=== PATIENT | male | born 1970 | race Caucasian/White ===

== ENCOUNTER 2019-04-30 12:53 | Emergency (ER) | payer OTHER, SELFPAY ==
[2019-04-30 13:10] VITALS: BP 116/78; PULSE 102; RESP 20; TEMP 35.9; O2SAT 98
--- NOTE | 2019-04-30 13:19 | ED.URI ---
HPI - URI/Sore Throat General Chief Complaint: Upper Respiratory Infection Stated Complaint: ear pn/cough/runny nose/nausea Time Seen by Provider: 04/30/19 13:11 Source: patient and RN notes reviewed Mode of arrival: ambulatory Limitations: no limitations History of Present Illness HPI Narrative: Patient presents today with a 2-week history of nasal congestion, ear clogging and ringing, left greater than right, cough, wheezing, nausea. Reports 1 week history of diarrhea. Denies fever sore throat. Reports symptoms have been worsening since onset. History of asthma for which she is he uses a rescue inhaler. He has tried [id number] cough and cold medication as well as Mucinex without relief. MD elicited complaint: cough, nasal congestion and other (Ear pain) Related Data Home Medications Medication Instructions Recorded Confirmed allopurinol 100 mg PO DAILY 01/28/19 04/30/19 prednisone 10 mg PO DAILY 01/28/19 04/30/19 Allergies Allergy/AdvReac Type Severity Reaction Status Date / Time doxycycline Allergy Anaphylaxis Verified 04/30/19 13:10 Review of Systems Review of Systems: Narrative: CONSTITUTIONAL: Denies body aches, fever, chills, or sweats. EYES: Denies visual changes, redness, or discharge. ENT: Denies rhinorrhea, , sore throat. + Bilateral ear pain, ringing, clogging. + Congestion CARDIOVASCULAR: Denies chest pain, palpitations, or edema. RESPIRATORY: + Cough, wheezing GASTROINTESTINAL: Denies abdominal pain, vomiting. + Nausea, diarrhea GENITOURINARY: Denies dysuria or hematuria. SKIN: Denies rash, itching, or wounds. MUSCULOSKELETAL: Denies back pain, joint pain, or myalgia. NEUROLOGIC: Denies headache, numbness, tingling, or weakness. PSYCH: Denies depression or anxiety. 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 Please see nursing chart for further information. There is no relevant family history pertinent to the presenting complaint Exam Narrative: Exam Narrative: GENERAL: Mildly ill-appearing, well-nourished, and in no acute distress. HEAD: Normocephalic, atraumatic. EYES: EOMI. No redness or drainage. Conjunctivae normal. ENT: Mucous membranes pink and moist. Nares congested. No rhinorrhea. Bilateral TMs are severely erythematous and bulging with yellow purulent material. Throat normal. Uvula midline. NECK: Normal AROM. Supple. No lymphadenopathy. CHEST: No respiratory distress. Clear to auscultation. HEART: Regular rate and rhythm. No murmur appreciated. Normal peripheral pulses. EXTREMITIES: Normal range of motion. No edema. SKIN: Warm, dry, no rash. NEURO: No focal deficits. Alert and oriented x3. Gait steady. PSYCH: Normal affect. No signs of depression or anxiety. Course Vital Signs Vital signs: Vital Signs Temperature 96.7 F L 04/30/19 13:10 Pulse Rate 102 H 04/30/19 13:10 Respiratory Rate 04/30/19 13:10 Blood Pressure 116/78 04/30/19 13:10 Pulse Oximetry 98 04/30/19 13:10 Temperature 96.7 F L 04/30/19 13:10 Pulse Rate 102 H 04/30/19 13:10 Respiratory Rate 04/30/19 13:10 Blood Pressure 116/78 04/30/19 13:10 Pulse Oximetry 98 04/30/19 13:10 Reviewed MDM - URI/Sore Throat Differential Diagnosis Differential diagnosis: Likely upper respiratory infection, otit
== END 2019-04-30 13:30 | disposition home or self-care (01) ==
PROVIDERS: Emergency Provider Nurse Practitioner
DX: H66.003 Acute suppurative otitis media without spontaneous rupture of ear drum, bilateral (principal); J45.901 Unspecified asthma with (acute) exacerbation; F17.210 Nicotine dependence, cigarettes, uncomplicated; E11.9 Type 2 diabetes mellitus without complications; M10.9 Gout, unspecified; D89.9 Disorder involving the immune mechanism, unspecified
CPT/HCPCS: 87804; 99213; G0463

== ENCOUNTER 2020-08-25 12:16 | Outpatient (CLI) | payer OTHER, SELFPAY ==
[2020-08-25 12:43] LABS: Basophils Absolute Auto 0.05 K/mm3 (0.00-0.10); Basophils Percent Auto 0.8 % (0.0-1.0); Eosinophils Absolute Auto 0.23 K/mm3 (0.02-0.50); Eosinophils Percent Auto 3.8 % (1.0-6.0); Hematocrit 40.7 % (40.0-54.0); Hemoglobin 14.1 g/dL (14.0-18.0); Immature Granulocyte Absolute 0.02 K/mm3 (0.00-0.00); Immature Granulocyte Percent A 0.3 % (0.0-0.0); Lymphocytes Absolute Auto 2.15 K/mm3 (1.10-4.50); Lymphocytes Percent Auto 35.2 % (18.0-42.0); Mean Corpuscular HGB Conc 34.6 g/dL (32.0-36.0); Mean Corpuscular Hemoglobin 30.7 pg (27.0-31.0); Mean Corpuscular Volume 88.7 fL (78.0-102.0); Mean Platelet Volume 8.7 fl (8.7-11.0); Monocytes Absolute Auto 0.32 K/mm3 (0.10-0.90); Monocytes Percent Auto 5.2 % (2.0-11.0); Neutrophils Absolute Auto 3.3 K/mm3 (1.7-7.2); Neutrophils Percent Auto 54.7 % (50.0-70.0); Platelet Count Result 247 K/mm3 (150-420); Red Blood Count 4.59 M/mm3 (4.70-6.10); Red Cell Distribution Width 12.9 % (11.6-14.4); White Blood Count 6.1 K/mm3 (4.8-10.8)
[2020-08-25 13:47] LABS: Alanine Aminotransferase 26 U/L (16-63); Albumin Level 4.1 g/dL (3.4-5.0); Alkaline Phosphatase 105 U/L (46-116); Anion Gap 14 mmol/L (8-16); Aspartate Amino Transferase 11 U/L (15-37); Bilirubin,Total 0.5 mg/dL (0.00-1.00); Blood Urea Nitrogen 13 mg/dL (7-18); Calcium 8.8 mg/dL (8.5-10.1); Carbon Dioxide 26 mmol/L (21-32); Chloride 104 mmol/L (98-108); Estimated Glomerular Filt Rate > 60; Glucose 141 mg/dL (70-99); Osmolality Calculated 300 mOsm/kg (285-295); Potassium 4.5 mmol/L (3.5-5.1); Sodium 144 mmol/L (136-145); Total Protein 6.4 g/dL (6.4-8.2)
== END 2020-08-25 12:17 | disposition home or self-care (01) ==
PROVIDERS: PCP Family Medicine
DX: L40.9 Psoriasis, unspecified (principal)
CPT/HCPCS: 36415; 80053; 85025

== ENCOUNTER 2020-11-05 11:46 | Outpatient (CLI) | payer OTHER, SELFPAY ==
[2020-11-05 12:05] LABS: Basophils Absolute Auto 0.06 K/mm3 (0.00-0.10); Basophils Percent Auto 0.8 % (0.0-1.0); Eosinophils Absolute Auto 0.49 K/mm3 (0.02-0.50); Eosinophils Percent Auto 6.8 % (1.0-6.0); Hematocrit 44.6 % (40.0-54.0); Hemoglobin 15.1 g/dL (14.0-18.0); Immature Granulocyte Absolute 0.01 K/mm3 (0.00-0.00); Immature Granulocyte Percent A 0.1 % (0.0-0.0); Lymphocytes Absolute Auto 2.85 K/mm3 (1.10-4.50); Lymphocytes Percent Auto 39.4 % (18.0-42.0); Mean Corpuscular HGB Conc 33.9 g/dL (32.0-36.0); Mean Corpuscular Hemoglobin 31.7 pg (27.0-31.0); Mean Corpuscular Volume 93.7 fL (78.0-102.0); Mean Platelet Volume 8.8 fl (8.7-11.0); Monocytes Percent Auto 6.9 % (2.0-11.0); Neutrophils Absolute Auto 3.3 K/mm3 (1.7-7.2); Platelet Count Result 266 K/mm3 (150-420); Red Blood Count 4.76 M/mm3 (4.70-6.10); Red Cell Distribution Width 13.7 % (11.6-14.4); White Blood Count 7.2 K/mm3 (4.8-10.8)
[2020-11-05 12:36] LABS: Alanine Aminotransferase 47 U/L (16-63); Albumin Level 4.5 g/dL (3.4-5.0); Alkaline Phosphatase 100 U/L (46-116); Anion Gap 10 mmol/L (8-16); Aspartate Amino Transferase 20 U/L (15-37); Bilirubin,Total 0.8 mg/dL (0.00-1.00); Blood Urea Nitrogen 16 mg/dL (7-18); Calcium 9.3 mg/dL (8.5-10.1); Carbon Dioxide 29 mmol/L (21-32); Chloride 104 mmol/L (98-108); Estimated Glomerular Filt Rate > 60; Glucose 114 mg/dL (70-99); Osmolality Calculated 298 mOsm/kg (285-295); Potassium 4.4 mmol/L (3.5-5.1); Sodium 143 mmol/L (136-145); Total Protein 6.8 g/dL (6.4-8.2)
== END 2020-11-05 11:47 | disposition home or self-care (01) ==
LOC: CHSLAB 11:51
PROVIDERS: PCP Family Medicine
DX: Z79.899 Other long term (current) drug therapy (principal)
CPT/HCPCS: 36415; 80053; 85025

== ENCOUNTER 2021-10-19 10:11 | Outpatient (CLI) | payer OTHER, SELFPAY ==
--- NOTE | 2021-10-19 | ECG_ITS ---
Measurements Intervals [place] Rate: 58 P: 28 HI: 200 QRS: -10 QRSD: 95 T: 13 QT: 393 QTc: 387 Interpretive Statements SINUS BRADYCARDIA LOW QRS VOLTAGE IN PRECORDIAL LEADS [QRS DEFLECTION < 1.0 mV IN CHEST LEADS] NO PREVIOUS ECG AVAILABLE FOR COMPARISON Electronically Signed On 10-19-2021 19:58:48 CDT by Ros Rhodes M.D.
== END 2021-10-19 10:12 | disposition home or self-care (01) ==
PROVIDERS: PCP Family Medicine; Visit Provider Nurse Practitioner Adult Health
DX: R00.2 Palpitations (principal); R07.9 Chest pain, unspecified
CPT/HCPCS: 93005

== ENCOUNTER 2021-11-21 11:11 | Outpatient (CLI) | payer OTHER, SELFPAY ==
--- NOTE | ~2021-11-21 | XR_ITS ---
XR hip RT min 2V 11/21/2021 11:40 Indication: Right hip pain. Bursitis. Procedure: 2 views right hip Comparison: No prior studies for comparison. Findings: There is mixed lytic and sclerotic appearance to the femoral head, suspicious for avascular necrosis. There is a sclerotic tract in the right femoral neck, likely posttraumatic. No acute fract ure or traumatic malalignment. Impression: 1: No acute fracture. 2: Possible avascular necrosis of the femoral head. Reviewed, dictated and finalized at location A. Impression: 1: No acute fracture. 2: Possible avascular necrosis of the femoral head.
== END 2021-11-21 11:12 | disposition home or self-care (01) ==
PROVIDERS: PCP Family Medicine; Visit Provider Nurse Practitioner Adult Health
DX: M70.71 Other bursitis of hip, right hip (principal)
CPT/HCPCS: 73502

== ENCOUNTER 2021-11-25 10:02 | Outpatient (CLI) | payer OTHER, SELFPAY ==
--- NOTE | ~2021-11-25 | NM_ITS ---
EXAMINATION: NM vasyl stress w perfusion DATE: 11/25/2021 12:51 INDICATION: Chest pain, unspecified. TECHNIQUE: Rest images were obtained following intravenous administration of 9.5 mCi Tc99m tetrofosmi n (Myoview). The patient was infused intravenously with Lexiscan (regadenoson). Then, 29.2 mCi Tc99m tetrofosmin (Myoview) was administered intravenously, and stress images were obtained. Data was recon structed into short axis and horizontal and vertical long axis SPECT images. Gated SPECT images were also obtained. COMPARISON: CT abdomen and pelvis 09/05/2013 FINDINGS: There is no definite reversible or fixed perfusion abnormality to suggest ischemia or infar ction. There is no segmental wall motion abnormality. Left ventricular ejection fraction measures 5 0%. IMPRESSION: 1. No definite ischemia or infarct. 2. Normal left ventricular ejection fraction measuring 50%. Reviewed, dictated and finalized at location B.
--- NOTE | 2021-11-25 10:16 | EST_ITS ---
Patient Info Name: Moustapha Peter Age: 51 years : 1970 Gender: Male Ht: 72 in Wt: 250 lbs BSA: 2.44 m2 HR: 65 bpm BP: 115 / 78 mmHg Heart Rhythm: Sinus Rhythm Exam Date: 11/25/2021 11:25 AM Exam Location: [facility] Stress Patient Status: Outpatient Admit Date: 11/25/2021 Staff Ordering Physician: Lenard Macario DO Attending Provider: Lenard Macario DO Exercise Technologist: Nickie Roblero CT Exercise Physician: Lenard Macario DO Exam Type: CA stress vasyl w NM Study Info Indications R07.9 - Chest pain, unspecified A regadenoson stress test was performed. Summary 1. 1. Negative lexiscan stress test for ischemic ST changes by ECG criteria. 2. 2. Stable hemodynamics throughout the test. 3. 3. Nuclear scan to follow and will be reported separately. Please correlate with it. 4. 4. Patient informed of the above results. Protocol: Lexiscan Stress ECG Details Stage: REST Duration (min): 0 min : 54 sec HR (bpm): 65 SBP (mmHg): 115 DBP (mmHg): 78 Stage: REST Duration (min): 16 min : 1 sec HR (bpm): 67 SBP (mmHg): 115 DBP (mmHg): 78 Stage: STAGE 1 Duration (min): 0 min : 59 sec HR (bpm): 89 SBP (mmHg): 116 DBP (mmHg): 87 Stage: RECOVERY Duration (min): 1 min : 0 sec HR (bpm): 86 SBP (mmHg): 116 DBP (mmHg): 87 Stage: RECOVERY Duration (min): 2 min : 0 sec HR (bpm): 79 SBP (mmHg): 116 DBP (mmHg): 87 Stage: RECOVERY Duration (min): 2 min : 54 sec HR (bpm): 75 SBP (mmHg): 118 DBP (mmHg): 83 Rest HR: 67 bpm Peak HR: 89 bpm Rest Sys BP: 115 mmHg Peak Sys BP: 118 mmHg Max Pred HR: 170 bpm % Max Pred HR: 52 % Target HR: 145 bpm Max RPP: 10,502 bpm*mmHg Termination Reason: Completed protocol Cardiac Symptoms: Shortness of breath Total Time: 1 min : 0 sec Rest Elias BP: 78 mmHg Peak Elias BP: 83 mmHg Total Dose: 0.4 mg Resting ECG Sinus rhythm, low voltage in precordial leads, borderline T wave in anterolat/inf leads. Stress ECG No ST changes. Arrhythmias None. Report Signatures
== END 2021-11-25 10:03 | disposition home or self-care (01) ==
PROVIDERS: PCP Family Medicine; Visit Provider Internal Medicine Cardiovascular Disease
DX: R07.9 Chest pain, unspecified (principal)
CPT/HCPCS: 78452; 93017; A9502; J2785

== ENCOUNTER 2022-04-04 08:21 | Outpatient (CLI) | payer OTHER, SELFPAY ==
--- NOTE | 2022-04-22 21:33 | WPDHOMESLEEP ---
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 The patient occasionally awakens from sleep short of breath. He occasionally awakens at night with heartburn, belching or cough. He constantly snores loudly enough that others complain. He occasionally has trouble sleeping when he has a cold. He rarely wakes up gasping for air throughout the night. He frequently has breathing problems at night observed by himself or others. He occasionally sweats excessively at night. He frequently has heart palpitations or irregular heartbeats during the night. He occasionally falls asleep during the day but rarely falls asleep while driving. He rarely experiences loss of muscle tone when extremely emotional. He rarely has trouble at school or work due to sleepiness. He rarely feels unable to move when waking up or falling asleep. He rarely experiences vivid dreamlike scenes upon awakening or falling asleep. He occasionally feels afraid of going to sleep. He rarely has nightmares. He occasionally remembers his dreams. He occasionally has thoughts racing through his mind. He occasionally feels sad, depressed and anxious. He occasionally has muscular tension. He frequently notices parts of his body jerk. He frequently kicks during the night. He frequently has crawling and aching feelings in his legs and frequently has leg pain during the night. He denies grinding his teeth during sleep but occasionally awakens with morning jaw pain. He is constantly bothered by pain during the day and constantly awakened by pain during the night. He constantly wakes up feeling stiff in the morning. He constantly wakes up with sore or achy muscles. He frequently wakes up with pain in the neck, spine or other joints. He goes to bed at 2:00 a.m. on both weekdays and weekends. It takes him 30-45 minutes to fall asleep. He wakes up 3-5 times throughout the night to urinate or due to pain. He is able to fall back asleep within a few minutes. He wakes up between 8-10 a.m. on both weekdays and weekends. He typically gets 6-8 hours of sleep per night. He will stay in bed for a few minutes after waking up in the morning. He currently lives with his and child. He will consume caffeinated beverages within 2 hours of bedtime. He does not engage in physical exercise before bedtime. He will watch television before falling asleep. He denies taking naps in the afternoon or the evening. He drinks a few cups of caffeinated beverage per day. He is a former smoker. He denies alcohol and recreational drug use. 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
[2022-04-22 21:51] VITALS: BMI 33.2
--- NOTE | 2022-06-23 12:56 | SLEEP ---
New calls [id number]
== END 2022-04-11 09:25 | disposition home or self-care (01) ==
LOC: ANHCSM 08:22
PROVIDERS: PCP Family Medicine; Visit Provider Internal Medicine Cardiovascular Disease
DX: G47.10 Hypersomnia, unspecified (principal); G47.33 Obstructive sleep apnea (adult) (pediatric)
CPT/HCPCS: 95806

== ENCOUNTER 2022-05-18 19:46 | Outpatient (CLI) | payer OTHER, SELFPAY ==
--- NOTE | 2022-06-07 11:09 | SLEEP_ITS ---
This report was moved to the correct visit on 06/28/2022. Original report was signed by Andreina Zazueta MD 06/07/22 [id number]. 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 On 04/04/2022 he had a home sleep test with moderate obstructive sleep apnea AHI 29.8 with severe desaturation to 40%. He has palpitations. The patient occasionally awakens from sleep short of breath.? He occasionally awakens at night with heartburn, belching or cough.? He constantly snores loudly enough that others complain.? He occasionally has trouble sleeping when he has a cold.? He rarely wakes up gasping for air throughout the night.? He frequently has breathing problems at night observed by himself or others.? He occasionally sweats excessively at night.? He frequently has heart palpitations or irregular heartbeats during the night.? He occasionally falls asleep during the day but rarely falls asleep while driving.? He rarely experiences loss of muscle tone when extremely emotional.? He rarely has trouble at school or work due to sleepiness.? He rarely feels unable to move when waking up or falling asleep.? He rarely experiences vivid dreamlike scenes upon awakening or falling asleep.? He occasionally feels afraid of going to sleep.? He rarely has nightmares.? He occasionally remembers his dreams.? He occasionally has thoughts racing through his mind.? He occasionally feels sad, depressed and anxious.? He occasionally has muscular tension.? He frequently notices parts of his body jerk.? He frequently kicks during the night.? He frequently has crawling and aching feelings in his legs and frequently has leg pain during the night.? He denies grinding his teeth during sleep but occasionally awakens with morning jaw pain.? He is constantly bothered by pain during the day and constantly awakened by pain during the night.? He constantly wakes up feeling stiff in the morning.? He constantly wakes up with sore or achy muscles.? He frequently wakes up with pain in the neck, spine or other joints.? He goes to bed at 2:00 a.m. on both weekdays and weekends.? It takes him 30-45 minutes to fall asleep.? He wakes up 3-5 times throughout the night to urinate or due to pain.? He is able to fall back asleep within a few minutes.? He wakes up between 8-10 a.m. on both weekdays and weekends.? He typically gets 6-8 hours of sleep per night.? He will stay in bed for a few minutes after waking up in the morning.? He currently lives with his and child.? He will consume caffeinated beverages within 2 hours of bedtime.? He does not engage in physical exercise before bedtime.? He will watch television before falling asleep.? He denies taking naps in the afternoon or the evening.? He drinks a few cups of caffeinated beverage per day.? He is a former smoker. He denies alcohol and recreational drug use. 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
== END 2022-05-19 05:53 | disposition home or self-care (01) ==
PROVIDERS: PCP Family Medicine; Visit Provider Internal Medicine Cardiovascular Disease
DX: G47.33 Obstructive sleep apnea (adult) (pediatric) (principal)
CPT/HCPCS: 95811

== ENCOUNTER 2022-07-03 10:18 | Outpatient (CLI) | payer OTHER, SELFPAY ==
[2022-07-03 10:54] LABS: Hemoglobin A1C 5.5 % (<5.7)
[2022-07-03 11:04] LABS: Alanine Aminotransferase 43 U/L (6-50); Albumin Level 4.4 g/dL (3.5-5.1); Alkaline Phosphatase 88 U/L (38-126); Anion Gap 6 mmol/L (8-16); Aspartate Amino Transferase 32 U/L (17-59); Bilirubin,Total 0.6 mg/dL (0.2-1.3); Blood Urea Nitrogen 14 mg/dL (9-20); Carbon Dioxide 29 mmol/L (22-30); Chloride 103 mmol/L (98-107); Cholesterol 215 mg/dL (0-200); Estimated Glomerular Filt Rate > 60; Glucose 102 mg/dL (65-110); HDL Direct 43 mg/dL; Potassium 4.3 mmol/L (3.4-5.0); Sodium 138 mmol/L (137-145); Triglycerides 146 mg/dL (<150)
[2022-07-03 11:14] LABS: LDL Cholesterol Direct 143 mg/dL
== END 2022-07-03 10:19 | disposition home or self-care (01) ==
PROVIDERS: PCP Family Medicine; Referring Provider Family Medicine; Visit Provider Internal Medicine Cardiovascular Disease
DX: E78.5 Hyperlipidemia, unspecified (principal); E11.9 Type 2 diabetes mellitus without complications
CPT/HCPCS: 36415; 80053; 80061; 83036

== ENCOUNTER 2022-09-06 11:14 | Outpatient (CLI) | payer OTHER, SELFPAY ==
[2022-09-06 12:25] LABS: Alanine Aminotransferase 34 U/L (6-50); Albumin Level 4.5 g/dL (3.5-5.1); Alkaline Phosphatase 91 U/L (38-126); Anion Gap 8 mmol/L (8-16); Aspartate Amino Transferase 28 U/L (17-59); Blood Urea Nitrogen 13 mg/dL (9-20); Calcium 9.2 mg/dL (8.4-10.2); Carbon Dioxide 28 mmol/L (22-30); Chloride 102 mmol/L (98-107); Cholesterol 158 mg/dL (0-200); Estimated Glomerular Filt Rate > 60; Glucose 103 mg/dL (65-110); HDL Direct 43 mg/dL; Sodium 138 mmol/L (137-145); Triglycerides 137 mg/dL (<150)
[2022-09-06 12:36] LABS: LDL Cholesterol Direct 86 mg/dL
== END 2022-09-06 11:15 | disposition home or self-care (01) ==
LOC: ANHLAB 11:15
PROVIDERS: PCP Family Medicine; Visit Provider Internal Medicine Cardiovascular Disease
DX: E78.5 Hyperlipidemia, unspecified (principal)
CPT/HCPCS: 36415; 80053; 80061

== ENCOUNTER 2022-10-13 10:01 | Outpatient (CLI) | payer OTHER, SELFPAY ==
[2022-10-13 12:52] LABS: Hemoglobin A1C 5.7 % (<5.7)
== END 2022-10-13 10:02 | disposition home or self-care (01) ==
LOC: ANHLAB 10:02
PROVIDERS: PCP Family Medicine; Visit Provider Nurse Practitioner Adult Health
DX: E11.9 Type 2 diabetes mellitus without complications (principal)
CPT/HCPCS: 36415; 83036

== ENCOUNTER 2022-11-29 11:24 | Outpatient (CLI) | payer OTHER, SELFPAY ==
[2022-11-29 12:06] LABS: Basophils Absolute Auto 0.1 K/mm3 (0.0-0.1); Basophils Percent Auto 0.7 % (0.2-1.2); Eosinophils Absolute Auto 0.3 K/mm3 (0-0.3); Eosinophils Percent Auto 3.9 % (0-4.4); Hematocrit 41.5 % (42.0-52.0); Hemoglobin 13.8 g/dL (14.0-18.0); Immature Granulocyte Absolute 0.03 K/mm3 (0.00-0.031); Immature Granulocyte Percent A 0.4 % (0-0.5); Lymphocytes Absolute Auto 3.47 K/mm3 (0.9-3.2); Lymphocytes Percent Auto 48.7 % (18.3-44.2); Mean Corpuscular HGB Conc 33.3 g/dl (32-36); Mean Corpuscular Hemoglobin 31.2 pg (26-34); Mean Corpuscular Volume 93.7 fl (80-100); Mean Platelet Volume 8.9 fl (7.4-10.4); Monocytes Absolute Auto 0.5 K/mm3 (0.1-0.6); Monocytes Percent Auto 6.5 % (2.6-8.5); Neutrophils Absolute Auto 2.8 K/mm3 (1.3-6.7); Neutrophils Percent Auto 39.8 % (45.5-73.1); Platelet Count Result 296 k/mm3 (150-375); Red Blood Count 4.43 M/mm3 (4.6-6.20); Red Cell Distribution Width 12.4 % (11.5-14.5); White Blood Count 7.1 K/mm3 (4.5-10.0)
[2022-11-29 12:14] LABS: Appearance Urine Clear (Clear); Bilirubin Urine Negative (Negative); Blood Urine Negative (Negative); Color Urine Yellow (Yellow); Glucose Urine UA Negative (Negative); Ketones Urine Negative (Negative); Leukocyte Esterase Ur Negative LEU/UL (NEGATIVE); Nitrate Urine Negative (Negative); Protein Urine Negative (Negative); Specific Grav Ur 1.028 (1.001-1.035)
[2022-11-29 12:15] LABS: Alanine Aminotransferase 35 U/L (6-50); Albumin Level 3.9 g/dL (3.5-5.1); Alkaline Phosphatase 87 U/L (38-126); Anion Gap 6 mmol/L (8-16); Aspartate Amino Transferase 34 U/L (17-59); Bilirubin,Total 0.7 mg/dL (0.2-1.3); Blood Urea Nitrogen 13 mg/dL (9-20); Calcium 8.9 mg/dL (8.4-10.2); Carbon Dioxide 29 mmol/L (22-30); Chloride 102 mmol/L (98-107); Estimated Glomerular Filt Rate > 60; Glucose 108 mg/dL (65-110); Sodium 137 mmol/L (137-145); Uric Acid 5.2 mg/dL (3.5-8.5)
[2022-11-29 12:39] LABS: Creatinine Urine 273.2 mg/dL
[2022-11-29 12:43] LABS: Microalbumin Urine Random 8.3 mg/L (0-16.7)
[2022-11-29 12:44] LABS: Add Urine Microscopic? NO
[2022-11-29 12:46] LABS: Total Triiodothyronine (T3) 1.85 NG/ML (0.97-1.69)
[2022-11-29 13:01] LABS: Free T4 Free Thyroxine 0.86 ng/mL (0.78-2.19)
== END 2022-11-29 11:25 | disposition home or self-care (01) ==
LOC: ANHLAB 11:25
PROVIDERS: PCP Family Medicine; Visit Provider Nurse Practitioner Adult Health
DX: R00.2 Palpitations (principal)
CPT/HCPCS: 36415; 80053; 81003; 82043; 84439; 84443; 84480; 84550; 85025

== ENCOUNTER 2023-03-23 09:45 | Outpatient (CLI) | payer OTHER, SELFPAY ==
[2023-03-23 10:31] LABS: Basophils Absolute Auto 0.1 K/mm3 (0.0-0.1); Basophils Percent Auto 0.8 % (0.2-1.2); Eosinophils Absolute Auto 0.2 K/mm3 (0-0.3); Eosinophils Percent Auto 3.6 % (0-4.4); Hematocrit 43.5 % (42.0-52.0); Hemoglobin 14.6 g/dL (14.0-18.0); Immature Granulocyte Absolute 0.01 K/mm3 (0.00-0.031); Immature Granulocyte Percent A 0.2 % (0-0.5); Lymphocytes Absolute Auto 2.84 K/mm3 (0.9-3.2); Lymphocytes Percent Auto 46.4 % (18.3-44.2); Mean Corpuscular HGB Conc 33.6 g/dl (32-36); Mean Corpuscular Hemoglobin 31.3 pg (26-34); Mean Corpuscular Volume 93.1 fl (80-100); Mean Platelet Volume 8.9 fl (7.4-10.4); Monocytes Absolute Auto 0.4 K/mm3 (0.1-0.6); Monocytes Percent Auto 6.4 % (2.6-8.5); Neutrophils Absolute Auto 2.6 K/mm3 (1.3-6.7); Neutrophils Percent Auto 42.6 % (45.5-73.1); Platelet Count Result 216 k/mm3 (150-375); Red Blood Count 4.67 M/mm3 (4.6-6.20); Red Cell Distribution Width 12.3 % (11.5-14.5); White Blood Count 6.1 K/mm3 (4.5-10.0)
[2023-03-23 10:47] LABS: Alanine Aminotransferase 28 U/L (6-50); Albumin Level 4.3 g/dL (3.5-5.1); Alkaline Phosphatase 87 U/L (38-126); Anion Gap 7 mmol/L (8-16); Aspartate Amino Transferase 27 U/L (17-59); Bilirubin,Total 1.1 mg/dL (0.2-1.3); Blood Urea Nitrogen 14 mg/dL (9-20); Calcium 9.7 mg/dL (8.4-10.2); Carbon Dioxide 26 mmol/L (22-30); Chloride 105 mmol/L (98-107); Cholesterol 163 mg/dL (0-200); Estimated Glomerular Filt Rate > 60; Glucose 105 mg/dL (65-110); HDL Direct 41 mg/dL; Potassium 4.3 mmol/L (3.4-5.0); Sodium 138 mmol/L (137-145); Triglycerides 188 mg/dL (<150); Uric Acid 5.1 mg/dL (3.5-8.5)
[2023-03-23 11:02] LABS: Hemoglobin A1C 6.2 % (<5.7)
[2023-03-23 11:03] LABS: LDL Cholesterol Direct 94 mg/dL
[2023-03-23 11:18] LABS: Free T4 Free Thyroxine 0.82 ng/mL (0.78-2.19); Prostate Specific Antigen 0.4 ng/mL (< OR = 4.0); Total Triiodothyronine (T3) 1.53 NG/ML (0.97-1.69); Vitamin D 25 Hydroxy 18.8 ng/mL
[2023-03-27 03:48] LABS: Sex Hormone Binding Globulin 37 nmol/L (10-50)
[2023-03-27 11:18] LABS: Testosterone Total 242 ng/dL (250-1100)
[2023-03-28 05:50] LABS: FSH 46.1 mIU/mL (1.4-12.8); LH 9.1 mIU/mL (1.5-9.3); Prolactin 6.8 ng/mL (***)
== END 2023-03-23 09:46 | disposition home or self-care (01) ==
PROVIDERS: PCP Family Medicine
DX: E78.5 Hyperlipidemia, unspecified (principal); R73.01 Impaired fasting glucose; I10 Essential (primary) hypertension; M10.9 Gout, unspecified
CPT/HCPCS: 36415; 80053; 80061; 82306; 83001; 83002; 83036; 84146; 84153; 84270; 84402; 84403; 84439; 84443; 84480; 84550; 85025

== ENCOUNTER 2023-04-30 11:05 | Outpatient (CLI) | payer OTHER, SELFPAY ==
[2023-04-30 11:41] LABS: Basophils Absolute Auto 0.1 K/mm3 (0.0-0.1); Basophils Percent Auto 0.8 % (0.2-1.2); Eosinophils Absolute Auto 0.3 K/mm3 (0-0.3); Hemoglobin 14.6 g/dL (14.0-18.0); Immature Granulocyte Absolute 0.03 K/mm3 (0.00-0.031); Immature Granulocyte Percent A 0.4 % (0-0.5); Lymphocytes Absolute Auto 3.12 K/mm3 (0.9-3.2); Lymphocytes Percent Auto 41.5 % (18.3-44.2); Mean Corpuscular HGB Conc 33.2 g/dl (32-36); Mean Corpuscular Hemoglobin 31.6 pg (26-34); Mean Corpuscular Volume 95.2 fl (80-100); Mean Platelet Volume 9.1 fl (7.4-10.4); Monocytes Absolute Auto 0.5 K/mm3 (0.1-0.6); Monocytes Percent Auto 6.5 % (2.6-8.5); Neutrophils Absolute Auto 3.5 K/mm3 (1.3-6.7); Neutrophils Percent Auto 46.8 % (45.5-73.1); Platelet Count Result 244 k/mm3 (150-375); Red Blood Count 4.62 M/mm3 (4.6-6.20); White Blood Count 7.5 K/mm3 (4.5-10.0)
[2023-04-30 12:39] LABS: Hemoglobin A1C 5.9 % (<5.7)
[2023-04-30 12:53] LABS: Creatinine Urine 103.8 mg/dL
[2023-04-30 12:54] LABS: MALB Creatinine Ratio 19.7 mg/g (0-30); Microalbumin Urine Random 20.4 mg/L (0-16.7)
[2023-04-30 13:31] LABS: Free T4 Free Thyroxine 0.68 ng/mL (0.78-2.19)
[2023-04-30 14:28] LABS: Alanine Aminotransferase 23 U/L (6-50); Albumin Level 4.1 g/dL (3.5-5.1); Alkaline Phosphatase 102 U/L (38-126); Anion Gap 4 mmol/L (8-16); Aspartate Amino Transferase 21 U/L (17-59); Bilirubin,Total 0.8 mg/dL (0.2-1.3); Blood Urea Nitrogen 10 mg/dL (9-20); Calcium 9.4 mg/dL (8.4-10.2); Carbon Dioxide 28 mmol/L (22-30); Chloride 106 mmol/L (98-107); Cholesterol 155 mg/dL (0-200); Estimated Glomerular Filt Rate > 60; Glucose 108 mg/dL (65-110); HDL Direct 38 mg/dL; Potassium 4.1 mmol/L (3.4-5.0); Sodium 138 mmol/L (137-145); Triglycerides 183 mg/dL (<150); Uric Acid 5.1 mg/dL (3.5-8.5)
[2023-04-30 14:39] LABS: LDL Cholesterol Direct 93 mg/dL
[2023-04-30 15:00] LABS: Prostate Specific Antigen 0.5 ng/mL (< OR = 4.0); Total Triiodothyronine (T3) 1.17 NG/ML (0.97-1.69)
[2023-04-30 17:08] LABS: Vitamin D 25 Hydroxy 28.8 ng/mL
== END 2023-04-30 11:06 | disposition home or self-care (01) ==
LOC: ANHLAB 11:08
PROVIDERS: PCP Family Medicine; Visit Provider Family Medicine
DX: M62.81 Muscle weakness (generalized) (principal); E55.9 Vitamin D deficiency, unspecified; I10 Essential (primary) hypertension; E03.9 Hypothyroidism, unspecified; E78.5 Hyperlipidemia, unspecified; E11.9 Type 2 diabetes mellitus without complications; D64.9 Anemia, unspecified; N40.0 Benign prostatic hyperplasia without lower urinary tract symptoms
CPT/HCPCS: 36415; 80053; 80061; 82043; 82306; 83036; 84153; 84439; 84443; 84480; 84550; 85025; G0103

== ENCOUNTER 2023-05-25 07:26 | Outpatient (CLI) | payer OTHER, SELFPAY ==
--- NOTE | ~2023-05-25 | CT_ITS ---
EXAMINATION: CT lung screening DATE: 05/25/2023 07:40 INDICATION: Z87.891 - Personal history of nicotine dependence TECHNIQUE: Computed tomography (CT) of the chest was performed without intravenous contrast. Addition al 3D reconstructions utilizing coronal maximum intensity projection (MIP) were performed. Automated exposure control and iterative reconstruction technique were employed. The dose-length product was 36 1.51 mGy-cm. COMPARISON: None FINDINGS: Calcified nodules in the right upper and bilateral lower lobes along with calcified bilateral hilar a nd mediastinal lymph nodes consistent with old granulomatous disease. No other noncalcified nodules, pneumonia, pulmonary edema or other pulmonary infiltrates. Mild atelectasis at the right middle lobe and lingula. No pleural effusion. Thoracic aorta is normal in caliber. Small amount of atheroscleroti c coronary artery calcifications. No pericardial effusion. Thoracic aorta is normal in caliber. No pa thologically enlarged thoracic lymphadenopathy. Diffuse hepatic steatosis with focal sparing along th e gallbladder fossa. A few calcified gallstones in the midaspect of the visualized normal-appearing g allbladder. Mild thoracic spondylosis. IMPRESSION: 1. Lung-RADS category 1: Negative. Continue annual screening with noncontrast low-dose chest CT in 12 months. Reviewed, dictated and finalized at location A. IMPRESSION: 1. Lung-RADS category 1: Negative. Continue annual screening with noncontrast l ow-dose chest CT in 12 months.
== END 2023-05-25 07:27 | disposition home or self-care (01) ==
PROVIDERS: PCP Family Medicine; Visit Provider Nurse Practitioner Family
DX: Z12.2 Encounter for screening for malignant neoplasm of respiratory organs (principal); Z87.891 Personal history of nicotine dependence
CPT/HCPCS: 71271

== ENCOUNTER 2023-08-28 10:33 | Outpatient (CLI) | payer OTHER, SELFPAY ==
[2023-08-28 10:55] LABS: Basophils Percent Auto 0.4 % (0.2-1.2); Eosinophils Absolute Auto 0.2 K/mm3 (0-0.3); Eosinophils Percent Auto 2.6 % (0-4.4); Hematocrit 46.2 % (42.0-52.0); Hemoglobin 15.5 g/dL (14.0-18.0); Immature Granulocyte Absolute 0.02 K/mm3 (0.00-0.031); Immature Granulocyte Percent A 0.3 % (0-0.5); Lymphocytes Absolute Auto 2.92 K/mm3 (0.9-3.2); Lymphocytes Percent Auto 42.9 % (18.3-44.2); Mean Corpuscular HGB Conc 33.5 g/dl (32-36); Mean Corpuscular Hemoglobin 31.9 pg (26-34); Mean Corpuscular Volume 95.1 fl (80-100); Mean Platelet Volume 8.8 fl (7.4-10.4); Monocytes Absolute Auto 0.5 K/mm3 (0.1-0.6); Monocytes Percent Auto 6.6 % (2.6-8.5); Neutrophils Absolute Auto 3.2 K/mm3 (1.3-6.7); Neutrophils Percent Auto 47.2 % (45.5-73.1); Platelet Count Result 219 k/mm3 (150-375); Red Blood Count 4.86 M/mm3 (4.6-6.20); Red Cell Distribution Width 12.3 % (11.5-14.5); White Blood Count 6.8 K/mm3 (4.5-10.0)
[2023-08-28 11:21] LABS: Alanine Aminotransferase 23 U/L (6-50); Albumin Level 4.5 g/dL (3.5-5.1); Alkaline Phosphatase 101 U/L (38-126); Anion Gap 10 mmol/L (4-12); Aspartate Amino Transferase 23 U/L (17-59); Bilirubin,Total 0.9 mg/dL (0.2-1.3); Blood Urea Nitrogen 12 mg/dL (9-20); Calcium 9.4 mg/dL (8.4-10.2); Carbon Dioxide 27 mmol/L (22-30); Chloride 103 mmol/L (98-107); Cholesterol 150 mg/dL (0-200); Estimated Glomerular Filt Rate > 60; Glucose 109 mg/dL (65-110); HDL Direct 42 mg/dL; Potassium 4.8 mmol/L (3.4-5.0); Sodium 140 mmol/L (137-145); Triglycerides 164 mg/dL (<150); Uric Acid 5.9 mg/dL (3.5-8.5)
[2023-08-28 11:31] LABS: LDL Cholesterol Direct 86 mg/dL
[2023-08-29 18:12] LABS: Hemoglobin A1C 5.9 % (<5.7)
== END 2023-08-28 10:34 | disposition home or self-care (01) ==
PROVIDERS: PCP Family Medicine; Visit Provider Registered Nurse
DX: M10.9 Gout, unspecified (principal); E78.5 Hyperlipidemia, unspecified; I10 Essential (primary) hypertension; R73.01 Impaired fasting glucose
CPT/HCPCS: 36415; 80053; 80061; 83036; 84550; 85025

== ENCOUNTER 2023-09-17 11:52 | Outpatient (CLI) | payer OTHER, SELFPAY ==
[2023-09-17 13:15] LABS: Prostate Specific Antigen 0.7 ng/mL (< OR = 4.0)
== END 2023-09-17 11:53 | disposition home or self-care (01) ==
LOC: ANHLAB 11:54
PROVIDERS: PCP Family Medicine; Visit Provider Registered Nurse
DX: Z12.5 Encounter for screening for malignant neoplasm of prostate (principal)
CPT/HCPCS: 36415; 80053; 84153; 85025; G0103

== ENCOUNTER 2023-11-14 10:41 | Outpatient (CLI) | payer OTHER, SELFPAY ==
[2023-11-14 12:03] LABS: Creatinine Urine 325.1 mg/dL
[2023-11-14 12:07] LABS: Microalbumin Urine Random 45.6 mg/L (0-16.7)
== END 2023-11-14 10:42 | disposition home or self-care (01) ==
LOC: ANHLAB 10:43
PROVIDERS: PCP Family Medicine; Visit Provider Family Medicine
DX: R73.03 Prediabetes (principal)
CPT/HCPCS: 82043

== ENCOUNTER 2023-11-14 10:47 | Outpatient (RCR) | payer OTHER, SELFPAY ==
[2023-09-17 12:40] LABS: Basophils Percent Auto 0.5 % (0.2-1.2); Eosinophils Absolute Auto 0.1 K/mm3 (0-0.3); Hematocrit 46.9 % (42.0-52.0); Hemoglobin 15.7 g/dL (14.0-18.0); Immature Granulocyte Absolute 0.01 K/mm3 (0.00-0.031); Immature Granulocyte Percent A 0.1 % (0-0.5); Lymphocytes Absolute Auto 3.16 K/mm3 (0.9-3.2); Lymphocytes Percent Auto 40.9 % (18.3-44.2); Mean Corpuscular HGB Conc 33.5 g/dl (32-36); Mean Corpuscular Hemoglobin 31.4 pg (26-34); Mean Corpuscular Volume 93.8 fl (80-100); Mean Platelet Volume 9.2 fl (7.4-10.4); Monocytes Absolute Auto 0.5 K/mm3 (0.1-0.6); Neutrophils Percent Auto 51.5 % (45.5-73.1); Platelet Count Result 229 k/mm3 (150-375); Red Cell Distribution Width 12.8 % (11.5-14.5); White Blood Count 7.7 K/mm3 (4.5-10.0)
[2023-09-17 12:44] LABS: Alanine Aminotransferase 23 U/L (6-50); Albumin Level 4.7 g/dL (3.5-5.1); Alkaline Phosphatase 84 U/L (38-126); Anion Gap 10 mmol/L (4-12); Aspartate Amino Transferase 25 U/L (17-59); Blood Urea Nitrogen 14 mg/dL (9-20); Calcium 9.4 mg/dL (8.4-10.2); Carbon Dioxide 28 mmol/L (22-30); Chloride 100 mmol/L (98-107); Estimated Glomerular Filt Rate > 60; Glucose 103 mg/dL (65-110); Potassium 4.8 mmol/L (3.4-5.0); Sodium 138 mmol/L (137-145)
[2023-10-18 11:43] LABS: Basophils Percent Auto 0.5 % (0.2-1.2); Eosinophils Absolute Auto 0.1 K/mm3 (0-0.3); Eosinophils Percent Auto 1.6 % (0-4.4); Hematocrit 43.4 % (42.0-52.0); Hemoglobin 14.8 g/dL (14.0-18.0); Immature Granulocyte Absolute 0.01 K/mm3 (0.00-0.031); Immature Granulocyte Percent A 0.2 % (0-0.5); Lymphocytes Absolute Auto 2.86 K/mm3 (0.9-3.2); Lymphocytes Percent Auto 45.6 % (18.3-44.2); Mean Corpuscular HGB Conc 34.1 g/dl (32-36); Mean Corpuscular Hemoglobin 31.8 pg (26-34); Mean Corpuscular Volume 93.1 fl (80-100); Mean Platelet Volume 8.8 fl (7.4-10.4); Monocytes Absolute Auto 0.3 K/mm3 (0.1-0.6); Monocytes Percent Auto 4.5 % (2.6-8.5); Neutrophils Percent Auto 47.6 % (45.5-73.1); Platelet Count Result 232 k/mm3 (150-375); Red Blood Count 4.66 M/mm3 (4.6-6.20); Red Cell Distribution Width 13.3 % (11.5-14.5); White Blood Count 6.3 K/mm3 (4.5-10.0)
[2023-10-18 11:55] LABS: Alanine Aminotransferase 39 U/L (6-50); Albumin Level 4.6 g/dL (3.5-5.1); Alkaline Phosphatase 74 U/L (38-126); Anion Gap 13 mmol/L (4-12); Aspartate Amino Transferase 37 U/L (17-59); Bilirubin,Total 1.1 mg/dL (0.2-1.3); Blood Urea Nitrogen 15 mg/dL (9-20); Calcium 9.5 mg/dL (8.4-10.2); Carbon Dioxide 25 mmol/L (22-30); Chloride 98 mmol/L (98-107); Estimated Glomerular Filt Rate > 60; Glucose 95 mg/dL (65-110); Potassium 4.3 mmol/L (3.4-5.0); Sodium 136 mmol/L (137-145)
[2023-11-14 11:18] LABS: Basophils Percent Auto 0.5 % (0.2-1.2); Eosinophils Absolute Auto 0.1 K/mm3 (0-0.3); Immature Granulocyte Absolute 0.01 K/mm3 (0.00-0.031); Immature Granulocyte Percent A 0.2 % (0-0.5); Lymphocytes Absolute Auto 2.25 K/mm3 (0.9-3.2); Lymphocytes Percent Auto 37.6 % (18.3-44.2); Mean Corpuscular HGB Conc 33.3 g/dl (32-36); Mean Corpuscular Hemoglobin 31.7 pg (26-34); Mean Corpuscular Volume 95.1 fl (80-100); Mean Platelet Volume 8.8 fl (7.4-10.4); Monocytes Absolute Auto 0.3 K/mm3 (0.1-0.6); Monocytes Percent Auto 5.5 % (2.6-8.5); Neutrophils Absolute Auto 3.2 K/mm3 (1.3-6.7); Neutrophils Percent Auto 54.2 % (45.5-73.1); Platelet Count Result 231 k/mm3 (150-375); Red Blood Count 4.73 M/mm3 (4.6-6.20); Red Cell Distribution Width 13.8 % (11.5-14.5)
[2023-11-14 11:27] LABS: Alanine Aminotransferase 23 U/L (6-50); Albumin Level 4.4 g/dL (3.5-5.1); Alkaline Phosphatase 80 U/L (38-126); Anion Gap 10 mmol/L (4-12); Aspartate Amino Transferase 23 U/L (17-59); Blood Urea Nitrogen 13 mg/dL (9-20); Calcium 9.4 mg/dL (8.4-10.2); Carbon Dioxide 26 mmol/L (22-30); Chloride 102 mmol/L (98-107); Estimated Glomerular Filt Rate > 60; Glucose 143 mg/dL (65-110); Potassium 4.6 mmol/L (3.4-5.0); Sodium 138 mmol/L (137-145)
== END 2023-12-16 23:59 | disposition home or self-care (01) ==
LOC: ANHLAB 10:47
PROVIDERS: PCP Family Medicine
DX: Z51.81 Encounter for therapeutic drug level monitoring (principal); Z79.899 Other long term (current) drug therapy
CPT/HCPCS: 36415; 80053; 82043; 85025

== ENCOUNTER 2024-01-01 12:50 | Outpatient (CLI) | payer OTHER, SELFPAY ==
[2024-01-01 14:06] LABS: Prostate Specific Antigen 1.1 ng/mL (< OR = 4.0)
[2024-01-01 14:24] LABS: Hepatitis C Virus Antibody Negative (Negative)
[2024-01-01 18:42] LABS: Hemoglobin A1C 5.9 % (<5.7)
== END 2024-01-01 12:51 | disposition home or self-care (01) ==
LOC: ANHLAB 12:52
PROVIDERS: PCP Family Medicine; Visit Provider Family Medicine
DX: R73.03 Prediabetes (principal); Z12.5 Encounter for screening for malignant neoplasm of prostate; Z11.59 Encounter for screening for other viral diseases
CPT/HCPCS: 36415; 83036; 84153; 86803; G0103

== ENCOUNTER 2024-03-20 10:50 | Outpatient (RCR) | payer MEDICARE, MEDICAID, SELFPAY ==
[2024-01-01 13:24] LABS: Basophils Percent Auto 0.4 % (0.2-1.2); Eosinophils Absolute Auto 0.1 K/mm3 (0-0.3); Eosinophils Percent Auto 1.6 % (0-4.4); Hemoglobin 14.3 g/dL (14.0-18.0); Immature Granulocyte Absolute 0.03 K/mm3 (0.00-0.031); Immature Granulocyte Percent A 0.4 % (0-0.5); Lymphocytes Absolute Auto 3.19 K/mm3 (0.9-3.2); Lymphocytes Percent Auto 39.6 % (18.3-44.2); Mean Corpuscular Hemoglobin 32.4 pg (26-34); Mean Corpuscular Volume 95.2 fl (80-100); Mean Platelet Volume 8.8 fl (7.4-10.4); Monocytes Absolute Auto 0.3 K/mm3 (0.1-0.6); Monocytes Percent Auto 3.6 % (2.6-8.5); Neutrophils Absolute Auto 4.4 K/mm3 (1.3-6.7); Neutrophils Percent Auto 54.4 % (45.5-73.1); Platelet Count Result 291 k/mm3 (150-375); Red Blood Count 4.41 M/mm3 (4.6-6.20); Red Cell Distribution Width 13.3 % (11.5-14.5); White Blood Count 8.1 K/mm3 (4.5-10.0)
[2024-01-01 13:36] LABS: Alanine Aminotransferase 21 U/L (6-50); Albumin Level 4.3 g/dL (3.5-5.1); Alkaline Phosphatase 100 U/L (38-126); Anion Gap 7 mmol/L (4-12); Aspartate Amino Transferase 23 U/L (17-59); Bilirubin,Total 0.8 mg/dL (0.2-1.3); Blood Urea Nitrogen 16 mg/dL (9-20); Carbon Dioxide 28 mmol/L (22-30); Chloride 102 mmol/L (98-107); Estimated Glomerular Filt Rate > 60; Glucose 89 mg/dL (65-110); Potassium 4.4 mmol/L (3.4-5.0); Sodium 137 mmol/L (137-145)
[2024-03-20 11:11] LABS: Basophils Percent Auto 0.7 % (0.2-1.2); Eosinophils Absolute Auto 0.2 K/mm3 (0-0.3); Eosinophils Percent Auto 3.2 % (0-4.4); Hemoglobin 14.4 g/dL (14.0-18.0); Immature Granulocyte Absolute 0.01 K/mm3 (0.00-0.031); Immature Granulocyte Percent A 0.2 % (0-0.5); Lymphocytes Absolute Auto 2.23 K/mm3 (0.9-3.2); Lymphocytes Percent Auto 41.6 % (18.3-44.2); Mean Corpuscular HGB Conc 32.7 g/dl (32-36); Mean Corpuscular Hemoglobin 31.9 pg (26-34); Mean Corpuscular Volume 97.3 fl (80-100); Mean Platelet Volume 8.5 fl (7.4-10.4); Monocytes Absolute Auto 0.3 K/mm3 (0.1-0.6); Monocytes Percent Auto 5.6 % (2.6-8.5); Neutrophils Absolute Auto 2.6 K/mm3 (1.3-6.7); Neutrophils Percent Auto 48.7 % (45.5-73.1); Platelet Count Result 229 k/mm3 (150-375); Red Blood Count 4.52 M/mm3 (4.6-6.20); Red Cell Distribution Width 13.8 % (11.5-14.5); White Blood Count 5.4 K/mm3 (4.5-10.0)
[2024-03-20 11:29] LABS: Alanine Aminotransferase 30 U/L (6-50); Albumin Level 4.2 g/dL (3.5-5.1); Alkaline Phosphatase 87 U/L (38-126); Anion Gap 12 mmol/L (4-12); Aspartate Amino Transferase 26 U/L (17-59); Bilirubin,Total 0.8 mg/dL (0.2-1.3); Blood Urea Nitrogen 9 mg/dL (9-20); Calcium 9.3 mg/dL (8.4-10.2); Carbon Dioxide 27 mmol/L (22-30); Chloride 102 mmol/L (98-107); Estimated Glomerular Filt Rate > 60; Glucose 133 mg/dL (65-110); Potassium 4.7 mmol/L (3.4-5.0); Sodium 141 mmol/L (137-145)
== END 2024-03-31 23:59 | disposition home or self-care (01) ==
LOC: ANHLAB 10:50
PROVIDERS: PCP Family Medicine
DX: Z51.81 Encounter for therapeutic drug level monitoring (principal); Z79.899 Other long term (current) drug therapy
CPT/HCPCS: 36415; 80053; 85025

== ENCOUNTER 2024-05-27 16:00 | Outpatient (CLI) | payer MEDICARE, MEDICAID, SELFPAY ==
--- NOTE | ~2024-05-27 | CT_ITS ---
CT Scan of the Chest without Contrast: Clinical Indication: Lung cancer screening, nicotine dependence Technique: Contiguous sections were acquired throughout the chest without intravenous contrast. Dose reduction technique was used on this scan by utilizing automated exposure control and iterative recon struction technique. The dose-length product (DLP) was 244.24 mGy-cm. COMPARISON: 05/25/2023 Findings: There is no evidence of any significant mediastinal, hilar or axillary lymphadenopathy. Calcified med iastinal lymph nodes are present. There are mild coronary artery calcifications. There is no evidence of pleural or pericardial effusion. The lungs are are clear, aside from a few calcified granulomas. Images through the upper abdomen reveal nonobstructing bilateral renal stones and calcified gallstone s. Impression: Lung RADS 2: Benign appearance. 12 month follow-up screening CT advised. Reviewed, dictated and finalized at location . Impression: Lung RADS 2: Benign appearance. 12 month follow-up screening CT advised.
--- OUTSIDE RECORDS SUMMARY | 2024-05-27 17:01 | XMS_ITS | Clinical Summary ---
Author Organization [facility] Address [address] [place] [address] Care Team Providers Care Band Ripsaw Operator Name Role Phone Yoel Youssef MD Primary Care Provider [phone] Allergies Active Allergy Reactions Criticality Noted Date Comments Doxycycline Anaphylaxis High 02/05/2019 Medications EPINEPHrine 0.3 MG/0.3ML injection Inject 0.3 mLs (0.3 mg total) into the muscle as needed for Anaphylaxis. 1 each 1 9 Active ammonium lactate (LAC-HYDRIN) 12 % lotionIndications: Other eczema Apply topically as needed for Dry skin. 57 g 0 Active metoprolol succinate ER 50 MG 24 hr tablet Take 1 tablet (50 mg total) by mouth daily. 90 tablet 3 0 Active VENTOLIN HFA 108 (90 Base) MCG/ACT inhalerIndications :SOB (shortness of breath) Inhale 1-2 puffs into the lungs every 4 (four) hours as needed for Wheezing. 8 g 1 0 Active nicotine 21 MG/24HRIndications :Tobacco use Place 1 patch (21 mg total) onto the skin daily. 28 patch 0 Active ondansetron 4 MG disintegrating tablet Take 1 tablet (4 mg total) by mouth every 8 (eight) hours as needed for Nausea. 20 tablet 0 Active omeprazole 40 MG capsuleIndications :Chest pain, unspecified type Take 1 capsule (40 mg total) by mouth daily. 90 capsule 1 0 Active ALLOPURINOL 100 MG tabletIndications: Gout Take 1 tablet by mouth once daily 90 tablet 0 Active oxyCODONE-acetamin ophen 5-325 MG tabletIndications: Chronic Pain Indications: Chronic Pain Take 1 tablet by mouth 3 times daily 90 tablet 0 Active tamsulosin 0.4 MG Cap Take 1 capsule (0.4 mg total) by mouth daily. 30 capsule 2 Active albuterol sulfate HFA 108 (90 Base) MCG/ACT inhaler Inhale 2 puffs into the lungs every 6 (six) hours as needed for Wheezing or Shortness of breath. 6.7 g 1 3 Active ALPRAZolam (XANAX) 0.5 MG tabletIndications: Palpitations Take 1 tablet (0.5 mg total) by mouth 2 (two) times daily as needed for Anxiety (palpitations ). 12 tablet 3 Active Active Problems Problem Noted Date Diagnosed Date Swelling of face 02/07/2019 Patellofemoral pain syndrome of right knee 07/10 Left knee pain 08/27/2017 Type 2 diabetes mellitus wit hout complications ([facility]) 08/17/2017 Palpitations Immunizations Name Administration Dates Next Due Afluria 36 MONTHS+ (Prefille d Syringe IIV4) 02/08/2019(Deferred: Patient/family declined) Family History Medical History Relation Comments Hypertension Father [place] Maternal Grandfather Cancer Maternal Grandmother Hypertension Mother [place] Mother Relation Status Comments Father (Age 65) Maternal Grandfather (Age 64) Maternal Grandmother Mother Alive Social History Tobacco Use Types Packs/Day Years Used Date Smoking Tobacco: Former Cigarettes Smokeless Tobacco: Never Tobacco Cessation:Counseling Given: Not Answered Alcohol Use Standard Drinks/Week Comments Not Currently 0 (1 standard drink = 0.6 oz pur e alcohol) AUDIT-C Answer Date Recorded Frequency of Alcohol Consumption Never 01/28/2018 Average Number of Drinks Not on file 018 Frequency of Binge Drinking Not on file 01/19 Sex and Gender Information Value Date Recorded Sex Assigned at Not on file Legal Sex Male 8:25 PM CDT Gender Identity Not on file Sexual Orientation Not on file Last Filed Vital Signs Vital Sign Reading Time Taken Comments Blood Pressure 123/77 12/16/2023 11:06 PM CDT Pulse 73 12/16/2023 11:06 PM CDT Temperature 35.9 C (96.6 F) 12/16/2023 11:06 PM CDT Respiratory Rate 18 12/16/2023 11:0 6 PM CDT Oxygen Saturation 95% 12/16/2023 11: 06 PM CDT Inhaled Oxygen Concentration - - Weight 109.5 kg (241 lb 6.5 oz) 12/16/2023 9:36 PM CDT Height 182.9 cm (6') 12/16/2023 9:36 PM CDT Body Mass Index 32.74 12/16/2023 9:36 PM CDT Plan of Treatment Health Maintenance Due Date Last Done Comments Colorectal Cancer Screening Colonoscopy (10 Years) 1971 Kidney Health Evaluation 1971 Annual Physical 09/18/1974 Pneumococcal Vaccine: Pediatrics (0 to 5 Years) and At-Risk Patients (6 to 64 Years) (1 of 2 - PCV) 09/18/1977 Diabetes: Retinopathy Eye Exam 09/18/1989 DTaP, Tdap and Td Vaccines (1 - Tdap) 09/18/1990 Hepatitis B Vaccines (1 of 3 - 19+ 3-dose series) 09/18/1990 Zoster Vaccines (1 of 2) 09/18/2021 Hemoglobin A1C 01/28/2022 07/29/2021, 050 10/2021, 05/20/2021, Additional history exists Lipid Panel 07/29/2022 07/29/2021, 05/0 10/2021, 05/20/2021, Additional history exists COVID-19 Vaccine ( season) 2023 Hepatitis C Completed 05/20/2021, 040 02/2021, 05/20/2021, Additional history exists Meningococcal B Vaccine Aged Out No l onger eligible based on patient's age to complete this topic Meningococcal Vaccine Aged Out No joaquin lovely eligible based on patient's age to complete this topic RSV Immunizations Under 20 Months Aged Out No longer eligible based on patient's age to complete this topic Procedures Procedure Name Priority Date/Time Associated Diagnosis Comments HEMOGLOBIN, GLYCOSYLATED Routine 03/18/2019 4:36 PM PLANT SAFETY LEADER Acute dermatitis LIPID PANEL Routine 09/05/2018 4:11 PM CDT Type 2 diabetes mellitus without complication, without long-term current use of insulin from Last 3 Months or Most Recently Relevant to Health Maintenance Results * (ABNORMAL) HEMOGLOBIN, GLYCOSYLATED (03/18/2019 4:36 PM PLANT SAFETY LEADER) HGB A1C 6.1(H) <5.7 % 03/19/2019 1:20 PM PLANT SAFETY LEADER [facility] Comment: ADA GUIDELINES 2010 5.7 TO 6.4% INCREASED RISK OF DIABETES > OR = 6.5% CONSISTENT WITH DIABETES [place] [address] 03/18/2019 4:36 PM PLANT SAFETY LEADER us Osmar Tatum MD LABORATORY Final Result Performing Organization Address City/State/[facility] Co de Phone Number [facility] [address] [place], [place] [id number], [place] [phone] * (ABNORMAL) LIPID PANEL (09/05/2018 4:11 PM CDT) CHOLESTEROL 205(H) <200 MG/DL 09/05/2018 6:06 PM CDT [facility] TRIGLYCERIDES 124 <150 MG/DL 09/05/2018 6:06 PM CDT [facility] HDL 42 >40.0 MG/DL 09/05/2018 6:06 PM CDT [facility] LDL (CALCULATED) 138(H) <100 MG/DL 09/05/2018 6:06 PM CDT [facility] NON HDL CHOLESTEROL 163(H) <130 MG/DL 09/05/2018 6:06 PM CDT [facility] Comment: NOTE: WHEN THE TRIGLYCERIDES ARE >200 mg/dL, NON HDL C IS A SECONDARY TARGET OF THERAPY, WITH A GOAL 30 mg/dL HIGHER THAN THE IDENTIFIED LDL C GOAL. CHOL/HDL RATIO 4.9(H) 0.0 - 4.5 09/05/2018 6:06 PM CDT [facility] VLDL CALCULATION 25 5 - 55 MG/DL 09/05/2018 6:06 PM CDT [facility] LIPID INTERPRETATION 09/05/2018 6:06 PM CDT [facility] Comment: NIH CONCENSUS REPORT RECOMMENDATIONS: ADULT CHILD LOW RISK: CHOLESTEROL <200 <170 TRIGLYCERIDE <150 --- HDL >=60 --- LDL <100 <110 BORDERLINE: CHOLESTEROL 200-239 170-199 TRIGLYCERIDE 150-199 --- HDL 40-59 --- LDL 100-159 110-129 HIGH RISK: CHOLESTEROL >=240 >=200 TRIGLYCERIDE >=200 --- HDL <40 --- LDL >=160 >=130 09/05/2018 4:11 PM CDT Osmar Tatum MD LABORATORY Final Result Performing Organization Address City/State/[facility] Co de Phone Number [facility] [address] [place] [address], from Last 3 Months or Most Recently Relevant to Health Maintenance Insurance [employer] B[employer] Advance Directives Documents on File Type Date Recorded Patient Websphere Consultant Expl anation DNR (Do Not Resuscitate) Documentation 05/27/2018 12:00 AM DO NOT RESUSCITATE DNR (Do Not Resuscitate) Documentation 10/29/2017 12:00 AM DO NOT RESUSCITATE DNR (Do Not Resuscitate) Documentation 10/23/2017 12:00 AM DO NOT RESUSCITATE DNR (Do Not Resuscitate) Documentation 08/13/2017 12:00 AM DO NOT RESUSCITATE DNR (Do Not Resuscitate) Documentation 08/08/2017 12:00 AM DO NOT RESUSCITATE DNR (Do Not Resuscitate) Documentation 07/24/2017 12:00 AM DO NOT RESUSCITATE DNR (Do Not Resuscitate) Documentation 07/09/2017 12:00 AM DO NOT RESUSCITATE * Full Code (Latest Code Status on File) Date Activated Date Inactivated Comments 02/07/2019 11:15 AM 02/08/2019 1:35 PM Care Teams Band Ripsaw Operator Relationship Specialty Start Date End Date Yoel Youssef MD [address] [place] [address] PCP - General FAMILY PRACTICE 10/10/21
--- OUTSIDE RECORDS SUMMARY | 2024-05-27 17:01 | XMS_ITS | Encounter Summary ---
Author Organization [facility] Address [address] [place] [address] Care Team Providers Care Certification Technician Name Role Phone Michelle Pacheco APRNDESK REPORTER Primary Care Provider [phone] Reason for Visit * Reason Onset Date Comments Question 09/27/2021 Encounter Details Date Type Department Care Team (Late st Contact Info) Description 09/27/2021 Telephone [facility] [address] [place] [address] [facility] [address] [place] [address] Question Social History Tobacco Use Types Packs/Day Years Used Date Smoking Tobacco: Former Cigarettes 1 25 0 10/28/1994 - 10/29/2019 Smokeless Tobacco: Former Snuff Alcohol Use Standard Drinks/Week Comments Not Currently 0 (1 standard drink = 0.6 oz pur e alcohol) once a year Sex and Gender Information Value Date Recorded Sex Assigned at Male 11/27/2022 11:38 AM CDT Gender Identity Male 11/27/2022 11:38 AM CDT Sexual Orientation Straight 11/27/2022 11 :38 AM CDT documented as of this encounter Functional Status Functional Status Response Date of Assess ment Is person deaf or have serious hearing difficult y? No 05/18/2020 Is person blind or have serious difficulty seein g? No 05/18/2020 Does person have serious dif ficulty walking/climbing stairs? No 05/18/2020 Does person have difficulty dressing/bathing? No 05/18/2020 Does person have difficulty doing errands alone? No 05/18/2020 Cognitive Status Response Date of Assessm ent Does person have difficulty concentrating/remembering/making decisions? No 05/18/2020 documented as of this encounter Miscellaneous Notes * Telephone Encounter - Maury Camara MD - 09/28/2021 3:05 PM CDT Attempted to call patient. Unclear if he is still in pain from his hip surgery or another surgery not listed in the chart. He should also reach out to his surgeons if they operated anywhere near the area recently. I left a voicemail asking him to leave a good time during business hours to reach him. Maury Camara MD Adult and Pediatric Rheumatology Fellow * Telephone Encounter - Heidi Naik - 09/27/2021 10:24 AM CDT Current Provider name: REAGAN/DANI Reason for call: Patient Moustapha Peter called into the scheduling requesting a sooner/urgent appointment with his Rheum provider. Stated he is in excruciating leg pain since his surgery and is havinga really hard time walking and unable to see his PCP today. I spoke to the nursing staff instructedto route call to provider with details and or to make patient aware that if pain exceeds to go to the ED. Patient made aware verbalized understanding would like a call back to discuss level of concerns. Patient Call Back number: [phone] documented in this encounter Plan of Treatment Upcoming Encounters Date Type Department Care Team (Late st Contact Info) Description 05/29/2024 10:00 AM CDT Office Visit [facility] - Rheumatology [address] [place] [address], [place] [id number] Charles Billy MD [address] [place] [phone] documented as of this encounter Visit Diagnoses Not on filedocumented in this encounter Care Teams Certification Technician Relationship Specialty Start Date End Date Michelle Pacheco APRN-DESK REPORTER [address] [place] [id number] PCP - General 01/31/21 documented as of this encounter
--- OUTSIDE RECORDS SUMMARY | 2024-05-27 17:01 | XMS_ITS | Referral Summary ---
Author Organization [facility] Address [address] [place] [address] Care Team Providers Care Precision Lens Centerer And Edger Name Role Phone Yoel Youssef MD Primary Care Provider [phone] Encounters Date Type Department Care Team Description 03/11/2024 11:15 AM SIGN OUT CLERK Office Visit [facility] Sleep Medicine at [address] [place] [address] Cristal Novoa MD Obstructive sleep apnea (Primary Dx); Hypersomnia; Obesity, unspecified class, unspecified obesity type, unspecified whether serious comorbidity present from Last 3 Months Allergies Active Allergy Reactions Criticality Noted Date Comments Doxycycline Anaphylaxis High 02/05/2019 Medications albuterol HFA (Ventolin HFA) 90 mcg/actuation inhalerIndicatio ns:Acute Asthma Attack Inhale 2 puffs every 4 (four) hours as needed for wheezing or shortness of breath 0 Active EPINEPHrine 0.3 mg/0.3 mL auto-injection syringeIndicatio ns:Anaphylaxis Inject 0.3 mL (0.3 mg total) into the muscle as instructed as needed for anaphylaxis 9 Active metoprolol XL (TOPROL-XL) 50 mg extended release tabletIndication s:hypertension Take 1 tablet (50 mg total) by mouth every morning 0 Active tamsulosin (FLOMAX) 0.4 mg extended release capsuleIndicatio ns:benign prostatic hyperplasia with lower urinary tract sx Take 1 capsule (0.4 mg total) by mouth daily 30 capsule 6 4 Active atenoloL (TENORMIN) 50 mg tabletIndication s:Atrial Arrhythmia,palpi tations Take 0.5 tablets (25 mg total) by mouth 2 (two) times a day 4 Active methotrexate 2.5 mg tabletIndication s:Rheumatoid Arthritis Take 10 tablets (25 mg total) by mouth every 7 days Take on Sunday 4 Active naproxen (NAPROSYN) 500 mg tabletIndication s:Pain Take 1 tablet (500 mg total) by mouth as needed for pain 4 Active famotidine (PEPCID) 40 mg tabletIndication s:Heartburn,Hear tburn Prevention Take 1 tablet (40 mg total) by mouth nightly Active infliximab-abda (RENFLEXIS IV)Indications:R A Infuse 100 mg into a venous catheter every 4 (four) weeks Active metFORMIN (FORTAMET) 500 mg 24 hr tabletIndication s:pre-diabetic Take 1 tablet (500 mg total) by mouth daily with breakfast Active oxyCODONE-acetam inophen (PERCOCET) 7.5-325 mg per tabletIndication s:Pain Take 1 tablet by mouth as needed for pain 4 Active ALPRAZolam (XANAX) 0.5 mg tabletIndication s:anxiety Take 1 tablet (0.5 mg total) by mouth as needed for anxiety 4 Active atorvastatin (LIPITOR) 20 mg tabletIndication s:hyperlipidemia Take 1 tablet (20 mg total) by mouth every morning Active Symbicort 160-4.5 mcg/actuation inhalerIndicatio ns:Bronchospasm Prevention with COPD Inhale 2 puffs nightly 4 Active clobetasoL (TEMOVATE) 0.05 % ointmentIndicati ons:Atopic Dermatitis Apply 1 Application topically as needed (skin) 4 Active Skyrizi 150 mg/mL pen injectorIndicati ons:RA Inject 1 mL under the skin every 30 (thirty) days 4 Active folic acid (FOLVITE) 1 mg tabletIndication s:Folate Deficiency Take 1 tablet (1,000 mcg total) by mouth every morning Everyday except Wednesdays 4 Active allopurinoL (ZYLOPRIM) 300 mg tabletIndication s:prevention of acute gout attack Take 1 tablet (300 mg total) by mouth every morning 4 Active omeprazole (PriLOSEC) 20 mg capsuleIndicatio ns:Treatment of Non-Bleeding Gastric Disorder Take 1 capsule (20 mg total) by mouth every morning Active Active Problems Problem Noted Date Diagnosed Date LALI (obstructive sleep apnea) 08/06/2023 Dyspnea on exertion 09/24/2019 Obesity (BMI 35.0-39.9 without comorbidity) 06/2019 Tobacco abuse 09/24/2019 Ectopic beats 09/24/2019 Social History Tobacco Use Types Packs/Day Years Used Date Smoking Tobacco: Former Cigarettes 1 30 Q uit: 2019 Vaping 2018 Smokeless Tobacco: Never Tobacco Cessation:Counseling Given: Not Answered Comments:Uses nicotine gum AUDIT-C Answer Date Recorded Q1: How often do you have a drink containing alc ohol? Monthly or less 12/26/2023 Q2: How many drinks containi ng alcohol do you have on a typical day when you are drinking? 5 or 6 12/26/2023 Q3: How often do you have si x or more drinks on one occasion? Never 12/26/2023 Personal Safety Answer Date Recorded Have you ever been in or are you currently in a harmful physical or emotional relationship or is someone making you feel afraid or unsafe? Denies 12/26/2023 Sex and Gender Information Value Date Recorded Sex Assigned at Not on file Legal Sex Male 10:10 AM SIGN OUT CLERK Gender Identity Not on file Sexual Orientation Not on file Last Filed Vital Signs Vital Sign Reading Time Taken Comments Blood Pressure 94/65 03/11/2024 11:17 AM SIGN OUT CLERK Pulse 76 03/11/2024 11:17 AM SIGN OUT CLERK Temperature 36 C (96.8 F) 12/26/2023 11:10 AM SIGN OUT CLERK Respiratory Rate 18 01/29/2024 10:24 AM SIGN OUT CLERK Oxygen Saturation 94% 03/11/2024 11:17 AM SIGN OUT CLERK Inhaled Oxygen Concentration - - Weight 103.4 kg (228 lb) 03/11/2024 11:17 AM SIGN OUT CLERK Height 182.9 cm (6') 03/11/2024 11:17 AM SIGN OUT CLERK Body Mass Index 30.92 03/11/2024 11:17 AM SIGN OUT CLERK Plan of Treatment Not on file Medical Devices Implanted Type Area Business Employment Specialist Device Identifier Shelf Expiration Date Model / Serial / Lot [employer] Lead Neurostimulator Sleep Apnea Thoracic Permanent Respiratory Sensing Inspire 43cm 4340 - [id number] - [id number] Implanted:Qty: 1 on 12/26/2023 by May Edwards MD at [facility] Lead Right: Chest [employer] 08/28/2026 4340 / [id number] / [employer] Inspire 3 Electrode Cuff Tunnel Victorino Lead Neurostimulator Sterile 4063 - [id number] - [id number] Implanted:Qty: 1 on 12/26/2023 by May Edwards MD at [facility] Lead Right: Neck [employer] 03/05/2026 4063 / [id number] / [employer] Inspire Generator 3028 - [id number] - [id number] Implanted:Qty: 1 on 12/26/2023 by May Edwards MD at [facility] Lead Right: Chest [employer] 07/29/2026 3028 / [id number] C / Procedures Procedure Name Priority Date/Time Associated Diagnosis Comments PSA SCREEN Routine 06/18/2023 11:27 AM CDT Benign prostatic hyperplasia with urinary frequency from Last 3 Months or Most Recently Relevant to Health Maintenance Results * PSA screen (06/18/2023 11:27 AM CDT) PSA-Total 0.59 <=3.90 ng/mL Comment: Interpretive Data AGE SEX REFERENCE INTERVAL 0 minutes-150 years Female None 0 minutes-49 years Male None 50-59 years Male 0-3.90 60-69 years Male 0-5.40 70-79 years Male 0-6.20 80-150 years Male 0-6.20 The Jovany PSA Total assay procedure was used. Results from different manufacturers or methods may not be comparable. Serial testing should be performed using the same method. Current interpretive data last revised 21. Testing performed by: [facility], [address] [place] [address]., [id number] Blood 06/18/2023 11:2 7 AM CDT 06/18/2023 1:56 PM CDT Loree Luna [facility] BLOOD ORDERABLES F inal Result [facility] [address] [facility] Department [place] [address] from Last 3 Months or Most Recently Relevant to Health Maintenance Insurance MEDICARE Care Teams Precision Lens Centerer And Edger Relationship Specialty Start Date End Date Yoel Youssef MD [address] [place] [id number] PCP - General Family Medicine 09/04/23
--- OUTSIDE RECORDS SUMMARY | 2024-05-27 17:01 | XMS_ITS | Clinical Summary ---
Author Organization [facility] Address [address] [place] [address] Care Team Providers Care Baker Head Name Role Phone Michelle Pacheco JAVON-CARDIAC/VASCULAR SONOGRAPHER Primary Care Provider [phone] Source Comments [facility],non-owned Affiliates and Associated Physician Practices is amultiple site organization consisting of ambulatory clinics and hospital sitesin [place], [place], [place] and [place]. This disclosure is being madepursuant to the Care Everywhere program and may not contain all information available regarding this patient. Last updated 17.[facility] Allergies Active Allergy Reactions Criticality Noted Date Comments Doxycycline Anaphylaxis,Urticaria High 02/05/2019 Medications * Be aware that medications may not be up to date on this document. Alwaysverify current medications with the patient. Medication Sig Dispensed Refills Start Date End Date Status albuterol HFA (PROVENTIL;MAGDALENE ZION;PROAIR) 108 (90 Base) MCG/ACT inhaler Inhale 1 (one) puff to 2 (two) puffs by mouth every 4 hours as needed 09/04/2019 Active EPINEPHrine (EPIPEN) 0.3 MG/0.3ML auto-injector pen Inject 0.3 mL into muscle every 24 hours as needed 02/08/2019 Active oxyCODONE-acetam inophen (PERCOCET) 5-325 MG tablet Take 1 (one) tablet by mouth every 8 hours as needed for Pain 30 tablet 09/29/2020 Active calcipotriene (DOVONEX) 0.005 % cream Apply 1 Dose to affected area 2 times daily 10/11/2020 Active allopurinol (ZYLOPRIM) 300 MG tabletIndication s:Gout, unspecified cause, unspecified chronicity, unspecified site Take 1 (one) tablet by mouth once daily 30 tablet 3 04/29/2021 Active simvastatin (Zocor) 10 MG tablet Take 1 (one) tablet by mouth once daily 11/10/2021 Active atenolol (Tenormin) 25 MG tablet Take 1 (one) tablet by mouth 2 times daily 01/04/2022 Active pantoprazole EC (Protonix) 20 MG tablet Take 1 (one) tablet by mouth once daily 01/09/2022 Active tamsulosin (Flomax) 0.4 MG capsule Take 1 (one) capsule by mouth once daily 08/22/2021 Active ALPRAZolam (Xanax) 0.5 MG tablet Take 1 (one) tablet by mouth 2 times daily as needed 01/03/2023 Active famotidine (Pepcid) 40 MG tablet Take 1 (one) tablet by mouth every morning 07/10/2023 Active ONETOUCH DELICA PLUS 30G FINE LANCETS USE TO CHECK GLUCOSE ONCE DAILY 06/20/2023 Active Symbicort 160-4.5 MCG/ACT inhaler Inhale 2 (two) puffs by mouth as directed 08/28/2023 Active naproxen (Naprosyn) 500 MG tablet Take 1 (one) tablet by mouth 2 times daily 08/12/2023 Active atorvastatin (Lipitor) 20 MG tablet Take 1 (one) tablet by mouth once daily 07/21/2023 Active folic acid (Folvite) 1 MG tabletIndication s:Other psoriasis Take 1 (one) tablet by mouth once daily 90 tablet 3 09/14/2023 Active methotrexate 2.5 MG tabletIndication s:Other psoriasis TAKE 10 TABLETS BY MOUTH ONCE A WEEK 120 tablet 3 09/14/2023 Active clobetasol (Temovate) 0.05 % ointmentIndicati ons:Other psoriasis Apply to legs twice daily as needed. 30 days supply. 60 g 5 09/14/2023 Active risankizumab-rza a (Skyrizi Pen) 150 MG/ML injectionIndicat ions:Other psoriasis Inject 1mL subcutaneously every 12 weeks. 12 week supply. 1 mL 2 09/14/2023 Active risankizumab-rza a (Skyrizi Pen) 150 MG/ML injectionIndicat ions:Other psoriasis Inject 1 mL subcutaneously on day 0. Inject 1 mL subcutaneously on day 28. 2 mL 09/14/2023 Active testosterone cypionate (Depo-Testostero ne) 100 MG/ML injection INJECT 1/2 (ONE-HALF) ML INTRAMUSCULARLY ONCE A WEEK 11/26/2023 Active omeprazole (PriLOSEC) 20 MG capsule Take 1 (one) capsule by mouth every morning Active OneTouch Verio test strip USE STRIP TO CHECK GLUCOSE THREE TIMES DAILY 11/04/2023 Active lisinopril (Prinivil; Zestril) 2.5 MG tablet Take 1 (one) tablet by mouth once daily 11/09/2023 Active Bimekizumab-bkzx (Bimzelx) 160 MG/ML SOAJIndications: Other psoriasis Inject 320 mg subcutaneously every 28 days for 5 doses Injection on Week 0, 4, 8, 12, and 16 starter dose (for psoriasis) 10 mL 12/14/2023 Active Bimekizumab-bkzx (Bimzelx) 160 MG/ML SOAJIndications: Other psoriasis Inject 320 mg subcutaneously Every 8 Weeks maintenance dose 2 mL 4 12/14/2023 Active clotrimazole (Mycelex) 10 MG trocheIndication s:Other psoriasis Take 1 (one) Zelalem by mouth 3 times daily as needed (thrush) 70 Zelalem 5 12/14/2023 Active metFORMIN (GLUCOPHAGE) 500 MG tablet Take 1 (one) tablet by mouth 2 times daily 07/03/2021 05/24/19 25 Discontinu ed(List Clean-Up) Active Problems Problem Noted Date Diagnosed Date LALI (obstructive sleep apnea) 08/06/2023 Other psoriasis 11/01/2022 Psoriatic arthritis 03/23/2021 Moderate persistent asthma without complication 03/23/2021 Chronic cough 03/23/2021 Other chronic pain 03/23/2021 Esophageal pain 03/23/2021 Family history of colorectal cancer 03/23/2021 Family history of malignant neoplasm of prostate in father 03/23/2021 Vitamin D deficiency 03/23/2021 Chronic inflammatory arthritis 01/17/2021 Palpitations 06/07/2020 Avascular necrosis of femoral head, left 021 Avascular necrosis of femoral head, right 2020 Dyspnea on exertion 09/24/2019 Ectopic beats 09/24/2019 Obesity (BMI 35.0-39.9 without comorbidity) 06/2019 Tobacco abuse 09/24/2019 Patellofemoral pain syndrome of right knee 07/10 Left knee pain 08/27/2017 Type 2 diabetes mellitus without complications 0 08/17/2017 Overview (05/21/2024): IMO 05/21/2024 Encounters Date Type Department Care Team Description 05/23/2024 9:50 AM CDT Office Visit [facility] - Dermatology [address] [place] [phone] Ilana Pulido MD Psoriatic arthritis (HCC) (Primary Dx); Encounter for long-term current use of high risk medication; Other psoriasis 05/23/2024 Travel 05/07/2024 Telephone [facility] Dermatology [address] [place] [phone] Ilana Pulido MD Appointment 05/05/2024 Telephone [facility] - Centralized Scheduling [facility] [place] [address] Ilana Pulido MD Patient Requested Call 04/25/2024 Orders Only [facility] Dermatology [address] [place] [phone] Ilana Pulido MD Encounter for long-term current use of high risk medication 04/03/2024 Telephone [facility]erm[facility] [address] [place] [phone] Ilana Pulido MD Follow-up 03/28/2024 Orders Only [facility] [address] [place] [phone] Ilana Pulido MD Encounter for long-term current use of high risk medication 02/29/2024 Orders Only [facility] Dermatology [address] [facility] [place] [phone] Ilana Pulido MD Encounter for long-term current use of high risk medication from Last 3 Months Family History Medical History Relation Name Comments None Known Brother 60 Heart Failure Father 65 Cancer - Colon Maternal Grandfather Cancer - Prostate Maternal Grandfather Cancer - Esophageal Maternal Grandmother Diabetes - Type 2 Mother 75 Heart Failure Mother 75 Peripheral Neuropathy Mother 75 Diabetes - Type 2 Sister 1 62 None Known Sister 2 61 Relation Name Status Comments Brother 60 Alive Father 65 Maternal Grandfather Maternal Grandmother Mother 75 Alive heart disease, fibromyalgia Paternal Grandfather Paternal Grandmother Sister 1 62 Alive Sister 2 61 Alive Social History Tobacco Use Types Packs/Day Years Used Date Smoking Tobacco: Former Cigarettes 1 25 0 10/28/1994 - 10/29/2019 Passive Smoke Exposure: Past Smokeless Tobacco: Former Snuff Tobacco Cessation:Counseling Given: No Alcohol Use Standard Drinks/Week Comments Not Currently 1 (1 standard drink = 0.6 oz pur e alcohol) once a year AUDIT-C Answer Date Recorded Q1: How often do you have a drink containing alcohol? Never 11/27/2022 Q2: How many drinks containi ng alcohol do you have on a typical day when you are drinking? Patient does not drink Q3: How often do you have si x or more drinks on one occasion? Never 11/27/2022 Overall Financial Resource Strain (CARDIA) Answe r Date Recorded How hard is it for you to pa y for the very basics like food, housing, medical care, and heating? Not very hard 11/27/2022 PHQ-2 Answer Date Recorded Patient Health Questionnaire-2 Score 3 11/27/2022 [facility] - Occupational Stress Questionnaire Answer Date Recorded Do you feel stress - tense, restless, nervous, or anxious, or unable to sleep at night because your mind is troubled all the time - these days? Not at all 11/27/2022 Hunger Vital Sign Answer Date Recorded Within the past 12 months, y ou worried that your food would run out before you got the money to buy more. Never true 11/28/19 23 Within the past 12 months, t he food you bought just didn't last and you didn't have money to get more. Never true 11/27/2022 PRAPARE - Transportation Answer Date Re corded In the past 12 months, has l ack of transportation kept you from medical appointments or from getting medications? No 10/2022 In the past 12 months, has l ack of transportation kept you from meetings, work, or from getting things needed for daily living? No 11/27/2022 Housing Stability Vital Sign Answer Sanya e Recorded In the last 12 months, was t here a time when you were not able to pay the mortgage or rent on time? No 11/27/2022 In the last 12 months, how many places have you lived? 1 11/27/2022 In the last 12 months, was t here a time when you did not have a steady place to sleep or slept in a prison (including now)? No 11/27/2022 Education Answer Date Recorded What is the highest level of school you have completed or the highest degree you have received? High school graduate 11/27/2022 Sex and Gender Information Value Date Recorded Sex Assigned at Male 11/27/2022 11:38 AM CDT Gender Identity Male 11/27/2022 11:38 AM CDT Sexual Orientation Straight 11/27/2022 11 :38 AM CDT Last Filed Vital Signs Vital Sign Reading Time Taken Comments Blood Pressure 116/75 08/29/2023 8:37 AM CDT Pulse 75 08/29/2023 8:37 AM CDT Temperature 36.5 C (97.7 F) 08/29/2023 8:37 AM CDT Respiratory Rate 16 08/29/2023 8:37 AM CDT Oxygen Saturation 95% 08/29/2023 8:37 AM CDT Inhaled Oxygen Concentration - - Weight 111.9 kg (246 lb 12.8 oz) 08/29/2023 8:37 AM CDT Height 182.9 cm (6') 08/29/2023 8:37 AM CDT Body Mass Index 33.47 08/29/2023 8:37 AM CDT Plan of Treatment Upcoming Encounters Date Type Department Care Team (Late st Contact Info) Description 05/29/2024 10:00 AM CDT Office Visit [facility] - Rheumatology [facility] [facility] [place] [phone] Charles Billy MD [address] [place] [phone] Health Maintenance Due Date Last Done Comments COLOGUARD (AGES 45-75) - COLON CA SCREENING 1971 COLON MONITORING 1971 COLONOSCOPY - COLON CA SCREENING 1971 CT COLONOGRAPHY - COLON CA SCREENING 1971 Colorectal Cancer Screening 1971 FIT - COLON CA SCREENING 1971 FLEX SIG - COLON CA SCREENING 1971 MEDICARE AWV 12 MONTHS 1971 Opioid Medication Agreement - Annual 1971 DTAP/TDAP/TD VACCINES (1 - Tdap) 09/18/1990 HEPATITIS B VACCINE (1 of 3 - 19+ 3-dose series) 09/18/1990 PNEUMOCOCCAL VACCINE 50+ (1 of 2 - PCV) 09/18/1990 DIABETES RETINOPATHY SCREENING 06/07/2020 DIABETES-FOOT EXAM WITH MONOFILAMENT 06/07/2020 LUNG CANCER SCREENING 09/18/2021 ZOSTER VACCINE (1 of 2) 09/18/2021 DIABETES-HGB A1C 01/28/2022 07/29/2021, 10/2021, 05/20/2021, Additional history exists COVID-19 VACCINE ( - season) 2023 DEPRESSION SCREENING 02/20/2024 11/27/2022 DIABETES - URINE PROTEIN SCREENING 02/20/2024 05/20/2021 INFLUENZA VACCINE (Season Ended) 2024 DIABETES-SERUM CREATININE 12/15/20242023, 12/16/2023, 08/30/2023, Additional history exists HEPATITIS C SCREENING Completed 05/20/2021 , 06/21/2020, 06/21/2020 HIV SCREENING Completed 05/20/2021 HIB VACCINE Aged Out No longer eligi ble based on patient's age to complete this topic HPV VACCINE Aged Out No longer eligi ble based on patient's age to complete this topic MENINGOCOCCAL (Group B) VACCINE SHARED DECISION-MAKING Aged Out No longer eligible based on patient's age to complete this topic MENINGOCOCCAL GROUPS A/C/Y/W VACCINE Aged Out No longer eligible based on patient's age to complete this topic Medical Devices Implanted Type Area Kiln Burner Helper Device Identifier Shelf Expiration Date Model / Serial / Lot Pro-Dense Core Decompression Procedure Kit Implanted:Qty: 1 on 05/18/2020 by Gil Shen MD at [facility] Left: Hip [employer] 04/15/2023 [id number] / / [id number] Description: Pro-Dense Core Decompression Procedure Kit Implanted:Qty: 1 on 05/18/2020 by Gil Shen MD at [facility] Right: Hip [employer] 04/15/2023 [id number] / / [id number] Description:fc Procedures Procedure Name Priority Date/Time Associated Diagnosis Comments COMPREHENSIVE METABOLIC PANEL Routine 08/30/2023 3:00 AM CDT Encounter for long-term current use of high risk medication MICROALB/CREAT RATIO URINE RANDOM PANEL Routine 05/20/2021 8:56 AM CDT Type 2 diabetes mellitus without complication, without long-term current use of insulin HEPATITIS C ANTIBODY Routine 05/20/2021 8:56 AM CDT Healthcare maintenance HEMOGLOBIN A1C Routine 05/20/2021 8:56 AM CDT Type 2 diabetes mellitus without complication, without long-term current use of insulin HIV-1 HIV-2 ANTIBODY + HIV P24 AG PANEL Routine 05/20/2021 8:56 AM CDT Healthcare maintenance from Last 3 Months or Most Recently Relevant to Health Maintenance Results * COMPREHENSIVE METABOLIC PANEL (08/30/2023 3:00 AM CDT) Glucose 72 65 - 99 mg/dL [facility] Comment: Fasting reference interval BUN 12 7 - 25 mg/dL [facility] Creatinine 0.87 0.70 - 1.30 mg/dL [facility] eGFR by Cystatin C 104 > OR = 60 mL/min/1. 73m2 [facility] BUN/Creatinine Ratio SEE NOTE: (calc) [facility] Comment: Not Reported: BUN and Creatinine are within reference range. Sodium 136 135 - 146 mmol/L [facility] Potassium 4.5 3.5 - 5.3 mmol/L [facility] Chloride 102 98 - 110 mmol/L [facility] CO2 22 20 - 32 mmol/L [facility] Calcium 9.4 8.6 - 10.3 mg/dL [facility] Protein Total 7.1 6.1 - 8.1 g/dL [facility] Albumin 4.7 3.6 - 5.1 g/dL [facility] Globulin Total 2.4 1.9 - 3.7 g/dL (calc) [facility] Albumin/Globulin Ratio 2.0 1.0 - 2.5 (calc) [facility] Bilirubin Total 0.8 0.2 - 1.2 mg/dL [facility] Alkaline Phosphatase 91 35 - 144 U/L [facility] AST 20 10 - 35 U/L [facility] ALT 19 9 - 46 U/L [facility] Comment: Test Performed at: [facility] [address] MARIO DAWN MD Blood BLOOD SPECIMEN / Unknown 08/29/2023 11:08 PM CDT Ilana Pulido MD LAB - CHEMISTR Y ORDERABLES Performing Organization Address City/[facility]/ZIP Co de Phone Number [address] [address] * HIV-1 HIV-2 ANTIBODY + HIV P24 AG PANEL (05/20/2021 8:56 AM CDT) HIV Antigen/Antibod y 1 & 2 Non-reacti ve Non-react miguel 05/20/2021 9:53 AM CDT [facility] Comment:No Laboratory eviden ce of HIV infection. Blood BLOOD SPECIMEN / Unknown Lab Venipuncture / Unknown 05/20/2021 8:56 AM CDT 05/20/2021 9:09 AM CDT Michelle Pacheco PROFESSOR OF SPANISH-CARDIAC/VASCULAR SONOGRAPHER LAB - CHEMISTRY OR DERABLES Performing Organization Address City/[facility]/ZIP Co de Phone Number [facility] [address] [place] [address], [facility] [phone] * MICROALB/CREAT RATIO URINE RANDOM PANEL (05/20/2021 8:56 AM CDT) Albumin Random Urine 20.5 Not Established ug/mL 05/20/2021 9:35 AM CDT [facility] Creatinine Urine 293 Not Established mg/dL 05/20/2021 9:35 AM CDT [facility] Urine Albumin/Creati nine Ratio 7 <30 mg/g 05/20/2021 9:35 AM CDT [facility] Urine URINE SPECIMEN OBTAINED BY CLEAN CATCH PROCEDURE / Unknown Collection / Unknown 05/20/2021 8:56 AM CDT 05/20/2021 9:09 AM CDT Michelle PENA LAB - URINE CHEMIS TRY ORDERABLES [facility] [address] [place] [address], [facility] [phone] * (ABNORMAL) HEMOGLOBIN A1C (05/20/2021 8:56 AM CDT) Hemoglobin A1c 6.2(H) <=5.6 % 05/20/2021 9:49 AM [facility] Estimated Average Glucose 131 mg/dL 05/20/2021 9:49 AM [facility] Comment: HbA1c Interpretation: Normal : < 5.7% Pre-diabetes: 5.7-6.4% Diabetes: Equal to or greater than 6.5% Test results diagnostic of diabetes should be repeated for confirmation. Treatment target values recommended by ADA and other clinical organizations should be used to evaluate metabolic control in patients. Reference: [place] [employer], Standards of Care in Diabetes -2020 In patients 70 years and older consider HbA1c target range of 7.0-7.5% (Reference: Jevon Meadows et al. JAMDA. 2012) The Sebia assay for the measurement of HbA1c is a National Glycohemoglobin Standardization Program (NGSP) certified method. Blood BLOOD SPECIMEN / Unknown Lab Venipuncture / Unknown 05/20/2021 8:56 AM CDT 05/20/2021 9:11 AM CDT Michelle PENA LAB - CHEMISTRY OR DERABLES Performing Organization Address [facility] Co de Phone Number [facility] [address] [place] [address], [place] [phone] * HEPATITIS C ANTIBODY (05/20/2021 8:56 AM CDT) Hepatitis C Antibody Non-react miguel Non-reac tive 05/20/2021 9:53 AM CDT [facility] Comment:Hepatitis C Antibody screen indicates no serologic evidence of past or current infection with Hepatitis C Virus. Patients with unexplained liver disease who are immunocompromised or suspected of having acute Hepatitis C infection may benefit from Nucleic Acid Test (JAYDA) for Hepatitis C Viral RNA to confirm Hepatitis C status. Blood BLOOD SPECIMEN / Unknown Lab Venipuncture / Unknown 05/20/2021 8:56 AM CDT 05/20/2021 9:09 AM CDT Michelle PENA LAB - CHEMISTRY OR DERABLES Performing Organization Address [facility] Co de Phone Number [facility] [address] [place] [address], [place] [phone] from Last 3 Months or Most Recently Relevant to Health Maintenance Advance Directives * Full Code (Latest Code Status on File) Date Activated Date Inactivated Comments 05/18/2020 1:50 PM 05/19/2020 3:43 PM Care Teams Baker Head Relationship Specialty Start Date End Date Michelle Pacheco APRN-CNP [address] [place] [address] [facility] - General 01/31/21
--- OUTSIDE RECORDS SUMMARY | 2024-05-27 17:01 | XMS_ITS | Encounter Summary ---
Author Organization [facility] Health Address [address] [facility] [place] [address] Care Team Providers Care Financial Recording Clerk Name Role Phone Michelle Pacheco MANAGER LIBRARY-WELDING PRODUCTION SUPERVISOR Primary Care Provider [phone] Reason for Visit * Reason Onset Date Comments Patient Requested Call 05/05/2024 Encounter Details Date Type Department Care Team (Late st Contact Info) Description 05/05/2024 Telephone [facility] - Centralized Scheduling [address] [place] [address] Ilana Pulido MD [facility] [place] [address] Patient Requested Call Social History Tobacco Use Types Packs/Day Years Used Date Smoking Tobacco: Former Cigarettes 1 25 0 10/28/1994 - 10/29/2019 Passive Smoke Exposure: Past Smokeless Tobacco: Former Snuff Alcohol Use Standard [...] Recorded Patient Health Questionnaire-2 Score 3 11/27/2022 [facility] Occupat ional Health - Occupational Stress [...] place to sleep or slept in a nursing home (including now)? No 11/27/2022 Education Answer Date [...] encounter Miscellaneous Notes * Telephone Encounter - Solange Saucedo - 05/23/2024 11:45 AM CDT Pt is stating that he missed a call from provider but he was driving at the time. CB# [phone] * Telephone Encounter - Katiuska Mai - 05/05/2024 3:31 PM CDT Patient is requesting lab orders be sent to [facility] [phone] documented in this encounter Plan of Treatment Upcoming Encounters Date Type Department Care Team (Late st Contact Info) Description 05/29/2024 10:00 AM CDT Office Visit [facility] - Rheumatology [address] [facility] [place] [phone] Charles Billy MD [address] [place] [phone] documented as of this encounter Visit Diagnoses Not on filedocumented in this encounter Care Teams Financial Recording Clerk Relationship Specialty Start Date End Date Michelle Pacheco, MANAGER LIBRARY-WELDING PRODUCTION SUPERVISOR [address] [place] [phone] PCP - General 01/31/21 documented as of this encounter
--- OUTSIDE RECORDS SUMMARY | 2024-05-27 17:01 | XMS_ITS | Encounter Summary ---
Author Organization [facility] Address [address] [address] Care Team Providers Care Spectroscopist Name Role Phone Osmar Tatum MD Primary Care Provider [phone] Suyapa Velazquez MD Primary Care Provider [phone] Lorraine Pena SUPERINTENDENT [facility]ER Primary Care Provider Michelle Pacheco SUPERINTENDENT [facility] CAGER Primary Care Provider [phone] Encounter Details Date Type Department Care Team (Late st Contact Info) Description 01/19/2020 Telephone [facility] [address] [place] [address] Samantha Kearns MD [address] [place] [address] Social History Tobacco Use Types Packs/Day Years Used Date Smoking Tobacco: Former Cigarettes Smokeless Tobacco: Never Comments:Stopped 60 days ago ! yay! Alcohol Use Standard Drinks/Week Comments Not Currently 0 (1 standard drink = 0.6 oz pur e alcohol) once a year Sex and Gender Information Value Date Recorded Sex Assigned at Male 11/27/2022 11:38 AM CDT Gender Identity Male 11/27/2022 11:38 AM CDT Sexual Orientation Straight 11/27/2022 11 :38 AM CDT COVID-19 Exposure Response Date Recorded In the last month, have you been in contact with someone who was confirmed or suspected to have Coronavirus / COVID-19? No / Unsure 01/07/2020 4:44 PM ANALYTICAL DATA SCIENTIST documented as of this encounter Miscellaneous Notes * Telephone Encounter - RooneyGretta webb - 01/19/2020 4:15 PM CST Current Provider name: Dr. Samantha Phillips Reason for call: Mr. Moustapha Peter's called to let you know the pain in his leg is getting progressively worse. They would also like for you to give them a call to follow up on labs and blood work done. He just established his MyChart but doesn't have an understanding of his blood work. Pleasecall. Patient Call Back number: His Mrs. Delfina Gonzalez's Phone YTICAL DATA SCIENTIST documented in this encounter Plan of Treatment Upcoming Encounters Date Type Department Care Team (Late st Contact Info) Description 05/29/2024 10:00 AM CDT Office Visit [facility] - Rhe[facility]ology [address] [facility] [place] [phone] Charles Billy MD [address] [place] [phone] documented as of this encounter Visit Diagnoses Not on filedocumented in this encounter Care Teams Spectroscopist Relationship Specialty Start Date End Date Osmar Tatum MD PCP - General 04/12/16 05/10/20 Suyapa Velazquez MD [address] [place] [phone] PCP - General Family Medicine 05/11/20 10/31/20 Lorraine ePna, [facility]PER[facility]ENT [facility] [address] [address] PCP - General 11/01/20 01/30/21 Michelle Pacheco, SUPERINTENDENT [facility] [address] [place] [address] PCP - General 01/31/21 documented as of this encounter
--- OUTSIDE RECORDS SUMMARY | 2024-05-27 17:01 | XMS_ITS | Continuity of Care Document ---
Author Organization [facility] Address [address] [place] [address] Phone Care Team Providers Care Laser Engineer Name Role Phone Blayne Plummer MD Unavailable Unavailable Allergies, Adverse Reactions, Alerts Substance Reaction Status Criticality No Known Allergies Active No Inform ation Medications Medication Instructions Dosage Effective Dates (start - stop) Status Comments betamethasone dipropionate 0.05 % Topical Ointment apply by topical route every day a thin layer to the affected area(s) 0.00 - Active prednisone 20 mg tablet take 3 Tablet (6 0MG) by oral route every day 60 MG - Active indomethacin 50 mg capsule take 1 capsule (50MG) by oral route 3 times every day with food 50 MG - Active Procedures Procedure Date PREV VISIT, NEW, AGE 40-64 Advance Directives Directive Yes / No Effective Date File Name No Information Encounters Encounter Description Practice Location Reason(s) For Visit Diagnoses Date Provider Providers Copied on Encounter PREV VISIT, NEW, AGE 40-64 [facility], [address] [place], [id number], tel:[phone] [facility] PHysical (chief complaint) Dietary surveillance and counselingRoutine Medical ExamRoutine Medical Exam 4 Elian Cisneros. [address] [place], [place], [id number] , [place]. tel:[phone] Family History Family Member Type Diagnosis Age At Onset Father Problem (finding) COPD Father Problem (finding) Diabetes mellitus Mother Problem (finding) Diabetes mellitus Mother Problem (finding) Hypertension Mother Problem (finding) CHF Sister Problem (finding) Alcoholism Payers Payer name Insurance type Covered constitution party ID Authoriza tion(s) No Information Social History Type Description Quantity Date Captured Comments Alcohol Use Details Caffeine Use Details Unknown Tobacco Use Status No Information Smoking Status Current every day smoker Non-Smoking Tobacco Use Details Smokeless: No Details Available Smokeless: No Details Available Sex Male Vital Signs Date / Time: Height Weight BMI Pulse Rate Blood Pressure Temperature Respiratory Rate Body Surface Area Head Circumference BMI percentile Pulse Ox Inhaled Ox 10:22 AM 71.50 in 250.50 lbs 34.4 5 kg/m eter (2) 88 /min 122/82 mm[Hg] 98.6 F 18 /min Chief Complaint And Reason For Visit From encounter dated '05/14/2013 10:15'. PHysical (chief complaint) Plan Of Treatment Date Type Action Status Goal Tobacco cessation counseling completed History Of Present Illness Encounter Date Complaint History Of Prese nt Illness No Information Instructions Date Instruction Additional Infor keyon Dietary counseling Related to Di etary surveillance counseling Decrease caloric intake Related to Dietary surveillance counseling Assessments Type Assessment Date No Information Mental Status Date Cognitive Assessment Orientation - Ren[place] ed to time, place, person, situation.
--- OUTSIDE RECORDS SUMMARY | 2024-05-27 17:01 | XMS_ITS | Clinical Summary ---
Author Organization [facility] Address [address] [place] [address] Care Team Providers Care Transfer And Pumphouse Operator Name Role Phone Yoel Youssef MD Primary Care Provider [phone] Allergies Active Allergy Reactions Criticality Noted Date [...] exertion 09/24/2019 Obesity (BMI 35.0-39.9 without comorbidity) /06/2019 Tobacco abuse 09/24/2019 Ectopic beats 09/24/2019 Encounters Date Type Department Care Team Description 03/11/2024 11:15 AM CLINICAL REHAB SPECIALIST Office Visit [facility] Sleep Medicine at [address] [place] [address] Cristal Novoa MD Obstructive sleep apnea (Primary Dx); Hypersomnia; Obesity, unspecified class, unspecified obesity type, unspecified whether serious comorbidity present from Last 3 Months Surgical History Surgery Date Site/Laterality Comments HIP SURGERY 05/18/2020 Bilateral hip decompression COLONOSCOPY OTHER SURGICAL HISTORY 09/12/2023 sleep endoscopy Medical History Medical History Date Comments Allergies Anxiety Arthritis Asthma Autoimmune disease Depression Diabetes (HCC) GERD (gastroesophageal reflux disease) Sleep apnea Family History Medical History Relation Name Comments Heart disease Father Autoimmune disease Mother Heart disease Mother Relation Name Status Comments Father Mother Social History Tobacco Use Types Packs/Day Years Used Date Smoking Tobacco: Former Cigarettes 30 Q uit: 2019 Vaping 2018 Smokeless [...] on file Legal Sex Male 10:10 AM CLINICAL REHAB SPECIALIST Gender Identity Not on file Sexual Orientation Not on file Obstetrics History Last Filed Vital Signs Vital Sign Reading Time Taken Comments Blood Pressure 94/65 03/11/2024 11:17 AM CLINICAL REHAB SPECIALIST Pulse 76 03/11/2024 11:17 AM CLINICAL REHAB SPECIALIST Temperature 36 C (96.8 F) 12/26/2023 11:10 AM CLINICAL REHAB SPECIALIST Respiratory Rate 18 01/29/2024 10:24 AM CLINICAL REHAB SPECIALIST Oxygen Saturation 94% 03/11/2024 11:17 AM CLINICAL REHAB SPECIALIST Inhaled Oxygen Concentration - - Weight 103.4 kg (228 lb) 03/11/2024 11:17 AM CLINICAL REHAB SPECIALIST Height 182.9 cm (6') 03/11/2024 11:17 AM CLINICAL REHAB SPECIALIST Body Mass Index 30.92 03/11/2024 11:17 AM CLINICAL REHAB SPECIALIST Plan of Treatment Health Maintenance Due Date Last Done Comments Albumin Creatinine Ratio, Urine 1971 Colon Cancer Screening-Colonoscopy 1971 Depression Screening 1971 Hepatitis C Screening 1971 eGFR 1971 Dilated Eye Exam 1971 Foot Exam 1971 DTaP/Tdap/Td Vaccine (1 - Tdap) 09/18/1982 Hepatitis B Screening 09/18/1989 Regular Well Visit/Exam 18-64 09/18/1989 Pneumococcal vaccine <65 (1 of 2 - PCV) 09/18/1990 Zoster Vaccine (1 of 2) 09/18/1990 Lung Cancer Screening 09/18/2021 Hemoglobin A1C 11/19/2021 05/20/2021 Lipid Panel 07/29/2022 07/29/2021, 09/05/2018 Influenza Vaccine (Season Ended) 2024 Prostate Cancer Screening-PSA 06/17/2025 06/18/2023 Medical Devices Implanted Type Area Hull Line Crew Member Device Identifier Shelf Expiration Date Model / Serial / Lot [employer] Lead Neurostimulator Sleep Apnea Thoracic Permanent Respiratory Sensing Inspire 43cm 4340 - [id number] - [id number] Implanted:Qty: 1 on 12/26/2023 by May Edwards MD at [facility] Lead Right: Chest [employer] 08/28/2026 4340 / [id number] / [employer] Inspire 3 Electrode Cuff Tunnel Victorino Lead Neurostimulator Sterile 4063 - [id number] - [id number] Implanted:Qty: 1 on 12/26/2023 by May Edwards MD at [facility] Lead Right: Neck [employer] 03/05/2026 4063 / [id number] / [employer] Inspire Generator 3028 - [id number] - [id number] Implanted:Qty: 1 on 12/26/2023 by May Edwards MD at [facility] Lead Right: Chest [employer] 07/29/2026 3028 / [id number] / Procedures Procedure Name Priority Date/Time [...] data last revised 21. Testing performed by: [facility], [address] [place] [address]., [address] Blood 06/18/2023 11:2 7 AM CDT 06/18/2023 1:56 PM CDT oLree Luna [facility] BLOOD ORDERABLES F inal Result [facility] [address] [facility] Department [place] [address] from Last 3 Months or Most Recently Relevant to Health Maintenance Insurance [facility] MEDICARE MEDICARE Care Teams Transfer And Pumphouse Operator Relationship Specialty Start Date End Date Yoel Youssef MD [address] [place] [address] PCP - General Family Medicine 09/04/23
--- OUTSIDE RECORDS SUMMARY | 2024-05-27 17:01 | XMS_ITS | Encounter Summary ---
Author Organization [facility] Address [address] [place] [address] Care Team Providers Care Strategic Accounts Manager Name Role Phone Suyapa Velazquez MD Primary Care Provider [phone] Lorraine Pena CRIME LABORATORY ANALYST-[facility] Primary Care Provider Michelle Pacheco CRIME LABORATORY ANALYST-[facility] Primary Care Provider [phone] Encounter Details Date Type Department Care Team (Late st Contact Info) Description 06/10/2020 Telephone [facility] [address] [place] [address] [place] [address] [address] Social History Tobacco Use Types Packs/Day Years Used Date Smoking Tobacco: Former Cigarettes 0 10/28/1989 - 10/29/2019 Smokeless Tobacco: Current Snuff Comments:Stopped 60 days ago ! yay! Alcohol [...] have Coronavirus / COVID-19? No / Unsure 05/15/2020 12:02 PM CDT documented as of this encounter Functional [...] No 05/18/2020 documented as of this encounter Plan of Treatment Upcoming Encounters Date Type Department Care Team (Late st Contact Info) Description 05/29/2024 10:00 AM CDT Office Visit [facility] - Rheumatology [address] [place] [address], [facility] [phone] Charles Billy MD [address] [place] [phone] documented as of this encounter Visit Diagnoses Not on filedocumented in this encounter Care Teams Strategic Accounts Manager Relationship Specialty Start Date End Date Suyapa Velazquez MD [address] [place] [phone] PCP - General Family Medicine 05/11/20 10/31/20 Lorraine Pena CRIME LABORATORY ANALYST-MAT MAN [address] [place] [phone] PCP - General 11/01/20 01/30/21 Michelle Pacheco CRIME LABORATORY ANALYST-MAT MAN [address] [place] [phone] PCP - General 01/31/21 documented as of this encounter
--- OUTSIDE RECORDS SUMMARY | 2024-05-27 17:01 | XMS_ITS | Encounter Summary ---
Author Organization [facility] Address [address] [place] [address] Care Team Providers Care Cuff Presser Name Role Phone Michelle Pacheco JAVON-NEIGHBORHOOD CONSERVATION OFFICER Primary Care Provider [phone] Reason for Visit * Reason Comments Refill Request Encounter Details Date Type Department Care Team (Late st Contact Info) Description 07/21/2023 Refill [facility] D[facility] [address] [facility], [place] [phone] Isiah Seaman MD [address] [facility] [address] Refill Request Social History Tobacco Use Types Packs/Day Years [...] Recorded Patient Health Questionnaire-2 Score 3 11/27/2022 [facility] [place] of Occupat ional Health - Occupational Stress [...] place to sleep or slept in a chcf (including now)? No 11/27/2022 Education Answer Date [...] Office Visit [facility] Rheumatology [address] [place] [address], [facility] [place] [phone] Charles Billy MD [facility] [place] [phone] documented as of this encounter Visit Diagnoses Diagnosis Psoriasis Other psoriasis documented in this encounter Care Teams Cuff Presser Relationship Specialty Start Date End Date Michelle Pacheco APRN-NEIGHBORHOOD CONSERVATION OFFICER [address] [place] [phone] PCP - General 01/31/21 documented as of this encounter
== END 2024-05-27 16:01 | disposition home or self-care (01) ==
PROVIDERS: PCP Family Medicine; Visit Provider Nurse Practitioner Family
DX: Z12.2 Encounter for screening for malignant neoplasm of respiratory organs (principal); Z87.891 Personal history of nicotine dependence
CPT/HCPCS: 71271

== ENCOUNTER 2024-07-01 02:34 | Day surgery (SDC) | payer MEDICARE, MEDICAID, SELFPAY ==
[2024-01-02 13:57] VITALS: BMI 32.0
[2024-04-04 11:56] VITALS: BMI 29.7
[2024-06-20 11:28] VITALS: BMI 28.5
--- OUTSIDE RECORDS SUMMARY | 2024-07-01 02:37 | XMS_ITS | Encounter Summary ---
Author Organization [facility] Address [address] [facility] [place] [address] Care Team Providers Care Director Cloud Transformation Name Role Phone Osmar Tatum MD Primary Care Provider [phone] Suyapa Velazquez MD Primary Care Provider Lorraine Pena BUILDING CONSTRUCTION PROFESSOR-DAIRY HAND Primary Care Provider Michelle Pacheco BUILDING CONSTRUCTION PROFESSOR-DAIRY HAND Primary Care Provider [phone] Encounter Details Date Type Department Care Team (Late st Contact Info) Description 01/19/2020 Telephone [facility] Rhe[facility]ology [address] [place] [address] Samantha Kearns MD [address] [place] [address] Social History Tobacco Use Types Packs/Day Years Used Date Smoking Tobacco: Former Cigarettes Smokeless Tobacco: Never Comments:Stopped 60 days ago ! yay! Alcohol Use Standard Drinks/Week Comments Not Currently 0 (1 standard drink = 0.6 oz pur e alcohol) once a year Sex and Gender Information Value Date Recorded Sex Assigned at Male 11/27/2022 11:38 AM CDT Legal Sex Male 5:[address] LIGHT REPAIRER HELPER Gender Identity Male 11/27/2022 11:38 AM CDT Sexual Orientation Straight 11/27/2022 11 :38 AM CDT COVID-19 Exposure Response Date Recorded In the last month, have you been in contact with someone who was confirmed or suspected to have Coronavirus / COVID-19? No / Unsure 01/07/2020 4:[address] LIGHT REPAIRER HELPER documented as of this encounter Miscellaneous Notes * Telephone Encounter - RooneyGretta huggins - 01/19/2020 4:15 PM CST Current Provider [...] blood work. Pleasecall. Patient Call Back number: [phone] His Mrs. Delfina Gonzalez's Phone ET LIGHT REPAIRER HELPER documented in this encounter Plan of Treatment Upcoming Encounters Date Type Department Care Team (Late st Contact Info) Description 07/04/2024 1:30 PM CDT Office Visit [facility] - Orthopedic Surgery [address] [place] [phone] Gil Shen MD [address] [place] [phone] 08/04/2024 10:20 AM CDT Office Visit [facility] - Rheumatology [address] [place] [phone] Charles Billy MD [address] [place] [phone] 11/10/2024 3:00 PM CDT Office Visit [facility] - Internal Med [address] [place] [phone] Ilana Pulido MD [address] [place] [address] [address] [place] [phone] Yagn Rodriguez MD [address] [facility] [place] [phone] documented as of this encounter Visit Diagnoses Not on filedocumented in this encounter Care Teams Director Cloud Transformation Relationship Specialty Start Date End Date Osmar Tatum MD PCP - General 04/12/16 05/10/20 Suyapa Velazquez MD [address] [place] [phone] PCP - General Family Medicine 05/11/20 10/31/20 Lorraine Pena, BUILDING CONSTRUCTION PROFESSOR-DAIRY HAND [address] [phone] PCP - General 11/01/20 01/30/21 Michelle Pacheco, BUILDING CONSTRUCTION PROFESSOR-DAIRY HAND [address] [place] [phone] PCP - General 01/31/21 documented as of this encounter
--- OUTSIDE RECORDS SUMMARY | 2024-07-01 02:37 | XMS_ITS | Encounter Summary ---
Author Organization [facility] Address [address] [place] [address] Care Team Providers Care Grain Mill Products Inspector Name Role Phone Michelle Pacheco [facility] Primary Care Provider [phone] Reason for Visit * Reason Onset Date Comments Question 09/27/2021 Encounter Details Date Type Department Care Team (Late st Contact Info) Description 09/27/2021 [facility]phone [facility] [address] [place] [address] Michelle Pacheco [facility] [address] [place] [address] Question Social History Tobacco Use [...] AM CDT Legal Sex Male 5:42 PM DENTURE FINISHER Gender Identity Male 11/27/2022 11:38 AM CDT Sexual Orientation Straight 11/27/2022 11 :38 AM CDT documented as of this encounter Functional Status * Is person deaf or have serious hearing difficulty? Answer Date of Assessment Author No 05/18/2020 2:00 PM CDT Kisha Woodard, RN * Is person blind or have serious difficulty seeing? Answer Date of Assessment Author No 05/18/2020 2:00 PM CDT Kisha Woodard RN * Does person have serious difficulty walking/climbing stairs? Answer Date of Assessment Author No 05/18/2020 2:00 PM CDT Kisha Woodard RN * Does person have difficulty dressing/bathing? Answer Date of Assessment Author No 05/18/2020 2:00 PM CDT Kisha Woodard RN * Does person have difficulty doing errands alone? Answer Date of Assessment Author No 05/18/2020 2:00 PM CDT Kisha Woodard RN documented as of this encounter Mental Status * Does person have difficulty concentrating/remembering/making decisions? Answer Entry Date Author No 05/18/2020 2:00 PM CDT Kisha Woodard RN documented in this encounter Miscellaneous Notes * Telephone Encounter [...] level of concerns. Patient Call Back number: [phone] documented in this encounter Plan of Treatment Upcoming Encounters Date Type Department Care Team (Late st Contact Info) Description 07/04/2024 1:30 PM CDT Office Visit [facility] - Orthopedic Surgery [address] [place] [address] Gil Shen MD [address] [place] [address] 08/04/2024 10:20 AM CDT Office Visit [facility] - Rheumatology [address] [place] [phone] Charles Billy MD [address] [place] [phone] 11/10/2024 3:00 PM CDT Office Visit [facility] - Internal Med [address] [place] [phone] Ilana Pulido MD [address] [place] [address] [address] [place] [address] Yang Rodriguez MD [address] [place] [phone] documented as of this encounter Visit Diagnoses Not on filedocumented in this encounter Care Teams Grain Mill Products Inspector Relationship Specialty Start Date End Date Michelle Pacheco APRN-PATTERNMAKER PLASTER [address] [place] [phone] PCP - General 01/31/21 documented as of this encounter
--- OUTSIDE RECORDS SUMMARY | 2024-07-01 02:38 | XMS_ITS | Encounter Summary ---
Author Organization [facility] Health Address [address] [place] [address] Care Team Providers Care Change Of Address Clerk Name Role Phone Michelle Pacheco OBSTETRICS GYN-NECK BAND OPERATOR Primary Care Provider [phone] Reason for Visit * Reason Onset Date Comments Patient Requested Call 05/05/2024 Encounter Details Date Type Department Care Team (Late st Contact Info) Description 05/05/2024 Telephone [facility] - Centralized Scheduling [address] [place] [address] Ilana Pulido MD [facility] [place] [address] Patient Requested Call Social History [...] Recorded Patient Health Questionnaire-2 Score 3 11/27/2022 [facility] [place] of Occupat ional Health - Occupational Stress [...] place to sleep or slept in a longterm (including now)? No 11/27/2022 Education Answer Date Recorded What is the highest level of school you have completed or the highest degree you have received? High school graduate 11/27/2022 Sex and Gender Information Value Date Recorded Sex Assigned at Male 11/27/2022 11:38 AM CDT Legal Sex Male 5:42 PM VALUER Gender Identity Male 11/27/2022 11:38 AM CDT [...] Author No 05/18/2020 2:00 PM CDT Kisha Woodadr RN documented in this encounter Miscellaneous Notes * Telephone Encounter - Solange Saucedo - 05/23/2024 11:45 AM CDT Pt is stating that he missed a call from provider but he was driving at the time. CB# [phone] * Telephone Encounter - Katiuska Mai - 05/05/2024 3:31 PM CDT Patient is requesting lab orders be sent to [facility] [phone] documented in this encounter Plan of Treatment Upcoming Encounters Date Type Department Care Team (Late st Contact Info) Description 07/04/2024 1:30 PM CDT Office Visit [facility] - Orthopedic Surgery [address] [place] [address] Gil Shen MD [address] [place] [phone] 08/04/2024 10:20 AM CDT Office Visit [facility] - Rheumatology [address] [facility] [place] [phone] Charles Billy MD [address] [place] [phone] 11/10/2024 3:00 PM CDT Office Visit [facility] - Internal Med [address] [place] [address], [place] [address] Ilana Pulido MD [address] [place] [address] [address] [place] [address] Yang Rodriguez MD [address] [place] [address] documented as of this encounter Visit Diagnoses Not on filedocumented in this encounter Care Teams Change Of Address Clerk Relationship Specialty Start Date End Date Michelle Pacheco, JAVON-NECK BAND OPERATOR [address] [place] [phone] PCP - General 01/31/21 documented as of this encounter
--- OUTSIDE RECORDS SUMMARY | 2024-07-01 02:38 | XMS_ITS | Encounter Summary ---
Author Organization [facility] Address [address] [facility] [place] [address] Care Team Providers Care Informatics Specialist Name Role Phone Michelle Pacheco JAVON-DIRECTOR VOICE Primary Care Provider [phone] Reason for Visit * Reason Comments Refill Request Encounter Details Date Type Department Care Team (Late st Contact Info) Description 07/21/2023 Refill [facility] D[facility] [address] [facility], [place] [phone] Isiah Seaman MD [address] [facility] [place] [address] Refill Request Social History Tobacco [...] Recorded Patient Health Questionnaire-2 Score 3 11/27/2022 [facility] [place] of Occupat ional Health - Occupational Stress [...] place to sleep or slept in a jail (including now)? No 11/27/2022 Education Answer Date Recorded What is the highest level of school you have completed or the highest degree you have received? High school graduate 11/27/2022 Sex and Gender Information Value Date Recorded Sex Assigned at Male 11/27/2022 11:38 AM CDT Legal Sex Male 5:42 PM PUBLICATIONS DISTRIBUTION CLERK Gender Identity Male 11/27/2022 11:38 AM CDT [...] Kisha Woodard RN documented in this encounter Plan of Treatment Upcoming Encounters Date Type Department Care Team (Late st Contact Info) Description 07/04/2024 1:30 PM CDT Office Visit [facility] - Orthopedic Surgery [address] [place] [address] Gil Shen MD [address] [place] [address] 08/04/2024 10:20 AM CDT Office Visit [facility] - Rheumatology [address] [place] [phone] Charles Billy MD [address] [place] [phone] 11/10/2024 3:00 PM CDT Office Visit [facility] - Internal Med [address] [place] [phone] Ilana Pulido MD [address] [place] [address] [address] [place] [phone] Yang Rodriguez MD [address] [place] [phone] documented as of this encounter Visit Diagnoses Diagnosis Psoriasis Other psoriasis documented in this encounter Care Teams Informatics Specialist Relationship Specialty Start Date End Date Michelle Pacheco APRN-DIRECTOR VOICE [address] [place] [address] PCP - General 01/31/21 documented as of this encounter
--- OUTSIDE RECORDS SUMMARY | 2024-07-01 02:38 | XMS_ITS | Referral Summary ---
Author Organization [facility] [place] [facility] Address [address] [place] [address] Care Team Providers Care Bundle Tier Name Role Phone Yoel Youssef MD Primary Care Provider [phone] Allergies Active Allergy Reactions Criticality Noted Date [...] on file Legal Sex Male 10:10 AM DATA MINING ANALYST Gender Identity Not on file Sexual Orientation Not on file Last Filed Vital Signs Vital Sign Reading Time Taken Comments Blood Pressure 94/65 03/11/2024 11:17 AM DATA MINING ANALYST Pulse 76 03/11/2024 11:17 AM DATA MINING ANALYST Temperature 36 C (96.8 F) 12/26/2023 11:10 AM DATA MINING ANALYST Respiratory Rate 18 01/29/2024 10:24 AM DATA MINING ANALYST Oxygen Saturation 94% 03/11/2024 11:17 AM DATA MINING ANALYST Inhaled Oxygen Concentration - - Weight 103.4 kg (228 lb) 03/11/2024 11:17 AM DATA MINING ANALYST Height 182.9 cm (6') 03/11/2024 11:17 AM DATA MINING ANALYST Body Mass Index 30.92 03/11/2024 11:17 AM DATA MINING ANALYST Plan of Treatment Not on file Medical Devices Implanted Type Area Associate Professor Of Sociology Device Identifier Shelf Expiration Date Model / Serial / Lot [employer] Lead Neurostimulator Sleep Apnea Thoracic Permanent Respiratory Sensing Inspire 43cm 4340 - [id number] - [id number] Implanted:Qty: 1 on 12/26/2023 by May Edwards MD at [facility] Lead Right: Chest [employer] 08/28/2026 4340 / [id number] / [employer] Inspire 3 Electrode Cuff Tunnel Victorino Lead Neurostimulator Sterile 4063 - [id number] - [id number] Implanted:Qty: 1 on 12/26/2023 by May Edwards MD at [facility] Lead Right: Neck [employer] 03/05/2026 4063 / [id number] / [employer] Inspire Generator 3028 - [id number] - [id number] Implanted:Qty: 1 on 12/26/2023 by May Edwards MD at [facility] Lead Right: Chest [employer] 07/29/2026 3028 / [id number] / Procedures Procedure Name Priority Date/Time [...] data last revised 21. Testing performed by: [facility], [address] [place] [address]., [id number] Blood 06/18/2023 11:2 7 AM CDT 06/18/2023 1:56 PM CDT us Loree Luna [facility] BLOOD ORDERABLES F inal Result [facility] [address] [facility] [place] [address] from Last 3 Months or Most Recently Relevant to Health Maintenance Insurance MEDICARE Care Teams Bundle Tier Relationship Specialty Start Date End Date Yoel Youssef MD [address] [place] [id number] PCP - General Family Medicine 09/04/23
--- OUTSIDE RECORDS SUMMARY | 2024-07-01 02:38 | XMS_ITS | Clinical Summary ---
Author Organization [facility] Address [address] [place] [address] Care Team Providers Care Defense Analyst Name Role Phone Michelle Pacheco [employer] Primary Care Provider [phone] Source Comments [facility],non-owned Affiliates and Associated Physician Practices is amultiple site organization consisting of ambulatory clinics and hospital sitesin [place], [place], [place] and [place]. This disclosure is being madepursuant to the Care Everywhere program and may not contain all information available regarding this patient. Last updated 17.[facility] Allergies Active Allergy Reactions Criticality Noted Date Comments Doxycycline Anaphylaxis,Urticaria High 02/05/2019 Medications * Be aware that medications may not be up to date on this document. Alwaysverify current medications with the patient. albuterol HFA (PROVENTIL;ALDA TOLIN;PROAIR) 108 (90 Base) MCG/ACT inhaler Inhale 1 (one) puff to 2 (two) puffs by mouth every 4 hours as needed 09/04/19 20 Active EPINEPHrine (EPIPEN) 0.3 MG/0.3ML auto-injector pen Inject 0.3 mL into muscle every 24 hours as needed 02/09/20 19 Active oxyCODONE-acet aminophen (PERCOCET) 5-325 MG tablet Take 1 (one) tablet by mouth every 8 hours as needed for Pain 30 tablet 09/30/19 21 Active calcipotriene (DOVONEX) 0.005 % cream Apply 1 Dose to affected area 2 times daily 10/12/19 21 Active simvastatin (Zocor) 10 MG tablet Take 1 (one) tablet by mouth once daily 11/11/19 22 Active atenolol (Tenormin) 25 MG tablet Take 1 (one) tablet by mouth 2 times daily 01/05/20 22 Active pantoprazole EC (Protonix) 20 MG tablet Take 1 (one) tablet by mouth once daily 01/10/20 22 Active tamsulosin (Flomax) 0.4 MG capsule Take 1 (one) capsule by mouth once daily 08/23/19 22 Active ALPRAZolam (Xanax) 0.5 MG tablet Take 1 (one) tablet by mouth 2 times daily as needed 01/04/20 23 Active famotidine (Pepcid) 40 MG tablet Take 1 (one) tablet by mouth every morning 07/10/19 24 Active ONETOUCH DELICA PLUS 30G FINE LANCETS USE TO CHECK GLUCOSE ONCE DAILY 06/20/19 24 Active Symbicort 160-4.5 MCG/ACT inhaler Inhale 2 (two) puffs by mouth as directed 08/28/19 24 Active naproxen (Naprosyn) 500 MG tablet Take 1 (one) tablet by mouth 2 times daily 08/12/19 24 Active atorvastatin (Lipitor) 20 MG tablet Take 1 (one) tablet by mouth once daily 07/21/19 24 Active clobetasol (Temovate) 0.05 % ointmentIndica tions:Other psoriasis Apply to legs twice daily as needed. 30 days supply. 60 g 5 09/14/19 24 Active risankizumab-r zaa (Skyrizi Pen) 150 MG/ML injectionIndic ations:Other psoriasis Inject 1mL subcutaneously every 12 weeks. 12 week supply. 1 mL 2 09/14/19 24 Active risankizumab-r zaa (Skyrizi Pen) 150 MG/ML injectionIndic ations:Other psoriasis Inject 1 mL subcutaneously on day 0. Inject 1 mL subcutaneously on day 28. 2 mL 09/14/19 24 Active testosterone cypionate (Depo-Testoste maury) 100 MG/ML injection INJECT 1/2 (ONE-HALF) ML INTRAMUSCULARLY ONCE A WEEK 11/26/19 24 Active omeprazole (PriLOSEC) 20 MG capsule Take 1 (one) capsule by mouth every morning Active OneTouch Verio test strip USE STRIP TO CHECK GLUCOSE THREE TIMES DAILY 11/04/19 24 Active lisinopril (Prinivil; Zestril) 2.5 MG tablet Take 1 (one) tablet by mouth once daily 11/09/19 24 Active clotrimazole (Mycelex) 10 MG trocheIndicati ons:Other psoriasis Take 1 (one) Zelalem by mouth 3 times daily as needed (thrush) 70 Zelalem 5 12/14/19 24 Active PARoxetine (Paxil) 20 MG tablet Take 1 (one) tablet by mouth once daily 05/10/19 25 Active folic acid (Folvite) 1 MG tabletIndicati ons:Other psoriasis Take 1 (one) tablet by mouth once daily 90 tablet 3 05/30/19 25 Active Methotrexate Sodium (methotrexate, PF,) 50 MG/2ML injectionIndic ations:Psorias is,Psoriatic Arthritis Inject 0.6 mL subcutaneously every 7 days Reasons: Psoriasis, Psoriasis associated with Arthritis 10 mL 3 05/30/19 25 026 Active TUBERCULIN SYR 1CC/25GX5/8 25G X 5/8 1 ML MISC Use 1 Each every 7 days For weekly methotrexate subcutaneous injection. 100 Each 1 05/30/19 25 Active allopurinol (Zyloprim) 300 MG tabletIndicati ons:Gout Take 1 (one) tablet by mouth once daily Reasons: Gout 90 tablet 3 05/30/19 25 026 Active Zoster Vaccine, Recombinant, Adjuvanted (Shingrix) 50 MCG/0.5ML SUSR (RZV)Indicatio ns:Herpes Zoster Vaccination,Im munosuppressed Inject 0.5 mL into muscle every 60 days for 2 doses Reasons: Vaccination to Prevent Shingles, Immunosuppressed 1 mL 05/30/19 25 025 Active vitamin D, ergocalciferol , (Drisdol) 1.25 MG (57579 UT) capsuleIndicat ions:Vitamin D Deficiency Take 1 (one) capsule by mouth every 7 days for 12 doses Reasons: Vitamin D Deficiency 12 capsule 06/01/19 25 025 Active Bimekizumab-bk zx (Bimzelx) 320 MG/2ML SOAJIndication s:Plaque Psoriasis,Psor iatic Arthritis Inject 320 mg subcutaneously 1 (one) time for 1 dose Reasons: Plaque Psoriasis, Psoriasis associated with Arthritis 06/03/19 25 Active Bimekizumab-bk zx (Bimzelx) 160 MG/ML SOAJIndication s:Plaque Psoriasis,Psor iatic Arthritis Inject 320 mg subcutaneously Every 8 Weeks maintenance dose Reasons: Plaque Psoriasis, Psoriasis associated with Arthritis 2 mL 4 06/20/19 25 026 Active Bimekizumab-bk zx (Bimzelx) 160 MG/ML SOAJIndication s:Plaque Psoriasis,Psor iatic Arthritis Inject 320 mg subcutaneously Every 8 Weeks maintenance dose Reasons: Plaque Psoriasis, Psoriasis associated with Arthritis 2 mL 4 05/30/19 25 025 Discontin ued(Reord er) Active Problems Problem Noted Date Diagnosed Date [...] Encounters Date Type Department Care Team Description 06/19/2024 Orders Only [facility] - Dermatology [address] [facility] [place] [address] Ilana Pulido MD Psoriatic arthritis (HCC); Other psoriasis 06/16/2024 Telephone [facility] - Rheumatology [address] [place] [phone] Charles Billy MD Med Question 06/06/2024 Telephone [facility] - Rheumatology [address] [place] [phone] Charles Billy MD Follow-up 06/02/2024 Orders Only [facility] - Rheumatology [address] [place] [phone] Charles Billy MD Psoriatic arthritis (HCC) ; Other psoriasis 06/02/2024 [facility] Physician [facility] - Rheumatology [address] [place] [phone] Cahrles Billy MD Pain Back 05/30/2024 9:30 AM CDT - 05/30/2024 11:59 PM T Hospital Encounter [facility] DRAW [facility] [address] [place] [address] Charles Billy MD Discharge Disposition: Home or Self Care 05/30/2024 9:30 AM T Hospital Encounter [facility] DI[facility]STIC RAD OP [address] [place] [address] Charles Billy MD Discharge Disposition: Home or Self Care 05/30/2024 [facility] - Rheumatology [address] [place] [phone] Charles Billy MD Med Question 05/29/2024 10:00 AM CDT Office Visit [facility] Physician [facility] - Rheumatology [address] [place] [phone] Charles Billy MD Psoriatic arthritis (HCC) (Primary Dx); Other psoriasis; Therapeutic drug monitoring; Immunosuppression due to drug therapy (HCC); Need for hepatitis B screening test; Need for hepatitis C screening test; Screening for tuberculosis; Polyarthralgia; Bilateral hip osteonecrosis (HCC); Chronic gout of multiple sites, unspecified cause; Gout, unspecified cause, unspecified chronicity, unspecified site; Hypovitaminosis D 05/29/2024 Travel 05/23/2024 9:50 AM CDT Office Visit [facility] - Dermatology [address] [place] [phone] Ilana Pulido MD Psoriatic arthritis (HCC) (Primary Dx); Encounter for long-term current use of high risk medication; Other psoriasis 05/23/2024 Travel 05/07/2024 Telephone [facility] - Dermatology [address] [place] [phone] Ilana Pulido MD Appointment 05/05/2024 Telephone [facility] - Centralized Scheduling [facility] [place] [address] Ilana Pulido MD Patient Requested Call 04/25/2024 Orders Only [facility] - Dermatology [address] [place] [phone] Ilana Pulido MD Encounter for long-term current use of high risk medication 04/03/2024 Telephone [facility] - Dermatology [address] [place] [phone] Ilana Pulido MD Follow-up from Last 3 Months Family History Medical History Relation Name Comments Psoriasis Brother 60 Heart Failure Father 65 Cancer - Colon Maternal Grandfather Cancer - Prostate Maternal Grandfather Cancer - Esophageal Maternal Grandmother Diabetes - Type 2 Mother 75 Heart Failure Mother 75 Peripheral Neuropathy Mother 75 Diabetes - Type 2 Sister 1 62 Psoriasis Sister 2 61 Relation Name Status Comments [...] Recorded Patient Health Questionnaire-2 Score 3 11/27/2022 [facility] Stress [...] place to sleep or slept in a senior care (including now)? No 11/27/2022 Education Answer Date Recorded What is the highest level of school you have completed or the highest degree you have received? High school graduate 11/27/2022 Sex and Gender Information Value Date Recorded Sex Assigned at Male 11/27/2022 11:38 AM CDT Legal Sex Male 5:42 PM [employer] Gender Identity Male 11/27/2022 11:38 AM CDT Sexual Orientation Straight 11/27/2022 11 :38 AM CDT Last Filed Vital Signs Vital Sign Reading Time Taken Comments Blood Pressure 111/75 05/29/2024 10:24 AM CDT Pulse 63 05/29/2024 10:24 AM CDT Temperature 36.1 C (96.9 F) 05/29/2024 10:24 AM CDT Respiratory Rate 16 08/29/2023 8:37 AM CDT Oxygen Saturation 95% 08/29/2023 8:37 AM CDT Inhaled Oxygen Concentration - - Weight 99.7 kg (219 lb 12.8 oz) 025 10:24 AM CDT Height 182.9 cm (6' 0.01 ) 05/29/2024 1 0:24 AM CDT Body Mass Index 29.8 05/29/2024 10:24 AM CDT Plan of Treatment Upcoming Encounters Date Type Department Care Team (Late st Contact Info) Description 07/04/2024 1:30 PM CDT Office [facility] [address] [place] [phone] Gil Shen MD [address] [place] [phone] 08/04/2024 10:20 AM CDT Office [facility] Rheumat[facility] [address] [place] [phone] Charles Billy MD [address] [place] [phone] 11/10/2024 3:00 PM CDT Office [facility] - Internal Med [address] [place] [phone] Ilana Pulido MD [address] [place] [address] [address] [place] [phone] Yang Rodriguez MD [address] [phone] Health Maintenance Due Date Last Done Comments COLOGUARD (AGES 45-75) - COLON CA SCREENING 1971 COLON MONITORING 1971 COLONOSCOPY - COLON CA SCREENING 1971 CT COLONOGRAPHY - COLON CA SCREENING 1971 Colorectal Cancer Screening 1971 FIT - COLON CA SCREENING 1971 FLEX SIG - COLON CA SCREENING 1971 Opioid Medication Agreement - Annual 1971 COVID-19 VACCINE (#1) 09/18/1976 DTAP/TDAP/TD VACCINES (1 - Tdap) 09/18/1990 HEPATITIS B VACCINE (1 of 3 - 19+ 3-dose series) 09/18/1990 PNEUMOCOCCAL VACCINE 50+ (1 of 2 - PCV) 09/18/1990 ZOSTER VACCINE (1 of 2) 09/18/1990 DIABETES RETINOPATHY SCREENING 06/07/2020 DIABETES-FOOT EXAM WITH MONOFILAMENT 06/07/2020 LUNG CANCER SCREENING 09/18/2021 DEPRESSION SCREENING 02/20/2024 11/27/2022 DIABETES - URINE PROTEIN SCREENING 02/20/2024 05/20/2021 MEDICARE AWV CALENDAR YEAR 2024 INFLUENZA VACCINE (Season Ended) 2024 DIABETES-HGB A1C 11/29/2024 05/30/2024, 11/2021, 06/27/2021, Additional history exists DIABETES-SERUM CREATININE 05/30/20252024, 12/16/2023, 12/16/2023, Additional history exists HIV SCREENING Completed 05/20/2021 HEPATITIS C SCREENING Completed 05/30/2024 , 05/20/2021, 06/21/2020, Additional history exists HIB VACCINE Aged Out No longer eligi [...] this topic Medical Devices Implanted Type Area Program Manufacturing Leader Device Identifier Shelf Expiration Date Model / Serial / Lot Pro-Dense Core Decompression Procedure Kit Implanted:Qty: 1 on 05/18/2020 by Gil Shen MD at [facility] Left: Hip [employer] 04/15/2023 [id number] / / [id number] Description: Pro-Dense Core Decompression Procedure Kit Implanted:Qty: 1 on 05/18/2020 by Gil Shen MD at [facility] Right: Hip [employer] 04/15/2023 [id number] / / [id number] Description:fc Procedures Procedure Name Priority Date/Time Associated Diagnosis Comments HEMOGLOBIN A1C Routine 05/30/2024 10:26 AM CDT Psoriatic arthritis (HCC) Other psoriasis Therapeutic drug monitoring Immunosuppression due to drug therapy (HCC) Need for hepatitis B screening test Need for hepatitis C screening test Screening for tuberculosis Polyarthralgia Bilateral hip osteonecrosis (HCC) Chronic gout of multiple sites, unspecified cause Gout, unspecified cause, unspecified chronicity, unspecified site Hypovitaminosis D VITAMIN D 25-HYDROXY Routine 05/30/2024 10:26 AM CDT Psoriatic arthritis (HCC) Other psoriasis Therapeutic drug monitoring Immunosuppression due to drug therapy (HCC) Need for hepatitis B screening test Need for hepatitis C screening test Screening for tuberculosis Polyarthralgia Bilateral hip osteonecrosis (HCC) Chronic gout of multiple sites, unspecified cause Gout, unspecified cause, unspecified chronicity, unspecified site Hypovitaminosis D URIC ACID BLOOD Routine 05/30/2024 10:26 AM CDT Psoriatic arthritis (HCC) Other psoriasis Therapeutic drug monitoring Immunosuppression due to drug therapy (HCC) Need for hepatitis B screening test Need for hepatitis C screening test Screening for tuberculosis Polyarthralgia Bilateral hip osteonecrosis (HCC) Chronic gout of multiple sites, unspecified cause Gout, unspecified cause, unspecified chronicity, unspecified site Hypovitaminosis D HLA TYPING B27 Routine 05/30/2024 10:26 AM CDT Psoriatic arthritis (HCC) Other psoriasis Therapeutic drug monitoring Immunosuppression due to drug therapy (HCC) Need for hepatitis B screening test Need for hepatitis C screening test Screening for tuberculosis Polyarthralgia Bilateral hip osteonecrosis (HCC) Chronic gout of multiple sites, unspecified cause Gout, unspecified cause, unspecified chronicity, unspecified site Hypovitaminosis D CYCLIC CITRULLINATED PEPTIDE(CCP) AB IGG Routine 05/30/2024 10:26 AM CDT Psoriatic arthritis (HCC) Other psoriasis Therapeutic drug monitoring Immunosuppression due to drug therapy (HCC) Need for hepatitis B screening test Need for hepatitis C screening test Screening for tuberculosis Polyarthralgia Bilateral hip osteonecrosis (HCC) Chronic gout of multiple sites, unspecified cause Gout, unspecified cause, unspecified chronicity, unspecified site Hypovitaminosis D RHEUMATOID FACTOR BLOOD QUANTITATIVE Routine 05/30/2024 10:26 AM CDT Psoriatic arthritis (HCC) Other psoriasis Therapeutic drug monitoring Immunosuppression due to drug therapy (HCC) Need for hepatitis B screening test Need for hepatitis C screening test Screening for tuberculosis Polyarthralgia Bilateral hip osteonecrosis (HCC) Chronic gout of multiple sites, unspecified cause Gout, unspecified cause, unspecified chronicity, unspecified site Hypovitaminosis D TSH REFLEX FREE T4 Routine 05/30/2024 10 :26 AM CDT Psoriatic arthritis (HCC) Other psoriasis Therapeutic drug monitoring Immunosuppression due to drug therapy (HCC) Need for hepatitis B screening test Need for hepatitis C screening test Screening for tuberculosis Polyarthralgia Bilateral hip osteonecrosis (HCC) Chronic gout of multiple sites, unspecified cause Gout, unspecified cause, unspecified chronicity, unspecified site Hypovitaminosis D QUANTIFERON-TB GOLD PLUS 4-TUBE Routine 05/30/2024 10:26 AM CDT Psoriatic arthritis (HCC) Other psoriasis Therapeutic drug monitoring Immunosuppression due to drug therapy (HCC) Need for hepatitis B screening test Need for hepatitis C screening test Screening for tuberculosis Polyarthralgia Bilateral hip osteonecrosis (HCC) Chronic gout of multiple sites, unspecified cause Gout, unspecified cause, unspecified chronicity, unspecified site Hypovitaminosis D HEPATITIS B SURFACE ANTIBODY QUANT Routine 05/30/2024 10:26 AM CDT Psoriatic arthritis (HCC) Other psoriasis Therapeutic drug monitoring Immunosuppression due to drug therapy (HCC) Need for hepatitis B screening test Need for hepatitis C screening test Screening for tuberculosis Polyarthralgia Bilateral hip osteonecrosis (HCC) Chronic gout of multiple sites, unspecified cause Gout, unspecified cause, unspecified chronicity, unspecified site Hypovitaminosis D HEPATITIS C ANTIBODY Routine 05/30/2024 10:26 AM CDT Psoriatic arthritis (HCC) Other psoriasis Therapeutic drug monitoring Immunosuppression due to drug therapy (HCC) Need for hepatitis B screening test Need for hepatitis C screening test Screening for tuberculosis Polyarthralgia Bilateral hip osteonecrosis (HCC) Chronic gout of multiple sites, unspecified cause Gout, unspecified cause, unspecified chronicity, unspecified site Hypovitaminosis D HEPATITIS B SURFACE ANTIGEN W RFLX CONFIRMATION Routine 05/30/2024 10:26 AM CDT Psoriatic arthritis (HCC) Other psoriasis Therapeutic drug monitoring Immunosuppression due to drug therapy (HCC) Need for hepatitis B screening test Need for hepatitis C screening test Screening for tuberculosis Polyarthralgia Bilateral hip osteonecrosis (HCC) Chronic gout of multiple sites, unspecified cause Gout, unspecified cause, unspecified chronicity, unspecified site Hypovitaminosis D HEPATITIS B CORE ANTIBODY TOTAL Routine 05/30/2024 10:26 AM CDT Psoriatic arthritis (HCC) Other psoriasis Therapeutic drug monitoring Immunosuppression due to drug therapy (HCC) Need for hepatitis B screening test Need for hepatitis C screening test Screening for tuberculosis Polyarthralgia Bilateral hip osteonecrosis (HCC) Chronic gout of multiple sites, unspecified cause Gout, unspecified cause, unspecified chronicity, unspecified site Hypovitaminosis D ERYTHROCYTE SEDIMENTATION RATE Routine 05/30/2024 10:26 AM CDT Psoriatic arthritis (HCC) Other psoriasis Therapeutic drug monitoring Immunosuppression due to drug therapy (HCC) Need for hepatitis B screening test Need for hepatitis C screening test Screening for tuberculosis Polyarthralgia Bilateral hip osteonecrosis (HCC) Chronic gout of multiple sites, unspecified cause Gout, unspecified cause, unspecified chronicity, unspecified site Hypovitaminosis D C-REACTIVE PROTEIN Routine 05/30/2024 10 :26 AM CDT Psoriatic arthritis (HCC) Other psoriasis Therapeutic drug monitoring Immunosuppression due to drug therapy (HCC) Need for hepatitis B screening test Need for hepatitis C screening test Screening for tuberculosis Polyarthralgia Bilateral hip osteonecrosis (HCC) Chronic gout of multiple sites, unspecified cause Gout, unspecified cause, unspecified chronicity, unspecified site Hypovitaminosis D COMPREHENSIVE METABOLIC PANEL Routine 05/30/2024 10:26 AM CDT Psoriatic arthritis (HCC) Other psoriasis Therapeutic drug monitoring Immunosuppression due to drug therapy (HCC) Need for hepatitis B screening test Need for hepatitis C screening test Screening for tuberculosis Polyarthralgia Bilateral hip osteonecrosis (HCC) Chronic gout of multiple sites, unspecified cause Gout, unspecified cause, unspecified chronicity, unspecified site Hypovitaminosis D CBC W AUTO DIFFERENTIAL Routine 05/30/2024 10:26 AM CDT Psoriatic arthritis (HCC) Other psoriasis Therapeutic drug monitoring Immunosuppression due to drug therapy (HCC) Need for hepatitis B screening test Need for hepatitis C screening test Screening for tuberculosis Polyarthralgia Bilateral hip osteonecrosis (HCC) Chronic gout of multiple sites, unspecified cause Gout, unspecified cause, unspecified chronicity, unspecified site Hypovitaminosis D XR CERVICAL SPINE 4 OR 5VW Routine 05/30/2024 10:02 AM CDT Psoriatic arthritis (HCC) Polyarthralgia Bilateral hip osteonecrosis (HCC) Chronic gout of multiple sites, unspecified cause XR SI JOINTS 3VW OR MORE Routine 05/30/2024 10:02 AM CDT Psoriatic arthritis (HCC) Polyarthralgia Bilateral hip osteonecrosis (HCC) Chronic gout of multiple sites, unspecified cause XR THORACIC SPINE 2VW Routine 05/30/2024 10:02 AM CDT Psoriatic arthritis (HCC) Polyarthralgia Bilateral hip osteonecrosis (HCC) Chronic gout of multiple sites, unspecified cause XR LUMBAR SPINE 2 OR 3VW Routine 05/30/2024 10:02 AM CDT Psoriatic arthritis (HCC) Polyarthralgia Bilateral hip osteonecrosis (HCC) Chronic gout of multiple sites, unspecified cause XR KNEE RIGHT 3VW Routine 05/30/2024 10: 02 AM CDT Psoriatic arthritis (HCC) Polyarthralgia Bilateral hip osteonecrosis (HCC) Chronic gout of multiple sites, unspecified cause XR KNEE LEFT 3VW Routine 05/30/2024 10:0 2 AM CDT Psoriatic arthritis (HCC) Polyarthralgia Bilateral hip osteonecrosis (HCC) Chronic gout of multiple sites, unspecified cause XR HIP RIGHT 2VW OR MORE Routine 05/30/2024 10:02 AM CDT Psoriatic arthritis (HCC) Polyarthralgia Bilateral hip osteonecrosis (HCC) Chronic gout of multiple sites, unspecified cause XR HIP LEFT 2VW OR MORE Routine 05/30/2024 10:02 AM CDT Psoriatic arthritis (HCC) Polyarthralgia Bilateral hip osteonecrosis (HCC) Chronic gout of multiple sites, unspecified cause XR HAND RIGHT 3VW OR MORE Routine 05/30/2024 10:02 AM CDT Psoriatic arthritis (HCC) Polyarthralgia Bilateral hip osteonecrosis (HCC) Chronic gout of multiple sites, unspecified cause XR HAND LEFT 3VW OR MORE Routine 05/30/2024 10:02 AM CDT Psoriatic arthritis (HCC) Polyarthralgia Bilateral hip osteonecrosis (HCC) Chronic gout of multiple sites, unspecified cause XR FOOT RIGHT 3VW OR MORE Routine 05/30/2024 10:02 AM CDT Psoriatic arthritis (HCC) Polyarthralgia Bilateral hip osteonecrosis (HCC) Chronic gout of multiple sites, unspecified cause XR FOOT LEFT 3VW OR MORE Routine 05/30/2024 10:02 AM CDT Psoriatic arthritis (HCC) Polyarthralgia Bilateral hip osteonecrosis (HCC) Chronic gout of multiple sites, unspecified cause XR WRIST LEFT 2VW Routine 05/30/2024 10: 02 AM CDT Psoriatic arthritis (HCC) Polyarthralgia Bilateral hip osteonecrosis (HCC) Chronic gout of multiple sites, unspecified cause XR WRIST RIGHT 2VW Routine 05/30/2024 10 :02 AM CDT Psoriatic arthritis (HCC) Polyarthralgia Bilateral hip osteonecrosis (HCC) Chronic gout of multiple sites, unspecified cause MICROALB/CREAT RATIO URINE RANDOM PANEL Routine 05/20/2021 8:56 AM CDT Type 2 diabetes mellitus without complication, without long-term current use of insulin HIV-1 HIV-2 ANTIBODY + HIV P24 AG PANEL Routine 05/20/2021 8:56 AM CDT Healthcare maintenance from Last 3 Months or Most Recently Relevant to Health Maintenance Results * QUANTIFERON-TB GOLD PLUS 4-TUBE (05/30/2024 10:26 AM CDT) [facility] QuantiFERON Mitogen Minus NIL 9.95 IU/mL 06/02/2024 1:50 AM CDT [facility] QuantiFERON Nil Value 0.05 IU/mL 06/02/2024 1:50 AM CDT [facility]) QuantiFERON Plus TB1 Minus NIL 0.06 <=0.34 IU/mL 06/02/2024 1:50 AM CDT [facility]) QuantiFERON Plus TB2 Minus NIL 0.04 <=0.34 IU/mL 06/02/2024 1:50 AM CDT [facility]) QuantiFERON-TB Gold Plus Negative Negative 06/02/2024 1:50 AM CDT [facility] ([facility]) Comment: INTERPRETIVE INFORMATION:Quantiferon TB Gold Plus Interferon gamma release is measured for specimens from each of the four collection tubes. A qualitative result (Negative, Positive, or Indeterminate) is based on interpretation of the four values: NIL, MITOGEN minus NIL (MITOGEN-NIL), TB1 minus NIL (TB1-NIL), and TB2 minus NIL (TB2-NIL). The NIL value represents nonspecific reactivity produced by the patient specimen. The MITOGEN-NIL value serves as the positive control for the patient specimen, demonstrating successful lymphocyte activity. The TB1-NIL tube specifically detects CD4+ lymphocyte reactivity, specifically stimulated by the TB1 antigens. The TB2-NIL tube detects both CD4+ and CD8+ lymphocyte reactivity, stimulated by TB2 antigens. An overall Negative result does not completely rule out TB infection. A false-positive result in the absence of other clinical evidence of TB infection is not uncommon. Refer to: Updated Guidelines for Using Interferon Gamma Release Assays to Detect Mycobacterium tuberculosis Infection -- [place], 2010 (http://www.cdc.gov/mmwr/preview/mmwrhtml/uf8555l0.htm), for more information concerning test performance in low-prevalence populations and use in occupational screening. Performed By: [email or web address] [address] [place] [address] Work Force Advisor: Josr Brown MD, PhD CLIA Number: [id number] Blood BLOOD SPECIMEN / Unknown Lab Venipuncture / Unknown 05/30/2024 10:26 AM CDT 05/30/2024 10:36 AM CDT Charles Billy MD LAB - CHEMISTRY ORDERABLES Final Result Performing Organization Address City/[facility]/ZIP Co de Phone Number [facility] ([facility]) [address] [place] [id number] * TSH REFLEX FREE T4 (05/30/2024 10:26 AM CDT) Pathologist [facility] TSH 1.484 0.350 - 4.940 uIU/mL 05/30/2024 11:33 AM CDT [facility] Blood BLOOD SPECIMEN / Unknown Lab Venipuncture / Unknown 05/30/2024 10:26 AM CDT 05/30/2024 10:43 AM CDT Charles Billy MD LAB - CHEMISTRY ORDERABLES Final Result [address] [address], [facility] [phone] * HEPATITIS B SURFACE ANTIBODY QUANT (05/30/2024 10:26 AM CDT) Hepatitis B Virus Surface Antibody Non-react miguel Non-react miguel 05/30/2024 1:59 PM CDT [facility] Comment: < 8 mIU/mL Hepatitis B surface Antibody (HBsAb). Nonreactive for HBsAb - individual is considered not immune to Hepatitis B Virus infection. Hepatitis B Surface Antibody Quantitative <3.0 <8.0 mIU/mL 05/30/2024 1:59 PM CDT [facility] Comment: Hepatitis B Surface Antibody Numeric Result Interpretation: Nonreactive: <8.0 mIU/mL Indeterminate: 8.0 - 12.0 mIU/mL Reactive: >12.0 mIU/mL Blood BLOOD SPECIMEN / Unknown Lab Venipuncture / Unknown 05/30/2024 10:26 AM CDT 05/30/2024 10:36 AM CDT Narrative [facility] - 05/30/2024 1:59 PM CDT This assay should not be used for blood, plasma, or tissue donor screening. This assay is not recommended for neonates born to HBV-infected or suspected HBV-infected mothers. us Charles Billy MD LAB - SEROLOGY ORDERABLES Final Result [address] [address], [facility] [phone] * URIC ACID BLOOD (05/30/2024 10:26 AM CDT) Uric Acid 6.0 3.5 - 7.2 mg/dL 05/30/2024 11:15 AM CDT [facility] Blood BLOOD SPECIMEN / Unknown Lab Venipuncture / Unknown 05/30/2024 10:26 AM CDT 05/30/2024 10:43 AM CDT us Charles Billy MD LAB - CHEMISTRY ORDERABLES Final Result [address] [address], [place] [phone] * RHEUMATOID FACTOR BLOOD QUANTITATIVE (05/30/2024 10:26 AM CDT) Rheumatoid Factor <15 <30 IU/mL 05/30/2024 11:08 AM CDT [facility] Rheumatoid Factor Screen Negative Negative 05/30/2024 11:08 AM CDT [facility] Blood BLOOD SPECIMEN / Unknown Lab Venipuncture / Unknown 05/30/2024 10:26 AM CDT 05/30/2024 10:36 AM CDT us Charles Billy MD LAB - CHEMISTRY ORDERABLES Final Result Performing Organization Address City/[facility]/ZIP Co de Phone Number [address] [address], [facility] [phone] * C-REACTIVE PROTEIN (05/30/2024 10:26 AM CDT) Pathologist [facility] C-Reactive Protein <0.5 <=0.5 mg/dL 05/30/2024 11:18 AM CDT [facility] Blood BLOOD SPECIMEN / Unknown Lab Venipuncture / Unknown 05/30/2024 10:26 AM CDT 05/30/2024 10:43 AM CDT us Charles Billy MD LAB - CHEMISTRY ORDERABLES Final Result Performing Organization Address [facility] Co de Phone Number [address] [address], [facility] [phone] * HLA TYPING B27 (05/30/2024 10:26 AM CDT) Pathologist [facility] HLA-B27 Negative Negative 06/01/2024 1:15 PM CDT [facility] ([facility]) Comment: INTERPRETIVE INFORMATION: HLA-B27 HLA-B27 is a serologically defined allele of the human HLA-B locus. The presence of the HLA-B27 antigen is strongly associated with ankylosing spondylitis and related disorders. This test was developed and its performance characteristics determined by [email or web address]. It has not been cleared or approved by the [place] Food and Drug Administration. This test was performed in a CLIA certified laboratory and is intended for clinical purposes. Performed By: [email or web address] [address] [place] [id number] Work Force Advisor: Josr Brown MD, PhD CLIA Number: [id number] Blood BLOOD SPECIMEN / Unknown Lab Venipuncture / Unknown 05/30/2024 10:26 AM CDT 05/30/2024 10:36 AM CDT Charles Billy MD LAB - CHEMISTRY ORDERABLES Final Result Performing Organization Address City/[facility]/ZIP Co de Phone Number [address] [id number] * HEMOGLOBIN A1C (05/30/2024 10:26 AM CDT) Hemoglobin A1c 5.5 <=5.6 % 05/30/2024 3:57 PM CDT [facility] Estimated Average Glucose 111 mg/dL 05/30/2024 3:57 PM CDT [facility] Comment: HbA1c Interpretation: Normal : < 5.7% Pre-diabetes: 5.7-6.4% Diabetes: Equal to or greater than 6.5% Test results diagnostic of diabetes should be repeated for confirmation. Treatment target values recommended by ADA and other clinical organizations should be used to evaluate metabolic control in patients. Reference: [place] [employer], Standards of Care in Diabetes -2020 In patients 70 years and older consider HbA1c target range of 7.0-7.5% (Reference: Jevon Meadows, et al. JAMDA. 2012) The Sebia assay for the measurement of HbA1c is a National Glycohemoglobin Standardization Program (NGSP) certified method. Blood BLOOD SPECIMEN / Unknown Lab Venipuncture / Unknown 05/30/2024 10:26 AM CDT 05/30/2024 10:39 AM CDT Charles Billy MD LAB - CHEMISTRY ORDERABLES Final Result [facility] [address] [place] [address], [facility] [phone] * (ABNORMAL) VITAMIN D 25-HYDROXY (05/30/2024 10:26 AM CDT) Vitamin D, 25 Hydroxy 13.0(L) 30.0 - 80.0 ng/mL 05/30/2024 11:33 AM CDT [facility] Comment: The recommendations for 25-Hydroxy Vitamin D clinical decision points are as follows: Deficient: <20.0 ng/mL Insufficient: 20.0 - 29.9 ng/mL Sufficient: 30.0 - 100.0 ng/mL Potential Toxicity: >100 ng/mL Reference: The Endocrine Society Clinical Practice Guidelines. 2011 If the 25-Hydroxy Vitamin D results are inconsitent with clinical evidence, it is recommended that follow-up testing using a method such as LC/MS/MS be performed to confirm the result. Blood BLOOD SPECIMEN / Unknown Lab Venipuncture / Unknown 05/30/2024 10:26 AM CDT 05/30/2024 10:43 AM CDT us Charles Billy MD LAB - CHEMISTRY ORDERABLES Final Result Performing Organization Address City/[facility]/ZIP Co de Phone Number [address] [address], [facility] [phone] * CYCLIC CITRULLINATED PEPTIDE(CCP) AB IGG (05/30/2024 10:26 AM CDT) CCP Antibody IgG 0.9 <5.0 U/mL 05/30/2024 11:30 AM CDT [facility] Blood BLOOD SPECIMEN / Unknown Lab Venipuncture / Unknown 05/30/2024 10:26 AM CDT 05/30/2024 10:36 AM CDT us Charles Billy MD LAB - CHEMISTRY ORDERABLES Final Result [address] [address], [facility] [phone] * ERYTHROCYTE SEDIMENTATION RATE (05/30/2024 10:26 AM CDT) Erythrocyte Sedimentation Rate Westergren 7 0 - 20 MM/HR 05/30/2024 10:45 AM CDT [facility] Blood BLOOD SPECIMEN / Unknown Lab Venipuncture / Unknown 05/30/2024 10:26 AM CDT 05/30/2024 10:39 AM CDT us Charles Billy MD LAB - HEMATOLOGY ORDERABLES Misa jesi Result [facility] [address] [place] [address], [facility] [phone] * CBC WITH DIFFERENTIAL (05/30/2024 10:26 AM CDT) WBC 5.7 4.0 - 10.7 x10E9/L 05/30/2024 10:39 AM [facility] RBC Count 4.84 4.30 - 5.80 x10E12/L 05/30/2024 10:39 AM [facility] Hemoglobin 15.0 13.3 - 17.5 g/dL 05/30/2024 10:39 AM [facility] Hematocrit 45.0 38.7 - 51.1 % 05/30/2024 10:39 AM [facility] MCV 93.0 80.0 - 98.0 fL 05/30/2024 10:39 AM [facility] MCH 31.0 26.7 - 33.6 pg 05/30/2024 10:39 AM [facility] MCHC 33.3 31.7 - 36.3 g/dL 05/30/2024 10:39 AM [facility] RDW-CV 13.1 11.3 - 14.8 % 05/30/2024 10:39 AM [facility] Platelet Count 208 150 - 420 x10E9/L 05/30/2024 10:39 AM [facility] MPV 9.0 7.8 - 11.4 fL 05/30/2024 10:39 AM [facility] Neutrophil % 52.2 41.0 - 74.0 % 05/30/2024 10:39 AM [facility] Lymphocyte % 38.2 17.0 - 47.0 % 05/30/2024 10:39 AM [facility] Monocyte % 6.0 3.0 - 11.0 % 05/30/2024 10:39 AM [facility] Eosinophil % 2.3 0.0 - 7.0 % 05/30/2024 10:39 AM T [facility] Basophil % 1.1 0.0 - 1.6 % 05/30/2024 10:39 AM [facility] Immature Granulocytes % 0.2 0.0 - 1.0 % 05/30/2024 10:39 AM [facility] Neutrophil Absolute 2.96 1.60 - 7.50 x10E9/L 05/30/2024 10:39 AM [facility] Lymphocyte Absolute 2.16 1.00 - 4.40 x10E9/L 05/30/2024 10:39 AM [facility] Monocyte Absolute 0.34 0.15 - 1.00 x10E9/L 05/30/2024 10:39 AM [facility] Eosinophil Absolute 0.13 0.00 - 0.60 x10E9/L 05/30/2024 10:39 AM [facility] Basophil Absolute 0.06 0.00 - 0.13 x10E9/L 05/30/2024 10:39 AM [facility] Blood BLOOD SPECIMEN / Unknown Lab Venipuncture / Unknown 05/30/2024 10:26 AM CDT 05/30/2024 10:39 AM T us Charles Billy MD LAB - HEMATOLOGY ORDERABLES Misa l Result Performing Organization Address City/State/[facility] Co de Phone Number [address] [address], [facility] [phone] * (ABNORMAL) COMPREHENSIVE METABOLIC PANEL (05/30/2024 10:26 AM CDT) BUN 9 7 - 26 mg/dL 05/30/2024 11:15 AM [facility] Creatinine 0.98 0.71 - 1.16 mg/dL 05/30/2024 11:15 AM [facility] Sodium 138 136 - 145 mmol/L 05/30/2024 11:15 AM [facility] Potassium 4.1 3.5 - 4.5 mmol/L 05/30/2024 11:15 AM [facility] Chloride 105 98 - 107 mmol/L 05/30/2024 11:15 AM [facility] CO2 23 22 - 29 mmol/L 05/30/2024 11:15 AM [facility] Glucose 102(H) 70 - 99 mg/dL 05/30/2024 11:15 AM [facility] Calcium 9.4 8.4 - 10.2 mg/dL 05/30/2024 11:15 AM [facility] Protein Total 7.1 6.0 - 8.3 g/dL 05/30/2024 11:15 AM [facility] Albumin 4.3 3.4 - 5.0 g/dL 05/30/2024 11:15 AM [facility] Bilirubin Total 0.9 0.2 - 1.2 mg/dL 05/30/2024 11:15 AM [facility] Alkaline Phosphatase 81 40 - 150 U/L 05/30/2024 11:15 AM [facility] ALT 18 5 - 55 U/L 05/30/2024 11:15 AM [facility] AST 15 5 - 34 U/L 05/30/2024 11:15 AM [facility] Anion Gap 10 6 - 16 05/30/2024 11:15 AM [facility] BUN/Creatinine Ratio 9 7 - 23 05/30/2024 11:15 AM [facility] Osmolality Calculated 285 275 - 295 mOsm/kg 05/30/2024 11:15 AM [facility] Albumin/Globulin Ratio 1.5 1.1 - 2.3 05/30/2024 11:15 AM [facility] eGFR by CKD-EPI >90 >=90 mL/min/1.7 3 m2 05/30/2024 11:15 AM [facility] Blood BLOOD SPECIMEN / Unknown Lab Venipuncture / Unknown 05/30/2024 10:26 AM CDT 05/30/2024 10:43 AM [facility] us Charles Billy MD LAB - CHEMISTRY ORDERABLES Final Result [address] [address], [place] [phone] * HEPATITIS B CORE ANTIBODY TOTAL (05/30/2024 10:26 AM CDT) HBc Antibody Total Non-reacti ve Non-reacti ve 05/30/2024 11:30 AM CDT [facility] Blood BLOOD SPECIMEN / Unknown Lab Venipuncture / Unknown 05/30/2024 10:26 AM CDT 05/30/2024 10:36 AM CDT us Charles Billy MD LAB - CHEMISTRY ORDERABLES Final Result [address] [address], [place] [phone] * HEPATITIS B SURFACE ANTIGEN W RFLX CONFIRMATION (05/30/2024 10:26 AM CDT) Pathologist [facility] Hepatitis B Virus Surface Antigen Non-reacti ve Non-reacti ve 05/30/2024 11:30 AM CDT [facility] Blood BLOOD SPECIMEN / Unknown Lab Venipuncture / Unknown 05/30/2024 10:26 AM CDT 05/30/2024 10:36 AM CDT us Charles Billy MD LAB - CHEMISTRY ORDERABLES Final Result [address] [address], [place] [phone] * HEPATITIS C ANTIBODY (05/30/2024 10:26 AM CDT) Pathologist [facility] Hepatitis C Antibody Non-react miguel Non-reac tive 05/30/2024 11:30 AM CDT [facility] Comment:Hepatitis C Antibody screen indicates no serologic evidence of past or current infection with Hepatitis C Virus. Patients with unexplained liver disease who are immunocompromised or suspected of having acute Hepatitis C infection may benefit from Nucleic Acid Test (JAYDA) for Hepatitis C Viral RNA to confirm Hepatitis C status. Blood BLOOD SPECIMEN / Unknown Lab Venipuncture / Unknown 05/30/2024 10:26 AM CDT 05/30/2024 10:36 AM CDT Charles Billy MD LAB - CHEMISTRY ORDERABLES Final Result [facility] [address] [place] [address], [facility] [phone] * XR Knee Right 3Vw (05/30/2024 10:02 AM CDT) Anatomical Region Laterality Modality Lower Extremity Digital Radiogra phy 05/30/2024 10:0 3 AM CDT Impressions 05/30/2024 10:55 AM CDT IMPRESSION: 1.Cervical spine: Normal. 2.Thoracic spine: Normal. 3.Lumbar spine: Minimal degenerative disc disease. 4.Sacroiliac joints: Normal. 5.Right hand: No significant arthritis. 6.Left hand: Normal. 7.Right wrist: Normal. 8.Left wrist: Normal. 9.Right hip: Femoral head avascular necrosis with developing subchondral fracture, progressed. The joint space is normal. Postprocedural changes of core decompression surgery. 10.Left hip: Femoral head avascular necrosis without collapse. The joint space is normal. Postprocedural changes of core decompression surgery. 11.Right knee: Normal. 12.Left knee: No evidence of arthritis. 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 13.Right foot: Normal. 14.Left foot: Mild osteoarthritis at the first metatarsophalangeal joint. Report dictated by Gretchen Rodriguez MD I, Keagan Lerner MD have personally reviewed and interpreted this examination/study. > Interpreting Provider: Keagan Lerner MD on 05/30/2024 10:55 AM Narrative 05/30/2024 10:55 AM CDT PROCEDURE: XR KNEE RIGHT 3VW, XR HAND RIGHT 3VW OR MORE, XR HAND LEFT 3VW OR MORE, XR FOOT RIGHT 3VW OR MORE, XR FOOT LEFT 3VW OR MORE, XR WRIST LEFT 2VW, XR WRIST RIGHT 2VW, XR CERVICAL SPINE 4 OR 5VW, XR SI JOINTS 3VW OR MORE, XR THORACIC SPINE 2VW, XR LUMBAR SPINE 2 OR 3VW, XR KNEE LEFT 3VW, XR HIP RIGHT 2VW OR MORE, XR HIP LEFT 2VW OR MORE, DATE/TIME OF EXAM: 05/30/2024 10:02 AM, LOCATION [facility] INDICATION: L40.50: Psoriatic arthritis (HCC) M25.50: Polyarthralgia M87.9: Bilateral hip osteonecrosis (HCC) M1A.09X0: Chronic gout of multiple sites, unspecified cause ADDITIONAL CLINICAL INFORMATION: Ordering Provider Reason For Exam: Please evaluate for signs of inflammatory arthropathy. (accession [id number]), Please evaluate for signs of inflammatory arthropathy. (accession [id number]), Please evaluate for signs of inflammatory arthropathy. (accession [id number]), Please evaluate for signs of inflammatory arthropathy. (accession [id number]), Please evaluate for signs of inflammatory arthropathy. (accession [id number]), Please evaluate for signs of inflammatory arthropathy. (accession [id number]), Please evaluate for signs of inflammatory arthropathy. (accession [id number]), History of RA, full flexion and extension views, please evaluate for atlantoaxial instability, per radiologist protocol (accession [id number]), Please evaluate for signs of inflammatory arthropathy. (accession [id number]), Please evaluate for signs of inflammatory arthropathy. (accession [id number]), Please evaluate for signs of inflammatory arthropathy. (accession [id number]), Please evaluate for signs of inflammatory arthropathy. (accession [id number]), Please evaluate for signs of inflammatory arthropathy. (accession [id number]), Please evaluate for signs of inflammatory arthropathy. (accession [id number]) Technologist Note: Additional: COMPARISON: Right and left knee radiographs dated 09/07/2020. Right and left foot radiographs dated 12/18/2019. Sacroiliac joint radiographs dated 09/07/2020. Cervical spine radiographs dated 09/07/2020. FINDINGS: Cervical spine: The vertebral bodies are normally aligned. No acute fracture or compression deformity is identified. Mild multilevel degenerative disc disease. The predental interval and prevertebral soft tissues are normal. Bone density and texture are normal. Neurostimulator lead terminating within the right neck. Flexion and extension views demonstrate no vertebral translation. Thoracic spine: The vertebral bodies are normally aligned. There is no fracture or compression deformity. Mild multilevel degenerative disc disease. Right chest wall neurostimulator with lead coursing to the soft tissues of the right hemithorax and into the right neck. Lumbar spine: Of the lumbar lordosis is normal. There is no fracture or subluxation. The intervertebral disc spaces are normal. There is an anterior superior endplate osteophyte at L3. There is mild superior endplate sclerosis at L2 and L3. The facet joints are normal. Sacral iliac joints: There is no erosion, widening, sclerosis, narrowing, or ankylosis of either sacroiliac joint. There is no fracture. Right hand: No fracture or dislocation is present. The joint spaces are normal. No erosions are seen. There are a few small cysts in the third metacarpal head. There is a small calcification adjacent to the second digit proximal interphalangeal joint. Bone density is normal. The soft tissues are normal. Left hand: No acute fracture or dislocation. Joint spaces are preserved. No joint effusion. Osseous architecture and density are normal. No soft tissue swelling. Right wrist: No acute fracture or dislocation. Joint spaces are preserved. No joint effusion. Osseous architecture and density are normal. No soft tissue swelling. Left wrist: No acute fracture or dislocation. Joint spaces are preserved. No joint effusion. Osseous architecture and density are normal. No soft tissue swelling. Right hip: There is abnormal lucency and sclerosis in the superior aspect of the femoral head compatible with avascular necrosis. Mild cortical contour step-off has developed superiorly superiorly, consistent with subchondral fracture. The joint space is normal. There is a tract of increased density within the femoral neck compatible with core decompression surgery. Left hip: There is no fracture or dislocation. There is abnormal lucency and sclerosis in the superior aspect of the femoral head compatible with avascular necrosis. There is no articular surface collapse. There is a tract of increased density within the femoral neck compatible with core decompression surgery. Right knee: No acute fracture or dislocation. Knee joint space is preserved. No joint effusion. Osseous architecture and density are normal. No soft tissue swelling. Left knee: No acute fracture or dislocation. Knee joint space is preserved. No joint effusion. Unchanged 1.9 cm lucent lesion with peripheral sclerosis in the superior lateral aspect of the patella. Osseous and density are otherwise normal. No soft tissue swelling. Right foot: No acute fracture or dislocation. Joint spaces are preserved. No joint effusion. Osseous architecture and density are normal. No soft tissue swelling. Left foot: No acute fracture or dislocation. Mild joint space narrowing, subchondral sclerosis, subchondral cysts, and marginal osteophytes at the 1st metatarsophalangeal joint. No joint effusion. Osseous architecture and density are normal. No soft tissue swelling. Procedure Note Keagan Lerner MD - 05/30/2024 PROCEDURE: XR KNEE RIGHT 3VW, XR HAND RIGHT 3VW OR MORE, XR HAND [id number] OR MORE, XR FOOT RIGHT 3VW OR MORE, XR FOOT LEFT 3VW OR MORE, XR WRISTLEFT 2VW, XR WRIST RIGHT 2VW, XR CERVICAL SPINE 4 OR 5VW, XR SI JOINTS 3VW OR MORE, XR THORACIC SPINE 2VW, XR LUMBAR SPINE 2 OR 3VW, XR KNEE LEFT 3VW,XR HIP RIGHT 2VW OR MORE, XR HIP LEFT 2VW OR MORE, DATE/TIME OF EXAM: 05/30/2024 10:02 AM, LOCATION [facility] INDICATION: L40.50: Psoriatic arthritis (HCC) M25.50: Polyarthralgia M87.9: Bilateral hip osteonecrosis (HCC) M1A.09X0: Chronic gout of multiple sites, unspecified cause ADDITIONAL CLINICAL INFORMATION: Ordering Provider Reason For Exam: Please evaluate for signs of inflammatory arthropathy. (accession [id number]), Please evaluate forsigns of inflammatory arthropathy. (accession [id number]), Please evaluate for signs of inflammatory arthropathy. (accession [id number]), Pleaseevaluate for signs of inflammatory arthropathy. (accession [id number]), Please evaluate for signs of inflammatory arthropathy. (accession [id number]), Please evaluate for signs of inflammatory arthropathy. (accession [id number]), Please evaluate for signs of inflammatory arthropathy. (accession [id number]), History of RA, full flexion and extension views, please evaluate for atlantoaxial instability, per radiologist protocol (accession [id number]), Please evaluate for signs of inflammatory arthropathy. (accession [id number]), Please evaluate for signs of inflammatory arthropathy. (accession [id number]), Please evaluate forsigns of inflammatory arthropathy. (accession [id number]), Please evaluate for signs of inflammatory arthropathy. (accession [id number]), Pleaseevaluate for signs of inflammatory arthropathy. (accession [id number]), Please evaluate for signs of inflammatory arthropathy. (accession [id number]) Technologist Note: Additional: COMPARISON: Right and left knee radiographs dated 09/07/2020. Right and left foot radiographs dated 12/18/2019. Sacroiliac joint radiographs date09/07/2020. Cervical spine radiographs dated 09/07/2020. FINDINGS: Cervical spine: The vertebral bodies are normally aligned. No acute fracture orcompression deformity is identified. Mild multilevel degenerative disc disease. The predental interval and prevertebral soft tissues are normal. Bonedensity and texture are normal. Neurostimulator lead terminating within theright neck. Flexion and extension views demonstrate no vertebral translation. Thoracic spine: The vertebral bodies are normally aligned. There is no fracture or compression deformity. Mild multilevel degenerative disc disease. Right chest wall neurostimulator with lead coursing to the soft tissues of the right hemithorax and into the right neck. Lumbar spine: Of the lumbar lordosis is normal. There is no fracture or subluxation.The intervertebral disc spaces are normal. There is an anterior superior endplate osteophyte at L3. There is mild superior endplate sclerosis atL2 and L3. The facet joints are normal. Sacral iliac joints: There is no erosion, widening, sclerosis, narrowing, or ankylosis ofeither sacroiliac joint. There is no fracture. Right hand: No fracture or dislocation is present. The joint spaces are normal. No erosions are seen. There are a few small cysts in the third metacarpal head. There is a small calcification adjacent to the second digitproximal interphalangeal joint. Bone density is normal. The soft tissues are normal. Left hand: No acute fracture or dislocation. Joint spaces are preserved. No joint effusion. Osseous architecture and density are normal. No soft tissue swelling. Right wrist: No acute fracture or dislocation. Joint spaces are preserved. No joint effusion. Osseous architecture and density are normal. No soft tissue swelling. Left wrist: No acute fracture or dislocation. Joint spaces are preserved. No joint effusion. Osseous architecture and density are normal. No soft tissue swelling. Right hip: There is abnormal lucency and sclerosis in the superior aspect of the femoral head compatible with avascular necrosis. Mild cortical contour step-off has developed superiorly superiorly, consistent withsubchondral fracture. The joint space is normal. There is a tract of increaseddensity within the femoral neck compatible with core decompression surgery. Left hip: There is no fracture or dislocation. There is abnormal lucency and sclerosis in the superior aspect of the femoral head compatible with avascular necrosis. There is no articular surface collapse. There is a tract of increased density within the femoral neck compatible with core decompression surgery. Right knee: No acute fracture or dislocation. Knee joint space is preserved. Nojoint effusion. Osseous architecture and density are normal. No soft tissue swelling. Left knee: No acute fracture or dislocation. Knee joint space is preserved. Nojoint effusion. Unchanged 1.9 cm lucent lesion with peripheral sclerosis inthe superior lateral aspect of the patella. Osseous and density areotherwise normal. No soft tissue swelling. Right foot: No acute fracture or dislocation. Joint spaces are preserved. No joint effusion. Osseous architecture and density are normal. No soft tissue swelling. Left foot: No acute fracture or dislocation. Mild joint space narrowing,subchondral sclerosis, subchondral cysts, and marginal osteophytes at the 1st metatarsophalangeal joint. No joint effusion. Osseous architecture and density are normal. No soft tissue swelling. IMPRESSION: 1.Cervical spine: Normal. 2.Thoracic spine: Normal. 3.Lumbar spine: Minimal degenerative disc disease. 4.Sacroiliac joints: Normal. 5.Right hand: No significant arthritis. 6.Left hand: Normal. 7.Right wrist: Normal. 8.Left wrist: Normal. 9.Right hip: Femoral head avascular necrosis with developing subchondral fracture, progressed. The joint space is normal. Postprocedural changesof core decompression surgery. 10.Left hip: Femoral head avascular necrosis without collapse. The joint space is normal. Postprocedural changes of core decompression surgery. 11.Right knee: Normal. 12.Left knee: No evidence of arthritis. 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 13.Right foot: Normal. 14.Left foot: Mild osteoarthritis at the first metatarsophalangealjoint. Report dictated by Gretchen Rodriguez MD I, Keagan Lerner MD have personally reviewed and interpreted this examination/study. > Interpreting Provider: Keagan Lerner MD on 05/30/2024 10:55 AM Charles Billy MD DIAGNOSTIC IMAGING ORDERABLES Fi nal Result * XR Foot Right 3Vw or More (05/30/2024 10:02 AM CDT) Anatomical Region Laterality Modality Ankle / Foot Digital Radiogra phy 05/30/2024 10:0 3 AM CDT Impressions 05/30/2024 10:55 AM CDT IMPRESSION: 1.Cervical spine: Normal. 2.Thoracic spine: Normal. 3.Lumbar spine: Minimal degenerative disc disease. 4.Sacroiliac joints: Normal. 5.Right hand: No significant arthritis. 6.Left hand: Normal. 7.Right wrist: Normal. 8.Left wrist: Normal. 9.Right hip: Femoral head avascular necrosis with developing subchondral fracture, progressed. The joint space is normal. Postprocedural changes of core decompression surgery. 10.Left hip: Femoral head avascular necrosis without collapse. The joint space is normal. Postprocedural changes of core decompression surgery. 11.Right knee: Normal. 12.Left knee: No evidence of arthritis. 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 13.Right foot: Normal. 14.Left foot: Mild osteoarthritis at the first metatarsophalangeal joint. Report dictated by Gretchen Rodriguez MD I, Keagan Lerner MD have personally reviewed and interpreted this examination/study. > Interpreting Provider: Keagan Lerner MD on 05/30/2024 10:55 AM Narrative 05/30/2024 10:55 AM CDT PROCEDURE: XR KNEE RIGHT 3VW, XR HAND RIGHT 3VW OR MORE, XR HAND LEFT 3VW OR MORE, XR FOOT RIGHT 3VW OR MORE, XR FOOT LEFT 3VW OR MORE, XR WRIST LEFT 2VW, XR WRIST RIGHT 2VW, XR CERVICAL SPINE 4 OR 5VW, XR SI JOINTS 3VW OR MORE, XR THORACIC SPINE 2VW, XR LUMBAR SPINE 2 OR 3VW, XR KNEE LEFT 3VW, XR HIP RIGHT 2VW OR MORE, XR HIP LEFT 2VW OR MORE, DATE/TIME OF EXAM: 05/30/2024 10:02 AM, LOCATION [facility] INDICATION: L40.50: Psoriatic arthritis (HCC) M25.50: Polyarthralgia M87.9: Bilateral hip osteonecrosis (HCC) M1A.09X0: Chronic gout of multiple sites, unspecified cause ADDITIONAL CLINICAL INFORMATION: Ordering Provider Reason For Exam: Please evaluate for signs of inflammatory arthropathy. (accession [id number]), Please evaluate for signs of inflammatory arthropathy. (accession [id number]), Please evaluate for signs of inflammatory arthropathy. (accession [id number]), Please evaluate for signs of inflammatory arthropathy. (accession [id number]), Please evaluate for signs of inflammatory arthropathy. (accession [id number]), Please evaluate for signs of inflammatory arthropathy. (accession [id number]), Please evaluate for signs of inflammatory arthropathy. (accession [id number]), History of RA, full flexion and extension views, please evaluate for atlantoaxial instability, per radiologist protocol (accession [id number]), Please evaluate for signs of inflammatory arthropathy. (accession [id number]), Please evaluate for signs of inflammatory arthropathy. (accession [id number]), Please evaluate for signs of inflammatory arthropathy. (accession [id number]), Please evaluate for signs of inflammatory arthropathy. (accession [id number]), Please evaluate for signs of inflammatory arthropathy. (accession [id number]), Please evaluate for signs of inflammatory arthropathy. (accession [id number]) Technologist Note: Additional: COMPARISON: Right and left knee radiographs dated 09/07/2020. Right and left foot radiographs dated 12/18/2019. Sacroiliac joint radiographs dated 09/07/2020. Cervical spine radiographs dated 09/07/2020. FINDINGS: Cervical spine: The vertebral bodies are normally aligned. No acute fracture or compression deformity is identified. Mild multilevel degenerative disc disease. The predental interval and prevertebral soft tissues are normal. Bone density and texture are normal. Neurostimulator lead terminating within the right neck. Flexion and extension views demonstrate no vertebral translation. Thoracic spine: The vertebral bodies are normally aligned. There is no fracture or compression deformity. Mild multilevel degenerative disc disease. Right chest wall neurostimulator with lead coursing to the soft tissues of the right hemithorax and into the right neck. Lumbar spine: Of the lumbar lordosis is normal. There is no fracture or subluxation. The intervertebral disc spaces are normal. There is an anterior superior endplate osteophyte at L3. There is mild superior endplate sclerosis at L2 and L3. The facet joints are normal. Sacral iliac joints: There is no erosion, widening, sclerosis, narrowing, or ankylosis of either sacroiliac joint. There is no fracture. Right hand: No fracture or dislocation is present. The joint spaces are normal. No erosions are seen. There are a few small cysts in the third metacarpal head. There is a small calcification adjacent to the second digit proximal interphalangeal joint. Bone density is normal. The soft tissues are normal. Left hand: No acute fracture or dislocation. Joint spaces are preserved. No joint effusion. Osseous architecture and density are normal. No soft tissue swelling. Right wrist: No acute fracture or dislocation. Joint spaces are preserved. No joint effusion. Osseous architecture and density are normal. No soft tissue swelling. Left wrist: No acute fracture or dislocation. Joint spaces are preserved. No joint effusion. Osseous architecture and density are normal. No soft tissue swelling. Right hip: There is abnormal lucency and sclerosis in the superior aspect of the femoral head compatible with avascular necrosis. Mild cortical contour step-off has developed superiorly superiorly, consistent with subchondral fracture. The joint space is normal. There is a tract of increased density within the femoral neck compatible with core decompression surgery. Left hip: There is no fracture or dislocation. There is abnormal lucency and sclerosis in the superior aspect of the femoral head compatible with avascular necrosis. There is no articular surface collapse. There is a tract of increased density within the femoral neck compatible with core decompression surgery. Right knee: No acute fracture or dislocation. Knee joint space is preserved. No joint effusion. Osseous architecture and density are normal. No soft tissue swelling. Left knee: No acute fracture or dislocation. Knee joint space is preserved. No joint effusion. Unchanged 1.9 cm lucent lesion with peripheral sclerosis in the superior lateral aspect of the patella. Osseous and density are otherwise normal. No soft tissue swelling. Right foot: No acute fracture or dislocation. Joint spaces are preserved. No joint effusion. Osseous architecture and density are normal. No soft tissue swelling. Left foot: No acute fracture or dislocation. Mild joint space narrowing, subchondral sclerosis, subchondral cysts, and marginal osteophytes at the 1st metatarsophalangeal joint. No joint effusion. Osseous architecture and density are normal. No soft tissue swelling. Procedure Note Keagan Lerner MD - 05/30/2024 PROCEDURE: XR KNEE RIGHT 3VW, XR HAND RIGHT 3VW OR MORE, XR HAND [id number] OR MORE, XR FOOT RIGHT 3VW OR MORE, XR FOOT LEFT 3VW OR MORE, XR WRISTLEFT 2VW, XR WRIST RIGHT 2VW, XR CERVICAL SPINE 4 OR 5VW, XR SI JOINTS 3VW OR MORE, XR THORACIC SPINE 2VW, XR LUMBAR SPINE 2 OR 3VW, XR KNEE LEFT 3VW,XR HIP RIGHT 2VW OR MORE, XR HIP LEFT 2VW OR MORE, DATE/TIME OF EXAM: 05/30/2024 10:02 AM, LOCATION [facility] INDICATION: L40.50: Psoriatic arthritis (HCC) M25.50: Polyarthralgia M87.9: Bilateral hip osteonecrosis (HCC) M1A.09X0: Chronic gout of multiple sites, unspecified cause ADDITIONAL CLINICAL INFORMATION: Ordering Provider Reason For Exam: Please evaluate for signs of inflammatory arthropathy. (accession [id number]), Please evaluate forsigns of inflammatory arthropathy. (accession [id number]), Please evaluate for signs of inflammatory arthropathy. (accession [id number]), Pleaseevaluate for signs of inflammatory arthropathy. (accession [id number]), Please evaluate for signs of inflammatory arthropathy. (accession [id number]), Please evaluate for signs of inflammatory arthropathy. (accession [id number]), Please evaluate for signs of inflammatory arthropathy. (accession [id number]), History of RA, full flexion and extension views, please evaluate for atlantoaxial instability, per radiologist protocol (accession [id number]), Please evaluate for signs of inflammatory arthropathy. (accession [id number]), Please evaluate for signs of inflammatory arthropathy. (accession [id number]), Please evaluate forsigns of inflammatory arthropathy. (accession [id number]), Please evaluate for signs of inflammatory arthropathy. (accession [id number]), Pleaseevaluate for signs of inflammatory arthropathy. (accession [id number]), Please evaluate for signs of inflammatory arthropathy. (accession [id number]) Technologist Note: Additional: COMPARISON: Right and left knee radiographs dated 09/07/2020. Right and left foot radiographs dated 12/18/2019. Sacroiliac joint radiographs date09/07/2020. Cervical spine radiographs dated 09/07/2020. FINDINGS: Cervical spine: The vertebral bodies are normally aligned. No acute fracture orcompression deformity is identified. Mild multilevel degenerative disc disease. The predental interval and prevertebral soft tissues are normal. Bonedensity and texture are normal. Neurostimulator lead terminating within theright neck. Flexion and extension views demonstrate no vertebral translation. Thoracic spine: The vertebral bodies are normally aligned. There is no fracture or compression deformity. Mild multilevel degenerative disc disease. Right chest wall neurostimulator with lead coursing to the soft tissues of the right hemithorax and into the right neck. Lumbar spine: Of the lumbar lordosis is normal. There is no fracture or subluxation.The intervertebral disc spaces are normal. There is an anterior superior endplate osteophyte at L3. There is mild superior endplate sclerosis atL2 and L3. The facet joints are normal. Sacral iliac joints: There is no erosion, widening, sclerosis, narrowing, or ankylosis ofeither sacroiliac joint. There is no fracture. Right hand: No fracture or dislocation is present. The joint spaces are normal. No erosions are seen. There are a few small cysts in the third metacarpal head. There is a small calcification adjacent to the second digitproximal interphalangeal joint. Bone density is normal. The soft tissues are normal. Left hand: No acute fracture or dislocation. Joint spaces are preserved. No joint effusion. Osseous architecture and density are normal. No soft tissue swelling. Right wrist: No acute fracture or dislocation. Joint spaces are preserved. No joint effusion. Osseous architecture and density are normal. No soft tissue swelling. Left wrist: No acute fracture or dislocation. Joint spaces are preserved. No joint effusion. Osseous architecture and density are normal. No soft tissue swelling. Right hip: There is abnormal lucency and sclerosis in the superior aspect of the femoral head compatible with avascular necrosis. Mild cortical contour step-off has developed superiorly superiorly, consistent withsubchondral fracture. The joint space is normal. There is a tract of increaseddensity within the femoral neck compatible with core decompression surgery. Left hip: There is no fracture or dislocation. There is abnormal lucency and sclerosis in the superior aspect of the femoral head compatible with avascular necrosis. There is no articular surface collapse. There is a tract of increased density within the femoral neck compatible with core decompression surgery. Right knee: No acute fracture or dislocation. Knee joint space is preserved. Nojoint effusion. Osseous architecture and density are normal. No soft tissue swelling. Left knee: No acute fracture or dislocation. Knee joint space is preserved. Nojoint effusion. Unchanged 1.9 cm lucent lesion with peripheral sclerosis inthe superior lateral aspect of the patella. Osseous and density areotherwise normal. No soft tissue swelling. Right foot: No acute fracture or dislocation. Joint spaces are preserved. No joint effusion. Osseous architecture and density are normal. No soft tissue swelling. Left foot: No acute fracture or dislocation. Mild joint space narrowing,subchondral sclerosis, subchondral cysts, and marginal osteophytes at the 1st metatarsophalangeal joint. No joint effusion. Osseous architecture and density are normal. No soft tissue swelling. IMPRESSION: 1.Cervical spine: Normal. 2.Thoracic spine: Normal. 3.Lumbar spine: Minimal degenerative disc disease. 4.Sacroiliac joints: Normal. 5.Right hand: No significant arthritis. 6.Left hand: Normal. 7.Right wrist: Normal. 8.Left wrist: Normal. 9.Right hip: Femoral head avascular necrosis with developing subchondral fracture, progressed. The joint space is normal. Postprocedural changesof core decompression surgery. 10.Left hip: Femoral head avascular necrosis without collapse. The joint space is normal. Postprocedural changes of core decompression surgery. 11.Right knee: Normal. 12.Left knee: No evidence of arthritis. 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 13.Right foot: Normal. 14.Left foot: Mild osteoarthritis at the first metatarsophalangealjoint. Report dictated by Gretchen Rodriguez MD I, Keagan Lerner MD have personally reviewed and interpreted this examination/study. > Interpreting Provider: Keagan Lerner MD on 05/30/2024 10:55 AM Charles Billy MD DIAGNOSTIC IMAGING ORDERABLES Fi nal Result * XR Foot Left 3Vw or More (05/30/2024 10:02 AM CDT) Anatomical Region Laterality Modality Ankle / Foot Digital Radiogra phy 05/30/2024 10:0 3 AM CDT Impressions 05/30/2024 10:55 AM CDT IMPRESSION: 1.Cervical spine: Normal. 2.Thoracic spine: Normal. 3.Lumbar spine: Minimal degenerative disc disease. 4.Sacroiliac joints: Normal. 5.Right hand: No significant arthritis. 6.Left hand: Normal. 7.Right wrist: Normal. 8.Left wrist: Normal. 9.Right hip: Femoral head avascular necrosis with developing subchondral fracture, progressed. The joint space is normal. Postprocedural changes of core decompression surgery. 10.Left hip: Femoral head avascular necrosis without collapse. The joint space is normal. Postprocedural changes of core decompression surgery. 11.Right knee: Normal. 12.Left knee: No evidence of arthritis. 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 13.Right foot: Normal. 14.Left foot: Mild osteoarthritis at the first metatarsophalangeal joint. Report dictated by Gretchen Rodriguez MD I, Keagan Lerner MD have personally reviewed and interpreted this examination/study. > Interpreting Provider: Keagan Lerner MD on 05/30/2024 10:55 AM Narrative 05/30/2024 10:55 AM CDT PROCEDURE: XR KNEE RIGHT 3VW, XR HAND RIGHT 3VW OR MORE, XR HAND LEFT 3VW OR MORE, XR FOOT RIGHT 3VW OR MORE, XR FOOT LEFT 3VW OR MORE, XR WRIST LEFT 2VW, XR WRIST RIGHT 2VW, XR CERVICAL SPINE 4 OR 5VW, XR SI JOINTS 3VW OR MORE, XR THORACIC SPINE 2VW, XR LUMBAR SPINE 2 OR 3VW, XR KNEE LEFT 3VW, XR HIP RIGHT 2VW OR MORE, XR HIP LEFT 2VW OR MORE, DATE/TIME OF EXAM: 05/30/2024 10:02 AM, LOCATION [facility] INDICATION: L40.50: Psoriatic arthritis (HCC) M25.50: Polyarthralgia M87.9: Bilateral hip osteonecrosis (HCC) M1A.09X0: Chronic gout of multiple sites, unspecified cause ADDITIONAL CLINICAL INFORMATION: Ordering Provider Reason For Exam: Please evaluate for signs of inflammatory arthropathy. (accession [id number]), Please evaluate for signs of inflammatory arthropathy. (accession [id number]), Please evaluate for signs of inflammatory arthropathy. (accession [id number]), Please evaluate for signs of inflammatory arthropathy. (accession [id number]), Please evaluate for signs of inflammatory arthropathy. (accession [id number]), Please evaluate for signs of inflammatory arthropathy. (accession [id number]), Please evaluate for signs of inflammatory arthropathy. (accession [id number]), History of RA, full flexion and extension views, please evaluate for atlantoaxial instability, per radiologist protocol (accession [id number]), Please evaluate for signs of inflammatory arthropathy. (accession [id number]), Please evaluate for signs of inflammatory arthropathy. (accession [id number]), Please evaluate for signs of inflammatory arthropathy. (accession [id number]), Please evaluate for signs of inflammatory arthropathy. (accession [id number]), Please evaluate for signs of inflammatory arthropathy. (accession [id number]), Please evaluate for signs of inflammatory arthropathy. (accession [id number]) Technologist Note: Additional: COMPARISON: Right and left knee radiographs dated 09/07/2020. Right and left foot radiographs dated 12/18/2019. Sacroiliac joint radiographs dated 09/07/2020. Cervical spine radiographs dated 09/07/2020. FINDINGS: Cervical spine: The vertebral bodies are normally aligned. No acute fracture or compression deformity is identified. Mild multilevel degenerative disc disease. The predental interval and prevertebral soft tissues are normal. Bone density and texture are normal. Neurostimulator lead terminating within the right neck. Flexion and extension views demonstrate no vertebral translation. Thoracic spine: The vertebral bodies are normally aligned. There is no fracture or compression deformity. Mild multilevel degenerative disc disease. Right chest wall neurostimulator with lead coursing to the soft tissues of the right hemithorax and into the right neck. Lumbar spine: Of the lumbar lordosis is normal. There is no fracture or subluxation. The intervertebral disc spaces are normal. There is an anterior superior endplate osteophyte at L3. There is mild superior endplate sclerosis at L2 and L3. The facet joints are normal. Sacral iliac joints: There is no erosion, widening, sclerosis, narrowing, or ankylosis of either sacroiliac joint. There is no fracture. Right hand: No fracture or dislocation is present. The joint spaces are normal. No erosions are seen. There are a few small cysts in the third metacarpal head. There is a small calcification adjacent to the second digit proximal interphalangeal joint. Bone density is normal. The soft tissues are normal. Left hand: No acute fracture or dislocation. Joint spaces are preserved. No joint effusion. Osseous architecture and density are normal. No soft tissue swelling. Right wrist: No acute fracture or dislocation. Joint spaces are preserved. No joint effusion. Osseous architecture and density are normal. No soft tissue swelling. Left wrist: No acute fracture or dislocation. Joint spaces are preserved. No joint effusion. Osseous architecture and density are normal. No soft tissue swelling. Right hip: There is abnormal lucency and sclerosis in the superior aspect of the femoral head compatible with avascular necrosis. Mild cortical contour step-off has developed superiorly superiorly, consistent with subchondral fracture. The joint space is normal. There is a tract of increased density within the femoral neck compatible with core decompression surgery. Left hip: There is no fracture or dislocation. There is abnormal lucency and sclerosis in the superior aspect of the femoral head compatible with avascular necrosis. There is no articular surface collapse. There is a tract of increased density within the femoral neck compatible with core decompression surgery. Right knee: No acute fracture or dislocation. Knee joint space is preserved. No joint effusion. Osseous architecture and density are normal. No soft tissue swelling. Left knee: No acute fracture or dislocation. Knee joint space is preserved. No joint effusion. Unchanged 1.9 cm lucent lesion with peripheral sclerosis in the superior lateral aspect of the patella. Osseous and density are otherwise normal. No soft tissue swelling. Right foot: No acute fracture or dislocation. Joint spaces are preserved. No joint effusion. Osseous architecture and density are normal. No soft tissue swelling. Left foot: No acute fracture or dislocation. Mild joint space narrowing, subchondral sclerosis, subchondral cysts, and marginal osteophytes at the 1st metatarsophalangeal joint. No joint effusion. Osseous architecture and density are normal. No soft tissue swelling. Procedure Note Keagan Lerner MD - 05/30/2024 PROCEDURE: XR KNEE RIGHT 3VW, XR HAND RIGHT 3VW OR MORE, XR HAND [id number] OR MORE, XR FOOT RIGHT 3VW OR MORE, XR FOOT LEFT 3VW OR MORE, XR WRISTLEFT 2VW, XR WRIST RIGHT 2VW, XR CERVICAL SPINE 4 OR 5VW, XR SI JOINTS 3VW OR MORE, XR THORACIC SPINE 2VW, XR LUMBAR SPINE 2 OR 3VW, XR KNEE LEFT 3VW,XR HIP RIGHT 2VW OR MORE, XR HIP LEFT 2VW OR MORE, DATE/TIME OF EXAM: 05/30/2024 10:02 AM, LOCATION [facility] INDICATION: L40.50: Psoriatic arthritis (HCC) M25.50: Polyarthralgia M87.9: Bilateral hip osteonecrosis (HCC) M1A.09X0: Chronic gout of multiple sites, unspecified cause ADDITIONAL CLINICAL INFORMATION: Ordering Provider Reason For Exam: Please evaluate for signs of inflammatory arthropathy. (accession [id number]), Please evaluate forsigns of inflammatory arthropathy. (accession [id number]), Please evaluate for signs of inflammatory arthropathy. (accession [id number]), Pleaseevaluate for signs of inflammatory arthropathy. (accession [id number]), Please evaluate for signs of inflammatory arthropathy. (accession [id number]), Please evaluate for signs of inflammatory arthropathy. (accession [id number]), Please evaluate for signs of inflammatory arthropathy. (accession [id number]), History of RA, full flexion and extension views, please evaluate for atlantoaxial instability, per radiologist protocol (accession [id number]), Please evaluate for signs of inflammatory arthropathy. (accession [id number]), Please evaluate for signs of inflammatory arthropathy. (accession [id number]), Please evaluate forsigns of inflammatory arthropathy. (accession [id number]), Please evaluate for signs of inflammatory arthropathy. (accession [id number]), Pleaseevaluate for signs of inflammatory arthropathy. (accession [id number]), Please evaluate for signs of inflammatory arthropathy. (accession [id number]) Technologist Note: Additional: COMPARISON: Right and left knee radiographs dated 09/07/2020. Right and left foot radiographs dated 12/18/2019. Sacroiliac joint radiographs date09/07/2020. Cervical spine radiographs dated 09/07/2020. FINDINGS: Cervical spine: The vertebral bodies are normally aligned. No acute fracture orcompression deformity is identified. Mild multilevel degenerative disc disease. The predental interval and prevertebral soft tissues are normal. Bonedensity and texture are normal. Neurostimulator lead terminating within theright neck. Flexion and extension views demonstrate no vertebral translation. Thoracic spine: The vertebral bodies are normally aligned. There is no fracture or compression deformity. Mild multilevel degenerative disc disease. Right chest wall neurostimulator with lead coursing to the soft tissues of the right hemithorax and into the right neck. Lumbar spine: Of the lumbar lordosis is normal. There is no fracture or subluxation.The intervertebral disc spaces are normal. There is an anterior superior endplate osteophyte at L3. There is mild superior endplate sclerosis atL2 and L3. The facet joints are normal. Sacral iliac joints: There is no erosion, widening, sclerosis, narrowing, or ankylosis ofeither sacroiliac joint. There is no fracture. Right hand: No fracture or dislocation is present. The joint spaces are normal. No erosions are seen. There are a few small cysts in the third metacarpal head. There is a small calcification adjacent to the second digitproximal interphalangeal joint. Bone density is normal. The soft tissues are normal. Left hand: No acute fracture or dislocation. Joint spaces are preserved. No joint effusion. Osseous architecture and density are normal. No soft tissue swelling. Right wrist: No acute fracture or dislocation. Joint spaces are preserved. No joint effusion. Osseous architecture and density are normal. No soft tissue swelling. Left wrist: No acute fracture or dislocation. Joint spaces are preserved. No joint effusion. Osseous architecture and density are normal. No soft tissue swelling. Right hip: There is abnormal lucency and sclerosis in the superior aspect of the femoral head compatible with avascular necrosis. Mild cortical contour step-off has developed superiorly superiorly, consistent withsubchondral fracture. The joint space is normal. There is a tract of increaseddensity within the femoral neck compatible with core decompression surgery. Left hip: There is no fracture or dislocation. There is abnormal lucency and sclerosis in the superior aspect of the femoral head compatible with avascular necrosis. There is no articular surface collapse. There is a tract of increased density within the femoral neck compatible with core decompression surgery. Right knee: No acute fracture or dislocation. Knee joint space is preserved. Nojoint effusion. Osseous architecture and density are normal. No soft tissue swelling. Left knee: No acute fracture or dislocation. Knee joint space is preserved. Nojoint effusion. Unchanged 1.9 cm lucent lesion with peripheral sclerosis inthe superior lateral aspect of the patella. Osseous and density areotherwise normal. No soft tissue swelling. Right foot: No acute fracture or dislocation. Joint spaces are preserved. No joint effusion. Osseous architecture and density are normal. No soft tissue swelling. Left foot: No acute fracture or dislocation. Mild joint space narrowing,subchondral sclerosis, subchondral cysts, and marginal osteophytes at the 1st metatarsophalangeal joint. No joint effusion. Osseous architecture and density are normal. No soft tissue swelling. IMPRESSION: 1.Cervical spine: Normal. 2.Thoracic spine: Normal. 3.Lumbar spine: Minimal degenerative disc disease. 4.Sacroiliac joints: Normal. 5.Right hand: No significant arthritis. 6.Left hand: Normal. 7.Right wrist: Normal. 8.Left wrist: Normal. 9.Right hip: Femoral head avascular necrosis with developing subchondral fracture, progressed. The joint space is normal. Postprocedural changesof core decompression surgery. 10.Left hip: Femoral head avascular necrosis without collapse. The joint space is normal. Postprocedural changes of core decompression surgery. 11.Right knee: Normal. 12.Left knee: No evidence of arthritis. 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 13.Right foot: Normal. 14.Left foot: Mild osteoarthritis at the first metatarsophalangealjoint. Report dictated by Gretchen Rodriguez MD I, Keagan Lerner MD have personally reviewed and interpreted this examination/study. > Interpreting Provider: Keagan Lerner MD on 05/30/2024 10:55 AM Charles Billy MD DIAGNOSTIC IMAGING ORDERABLES Fi nal Result * XR Knee Left 3Vw (05/30/2024 10:02 AM CDT) Anatomical Region Laterality Modality Lower Extremity Digital Radiogra phy 05/30/2024 10:0 3 AM CDT Impressions 05/30/2024 10:55 AM CDT IMPRESSION: 1.Cervical spine: Normal. 2.Thoracic spine: Normal. 3.Lumbar spine: Minimal degenerative disc disease. 4.Sacroiliac joints: Normal. 5.Right hand: No significant arthritis. 6.Left hand: Normal. 7.Right wrist: Normal. 8.Left wrist: Normal. 9.Right hip: Femoral head avascular necrosis with developing subchondral fracture, progressed. The joint space is normal. Postprocedural changes of core decompression surgery. 10.Left hip: Femoral head avascular necrosis without collapse. The joint space is normal. Postprocedural changes of core decompression surgery. 11.Right knee: Normal. 12.Left knee: No evidence of arthritis. 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 13.Right foot: Normal. 14.Left foot: Mild osteoarthritis at the first metatarsophalangeal joint. Report dictated by Gretchen Rodriguez MD I, Keagan Lerner MD have personally reviewed and interpreted this examination/study. > Interpreting Provider: Keagan Lerner MD on 05/30/2024 10:55 AM Narrative 05/30/2024 10:55 AM CDT PROCEDURE: XR KNEE RIGHT 3VW, XR HAND RIGHT 3VW OR MORE, XR HAND LEFT 3VW OR MORE, XR FOOT RIGHT 3VW OR MORE, XR FOOT LEFT 3VW OR MORE, XR WRIST LEFT 2VW, XR WRIST RIGHT 2VW, XR CERVICAL SPINE 4 OR 5VW, XR SI JOINTS 3VW OR MORE, XR THORACIC SPINE 2VW, XR LUMBAR SPINE 2 OR 3VW, XR KNEE LEFT 3VW, XR HIP RIGHT 2VW OR MORE, XR HIP LEFT 2VW OR MORE, DATE/TIME OF EXAM: 05/30/2024 10:02 AM, LOCATION [facility] INDICATION: L40.50: Psoriatic arthritis (HCC) M25.50: Polyarthralgia M87.9: Bilateral hip osteonecrosis (HCC) M1A.09X0: Chronic gout of multiple sites, unspecified cause ADDITIONAL CLINICAL INFORMATION: Ordering Provider Reason For Exam: Please evaluate for signs of inflammatory arthropathy. (accession [id number]), Please evaluate for signs of inflammatory arthropathy. (accession [id number]), Please evaluate for signs of inflammatory arthropathy. (accession [id number]), Please evaluate for signs of inflammatory arthropathy. (accession [id number]), Please evaluate for signs of inflammatory arthropathy. (accession [id number]), Please evaluate for signs of inflammatory arthropathy. (accession [id number]), Please evaluate for signs of inflammatory arthropathy. (accession [id number]), History of RA, full flexion and extension views, please evaluate for atlantoaxial instability, per radiologist protocol (accession [id number]), Please evaluate for signs of inflammatory arthropathy. (accession [id number]), Please evaluate for signs of inflammatory arthropathy. (accession [id number]), Please evaluate for signs of inflammatory arthropathy. (accession [id number]), Please evaluate for signs of inflammatory arthropathy. (accession [id number]), Please evaluate for signs of inflammatory arthropathy. (accession [id number]), Please evaluate for signs of inflammatory arthropathy. (accession [id number]) Technologist Note: Additional: COMPARISON: Right and left knee radiographs dated 09/07/2020. Right and left foot radiographs dated 12/18/2019. Sacroiliac joint radiographs dated 09/07/2020. Cervical spine radiographs dated 09/07/2020. FINDINGS: Cervical spine: The vertebral bodies are normally aligned. No acute fracture or compression deformity is identified. Mild multilevel degenerative disc disease. The predental interval and prevertebral soft tissues are normal. Bone density and texture are normal. Neurostimulator lead terminating within the right neck. Flexion and extension views demonstrate no vertebral translation. Thoracic spine: The vertebral bodies are normally aligned. There is no fracture or compression deformity. Mild multilevel degenerative disc disease. Right chest wall neurostimulator with lead coursing to the soft tissues of the right hemithorax and into the right neck. Lumbar spine: Of the lumbar lordosis is normal. There is no fracture or subluxation. The intervertebral disc spaces are normal. There is an anterior superior endplate osteophyte at L3. There is mild superior endplate sclerosis at L2 and L3. The facet joints are normal. Sacral iliac joints: There is no erosion, widening, sclerosis, narrowing, or ankylosis of either sacroiliac joint. There is no fracture. Right hand: No fracture or dislocation is present. The joint spaces are normal. No erosions are seen. There are a few small cysts in the third metacarpal head. There is a small calcification adjacent to the second digit proximal interphalangeal joint. Bone density is normal. The soft tissues are normal. Left hand: No acute fracture or dislocation. Joint spaces are preserved. No joint effusion. Osseous architecture and density are normal. No soft tissue swelling. Right wrist: No acute fracture or dislocation. Joint spaces are preserved. No joint effusion. Osseous architecture and density are normal. No soft tissue swelling. Left wrist: No acute fracture or dislocation. Joint spaces are preserved. No joint effusion. Osseous architecture and density are normal. No soft tissue swelling. Right hip: There is abnormal lucency and sclerosis in the superior aspect of the femoral head compatible with avascular necrosis. Mild cortical contour step-off has developed superiorly superiorly, consistent with subchondral fracture. The joint space is normal. There is a tract of increased density within the femoral neck compatible with core decompression surgery. Left hip: There is no fracture or dislocation. There is abnormal lucency and sclerosis in the superior aspect of the femoral head compatible with avascular necrosis. There is no articular surface collapse. There is a tract of increased density within the femoral neck compatible with core decompression surgery. Right knee: No acute fracture or dislocation. Knee joint space is preserved. No joint effusion. Osseous architecture and density are normal. No soft tissue swelling. Left knee: No acute fracture or dislocation. Knee joint space is preserved. No joint effusion. Unchanged 1.9 cm lucent lesion with peripheral sclerosis in the superior lateral aspect of the patella. Osseous and density are otherwise normal. No soft tissue swelling. Right foot: No acute fracture or dislocation. Joint spaces are preserved. No joint effusion. Osseous architecture and density are normal. No soft tissue swelling. Left foot: No acute fracture or dislocation. Mild joint space narrowing, subchondral sclerosis, subchondral cysts, and marginal osteophytes at the 1st metatarsophalangeal joint. No joint effusion. Osseous architecture and density are normal. No soft tissue swelling. Procedure Note Keagan Lerner MD - 05/30/2024 PROCEDURE: XR KNEE RIGHT 3VW, XR HAND RIGHT 3VW OR MORE, XR HAND [id number] OR MORE, XR FOOT RIGHT 3VW OR MORE, XR FOOT LEFT 3VW OR MORE, XR WRISTLEFT 2VW, XR WRIST RIGHT 2VW, XR CERVICAL SPINE 4 OR 5VW, XR SI JOINTS 3VW OR MORE, XR THORACIC SPINE 2VW, XR LUMBAR SPINE 2 OR 3VW, XR KNEE LEFT 3VW,XR HIP RIGHT 2VW OR MORE, XR HIP LEFT 2VW OR MORE, DATE/TIME OF EXAM: 05/30/2024 10:02 AM, LOCATION [facility] INDICATION: L40.50: Psoriatic arthritis (HCC) M25.50: Polyarthralgia M87.9: Bilateral hip osteonecrosis (HCC) M1A.09X0: Chronic gout of multiple sites, unspecified cause ADDITIONAL CLINICAL INFORMATION: Ordering Provider Reason For Exam: Please evaluate for signs of inflammatory arthropathy. (accession [id number]), Please evaluate forsigns of inflammatory arthropathy. (accession [id number]), Please evaluate for signs of inflammatory arthropathy. (accession [id number]), Pleaseevaluate for signs of inflammatory arthropathy. (accession [id number]), Please evaluate for signs of inflammatory arthropathy. (accession [id number]), Please evaluate for signs of inflammatory arthropathy. (accession [id number]), Please evaluate for signs of inflammatory arthropathy. (accession [id number]), History of RA, full flexion and extension views, please evaluate for atlantoaxial instability, per radiologist protocol (accession [id number]), Please evaluate for signs of inflammatory arthropathy. (accession [id number]), Please evaluate for signs of inflammatory arthropathy. (accession [id number]), Please evaluate forsigns of inflammatory arthropathy. (accession [id number]), Please evaluate for signs of inflammatory arthropathy. (accession [id number]), Pleaseevaluate for signs of inflammatory arthropathy. (accession [id number]), Please evaluate for signs of inflammatory arthropathy. (accession [id number]) Technologist Note: Additional: COMPARISON: Right and left knee radiographs dated 09/07/2020. Right and left foot radiographs dated 12/18/2019. Sacroiliac joint radiographs date09/07/2020. Cervical spine radiographs dated 09/07/2020. FINDINGS: Cervical spine: The vertebral bodies are normally aligned. No acute fracture orcompression deformity is identified. Mild multilevel degenerative disc disease. The predental interval and prevertebral soft tissues are normal. Bonedensity and texture are normal. Neurostimulator lead terminating within theright neck. Flexion and extension views demonstrate no vertebral translation. Thoracic spine: The vertebral bodies are normally aligned. There is no fracture or compression deformity. Mild multilevel degenerative disc disease. Right chest wall neurostimulator with lead coursing to the soft tissues of the right hemithorax and into the right neck. Lumbar spine: Of the lumbar lordosis is normal. There is no fracture or subluxation.The intervertebral disc spaces are normal. There is an anterior superior endplate osteophyte at L3. There is mild superior endplate sclerosis atL2 and L3. The facet joints are normal. Sacral iliac joints: There is no erosion, widening, sclerosis, narrowing, or ankylosis ofeither sacroiliac joint. There is no fracture. Right hand: No fracture or dislocation is present. The joint spaces are normal. No erosions are seen. There are a few small cysts in the third metacarpal head. There is a small calcification adjacent to the second digitproximal interphalangeal joint. Bone density is normal. The soft tissues are normal. Left hand: No acute fracture or dislocation. Joint spaces are preserved. No joint effusion. Osseous architecture and density are normal. No soft tissue swelling. Right wrist: No acute fracture or dislocation. Joint spaces are preserved. No joint effusion. Osseous architecture and density are normal. No soft tissue swelling. Left wrist: No acute fracture or dislocation. Joint spaces are preserved. No joint effusion. Osseous architecture and density are normal. No soft tissue swelling. Right hip: There is abnormal lucency and sclerosis in the superior aspect of the femoral head compatible with avascular necrosis. Mild cortical contour step-off has developed superiorly superiorly, consistent withsubchondral fracture. The joint space is normal. There is a tract of increaseddensity within the femoral neck compatible with core decompression surgery. Left hip: There is no fracture or dislocation. There is abnormal lucency and sclerosis in the superior aspect of the femoral head compatible with avascular necrosis. There is no articular surface collapse. There is a tract of increased density within the femoral neck compatible with core decompression surgery. Right knee: No acute fracture or dislocation. Knee joint space is preserved. Nojoint effusion. Osseous architecture and density are normal. No soft tissue swelling. Left knee: No acute fracture or dislocation. Knee joint space is preserved. Nojoint effusion. Unchanged 1.9 cm lucent lesion with peripheral sclerosis inthe superior lateral aspect of the patella. Osseous and density areotherwise normal. No soft tissue swelling. Right foot: No acute fracture or dislocation. Joint spaces are preserved. No joint effusion. Osseous architecture and density are normal. No soft tissue swelling. Left foot: No acute fracture or dislocation. Mild joint space narrowing,subchondral sclerosis, subchondral cysts, and marginal osteophytes at the 1st metatarsophalangeal joint. No joint effusion. Osseous architecture and density are normal. No soft tissue swelling. IMPRESSION: 1.Cervical spine: Normal. 2.Thoracic spine: Normal. 3.Lumbar spine: Minimal degenerative disc disease. 4.Sacroiliac joints: Normal. 5.Right hand: No significant arthritis. 6.Left hand: Normal. 7.Right wrist: Normal. 8.Left wrist: Normal. 9.Right hip: Femoral head avascular necrosis with developing subchondral fracture, progressed. The joint space is normal. Postprocedural changesof core decompression surgery. 10.Left hip: Femoral head avascular necrosis without collapse. The joint space is normal. Postprocedural changes of core decompression surgery. 11.Right knee: Normal. 12.Left knee: No evidence of arthritis. 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 13.Right foot: Normal. 14.Left foot: Mild osteoarthritis at the first metatarsophalangealjoint. Report dictated by Gretchen Rodriguez MD I, Keagan Lerner MD have personally reviewed and interpreted this examination/study. > Interpreting Provider: Keagan Lerner MD on 05/30/2024 10:55 AM Charles Billy MD DIAGNOSTIC IMAGING ORDERABLES Fi nal Result * XR Hip Right 2Vw or More (05/30/2024 10:02 AM CDT) Anatomical Region Laterality Modality Pelvis, Lower Extremity Digital Radiography 05/30/2024 10:0 3 AM CDT Impressions 05/30/2024 10:55 AM CDT IMPRESSION: 1.Cervical spine: Normal. 2.Thoracic spine: Normal. 3.Lumbar spine: Minimal degenerative disc disease. 4.Sacroiliac joints: Normal. 5.Right hand: No significant arthritis. 6.Left hand: Normal. 7.Right wrist: Normal. 8.Left wrist: Normal. 9.Right hip: Femoral head avascular necrosis with developing subchondral fracture, progressed. The joint space is normal. Postprocedural changes of core decompression surgery. 10.Left hip: Femoral head avascular necrosis without collapse. The joint space is normal. Postprocedural changes of core decompression surgery. 11.Right knee: Normal. 12.Left knee: No evidence of arthritis. 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 13.Right foot: Normal. 14.Left foot: Mild osteoarthritis at the first metatarsophalangeal joint. Report dictated by Gretchen Rodriguez MD I, Keagan Lerner MD have personally reviewed and interpreted this examination/study. > Interpreting Provider: Keagan Lerner MD on 05/30/2024 10:55 AM Narrative 05/30/2024 10:55 AM CDT PROCEDURE: XR KNEE RIGHT 3VW, XR HAND RIGHT 3VW OR MORE, XR HAND LEFT 3VW OR MORE, XR FOOT RIGHT 3VW OR MORE, XR FOOT LEFT 3VW OR MORE, XR WRIST LEFT 2VW, XR WRIST RIGHT 2VW, XR CERVICAL SPINE 4 OR 5VW, XR SI JOINTS 3VW OR MORE, XR THORACIC SPINE 2VW, XR LUMBAR SPINE 2 OR 3VW, XR KNEE LEFT 3VW, XR HIP RIGHT 2VW OR MORE, XR HIP LEFT 2VW OR MORE, DATE/TIME OF EXAM: 05/30/2024 10:02 AM, LOCATION [facility] INDICATION: L40.50: Psoriatic arthritis (HCC) M25.50: Polyarthralgia M87.9: Bilateral hip osteonecrosis (HCC) M1A.09X0: Chronic gout of multiple sites, unspecified cause ADDITIONAL CLINICAL INFORMATION: Ordering Provider Reason For Exam: Please evaluate for signs of inflammatory arthropathy. (accession [id number]), Please evaluate for signs of inflammatory arthropathy. (accession [id number]), Please evaluate for signs of inflammatory arthropathy. (accession [id number]), Please evaluate for signs of inflammatory arthropathy. (accession [id number]), Please evaluate for signs of inflammatory arthropathy. (accession [id number]), Please evaluate for signs of inflammatory arthropathy. (accession [id number]), Please evaluate for signs of inflammatory arthropathy. (accession [id number]), History of RA, full flexion and extension views, please evaluate for atlantoaxial instability, per radiologist protocol (accession [id number]), Please evaluate for signs of inflammatory arthropathy. (accession [id number]), Please evaluate for signs of inflammatory arthropathy. (accession [id number]), Please evaluate for signs of inflammatory arthropathy. (accession [id number]), Please evaluate for signs of inflammatory arthropathy. (accession [id number]), Please evaluate for signs of inflammatory arthropathy. (accession [id number]), Please evaluate for signs of inflammatory arthropathy. (accession [id number]) Technologist Note: Additional: COMPARISON: Right and left knee radiographs dated 09/07/2020. Right and left foot radiographs dated 12/18/2019. Sacroiliac joint radiographs dated 09/07/2020. Cervical spine radiographs dated 09/07/2020. FINDINGS: Cervical spine: The vertebral bodies are normally aligned. No acute fracture or compression deformity is identified. Mild multilevel degenerative disc disease. The predental interval and prevertebral soft tissues are normal. Bone density and texture are normal. Neurostimulator lead terminating within the right neck. Flexion and extension views demonstrate no vertebral translation. Thoracic spine: The vertebral bodies are normally aligned. There is no fracture or compression deformity. Mild multilevel degenerative disc disease. Right chest wall neurostimulator with lead coursing to the soft tissues of the right hemithorax and into the right neck. Lumbar spine: Of the lumbar lordosis is normal. There is no fracture or subluxation. The intervertebral disc spaces are normal. There is an anterior superior endplate osteophyte at L3. There is mild superior endplate sclerosis at L2 and L3. The facet joints are normal. Sacral iliac joints: There is no erosion, widening, sclerosis, narrowing, or ankylosis of either sacroiliac joint. There is no fracture. Right hand: No fracture or dislocation is present. The joint spaces are normal. No erosions are seen. There are a few small cysts in the third metacarpal head. There is a small calcification adjacent to the second digit proximal interphalangeal joint. Bone density is normal. The soft tissues are normal. Left hand: No acute fracture or dislocation. Joint spaces are preserved. No joint effusion. Osseous architecture and density are normal. No soft tissue swelling. Right wrist: No acute fracture or dislocation. Joint spaces are preserved. No joint effusion. Osseous architecture and density are normal. No soft tissue swelling. Left wrist: No acute fracture or dislocation. Joint spaces are preserved. No joint effusion. Osseous architecture and density are normal. No soft tissue swelling. Right hip: There is abnormal lucency and sclerosis in the superior aspect of the femoral head compatible with avascular necrosis. Mild cortical contour step-off has developed superiorly superiorly, consistent with subchondral fracture. The joint space is normal. There is a tract of increased density within the femoral neck compatible with core decompression surgery. Left hip: There is no fracture or dislocation. There is abnormal lucency and sclerosis in the superior aspect of the femoral head compatible with avascular necrosis. There is no articular surface collapse. There is a tract of increased density within the femoral neck compatible with core decompression surgery. Right knee: No acute fracture or dislocation. Knee joint space is preserved. No joint effusion. Osseous architecture and density are normal. No soft tissue swelling. Left knee: No acute fracture or dislocation. Knee joint space is preserved. No joint effusion. Unchanged 1.9 cm lucent lesion with peripheral sclerosis in the superior lateral aspect of the patella. Osseous and density are otherwise normal. No soft tissue swelling. Right foot: No acute fracture or dislocation. Joint spaces are preserved. No joint effusion. Osseous architecture and density are normal. No soft tissue swelling. Left foot: No acute fracture or dislocation. Mild joint space narrowing, subchondral sclerosis, subchondral cysts, and marginal osteophytes at the 1st metatarsophalangeal joint. No joint effusion. Osseous architecture and density are normal. No soft tissue swelling. Procedure Note Keagan Lerner MD - 05/30/2024 PROCEDURE: XR KNEE RIGHT 3VW, XR HAND RIGHT 3VW OR MORE, XR HAND [id number] OR MORE, XR FOOT RIGHT 3VW OR MORE, XR FOOT LEFT 3VW OR MORE, XR WRISTLEFT 2VW, XR WRIST RIGHT 2VW, XR CERVICAL SPINE 4 OR 5VW, XR SI JOINTS 3VW OR MORE, XR THORACIC SPINE 2VW, XR LUMBAR SPINE 2 OR 3VW, XR KNEE LEFT 3VW,XR HIP RIGHT 2VW OR MORE, XR HIP LEFT 2VW OR MORE, DATE/TIME OF EXAM: 05/30/2024 10:02 AM, LOCATION [facility] INDICATION: L40.50: Psoriatic arthritis (HCC) M25.50: Polyarthralgia M87.9: Bilateral hip osteonecrosis (HCC) M1A.09X0: Chronic gout of multiple sites, unspecified cause ADDITIONAL CLINICAL INFORMATION: Ordering Provider Reason For Exam: Please evaluate for signs of inflammatory arthropathy. (accession [id number]), Please evaluate forsigns of inflammatory arthropathy. (accession [id number]), Please evaluate for signs of inflammatory arthropathy. (accession [id number]), Pleaseevaluate for signs of inflammatory arthropathy. (accession [id number]), Please evaluate for signs of inflammatory arthropathy. (accession [id number]), Please evaluate for signs of inflammatory arthropathy. (accession [id number]), Please evaluate for signs of inflammatory arthropathy. (accession [id number]), History of RA, full flexion and extension views, please evaluate for atlantoaxial instability, per radiologist protocol (accession [id number]), Please evaluate for signs of inflammatory arthropathy. (accession [id number]), Please evaluate for signs of inflammatory arthropathy. (accession [id number]), Please evaluate forsigns of inflammatory arthropathy. (accession [id number]), Please evaluate for signs of inflammatory arthropathy. (accession [id number]), Pleaseevaluate for signs of inflammatory arthropathy. (accession [id number]), Please evaluate for signs of inflammatory arthropathy. (accession [id number]) Technologist Note: Additional: COMPARISON: Right and left knee radiographs dated 09/07/2020. Right and left foot radiographs dated 12/18/2019. Sacroiliac joint radiographs date09/07/2020. Cervical spine radiographs dated 09/07/2020. FINDINGS: Cervical spine: The vertebral bodies are normally aligned. No acute fracture orcompression deformity is identified. Mild multilevel degenerative disc disease. The predental interval and prevertebral soft tissues are normal. Bonedensity and texture are normal. Neurostimulator lead terminating within theright neck. Flexion and extension views demonstrate no vertebral translation. Thoracic spine: The vertebral bodies are normally aligned. There is no fracture or compression deformity. Mild multilevel degenerative disc disease. Right chest wall neurostimulator with lead coursing to the soft tissues of the right hemithorax and into the right neck. Lumbar spine: Of the lumbar lordosis is normal. There is no fracture or subluxation.The intervertebral disc spaces are normal. There is an anterior superior endplate osteophyte at L3. There is mild superior endplate sclerosis atL2 and L3. The facet joints are normal. Sacral iliac joints: There is no erosion, widening, sclerosis, narrowing, or ankylosis ofeither sacroiliac joint. There is no fracture. Right hand: No fracture or dislocation is present. The joint spaces are normal. No erosions are seen. There are a few small cysts in the third metacarpal head. There is a small calcification adjacent to the second digitproximal interphalangeal joint. Bone density is normal. The soft tissues are normal. Left hand: No acute fracture or dislocation. Joint spaces are preserved. No joint effusion. Osseous architecture and density are normal. No soft tissue swelling. Right wrist: No acute fracture or dislocation. Joint spaces are preserved. No joint effusion. Osseous architecture and density are normal. No soft tissue swelling. Left wrist: No acute fracture or dislocation. Joint spaces are preserved. No joint effusion. Osseous architecture and density are normal. No soft tissue swelling. Right hip: There is abnormal lucency and sclerosis in the superior aspect of the femoral head compatible with avascular necrosis. Mild cortical contour step-off has developed superiorly superiorly, consistent withsubchondral fracture. The joint space is normal. There is a tract of increaseddensity within the femoral neck compatible with core decompression surgery. Left hip: There is no fracture or dislocation. There is abnormal lucency and sclerosis in the superior aspect of the femoral head compatible with avascular necrosis. There is no articular surface collapse. There is a tract of increased density within the femoral neck compatible with core decompression surgery. Right knee: No acute fracture or dislocation. Knee joint space is preserved. Nojoint effusion. Osseous architecture and density are normal. No soft tissue swelling. Left knee: No acute fracture or dislocation. Knee joint space is preserved. Nojoint effusion. Unchanged 1.9 cm lucent lesion with peripheral sclerosis inthe superior lateral aspect of the patella. Osseous and density areotherwise normal. No soft tissue swelling. Right foot: No acute fracture or dislocation. Joint spaces are preserved. No joint effusion. Osseous architecture and density are normal. No soft tissue swelling. Left foot: No acute fracture or dislocation. Mild joint space narrowing,subchondral sclerosis, subchondral cysts, and marginal osteophytes at the 1st metatarsophalangeal joint. No joint effusion. Osseous architecture and density are normal. No soft tissue swelling. IMPRESSION: 1.Cervical spine: Normal. 2.Thoracic spine: Normal. 3.Lumbar spine: Minimal degenerative disc disease. 4.Sacroiliac joints: Normal. 5.Right hand: No significant arthritis. 6.Left hand: Normal. 7.Right wrist: Normal. 8.Left wrist: Normal. 9.Right hip: Femoral head avascular necrosis with developing subchondral fracture, progressed. The joint space is normal. Postprocedural changesof core decompression surgery. 10.Left hip: Femoral head avascular necrosis without collapse. The joint space is normal. Postprocedural changes of core decompression surgery. 11.Right knee: Normal. 12.Left knee: No evidence of arthritis. 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 13.Right foot: Normal. 14.Left foot: Mild osteoarthritis at the first metatarsophalangealjoint. Report dictated by Gretchen Rodriguez MD I, Keagan Lerner MD have personally reviewed and interpreted this examination/study. > Interpreting Provider: Keagan Lerner MD on 05/30/2024 10:55 AM Charles Billy MD DIAGNOSTIC IMAGING ORDERABLES Fi nal Result * XR Hip Left 2Vw or More (05/30/2024 10:02 AM CDT) Anatomical Region Laterality Modality Pelvis, Lower Extremity Digital Radiography 05/30/2024 10:0 3 AM CDT Impressions 05/30/2024 10:55 AM CDT IMPRESSION: 1.Cervical spine: Normal. 2.Thoracic spine: Normal. 3.Lumbar spine: Minimal degenerative disc disease. 4.Sacroiliac joints: Normal. 5.Right hand: No significant arthritis. 6.Left hand: Normal. 7.Right wrist: Normal. 8.Left wrist: Normal. 9.Right hip: Femoral head avascular necrosis with developing subchondral fracture, progressed. The joint space is normal. Postprocedural changes of core decompression surgery. 10.Left hip: Femoral head avascular necrosis without collapse. The joint space is normal. Postprocedural changes of core decompression surgery. 11.Right knee: Normal. 12.Left knee: No evidence of arthritis. 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 13.Right foot: Normal. 14.Left foot: Mild osteoarthritis at the first metatarsophalangeal joint. Report dictated by Gretchen Rodriguez MD I, Keagan Lerner MD have personally reviewed and interpreted this examination/study. > Interpreting Provider: Keagan Lerner MD on 05/30/2024 10:55 AM Narrative 05/30/2024 10:55 AM CDT PROCEDURE: XR KNEE RIGHT 3VW, XR HAND RIGHT 3VW OR MORE, XR HAND LEFT 3VW OR MORE, XR FOOT RIGHT 3VW OR MORE, XR FOOT LEFT 3VW OR MORE, XR WRIST LEFT 2VW, XR WRIST RIGHT 2VW, XR CERVICAL SPINE 4 OR 5VW, XR SI JOINTS 3VW OR MORE, XR THORACIC SPINE 2VW, XR LUMBAR SPINE 2 OR 3VW, XR KNEE LEFT 3VW, XR HIP RIGHT 2VW OR MORE, XR HIP LEFT 2VW OR MORE, DATE/TIME OF EXAM: 05/30/2024 10:02 AM, LOCATION [facility] INDICATION: L40.50: Psoriatic arthritis (HCC) M25.50: Polyarthralgia M87.9: Bilateral hip osteonecrosis ([facility]) M1A.09X0: Chronic gout of multiple sites, unspecified cause ADDITIONAL CLINICAL INFORMATION: Ordering Provider Reason For Exam: Please evaluate for signs of inflammatory arthropathy. (accession [id number]), Please evaluate for signs of inflammatory arthropathy. (accession [id number]), Please evaluate for signs of inflammatory arthropathy. (accession [id number]), Please evaluate for signs of inflammatory arthropathy. (accession [id number]), Please evaluate for signs of inflammatory arthropathy. (accession [id number]), Please evaluate for signs of inflammatory arthropathy. (accession [id number]), Please evaluate for signs of inflammatory arthropathy. (accession [id number]), History of RA, full flexion and extension views, please evaluate for atlantoaxial instability, per radiologist protocol (accession [id number]), Please evaluate for signs of inflammatory arthropathy. (accession [id number]), Please evaluate for signs of inflammatory arthropathy. (accession [id number]), Please evaluate for signs of inflammatory arthropathy. (accession [id number]), Please evaluate for signs of inflammatory arthropathy. (accession [id number]), Please evaluate for signs of inflammatory arthropathy. (accession [id number]), Please evaluate for signs of inflammatory arthropathy. (accession [id number]) Technologist Note: Additional: COMPARISON: Right and left knee radiographs dated 09/07/2020. Right and left foot radiographs dated 12/18/2019. Sacroiliac joint radiographs dated 09/07/2020. Cervical spine radiographs dated 09/07/2020. FINDINGS: Cervical spine: The vertebral bodies are normally aligned. No acute fracture or compression deformity is identified. Mild multilevel degenerative disc disease. The predental interval and prevertebral soft tissues are normal. Bone density and texture are normal. Neurostimulator lead terminating within the right neck. Flexion and extension views demonstrate no vertebral translation. Thoracic spine: The vertebral bodies are normally aligned. There is no fracture or compression deformity. Mild multilevel degenerative disc disease. Right chest wall neurostimulator with lead coursing to the soft tissues of the right hemithorax and into the right neck. Lumbar spine: Of the lumbar lordosis is normal. There is no fracture or subluxation. The intervertebral disc spaces are normal. There is an anterior superior endplate osteophyte at L3. There is mild superior endplate sclerosis at L2 and L3. The facet joints are normal. Sacral iliac joints: There is no erosion, widening, sclerosis, narrowing, or ankylosis of either sacroiliac joint. There is no fracture. Right hand: No fracture or dislocation is present. The joint spaces are normal. No erosions are seen. There are a few small cysts in the third metacarpal head. There is a small calcification adjacent to the second digit proximal interphalangeal joint. Bone density is normal. The soft tissues are normal. Left hand: No acute fracture or dislocation. Joint spaces are preserved. No joint effusion. Osseous architecture and density are normal. No soft tissue swelling. Right wrist: No acute fracture or dislocation. Joint spaces are preserved. No joint effusion. Osseous architecture and density are normal. No soft tissue swelling. Left wrist: No acute fracture or dislocation. Joint spaces are preserved. No joint effusion. Osseous architecture and density are normal. No soft tissue swelling. Right hip: There is abnormal lucency and sclerosis in the superior aspect of the femoral head compatible with avascular necrosis. Mild cortical contour step-off has developed superiorly superiorly, consistent with subchondral fracture. The joint space is normal. There is a tract of increased density within the femoral neck compatible with core decompression surgery. Left hip: There is no fracture or dislocation. There is abnormal lucency and sclerosis in the superior aspect of the femoral head compatible with avascular necrosis. There is no articular surface collapse. There is a tract of increased density within the femoral neck compatible with core decompression surgery. Right knee: No acute fracture or dislocation. Knee joint space is preserved. No joint effusion. Osseous architecture and density are normal. No soft tissue swelling. Left knee: No acute fracture or dislocation. Knee joint space is preserved. No joint effusion. Unchanged 1.9 cm lucent lesion with peripheral sclerosis in the superior lateral aspect of the patella. Osseous and density are otherwise normal. No soft tissue swelling. Right foot: No acute fracture or dislocation. Joint spaces are preserved. No joint effusion. Osseous architecture and density are normal. No soft tissue swelling. Left foot: No acute fracture or dislocation. Mild joint space narrowing, subchondral sclerosis, subchondral cysts, and marginal osteophytes at the 1st metatarsophalangeal joint. No joint effusion. Osseous architecture and density are normal. No soft tissue swelling. Procedure Note Eduarda, Keagan B, MD - 05/30/2024 PROCEDURE: XR KNEE RIGHT 3VW, XR HAND RIGHT 3VW OR MORE, XR HAND [id number] OR MORE, XR FOOT RIGHT 3VW OR MORE, XR FOOT LEFT 3VW OR MORE, XR WRISTLEFT 2VW, XR WRIST RIGHT 2VW, XR CERVICAL SPINE 4 OR 5VW, XR SI JOINTS 3VW OR MORE, XR THORACIC SPINE 2VW, XR LUMBAR SPINE 2 OR 3VW, XR KNEE LEFT 3VW,XR HIP RIGHT 2VW OR MORE, XR HIP LEFT 2VW OR MORE, DATE/TIME OF EXAM: 05/30/2024 10:02 AM, LOCATION [facility] INDICATION: L40.50: Psoriatic arthritis (HCC) M25.50: Polyarthralgia M87.9: Bilateral hip osteonecrosis (HCC) M1A.09X0: Chronic gout of multiple sites, unspecified cause ADDITIONAL CLINICAL INFORMATION: Ordering Provider Reason For Exam: Please evaluate for signs of inflammatory arthropathy. (accession [id number]), Please evaluate forsigns of inflammatory arthropathy. (accession [id number]), Please evaluate for signs of inflammatory arthropathy. (accession [id number]), Pleaseevaluate for signs of inflammatory arthropathy. (accession [id number]), Please evaluate for signs of inflammatory arthropathy. (accession [id number]), Please evaluate for signs of inflammatory arthropathy. (accession [id number]), Please evaluate for signs of inflammatory arthropathy. (accession [id number]), History of RA, full flexion and extension views, please evaluate for atlantoaxial instability, per radiologist protocol (accession [id number]), Please evaluate for signs of inflammatory arthropathy. (accession [id number]), Please evaluate for signs of inflammatory arthropathy. (accession [id number]), Please evaluate forsigns of inflammatory arthropathy. (accession [id number]), Please evaluate for signs of inflammatory arthropathy. (accession [id number]), Pleaseevaluate for signs of inflammatory arthropathy. (accession [id number]), Please evaluate for signs of inflammatory arthropathy. (accession [id number]) Technologist Note: Additional: COMPARISON: Right and left knee radiographs dated 09/07/2020. Right and left foot radiographs dated 12/18/2019. Sacroiliac joint radiographs date09/07/2020. Cervical spine radiographs dated 09/07/2020. FINDINGS: Cervical spine: The vertebral bodies are normally aligned. No acute fracture orcompression deformity is identified. Mild multilevel degenerative disc disease. The predental interval and prevertebral soft tissues are normal. Bonedensity and texture are normal. Neurostimulator lead terminating within theright neck. Flexion and extension views demonstrate no vertebral translation. Thoracic spine: The vertebral bodies are normally aligned. There is no fracture or compression deformity. Mild multilevel degenerative disc disease. Right chest wall neurostimulator with lead coursing to the soft tissues of the right hemithorax and into the right neck. Lumbar spine: Of the lumbar lordosis is normal. There is no fracture or subluxation.The intervertebral disc spaces are normal. There is an anterior superior endplate osteophyte at L3. There is mild superior endplate sclerosis atL2 and L3. The facet joints are normal. Sacral iliac joints: There is no erosion, widening, sclerosis, narrowing, or ankylosis ofeither sacroiliac joint. There is no fracture. Right hand: No fracture or dislocation is present. The joint spaces are normal. No erosions are seen. There are a few small cysts in the third metacarpal head. There is a small calcification adjacent to the second digitproximal interphalangeal joint. Bone density is normal. The soft tissues are normal. Left hand: No acute fracture or dislocation. Joint spaces are preserved. No joint effusion. Osseous architecture and density are normal. No soft tissue swelling. Right wrist: No acute fracture or dislocation. Joint spaces are preserved. No joint effusion. Osseous architecture and density are normal. No soft tissue swelling. Left wrist: No acute fracture or dislocation. Joint spaces are preserved. No joint effusion. Osseous architecture and density are normal. No soft tissue swelling. Right hip: There is abnormal lucency and sclerosis in the superior aspect of the femoral head compatible with avascular necrosis. Mild cortical contour step-off has developed superiorly superiorly, consistent withsubchondral fracture. The joint space is normal. There is a tract of increaseddensity within the femoral neck compatible with core decompression surgery. Left hip: There is no fracture or dislocation. There is abnormal lucency and sclerosis in the superior aspect of the femoral head compatible with avascular necrosis. There is no articular surface collapse. There is a tract of increased density within the femoral neck compatible with core decompression surgery. Right knee: No acute fracture or dislocation. Knee joint space is preserved. Nojoint effusion. Osseous architecture and density are normal. No soft tissue swelling. Left knee: No acute fracture or dislocation. Knee joint space is preserved. Nojoint effusion. Unchanged 1.9 cm lucent lesion with peripheral sclerosis inthe superior lateral aspect of the patella. Osseous and density areotherwise normal. No soft tissue swelling. Right foot: No acute fracture or dislocation. Joint spaces are preserved. No joint effusion. Osseous architecture and density are normal. No soft tissue swelling. Left foot: No acute fracture or dislocation. Mild joint space narrowing,subchondral sclerosis, subchondral cysts, and marginal osteophytes at the 1st metatarsophalangeal joint. No joint effusion. Osseous architecture and density are normal. No soft tissue swelling. IMPRESSION: 1.Cervical spine: Normal. 2.Thoracic spine: Normal. 3.Lumbar spine: Minimal degenerative disc disease. 4.Sacroiliac joints: Normal. 5.Right hand: No significant arthritis. 6.Left hand: Normal. 7.Right wrist: Normal. 8.Left wrist: Normal. 9.Right hip: Femoral head avascular necrosis with developing subchondral fracture, progressed. The joint space is normal. Postprocedural changesof core decompression surgery. 10.Left hip: Femoral head avascular necrosis without collapse. The joint space is normal. Postprocedural changes of core decompression surgery. 11.Right knee: Normal. 12.Left knee: No evidence of arthritis. 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 13.Right foot: Normal. 14.Left foot: Mild osteoarthritis at the first metatarsophalangealjoint. Report dictated by Gretchen Rodriguez MD I, Keagan Lerner MD have personally reviewed and interpreted this examination/study. > Interpreting Provider: Keagan Lerner MD on 05/30/2024 10:55 AM Charles Billy MD DIAGNOSTIC IMAGING ORDERABLES Fi nal Result * XR Hand Right 3Vw or More (05/30/2024 10:02 AM CDT) Anatomical Region Laterality Modality Wrist / Hand Digital Radiogra phy 05/30/2024 10:0 3 AM CDT Impressions 05/30/2024 10:55 AM CDT IMPRESSION: 1.Cervical spine: Normal. 2.Thoracic spine: Normal. 3.Lumbar spine: Minimal degenerative disc disease. 4.Sacroiliac joints: Normal. 5.Right hand: No significant arthritis. 6.Left hand: Normal. 7.Right wrist: Normal. 8.Left wrist: Normal. 9.Right hip: Femoral head avascular necrosis with developing subchondral fracture, progressed. The joint space is normal. Postprocedural changes of core decompression surgery. 10.Left hip: Femoral head avascular necrosis without collapse. The joint space is normal. Postprocedural changes of core decompression surgery. 11.Right knee: Normal. 12.Left knee: No evidence of arthritis. 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 13.Right foot: Normal. 14.Left foot: Mild osteoarthritis at the first metatarsophalangeal joint. Report dictated by Gretchen Rodriguez MD I, Keagan Lerner MD have personally reviewed and interpreted this examination/study. > Interpreting Provider: Keagan Lerner MD on 05/30/2024 10:55 AM Narrative 05/30/2024 10:55 AM CDT PROCEDURE: XR KNEE RIGHT 3VW, XR HAND RIGHT 3VW OR MORE, XR HAND LEFT 3VW OR MORE, XR FOOT RIGHT 3VW OR MORE, XR FOOT LEFT 3VW OR MORE, XR WRIST LEFT 2VW, XR WRIST RIGHT 2VW, XR CERVICAL SPINE 4 OR 5VW, XR SI JOINTS 3VW OR MORE, XR THORACIC SPINE 2VW, XR LUMBAR SPINE 2 OR 3VW, XR KNEE LEFT 3VW, XR HIP RIGHT 2VW OR MORE, XR HIP LEFT 2VW OR MORE, DATE/TIME OF EXAM: 05/30/2024 10:02 AM, LOCATION [facility] INDICATION: L40.50: Psoriatic arthritis (HCC) M25.50: Polyarthralgia M87.9: Bilateral hip osteonecrosis (HCC) M1A.09X0: Chronic gout of multiple sites, unspecified cause ADDITIONAL CLINICAL INFORMATION: Ordering Provider Reason For Exam: Please evaluate for signs of inflammatory arthropathy. (accession [id number]), Please evaluate for signs of inflammatory arthropathy. (accession [id number]), Please evaluate for signs of inflammatory arthropathy. (accession [id number]), Please evaluate for signs of inflammatory arthropathy. (accession [id number]), Please evaluate for signs of inflammatory arthropathy. (accession [id number]), Please evaluate for signs of inflammatory arthropathy. (accession [id number]), Please evaluate for signs of inflammatory arthropathy. (accession [id number]), History of RA, full flexion and extension views, please evaluate for atlantoaxial instability, per radiologist protocol (accession [id number]), Please evaluate for signs of inflammatory arthropathy. (accession [id number]), Please evaluate for signs of inflammatory arthropathy. (accession [id number]), Please evaluate for signs of inflammatory arthropathy. (accession [id number]), Please evaluate for signs of inflammatory arthropathy. (accession [id number]), Please evaluate for signs of inflammatory arthropathy. (accession [id number]), Please evaluate for signs of inflammatory arthropathy. (accession [id number]) Technologist Note: Additional: COMPARISON: Right and left knee radiographs dated 09/07/2020. Right and left foot radiographs dated 12/18/2019. Sacroiliac joint radiographs dated 09/07/2020. Cervical spine radiographs dated 09/07/2020. FINDINGS: Cervical spine: The vertebral bodies are normally aligned. No acute fracture or compression deformity is identified. Mild multilevel degenerative disc disease. The predental interval and prevertebral soft tissues are normal. Bone density and texture are normal. Neurostimulator lead terminating within the right neck. Flexion and extension views demonstrate no vertebral translation. Thoracic spine: The vertebral bodies are normally aligned. There is no fracture or compression deformity. Mild multilevel degenerative disc disease. Right chest wall neurostimulator with lead coursing to the soft tissues of the right hemithorax and into the right neck. Lumbar spine: Of the lumbar lordosis is normal. There is no fracture or subluxation. The intervertebral disc spaces are normal. There is an anterior superior endplate osteophyte at L3. There is mild superior endplate sclerosis at L2 and L3. The facet joints are normal. Sacral iliac joints: There is no erosion, widening, sclerosis, narrowing, or ankylosis of either sacroiliac joint. There is no fracture. Right hand: No fracture or dislocation is present. The joint spaces are normal. No erosions are seen. There are a few small cysts in the third metacarpal head. There is a small calcification adjacent to the second digit proximal interphalangeal joint. Bone density is normal. The soft tissues are normal. Left hand: No acute fracture or dislocation. Joint spaces are preserved. No joint effusion. Osseous architecture and density are normal. No soft tissue swelling. Right wrist: No acute fracture or dislocation. Joint spaces are preserved. No joint effusion. Osseous architecture and density are normal. No soft tissue swelling. Left wrist: No acute fracture or dislocation. Joint spaces are preserved. No joint effusion. Osseous architecture and density are normal. No soft tissue swelling. Right hip: There is abnormal lucency and sclerosis in the superior aspect of the femoral head compatible with avascular necrosis. Mild cortical contour step-off has developed superiorly superiorly, consistent with subchondral fracture. The joint space is normal. There is a tract of increased density within the femoral neck compatible with core decompression surgery. Left hip: There is no fracture or dislocation. There is abnormal lucency and sclerosis in the superior aspect of the femoral head compatible with avascular necrosis. There is no articular surface collapse. There is a tract of increased density within the femoral neck compatible with core decompression surgery. Right knee: No acute fracture or dislocation. Knee joint space is preserved. No joint effusion. Osseous architecture and density are normal. No soft tissue swelling. Left knee: No acute fracture or dislocation. Knee joint space is preserved. No joint effusion. Unchanged 1.9 cm lucent lesion with peripheral sclerosis in the superior lateral aspect of the patella. Osseous and density are otherwise normal. No soft tissue swelling. Right foot: No acute fracture or dislocation. Joint spaces are preserved. No joint effusion. Osseous architecture and density are normal. No soft tissue swelling. Left foot: No acute fracture or dislocation. Mild joint space narrowing, subchondral sclerosis, subchondral cysts, and marginal osteophytes at the 1st metatarsophalangeal joint. No joint effusion. Osseous architecture and density are normal. No soft tissue swelling. Procedure Note Keagan Lerner MD - 05/30/2024 PROCEDURE: XR KNEE RIGHT 3VW, XR HAND RIGHT 3VW OR MORE, XR HAND [id number] OR MORE, XR FOOT RIGHT 3VW OR MORE, XR FOOT LEFT 3VW OR MORE, XR WRISTLEFT 2VW, XR WRIST RIGHT 2VW, XR CERVICAL SPINE 4 OR 5VW, XR SI JOINTS 3VW OR MORE, XR THORACIC SPINE 2VW, XR LUMBAR SPINE 2 OR 3VW, XR KNEE LEFT 3VW,XR HIP RIGHT 2VW OR MORE, XR HIP LEFT 2VW OR MORE, DATE/TIME OF EXAM: 05/30/2024 10:02 AM, LOCATION [facility] INDICATION: L40.50: Psoriatic arthritis (HCC) M25.50: Polyarthralgia M87.9: Bilateral hip osteonecrosis (HCC) M1A.09X0: Chronic gout of multiple sites, unspecified cause ADDITIONAL CLINICAL INFORMATION: Ordering Provider Reason For Exam: Please evaluate for signs of inflammatory arthropathy. (accession [id number]), Please evaluate forsigns of inflammatory arthropathy. (accession [id number]), Please evaluate for signs of inflammatory arthropathy. (accession [id number]), Pleaseevaluate for signs of inflammatory arthropathy. (accession [id number]), Please evaluate for signs of inflammatory arthropathy. (accession [id number]), Please evaluate for signs of inflammatory arthropathy. (accession [id number]), Please evaluate for signs of inflammatory arthropathy. (accession [id number]), History of RA, full flexion and extension views, please evaluate for atlantoaxial instability, per radiologist protocol (accession [id number]), Please evaluate for signs of inflammatory arthropathy. (accession [id number]), Please evaluate for signs of inflammatory arthropathy. (accession [id number]), Please evaluate forsigns of inflammatory arthropathy. (accession [id number]), Please evaluate for signs of inflammatory arthropathy. (accession [id number]), Pleaseevaluate for signs of inflammatory arthropathy. (accession [id number]), Please evaluate for signs of inflammatory arthropathy. (accession [id number]) Technologist Note: Additional: COMPARISON: Right and left knee radiographs dated 09/07/2020. Right and left foot radiographs dated 12/18/2019. Sacroiliac joint radiographs date09/07/2020. Cervical spine radiographs dated 09/07/2020. FINDINGS: Cervical spine: The vertebral bodies are normally aligned. No acute fracture orcompression deformity is identified. Mild multilevel degenerative disc disease. The predental interval and prevertebral soft tissues are normal. Bonedensity and texture are normal. Neurostimulator lead terminating within theright neck. Flexion and extension views demonstrate no vertebral translation. Thoracic spine: The vertebral bodies are normally aligned. There is no fracture or compression deformity. Mild multilevel degenerative disc disease. Right chest wall neurostimulator with lead coursing to the soft tissues of the right hemithorax and into the right neck. Lumbar spine: Of the lumbar lordosis is normal. There is no fracture or subluxation.The intervertebral disc spaces are normal. There is an anterior superior endplate osteophyte at L3. There is mild superior endplate sclerosis atL2 and L3. The facet joints are normal. Sacral iliac joints: There is no erosion, widening, sclerosis, narrowing, or ankylosis ofeither sacroiliac joint. There is no fracture. Right hand: No fracture or dislocation is present. The joint spaces are normal. No erosions are seen. There are a few small cysts in the third metacarpal head. There is a small calcification adjacent to the second digitproximal interphalangeal joint. Bone density is normal. The soft tissues are normal. Left hand: No acute fracture or dislocation. Joint spaces are preserved. No joint effusion. Osseous architecture and density are normal. No soft tissue swelling. Right wrist: No acute fracture or dislocation. Joint spaces are preserved. No joint effusion. Osseous architecture and density are normal. No soft tissue swelling. Left wrist: No acute fracture or dislocation. Joint spaces are preserved. No joint effusion. Osseous architecture and density are normal. No soft tissue swelling. Right hip: There is abnormal lucency and sclerosis in the superior aspect of the femoral head compatible with avascular necrosis. Mild cortical contour step-off has developed superiorly superiorly, consistent withsubchondral fracture. The joint space is normal. There is a tract of increaseddensity within the femoral neck compatible with core decompression surgery. Left hip: There is no fracture or dislocation. There is abnormal lucency and sclerosis in the superior aspect of the femoral head compatible with avascular necrosis. There is no articular surface collapse. There is a tract of increased density within the femoral neck compatible with core decompression surgery. Right knee: No acute fracture or dislocation. Knee joint space is preserved. Nojoint effusion. Osseous architecture and density are normal. No soft tissue swelling. Left knee: No acute fracture or dislocation. Knee joint space is preserved. Nojoint effusion. Unchanged 1.9 cm lucent lesion with peripheral sclerosis inthe superior lateral aspect of the patella. Osseous and density areotherwise normal. No soft tissue swelling. Right foot: No acute fracture or dislocation. Joint spaces are preserved. No joint effusion. Osseous architecture and density are normal. No soft tissue swelling. Left foot: No acute fracture or dislocation. Mild joint space narrowing,subchondral sclerosis, subchondral cysts, and marginal osteophytes at the 1st metatarsophalangeal joint. No joint effusion. Osseous architecture and density are normal. No soft tissue swelling. IMPRESSION: 1.Cervical spine: Normal. 2.Thoracic spine: Normal. 3.Lumbar spine: Minimal degenerative disc disease. 4.Sacroiliac joints: Normal. 5.Right hand: No significant arthritis. 6.Left hand: Normal. 7.Right wrist: Normal. 8.Left wrist: Normal. 9.Right hip: Femoral head avascular necrosis with developing subchondral fracture, progressed. The joint space is normal. Postprocedural changesof core decompression surgery. 10.Left hip: Femoral head avascular necrosis without collapse. The joint space is normal. Postprocedural changes of core decompression surgery. 11.Right knee: Normal. 12.Left knee: No evidence of arthritis. 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 13.Right foot: Normal. 14.Left foot: Mild osteoarthritis at the first metatarsophalangealjoint. Report dictated by Gretchen Rodriguez MD I, Keagan Lerner MD have personally reviewed and interpreted this examination/study. > Interpreting Provider: Keagan Lenrer MD on 05/30/2024 10:55 AM Charles Billy MD DIAGNOSTIC IMAGING ORDERABLES Fi nal Result * XR Hand Left 3Vw or More (05/30/2024 10:02 AM CDT) Anatomical Region Laterality Modality Wrist / Hand Digital Radiogra phy 05/30/2024 10:0 3 AM CDT Impressions 05/30/2024 10:55 AM CDT IMPRESSION: 1.Cervical spine: Normal. 2.Thoracic spine: Normal. 3.Lumbar spine: Minimal degenerative disc disease. 4.Sacroiliac joints: Normal. 5.Right hand: No significant arthritis. 6.Left hand: Normal. 7.Right wrist: Normal. 8.Left wrist: Normal. 9.Right hip: Femoral head avascular necrosis with developing subchondral fracture, progressed. The joint space is normal. Postprocedural changes of core decompression surgery. 10.Left hip: Femoral head avascular necrosis without collapse. The joint space is normal. Postprocedural changes of core decompression surgery. 11.Right knee: Normal. 12.Left knee: No evidence of arthritis. 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 13.Right foot: Normal. 14.Left foot: Mild osteoarthritis at the first metatarsophalangeal joint. Report dictated by Gretchen Rodriguez MD I, Keagan Lerner MD have personally reviewed and interpreted this examination/study. > Interpreting Provider: Keagan Lerner MD on 05/30/2024 10:55 AM Narrative 05/30/2024 10:55 AM CDT PROCEDURE: XR KNEE RIGHT 3VW, XR HAND RIGHT 3VW OR MORE, XR HAND LEFT 3VW OR MORE, XR FOOT RIGHT 3VW OR MORE, XR FOOT LEFT 3VW OR MORE, XR WRIST LEFT 2VW, XR WRIST RIGHT 2VW, XR CERVICAL SPINE 4 OR 5VW, XR SI JOINTS 3VW OR MORE, XR THORACIC SPINE 2VW, XR LUMBAR SPINE 2 OR 3VW, XR KNEE LEFT 3VW, XR HIP RIGHT 2VW OR MORE, XR HIP LEFT 2VW OR MORE, DATE/TIME OF EXAM: 05/30/2024 10:02 AM, LOCATION [facility] INDICATION: L40.50: Psoriatic arthritis (HCC) M25.50: Polyarthralgia M87.9: Bilateral hip osteonecrosis (HCC) M1A.09X0: Chronic gout of multiple sites, unspecified cause ADDITIONAL CLINICAL INFORMATION: Ordering Provider Reason For Exam: Please evaluate for signs of inflammatory arthropathy. (accession [id number]), Please evaluate for signs of inflammatory arthropathy. (accession [id number]), Please evaluate for signs of inflammatory arthropathy. (accession [id number]), Please evaluate for signs of inflammatory arthropathy. (accession [id number]), Please evaluate for signs of inflammatory arthropathy. (accession [id number]), Please evaluate for signs of inflammatory arthropathy. (accession [id number]), Please evaluate for signs of inflammatory arthropathy. (accession [id number]), History of RA, full flexion and extension views, please evaluate for atlantoaxial instability, per radiologist protocol (accession [id number]), Please evaluate for signs of inflammatory arthropathy. (accession [id number]), Please evaluate for signs of inflammatory arthropathy. (accession [id number]), Please evaluate for signs of inflammatory arthropathy. (accession [id number]), Please evaluate for signs of inflammatory arthropathy. (accession [id number]), Please evaluate for signs of inflammatory arthropathy. (accession [id number]), Please evaluate for signs of inflammatory arthropathy. (accession [id number]) Technologist Note: Additional: COMPARISON: Right and left knee radiographs dated 09/07/2020. Right and left foot radiographs dated 12/18/2019. Sacroiliac joint radiographs dated 09/07/2020. Cervical spine radiographs dated 09/07/2020. FINDINGS: Cervical spine: The vertebral bodies are normally aligned. No acute fracture or compression deformity is identified. Mild multilevel degenerative disc disease. The predental interval and prevertebral soft tissues are normal. Bone density and texture are normal. Neurostimulator lead terminating within the right neck. Flexion and extension views demonstrate no vertebral translation. Thoracic spine: The vertebral bodies are normally aligned. There is no fracture or compression deformity. Mild multilevel degenerative disc disease. Right chest wall neurostimulator with lead coursing to the soft tissues of the right hemithorax and into the right neck. Lumbar spine: Of the lumbar lordosis is normal. There is no fracture or subluxation. The intervertebral disc spaces are normal. There is an anterior superior endplate osteophyte at L3. There is mild superior endplate sclerosis at L2 and L3. The facet joints are normal. Sacral iliac joints: There is no erosion, widening, sclerosis, narrowing, or ankylosis of either sacroiliac joint. There is no fracture. Right hand: No fracture or dislocation is present. The joint spaces are normal. No erosions are seen. There are a few small cysts in the third metacarpal head. There is a small calcification adjacent to the second digit proximal interphalangeal joint. Bone density is normal. The soft tissues are normal. Left hand: No acute fracture or dislocation. Joint spaces are preserved. No joint effusion. Osseous architecture and density are normal. No soft tissue swelling. Right wrist: No acute fracture or dislocation. Joint spaces are preserved. No joint effusion. Osseous architecture and density are normal. No soft tissue swelling. Left wrist: No acute fracture or dislocation. Joint spaces are preserved. No joint effusion. Osseous architecture and density are normal. No soft tissue swelling. Right hip: There is abnormal lucency and sclerosis in the superior aspect of the femoral head compatible with avascular necrosis. Mild cortical contour step-off has developed superiorly superiorly, consistent with subchondral fracture. The joint space is normal. There is a tract of increased density within the femoral neck compatible with core decompression surgery. Left hip: There is no fracture or dislocation. There is abnormal lucency and sclerosis in the superior aspect of the femoral head compatible with avascular necrosis. There is no articular surface collapse. There is a tract of increased density within the femoral neck compatible with core decompression surgery. Right knee: No acute fracture or dislocation. Knee joint space is preserved. No joint effusion. Osseous architecture and density are normal. No soft tissue swelling. Left knee: No acute fracture or dislocation. Knee joint space is preserved. No joint effusion. Unchanged 1.9 cm lucent lesion with peripheral sclerosis in the superior lateral aspect of the patella. Osseous and density are otherwise normal. No soft tissue swelling. Right foot: No acute fracture or dislocation. Joint spaces are preserved. No joint effusion. Osseous architecture and density are normal. No soft tissue swelling. Left foot: No acute fracture or dislocation. Mild joint space narrowing, subchondral sclerosis, subchondral cysts, and marginal osteophytes at the 1st metatarsophalangeal joint. No joint effusion. Osseous architecture and density are normal. No soft tissue swelling. Procedure Note Keagan Lerner MD - 05/30/2024 PROCEDURE: XR KNEE RIGHT 3VW, XR HAND RIGHT 3VW OR MORE, XR HAND [id number] OR MORE, XR FOOT RIGHT 3VW OR MORE, XR FOOT LEFT 3VW OR MORE, XR WRISTLEFT 2VW, XR WRIST RIGHT 2VW, XR CERVICAL SPINE 4 OR 5VW, XR SI JOINTS 3VW OR MORE, XR THORACIC SPINE 2VW, XR LUMBAR SPINE 2 OR 3VW, XR KNEE LEFT 3VW,XR HIP RIGHT 2VW OR MORE, XR HIP LEFT 2VW OR MORE, DATE/TIME OF EXAM: 05/30/2024 10:02 AM, LOCATION [facility] INDICATION: L40.50: Psoriatic arthritis (HCC) M25.50: Polyarthralgia M87.9: Bilateral hip osteonecrosis (HCC) M1A.09X0: Chronic gout of multiple sites, unspecified cause ADDITIONAL CLINICAL INFORMATION: Ordering Provider Reason For Exam: Please evaluate for signs of inflammatory arthropathy. (accession [id number]), Please evaluate forsigns of inflammatory arthropathy. (accession [id number]), Please evaluate for signs of inflammatory arthropathy. (accession [id number]), Pleaseevaluate for signs of inflammatory arthropathy. (accession [id number]), Please evaluate for signs of inflammatory arthropathy. (accession [id number]), Please evaluate for signs of inflammatory arthropathy. (accession [id number]), Please evaluate for signs of inflammatory arthropathy. (accession [id number]), History of RA, full flexion and extension views, please evaluate for atlantoaxial instability, per radiologist protocol (accession [id number]), Please evaluate for signs of inflammatory arthropathy. (accession [id number]), Please evaluate for signs of inflammatory arthropathy. (accession [id number]), Please evaluate forsigns of inflammatory arthropathy. (accession [id number]), Please evaluate for signs of inflammatory arthropathy. (accession [id number]), Pleaseevaluate for signs of inflammatory arthropathy. (accession [id number]), Please evaluate for signs of inflammatory arthropathy. (accession [id number]) Technologist Note: Additional: COMPARISON: Right and left knee radiographs dated 09/07/2020. Right and left foot radiographs dated 12/18/2019. Sacroiliac joint radiographs date09/07/2020. Cervical spine radiographs dated 09/07/2020. FINDINGS: Cervical spine: The vertebral bodies are normally aligned. No acute fracture orcompression deformity is identified. Mild multilevel degenerative disc disease. The predental interval and prevertebral soft tissues are normal. Bonedensity and texture are normal. Neurostimulator lead terminating within theright neck. Flexion and extension views demonstrate no vertebral translation. Thoracic spine: The vertebral bodies are normally aligned. There is no fracture or compression deformity. Mild multilevel degenerative disc disease. Right chest wall neurostimulator with lead coursing to the soft tissues of the right hemithorax and into the right neck. Lumbar spine: Of the lumbar lordosis is normal. There is no fracture or subluxation.The intervertebral disc spaces are normal. There is an anterior superior endplate osteophyte at L3. There is mild superior endplate sclerosis atL2 and L3. The facet joints are normal. Sacral iliac joints: There is no erosion, widening, sclerosis, narrowing, or ankylosis ofeither sacroiliac joint. There is no fracture. Right hand: No fracture or dislocation is present. The joint spaces are normal. No erosions are seen. There are a few small cysts in the third metacarpal head. There is a small calcification adjacent to the second digitproximal interphalangeal joint. Bone density is normal. The soft tissues are normal. Left hand: No acute fracture or dislocation. Joint spaces are preserved. No joint effusion. Osseous architecture and density are normal. No soft tissue swelling. Right wrist: No acute fracture or dislocation. Joint spaces are preserved. No joint effusion. Osseous architecture and density are normal. No soft tissue swelling. Left wrist: No acute fracture or dislocation. Joint spaces are preserved. No joint effusion. Osseous architecture and density are normal. No soft tissue swelling. Right hip: There is abnormal lucency and sclerosis in the superior aspect of the femoral head compatible with avascular necrosis. Mild cortical contour step-off has developed superiorly superiorly, consistent withsubchondral fracture. The joint space is normal. There is a tract of increaseddensity within the femoral neck compatible with core decompression surgery. Left hip: There is no fracture or dislocation. There is abnormal lucency and sclerosis in the superior aspect of the femoral head compatible with avascular necrosis. There is no articular surface collapse. There is a tract of increased density within the femoral neck compatible with core decompression surgery. Right knee: No acute fracture or dislocation. Knee joint space is preserved. Nojoint effusion. Osseous architecture and density are normal. No soft tissue swelling. Left knee: No acute fracture or dislocation. Knee joint space is preserved. Nojoint effusion. Unchanged 1.9 cm lucent lesion with peripheral sclerosis inthe superior lateral aspect of the patella. Osseous and density areotherwise normal. No soft tissue swelling. Right foot: No acute fracture or dislocation. Joint spaces are preserved. No joint effusion. Osseous architecture and density are normal. No soft tissue swelling. Left foot: No acute fracture or dislocation. Mild joint space narrowing,subchondral sclerosis, subchondral cysts, and marginal osteophytes at the 1st metatarsophalangeal joint. No joint effusion. Osseous architecture and density are normal. No soft tissue swelling. IMPRESSION: 1.Cervical spine: Normal. 2.Thoracic spine: Normal. 3.Lumbar spine: Minimal degenerative disc disease. 4.Sacroiliac joints: Normal. 5.Right hand: No significant arthritis. 6.Left hand: Normal. 7.Right wrist: Normal. 8.Left wrist: Normal. 9.Right hip: Femoral head avascular necrosis with developing subchondral fracture, progressed. The joint space is normal. Postprocedural changesof core decompression surgery. 10.Left hip: Femoral head avascular necrosis without collapse. The joint space is normal. Postprocedural changes of core decompression surgery. 11.Right knee: Normal. 12.Left knee: No evidence of arthritis. 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 13.Right foot: Normal. 14.Left foot: Mild osteoarthritis at the first metatarsophalangealjoint. Report dictated by Gretchen Rodriguez MD I, Keagan Lerner MD have personally reviewed and interpreted this examination/study. > Interpreting Provider: Keagan Lerner MD on 05/30/2024 10:55 AM Charles Billy MD DIAGNOSTIC IMAGING ORDERABLES Fi nal Result * XR Wrist Right 2Vw (05/30/2024 10:02 AM CDT) Anatomical Region Laterality Modality Wrist / Hand Digital Radiogra phy 05/30/2024 10:0 3 AM CDT Impressions 05/30/2024 10:55 AM CDT IMPRESSION: 1.Cervical spine: Normal. 2.Thoracic spine: Normal. 3.Lumbar spine: Minimal degenerative disc disease. 4.Sacroiliac joints: Normal. 5.Right hand: No significant arthritis. 6.Left hand: Normal. 7.Right wrist: Normal. 8.Left wrist: Normal. 9.Right hip: Femoral head avascular necrosis with developing subchondral fracture, progressed. The joint space is normal. Postprocedural changes of core decompression surgery. 10.Left hip: Femoral head avascular necrosis without collapse. The joint space is normal. Postprocedural changes of core decompression surgery. 11.Right knee: Normal. 12.Left knee: No evidence of arthritis. 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 13.Right foot: Normal. 14.Left foot: Mild osteoarthritis at the first metatarsophalangeal joint. Report dictated by Gretchen Rodriguez MD I, Keagan Lerner MD have personally reviewed and interpreted this examination/study. > Interpreting Provider: Keagan Lerner MD on 05/30/2024 10:55 AM Narrative 05/30/2024 10:55 AM CDT PROCEDURE: XR KNEE RIGHT 3VW, XR HAND RIGHT 3VW OR MORE, XR HAND LEFT 3VW OR MORE, XR FOOT RIGHT 3VW OR MORE, XR FOOT LEFT 3VW OR MORE, XR WRIST LEFT 2VW, XR WRIST RIGHT 2VW, XR CERVICAL SPINE 4 OR 5VW, XR SI JOINTS 3VW OR MORE, XR THORACIC SPINE 2VW, XR LUMBAR SPINE 2 OR 3VW, XR KNEE LEFT 3VW, XR HIP RIGHT 2VW OR MORE, XR HIP LEFT 2VW OR MORE, DATE/TIME OF EXAM: 05/30/2024 10:02 AM, LOCATION [facility] INDICATION: L40.50: Psoriatic arthritis (HCC) M25.50: Polyarthralgia M87.9: Bilateral hip osteonecrosis (HCC) M1A.09X0: Chronic gout of multiple sites, unspecified cause ADDITIONAL CLINICAL INFORMATION: Ordering Provider Reason For Exam: Please evaluate for signs of inflammatory arthropathy. (accession [id number]), Please evaluate for signs of inflammatory arthropathy. (accession [id number]), Please evaluate for signs of inflammatory arthropathy. (accession [id number]), Please evaluate for signs of inflammatory arthropathy. (accession [id number]), Please evaluate for signs of inflammatory arthropathy. (accession [id number]), Please evaluate for signs of inflammatory arthropathy. (accession [id number]), Please evaluate for signs of inflammatory arthropathy. (accession [id number]), History of RA, full flexion and extension views, please evaluate for atlantoaxial instability, per radiologist protocol (accession [id number]), Please evaluate for signs of inflammatory arthropathy. (accession [id number]), Please evaluate for signs of inflammatory arthropathy. (accession [id number]), Please evaluate for signs of inflammatory arthropathy. (accession [id number]), Please evaluate for signs of inflammatory arthropathy. (accession [id number]), Please evaluate for signs of inflammatory arthropathy. (accession [id number]), Please evaluate for signs of inflammatory arthropathy. (accession [id number]) Technologist Note: Additional: COMPARISON: Right and left knee radiographs dated 09/07/2020. Right and left foot radiographs dated 12/18/2019. Sacroiliac joint radiographs dated 09/07/2020. Cervical spine radiographs dated 09/07/2020. FINDINGS: Cervical spine: The vertebral bodies are normally aligned. No acute fracture or compression deformity is identified. Mild multilevel degenerative disc disease. The predental interval and prevertebral soft tissues are normal. Bone density and texture are normal. Neurostimulator lead terminating within the right neck. Flexion and extension views demonstrate no vertebral translation. Thoracic spine: The vertebral bodies are normally aligned. There is no fracture or compression deformity. Mild multilevel degenerative disc disease. Right chest wall neurostimulator with lead coursing to the soft tissues of the right hemithorax and into the right neck. Lumbar spine: Of the lumbar lordosis is normal. There is no fracture or subluxation. The intervertebral disc spaces are normal. There is an anterior superior endplate osteophyte at L3. There is mild superior endplate sclerosis at L2 and L3. The facet joints are normal. Sacral iliac joints: There is no erosion, widening, sclerosis, narrowing, or ankylosis of either sacroiliac joint. There is no fracture. Right hand: No fracture or dislocation is present. The joint spaces are normal. No erosions are seen. There are a few small cysts in the third metacarpal head. There is a small calcification adjacent to the second digit proximal interphalangeal joint. Bone density is normal. The soft tissues are normal. Left hand: No acute fracture or dislocation. Joint spaces are preserved. No joint effusion. Osseous architecture and density are normal. No soft tissue swelling. Right wrist: No acute fracture or dislocation. Joint spaces are preserved. No joint effusion. Osseous architecture and density are normal. No soft tissue swelling. Left wrist: No acute fracture or dislocation. Joint spaces are preserved. No joint effusion. Osseous architecture and density are normal. No soft tissue swelling. Right hip: There is abnormal lucency and sclerosis in the superior aspect of the femoral head compatible with avascular necrosis. Mild cortical contour step-off has developed superiorly superiorly, consistent with subchondral fracture. The joint space is normal. There is a tract of increased density within the femoral neck compatible with core decompression surgery. Left hip: There is no fracture or dislocation. There is abnormal lucency and sclerosis in the superior aspect of the femoral head compatible with avascular necrosis. There is no articular surface collapse. There is a tract of increased density within the femoral neck compatible with core decompression surgery. Right knee: No acute fracture or dislocation. Knee joint space is preserved. No joint effusion. Osseous architecture and density are normal. No soft tissue swelling. Left knee: No acute fracture or dislocation. Knee joint space is preserved. No joint effusion. Unchanged 1.9 cm lucent lesion with peripheral sclerosis in the superior lateral aspect of the patella. Osseous and density are otherwise normal. No soft tissue swelling. Right foot: No acute fracture or dislocation. Joint spaces are preserved. No joint effusion. Osseous architecture and density are normal. No soft tissue swelling. Left foot: No acute fracture or dislocation. Mild joint space narrowing, subchondral sclerosis, subchondral cysts, and marginal osteophytes at the 1st metatarsophalangeal joint. No joint effusion. Osseous architecture and density are normal. No soft tissue swelling. Procedure Note Keagan Lerner MD - 05/30/2024 PROCEDURE: XR KNEE RIGHT 3VW, XR HAND RIGHT 3VW OR MORE, XR HAND [id number] OR MORE, XR FOOT RIGHT 3VW OR MORE, XR FOOT LEFT 3VW OR MORE, XR WRISTLEFT 2VW, XR WRIST RIGHT 2VW, XR CERVICAL SPINE 4 OR 5VW, XR SI JOINTS 3VW OR MORE, XR THORACIC SPINE 2VW, XR LUMBAR SPINE 2 OR 3VW, XR KNEE LEFT 3VW,XR HIP RIGHT 2VW OR MORE, XR HIP LEFT 2VW OR MORE, DATE/TIME OF EXAM: 05/30/2024 10:02 AM, LOCATION [facility] INDICATION: L40.50: Psoriatic arthritis (HCC) M25.50: Polyarthralgia M87.9: Bilateral hip osteonecrosis (HCC) M1A.09X0: Chronic gout of multiple sites, unspecified cause ADDITIONAL CLINICAL INFORMATION: Ordering Provider Reason For Exam: Please evaluate for signs of inflammatory arthropathy. (accession [id number]), Please evaluate forsigns of inflammatory arthropathy. (accession [id number]), Please evaluate for signs of inflammatory arthropathy. (accession [id number]), Pleaseevaluate for signs of inflammatory arthropathy. (accession [id number]), Please evaluate for signs of inflammatory arthropathy. (accession [id number]), Please evaluate for signs of inflammatory arthropathy. (accession [id number]), Please evaluate for signs of inflammatory arthropathy. (accession [id number]), History of RA, full flexion and extension views, please evaluate for atlantoaxial instability, per radiologist protocol (accession [id number]), Please evaluate for signs of inflammatory arthropathy. (accession [id number]), Please evaluate for signs of inflammatory arthropathy. (accession [id number]), Please evaluate forsigns of inflammatory arthropathy. (accession [id number]), Please evaluate for signs of inflammatory arthropathy. (accession [id number]), Pleaseevaluate for signs of inflammatory arthropathy. (accession [id number]), Please evaluate for signs of inflammatory arthropathy. (accession [id number]) Technologist Note: Additional: COMPARISON: Right and left knee radiographs dated 09/07/2020. Right and left foot radiographs dated 12/18/2019. Sacroiliac joint radiographs date09/07/2020. Cervical spine radiographs dated 09/07/2020. FINDINGS: Cervical spine: The vertebral bodies are normally aligned. No acute fracture orcompression deformity is identified. Mild multilevel degenerative disc disease. The predental interval and prevertebral soft tissues are normal. Bonedensity and texture are normal. Neurostimulator lead terminating within theright neck. Flexion and extension views demonstrate no vertebral translation. Thoracic spine: The vertebral bodies are normally aligned. There is no fracture or compression deformity. Mild multilevel degenerative disc disease. Right chest wall neurostimulator with lead coursing to the soft tissues of the right hemithorax and into the right neck. Lumbar spine: Of the lumbar lordosis is normal. There is no fracture or subluxation.The intervertebral disc spaces are normal. There is an anterior superior endplate osteophyte at L3. There is mild superior endplate sclerosis atL2 and L3. The facet joints are normal. Sacral iliac joints: There is no erosion, widening, sclerosis, narrowing, or ankylosis ofeither sacroiliac joint. There is no fracture. Right hand: No fracture or dislocation is present. The joint spaces are normal. No erosions are seen. There are a few small cysts in the third metacarpal head. There is a small calcification adjacent to the second digitproximal interphalangeal joint. Bone density is normal. The soft tissues are normal. Left hand: No acute fracture or dislocation. Joint spaces are preserved. No joint effusion. Osseous architecture and density are normal. No soft tissue swelling. Right wrist: No acute fracture or dislocation. Joint spaces are preserved. No joint effusion. Osseous architecture and density are normal. No soft tissue swelling. Left wrist: No acute fracture or dislocation. Joint spaces are preserved. No joint effusion. Osseous architecture and density are normal. No soft tissue swelling. Right hip: There is abnormal lucency and sclerosis in the superior aspect of the femoral head compatible with avascular necrosis. Mild cortical contour step-off has developed superiorly superiorly, consistent withsubchondral fracture. The joint space is normal. There is a tract of increaseddensity within the femoral neck compatible with core decompression surgery. Left hip: There is no fracture or dislocation. There is abnormal lucency and sclerosis in the superior aspect of the femoral head compatible with avascular necrosis. There is no articular surface collapse. There is a tract of increased density within the femoral neck compatible with core decompression surgery. Right knee: No acute fracture or dislocation. Knee joint space is preserved. Nojoint effusion. Osseous architecture and density are normal. No soft tissue swelling. Left knee: No acute fracture or dislocation. Knee joint space is preserved. Nojoint effusion. Unchanged 1.9 cm lucent lesion with peripheral sclerosis inthe superior lateral aspect of the patella. Osseous and density areotherwise normal. No soft tissue swelling. Right foot: No acute fracture or dislocation. Joint spaces are preserved. No joint effusion. Osseous architecture and density are normal. No soft tissue swelling. Left foot: No acute fracture or dislocation. Mild joint space narrowing,subchondral sclerosis, subchondral cysts, and marginal osteophytes at the 1st metatarsophalangeal joint. No joint effusion. Osseous architecture and density are normal. No soft tissue swelling. IMPRESSION: 1.Cervical spine: Normal. 2.Thoracic spine: Normal. 3.Lumbar spine: Minimal degenerative disc disease. 4.Sacroiliac joints: Normal. 5.Right hand: No significant arthritis. 6.Left hand: Normal. 7.Right wrist: Normal. 8.Left wrist: Normal. 9.Right hip: Femoral head avascular necrosis with developing subchondral fracture, progressed. The joint space is normal. Postprocedural changesof core decompression surgery. 10.Left hip: Femoral head avascular necrosis without collapse. The joint space is normal. Postprocedural changes of core decompression surgery. 11.Right knee: Normal. 12.Left knee: No evidence of arthritis. 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 13.Right foot: Normal. 14.Left foot: Mild osteoarthritis at the first metatarsophalangealjoint. Report dictated by Gretchen Rodriguez MD I, Keagan Lerner MD have personally reviewed and interpreted this examination/study. > Interpreting Provider: Keagan Lerner MD on 05/30/2024 10:55 AM Charles Billy MD DIAGNOSTIC IMAGING ORDERABLES Fi nal Result * XR Wrist Left 2Vw (05/30/2024 10:02 AM CDT) Anatomical Region Laterality Modality Wrist / Hand Digital Radiogra phy 05/30/2024 10:0 3 AM CDT Impressions 05/30/2024 10:55 AM CDT IMPRESSION: 1.Cervical spine: Normal. 2.Thoracic spine: Normal. 3.Lumbar spine: Minimal degenerative disc disease. 4.Sacroiliac joints: Normal. 5.Right hand: No significant arthritis. 6.Left hand: Normal. 7.Right wrist: Normal. 8.Left wrist: Normal. 9.Right hip: Femoral head avascular necrosis with developing subchondral fracture, progressed. The joint space is normal. Postprocedural changes of core decompression surgery. 10.Left hip: Femoral head avascular necrosis without collapse. The joint space is normal. Postprocedural changes of core decompression surgery. 11.Right knee: Normal. 12.Left knee: No evidence of arthritis. 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 13.Right foot: Normal. 14.Left foot: Mild osteoarthritis at the first metatarsophalangeal joint. Report dictated by Gretchen Rodriguez MD I, Keagan Lerner MD have personally reviewed and interpreted this examination/study. > Interpreting Provider: Keagan Lerner MD on 05/30/2024 10:55 AM Narrative 05/30/2024 10:55 AM CDT PROCEDURE: XR KNEE RIGHT 3VW, XR HAND RIGHT 3VW OR MORE, XR HAND LEFT 3VW OR MORE, XR FOOT RIGHT 3VW OR MORE, XR FOOT LEFT 3VW OR MORE, XR WRIST LEFT 2VW, XR WRIST RIGHT 2VW, XR CERVICAL SPINE 4 OR 5VW, XR SI JOINTS 3VW OR MORE, XR THORACIC SPINE 2VW, XR LUMBAR SPINE 2 OR 3VW, XR KNEE LEFT 3VW, XR HIP RIGHT 2VW OR MORE, XR HIP LEFT 2VW OR MORE, DATE/TIME OF EXAM: 05/30/2024 10:02 AM, LOCATION [facility] INDICATION: L40.50: Psoriatic arthritis (HCC) M25.50: Polyarthralgia M87.9: Bilateral hip osteonecrosis (HCC) M1A.09X0: Chronic gout of multiple sites, unspecified cause ADDITIONAL CLINICAL INFORMATION: Ordering Provider Reason For Exam: Please evaluate for signs of inflammatory arthropathy. (accession [id number]), Please evaluate for signs of inflammatory arthropathy. (accession [id number]), Please evaluate for signs of inflammatory arthropathy. (accession [id number]), Please evaluate for signs of inflammatory arthropathy. (accession [id number]), Please evaluate for signs of inflammatory arthropathy. (accession [id number]), Please evaluate for signs of inflammatory arthropathy. (accession [id number]), Please evaluate for signs of inflammatory arthropathy. (accession [id number]), History of RA, full flexion and extension views, please evaluate for atlantoaxial instability, per radiologist protocol (accession [id number]), Please evaluate for signs of inflammatory arthropathy. (accession [id number]), Please evaluate for signs of inflammatory arthropathy. (accession [id number]), Please evaluate for signs of inflammatory arthropathy. (accession [id number]), Please evaluate for signs of inflammatory arthropathy. (accession [id number]), Please evaluate for signs of inflammatory arthropathy. (accession [id number]), Please evaluate for signs of inflammatory arthropathy. (accession [id number]) Technologist Note: Additional: COMPARISON: Right and left knee radiographs dated 09/07/2020. Right and left foot radiographs dated 12/18/2019. Sacroiliac joint radiographs dated 09/07/2020. Cervical spine radiographs dated 09/07/2020. FINDINGS: Cervical spine: The vertebral bodies are normally aligned. No acute fracture or compression deformity is identified. Mild multilevel degenerative disc disease. The predental interval and prevertebral soft tissues are normal. Bone density and texture are normal. Neurostimulator lead terminating within the right neck. Flexion and extension views demonstrate no vertebral translation. Thoracic spine: The vertebral bodies are normally aligned. There is no fracture or compression deformity. Mild multilevel degenerative disc disease. Right chest wall neurostimulator with lead coursing to the soft tissues of the right hemithorax and into the right neck. Lumbar spine: Of the lumbar lordosis is normal. There is no fracture or subluxation. The intervertebral disc spaces are normal. There is an anterior superior endplate osteophyte at L3. There is mild superior endplate sclerosis at L2 and L3. The facet joints are normal. Sacral iliac joints: There is no erosion, widening, sclerosis, narrowing, or ankylosis of either sacroiliac joint. There is no fracture. Right hand: No fracture or dislocation is present. The joint spaces are normal. No erosions are seen. There are a few small cysts in the third metacarpal head. There is a small calcification adjacent to the second digit proximal interphalangeal joint. Bone density is normal. The soft tissues are normal. Left hand: No acute fracture or dislocation. Joint spaces are preserved. No joint effusion. Osseous architecture and density are normal. No soft tissue swelling. Right wrist: No acute fracture or dislocation. Joint spaces are preserved. No joint effusion. Osseous architecture and density are normal. No soft tissue swelling. Left wrist: No acute fracture or dislocation. Joint spaces are preserved. No joint effusion. Osseous architecture and density are normal. No soft tissue swelling. Right hip: There is abnormal lucency and sclerosis in the superior aspect of the femoral head compatible with avascular necrosis. Mild cortical contour step-off has developed superiorly superiorly, consistent with subchondral fracture. The joint space is normal. There is a tract of increased density within the femoral neck compatible with core decompression surgery. Left hip: There is no fracture or dislocation. There is abnormal lucency and sclerosis in the superior aspect of the femoral head compatible with avascular necrosis. There is no articular surface collapse. There is a tract of increased density within the femoral neck compatible with core decompression surgery. Right knee: No acute fracture or dislocation. Knee joint space is preserved. No joint effusion. Osseous architecture and density are normal. No soft tissue swelling. Left knee: No acute fracture or dislocation. Knee joint space is preserved. No joint effusion. Unchanged 1.9 cm lucent lesion with peripheral sclerosis in the superior lateral aspect of the patella. Osseous and density are otherwise normal. No soft tissue swelling. Right foot: No acute fracture or dislocation. Joint spaces are preserved. No joint effusion. Osseous architecture and density are normal. No soft tissue swelling. Left foot: No acute fracture or dislocation. Mild joint space narrowing, subchondral sclerosis, subchondral cysts, and marginal osteophytes at the 1st metatarsophalangeal joint. No joint effusion. Osseous architecture and density are normal. No soft tissue swelling. Procedure Note Keagan Lerner MD - 05/30/2024 PROCEDURE: XR KNEE RIGHT 3VW, XR HAND RIGHT 3VW OR MORE, XR HAND [id number] OR MORE, XR FOOT RIGHT 3VW OR MORE, XR FOOT LEFT 3VW OR MORE, XR WRISTLEFT 2VW, XR WRIST RIGHT 2VW, XR CERVICAL SPINE 4 OR 5VW, XR SI JOINTS 3VW OR MORE, XR THORACIC SPINE 2VW, XR LUMBAR SPINE 2 OR 3VW, XR KNEE LEFT 3VW,XR HIP RIGHT 2VW OR MORE, XR HIP LEFT 2VW OR MORE, DATE/TIME OF EXAM: 05/30/2024 10:02 AM, LOCATION [facility] INDICATION: L40.50: Psoriatic arthritis (HCC) M25.50: Polyarthralgia M87.9: Bilateral hip osteonecrosis (HCC) M1A.09X0: Chronic gout of multiple sites, unspecified cause ADDITIONAL CLINICAL INFORMATION: Ordering Provider Reason For Exam: Please evaluate for signs of inflammatory arthropathy. (accession [id number]), Please evaluate forsigns of inflammatory arthropathy. (accession [id number]), Please evaluate for signs of inflammatory arthropathy. (accession [id number]), Pleaseevaluate for signs of inflammatory arthropathy. (accession [id number]), Please evaluate for signs of inflammatory arthropathy. (accession [id number]), Please evaluate for signs of inflammatory arthropathy. (accession [id number]), Please evaluate for signs of inflammatory arthropathy. (accession [id number]), History of RA, full flexion and extension views, please evaluate for atlantoaxial instability, per radiologist protocol (accession [id number]), Please evaluate for signs of inflammatory arthropathy. (accession [id number]), Please evaluate for signs of inflammatory arthropathy. (accession [id number]), Please evaluate forsigns of inflammatory arthropathy. (accession [id number]), Please evaluate for signs of inflammatory arthropathy. (accession [id number]), Pleaseevaluate for signs of inflammatory arthropathy. (accession [id number]), Please evaluate for signs of inflammatory arthropathy. (accession [id number]) Technologist Note: Additional: COMPARISON: Right and left knee radiographs dated 09/07/2020. Right and left foot radiographs dated 12/18/2019. Sacroiliac joint radiographs date09/07/2020. Cervical spine radiographs dated 09/07/2020. FINDINGS: Cervical spine: The vertebral bodies are normally aligned. No acute fracture orcompression deformity is identified. Mild multilevel degenerative disc disease. The predental interval and prevertebral soft tissues are normal. Bonedensity and texture are normal. Neurostimulator lead terminating within theright neck. Flexion and extension views demonstrate no vertebral translation. Thoracic spine: The vertebral bodies are normally aligned. There is no fracture or compression deformity. Mild multilevel degenerative disc disease. Right chest wall neurostimulator with lead coursing to the soft tissues of the right hemithorax and into the right neck. Lumbar spine: Of the lumbar lordosis is normal. There is no fracture or subluxation.The intervertebral disc spaces are normal. There is an anterior superior endplate osteophyte at L3. There is mild superior endplate sclerosis atL2 and L3. The facet joints are normal. Sacral iliac joints: There is no erosion, widening, sclerosis, narrowing, or ankylosis ofeither sacroiliac joint. There is no fracture. Right hand: No fracture or dislocation is present. The joint spaces are normal. No erosions are seen. There are a few small cysts in the third metacarpal head. There is a small calcification adjacent to the second digitproximal interphalangeal joint. Bone density is normal. The soft tissues are normal. Left hand: No acute fracture or dislocation. Joint spaces are preserved. No joint effusion. Osseous architecture and density are normal. No soft tissue swelling. Right wrist: No acute fracture or dislocation. Joint spaces are preserved. No joint effusion. Osseous architecture and density are normal. No soft tissue swelling. Left wrist: No acute fracture or dislocation. Joint spaces are preserved. No joint effusion. Osseous architecture and density are normal. No soft tissue swelling. Right hip: There is abnormal lucency and sclerosis in the superior aspect of the femoral head compatible with avascular necrosis. Mild cortical contour step-off has developed superiorly superiorly, consistent withsubchondral fracture. The joint space is normal. There is a tract of increaseddensity within the femoral neck compatible with core decompression surgery. Left hip: There is no fracture or dislocation. There is abnormal lucency and sclerosis in the superior aspect of the femoral head compatible with avascular necrosis. There is no articular surface collapse. There is a tract of increased density within the femoral neck compatible with core decompression surgery. Right knee: No acute fracture or dislocation. Knee joint space is preserved. Nojoint effusion. Osseous architecture and density are normal. No soft tissue swelling. Left knee: No acute fracture or dislocation. Knee joint space is preserved. Nojoint effusion. Unchanged 1.9 cm lucent lesion with peripheral sclerosis inthe superior lateral aspect of the patella. Osseous and density areotherwise normal. No soft tissue swelling. Right foot: No acute fracture or dislocation. Joint spaces are preserved. No joint effusion. Osseous architecture and density are normal. No soft tissue swelling. Left foot: No acute fracture or dislocation. Mild joint space narrowing,subchondral sclerosis, subchondral cysts, and marginal osteophytes at the 1st metatarsophalangeal joint. No joint effusion. Osseous architecture and density are normal. No soft tissue swelling. IMPRESSION: 1.Cervical spine: Normal. 2.Thoracic spine: Normal. 3.Lumbar spine: Minimal degenerative disc disease. 4.Sacroiliac joints: Normal. 5.Right hand: No significant arthritis. 6.Left hand: Normal. 7.Right wrist: Normal. 8.Left wrist: Normal. 9.Right hip: Femoral head avascular necrosis with developing subchondral fracture, progressed. The joint space is normal. Postprocedural changesof core decompression surgery. 10.Left hip: Femoral head avascular necrosis without collapse. The joint space is normal. Postprocedural changes of core decompression surgery. 11.Right knee: Normal. 12.Left knee: No evidence of arthritis. 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 13.Right foot: Normal. 14.Left foot: Mild osteoarthritis at the first metatarsophalangealjoint. Report dictated by Gretchen Rodriguez MD I, Keagan Lerenr MD have personally reviewed and interpreted this examination/study. > Interpreting Provider: Keagan Lerner MD on 05/30/2024 10:55 AM Charles Billy MD DIAGNOSTIC IMAGING ORDERABLES Fi nal Result * XR SI Joints 3Vw or More (05/30/2024 10:02 AM CDT) Anatomical Region Laterality Modality Pelvis, Lower Extremity Digital Radiography 05/30/2024 10:0 3 AM CDT Impressions 05/30/2024 10:55 AM CDT IMPRESSION: 1.Cervical spine: Normal. 2.Thoracic spine: Normal. 3.Lumbar spine: Minimal degenerative disc disease. 4.Sacroiliac joints: Normal. 5.Right hand: No significant arthritis. 6.Left hand: Normal. 7.Right wrist: Normal. 8.Left wrist: Normal. 9.Right hip: Femoral head avascular necrosis with developing subchondral fracture, progressed. The joint space is normal. Postprocedural changes of core decompression surgery. 10.Left hip: Femoral head avascular necrosis without collapse. The joint space is normal. Postprocedural changes of core decompression surgery. 11.Right knee: Normal. 12.Left knee: No evidence of arthritis. 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 13.Right foot: Normal. 14.Left foot: Mild osteoarthritis at the first metatarsophalangeal joint. Report dictated by Gretchen Rodriguez MD I, Keagan Lerner MD have personally reviewed and interpreted this examination/study. > Interpreting Provider: Keagan Lerner MD on 05/30/2024 10:55 AM Narrative 05/30/2024 10:55 AM CDT PROCEDURE: XR KNEE RIGHT 3VW, XR HAND RIGHT 3VW OR MORE, XR HAND LEFT 3VW OR MORE, XR FOOT RIGHT 3VW OR MORE, XR FOOT LEFT 3VW OR MORE, XR WRIST LEFT 2VW, XR WRIST RIGHT 2VW, XR CERVICAL SPINE 4 OR 5VW, XR SI JOINTS 3VW OR MORE, XR THORACIC SPINE 2VW, XR LUMBAR SPINE 2 OR 3VW, XR KNEE LEFT 3VW, XR HIP RIGHT 2VW OR MORE, XR HIP LEFT 2VW OR MORE, DATE/TIME OF EXAM: 05/30/2024 10:02 AM, LOCATION [facility] INDICATION: L40.50: Psoriatic arthritis (HCC) M25.50: Polyarthralgia M87.9: Bilateral hip osteonecrosis (HCC) M1A.09X0: Chronic gout of multiple sites, unspecified cause ADDITIONAL CLINICAL INFORMATION: Ordering Provider Reason For Exam: Please evaluate for signs of inflammatory arthropathy. (accession [id number]), Please evaluate for signs of inflammatory arthropathy. (accession [id number]), Please evaluate for signs of inflammatory arthropathy. (accession [id number]), Please evaluate for signs of inflammatory arthropathy. (accession [id number]), Please evaluate for signs of inflammatory arthropathy. (accession [id number]), Please evaluate for signs of inflammatory arthropathy. (accession [id number]), Please evaluate for signs of inflammatory arthropathy. (accession [id number]), History of RA, full flexion and extension views, please evaluate for atlantoaxial instability, per radiologist protocol (accession [id number]), Please evaluate for signs of inflammatory arthropathy. (accession [id number]), Please evaluate for signs of inflammatory arthropathy. (accession [id number]), Please evaluate for signs of inflammatory arthropathy. (accession [id number]), Please evaluate for signs of inflammatory arthropathy. (accession [id number]), Please evaluate for signs of inflammatory arthropathy. (accession [id number]), Please evaluate for signs of inflammatory arthropathy. (accession [id number]) Technologist Note: Additional: COMPARISON: Right and left knee radiographs dated 09/07/2020. Right and left foot radiographs dated 12/18/2019. Sacroiliac joint radiographs dated 09/07/2020. Cervical spine radiographs dated 09/07/2020. FINDINGS: Cervical spine: The vertebral bodies are normally aligned. No acute fracture or compression deformity is identified. Mild multilevel degenerative disc disease. The predental interval and prevertebral soft tissues are normal. Bone density and texture are normal. Neurostimulator lead terminating within the right neck. Flexion and extension views demonstrate no vertebral translation. Thoracic spine: The vertebral bodies are normally aligned. There is no fracture or compression deformity. Mild multilevel degenerative disc disease. Right chest wall neurostimulator with lead coursing to the soft tissues of the right hemithorax and into the right neck. Lumbar spine: Of the lumbar lordosis is normal. There is no fracture or subluxation. The intervertebral disc spaces are normal. There is an anterior superior endplate osteophyte at L3. There is mild superior endplate sclerosis at L2 and L3. The facet joints are normal. Sacral iliac joints: There is no erosion, widening, sclerosis, narrowing, or ankylosis of either sacroiliac joint. There is no fracture. Right hand: No fracture or dislocation is present. The joint spaces are normal. No erosions are seen. There are a few small cysts in the third metacarpal head. There is a small calcification adjacent to the second digit proximal interphalangeal joint. Bone density is normal. The soft tissues are normal. Left hand: No acute fracture or dislocation. Joint spaces are preserved. No joint effusion. Osseous architecture and density are normal. No soft tissue swelling. Right wrist: No acute fracture or dislocation. Joint spaces are preserved. No joint effusion. Osseous architecture and density are normal. No soft tissue swelling. Left wrist: No acute fracture or dislocation. Joint spaces are preserved. No joint effusion. Osseous architecture and density are normal. No soft tissue swelling. Right hip: There is abnormal lucency and sclerosis in the superior aspect of the femoral head compatible with avascular necrosis. Mild cortical contour step-off has developed superiorly superiorly, consistent with subchondral fracture. The joint space is normal. There is a tract of increased density within the femoral neck compatible with core decompression surgery. Left hip: There is no fracture or dislocation. There is abnormal lucency and sclerosis in the superior aspect of the femoral head compatible with avascular necrosis. There is no articular surface collapse. There is a tract of increased density within the femoral neck compatible with core decompression surgery. Right knee: No acute fracture or dislocation. Knee joint space is preserved. No joint effusion. Osseous architecture and density are normal. No soft tissue swelling. Left knee: No acute fracture or dislocation. Knee joint space is preserved. No joint effusion. Unchanged 1.9 cm lucent lesion with peripheral sclerosis in the superior lateral aspect of the patella. Osseous and density are otherwise normal. No soft tissue swelling. Right foot: No acute fracture or dislocation. Joint spaces are preserved. No joint effusion. Osseous architecture and density are normal. No soft tissue swelling. Left foot: No acute fracture or dislocation. Mild joint space narrowing, subchondral sclerosis, subchondral cysts, and marginal osteophytes at the 1st metatarsophalangeal joint. No joint effusion. Osseous architecture and density are normal. No soft tissue swelling. Procedure Note Keagan Lerner MD - 05/30/2024 PROCEDURE: XR KNEE RIGHT 3VW, XR HAND RIGHT 3VW OR MORE, XR HAND [id number] OR MORE, XR FOOT RIGHT 3VW OR MORE, XR FOOT LEFT 3VW OR MORE, XR WRISTLEFT 2VW, XR WRIST RIGHT 2VW, XR CERVICAL SPINE 4 OR 5VW, XR SI JOINTS 3VW OR MORE, XR THORACIC SPINE 2VW, XR LUMBAR SPINE 2 OR 3VW, XR KNEE LEFT 3VW,XR HIP RIGHT 2VW OR MORE, XR HIP LEFT 2VW OR MORE, DATE/TIME OF EXAM: 05/30/2024 10:02 AM, LOCATION [facility] INDICATION: L40.50: Psoriatic arthritis (HCC) M25.50: Polyarthralgia M87.9: Bilateral hip osteonecrosis (HCC) M1A.09X0: Chronic gout of multiple sites, unspecified cause ADDITIONAL CLINICAL INFORMATION: Ordering Provider Reason For Exam: Please evaluate for signs of inflammatory arthropathy. (accession [id number]), Please evaluate forsigns of inflammatory arthropathy. (accession [id number]), Please evaluate for signs of inflammatory arthropathy. (accession [id number]), Pleaseevaluate for signs of inflammatory arthropathy. (accession [id number]), Please evaluate for signs of inflammatory arthropathy. (accession [id number]), Please evaluate for signs of inflammatory arthropathy. (accession [id number]), Please evaluate for signs of inflammatory arthropathy. (accession [id number]), History of RA, full flexion and extension views, please evaluate for atlantoaxial instability, per radiologist protocol (accession [id number]), Please evaluate for signs of inflammatory arthropathy. (accession [id number]), Please evaluate for signs of inflammatory arthropathy. (accession [id number]), Please evaluate forsigns of inflammatory arthropathy. (accession [id number]), Please evaluate for signs of inflammatory arthropathy. (accession [id number]), Pleaseevaluate for signs of inflammatory arthropathy. (accession [id number]), Please evaluate for signs of inflammatory arthropathy. (accession [id number]) Technologist Note: Additional: COMPARISON: Right and left knee radiographs dated 09/07/2020. Right and left foot radiographs dated 12/18/2019. Sacroiliac joint radiographs date09/07/2020. Cervical spine radiographs dated 09/07/2020. FINDINGS: Cervical spine: The vertebral bodies are normally aligned. No acute fracture orcompression deformity is identified. Mild multilevel degenerative disc disease. The predental interval and prevertebral soft tissues are normal. Bonedensity and texture are normal. Neurostimulator lead terminating within theright neck. Flexion and extension views demonstrate no vertebral translation. Thoracic spine: The vertebral bodies are normally aligned. There is no fracture or compression deformity. Mild multilevel degenerative disc disease. Right chest wall neurostimulator with lead coursing to the soft tissues of the right hemithorax and into the right neck. Lumbar spine: Of the lumbar lordosis is normal. There is no fracture or subluxation.The intervertebral disc spaces are normal. There is an anterior superior endplate osteophyte at L3. There is mild superior endplate sclerosis atL2 and L3. The facet joints are normal. Sacral iliac joints: There is no erosion, widening, sclerosis, narrowing, or ankylosis ofeither sacroiliac joint. There is no fracture. Right hand: No fracture or dislocation is present. The joint spaces are normal. No erosions are seen. There are a few small cysts in the third metacarpal head. There is a small calcification adjacent to the second digitproximal interphalangeal joint. Bone density is normal. The soft tissues are normal. Left hand: No acute fracture or dislocation. Joint spaces are preserved. No joint effusion. Osseous architecture and density are normal. No soft tissue swelling. Right wrist: No acute fracture or dislocation. Joint spaces are preserved. No joint effusion. Osseous architecture and density are normal. No soft tissue swelling. Left wrist: No acute fracture or dislocation. Joint spaces are preserved. No joint effusion. Osseous architecture and density are normal. No soft tissue swelling. Right hip: There is abnormal lucency and sclerosis in the superior aspect of the femoral head compatible with avascular necrosis. Mild cortical contour step-off has developed superiorly superiorly, consistent withsubchondral fracture. The joint space is normal. There is a tract of increaseddensity within the femoral neck compatible with core decompression surgery. Left hip: There is no fracture or dislocation. There is abnormal lucency and sclerosis in the superior aspect of the femoral head compatible with avascular necrosis. There is no articular surface collapse. There is a tract of increased density within the femoral neck compatible with core decompression surgery. Right knee: No acute fracture or dislocation. Knee joint space is preserved. Nojoint effusion. Osseous architecture and density are normal. No soft tissue swelling. Left knee: No acute fracture or dislocation. Knee joint space is preserved. Nojoint effusion. Unchanged 1.9 cm lucent lesion with peripheral sclerosis inthe superior lateral aspect of the patella. Osseous and density areotherwise normal. No soft tissue swelling. Right foot: No acute fracture or dislocation. Joint spaces are preserved. No joint effusion. Osseous architecture and density are normal. No soft tissue swelling. Left foot: No acute fracture or dislocation. Mild joint space narrowing,subchondral sclerosis, subchondral cysts, and marginal osteophytes at the 1st metatarsophalangeal joint. No joint effusion. Osseous architecture and density are normal. No soft tissue swelling. IMPRESSION: 1.Cervical spine: Normal. 2.Thoracic spine: Normal. 3.Lumbar spine: Minimal degenerative disc disease. 4.Sacroiliac joints: Normal. 5.Right hand: No significant arthritis. 6.Left hand: Normal. 7.Right wrist: Normal. 8.Left wrist: Normal. 9.Right hip: Femoral head avascular necrosis with developing subchondral fracture, progressed. The joint space is normal. Postprocedural changesof core decompression surgery. 10.Left hip: Femoral head avascular necrosis without collapse. The joint space is normal. Postprocedural changes of core decompression surgery. 11.Right knee: Normal. 12.Left knee: No evidence of arthritis. 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 13.Right foot: Normal. 14.Left foot: Mild osteoarthritis at the first metatarsophalangealjoint. Report dictated by Gretchen Rodriguez MD I, Keagan Lerner MD have personally reviewed and interpreted this examination/study. > Interpreting Provider: Keagan Lerner MD on 05/30/2024 10:55 AM Charles Blily MD DIAGNOSTIC IMAGING ORDERABLES Fi nal Result * XR Lumbar Spine 2 or 3Vw (05/30/2024 10:02 AM CDT) Anatomical Region Laterality Modality Spine Digital Radiogra phy 05/30/2024 10:0 3 AM CDT Impressions 05/30/2024 10:55 AM CDT IMPRESSION: 1.Cervical spine: Normal. 2.Thoracic spine: Normal. 3.Lumbar spine: Minimal degenerative disc disease. 4.Sacroiliac joints: Normal. 5.Right hand: No significant arthritis. 6.Left hand: Normal. 7.Right wrist: Normal. 8.Left wrist: Normal. 9.Right hip: Femoral head avascular necrosis with developing subchondral fracture, progressed. The joint space is normal. Postprocedural changes of core decompression surgery. 10.Left hip: Femoral head avascular necrosis without collapse. The joint space is normal. Postprocedural changes of core decompression surgery. 11.Right knee: Normal. 12.Left knee: No evidence of arthritis. 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 13.Right foot: Normal. 14.Left foot: Mild osteoarthritis at the first metatarsophalangeal joint. Report dictated by Gretchen Rodriguez MD I, Keagan Lerner MD have personally reviewed and interpreted this examination/study. > Interpreting Provider: Keagan Lerner MD on 05/30/2024 10:55 AM Narrative 05/30/2024 10:55 AM CDT PROCEDURE: XR KNEE RIGHT 3VW, XR HAND RIGHT 3VW OR MORE, XR HAND LEFT 3VW OR MORE, XR FOOT RIGHT 3VW OR MORE, XR FOOT LEFT 3VW OR MORE, XR WRIST LEFT 2VW, XR WRIST RIGHT 2VW, XR CERVICAL SPINE 4 OR 5VW, XR SI JOINTS 3VW OR MORE, XR THORACIC SPINE 2VW, XR LUMBAR SPINE 2 OR 3VW, XR KNEE LEFT 3VW, XR HIP RIGHT 2VW OR MORE, XR HIP LEFT 2VW OR MORE, DATE/TIME OF EXAM: 05/30/2024 10:02 AM, LOCATION [facility] INDICATION: L40.50: Psoriatic arthritis (HCC) M25.50: Polyarthralgia M87.9: Bilateral hip osteonecrosis (HCC) M1A.09X0: Chronic gout of multiple sites, unspecified cause ADDITIONAL CLINICAL INFORMATION: Ordering Provider Reason For Exam: Please evaluate for signs of inflammatory arthropathy. (accession [id number]), Please evaluate for signs of inflammatory arthropathy. (accession [id number]), Please evaluate for signs of inflammatory arthropathy. (accession [id number]), Please evaluate for signs of inflammatory arthropathy. (accession [id number]), Please evaluate for signs of inflammatory arthropathy. (accession [id number]), Please evaluate for signs of inflammatory arthropathy. (accession [id number]), Please evaluate for signs of inflammatory arthropathy. (accession [id number]), History of RA, full flexion and extension views, please evaluate for atlantoaxial instability, per radiologist protocol (accession [id number]), Please evaluate for signs of inflammatory arthropathy. (accession [id number]), Please evaluate for signs of inflammatory arthropathy. (accession [id number]), Please evaluate for signs of inflammatory arthropathy. (accession [id number]), Please evaluate for signs of inflammatory arthropathy. (accession [id number]), Please evaluate for signs of inflammatory arthropathy. (accession [id number]), Please evaluate for signs of inflammatory arthropathy. (accession [id number]) Technologist Note: Additional: COMPARISON: Right and left knee radiographs dated 09/07/2020. Right and left foot radiographs dated 12/18/2019. Sacroiliac joint radiographs dated 09/07/2020. Cervical spine radiographs dated 09/07/2020. FINDINGS: Cervical spine: The vertebral bodies are normally aligned. No acute fracture or compression deformity is identified. Mild multilevel degenerative disc disease. The predental interval and prevertebral soft tissues are normal. Bone density and texture are normal. Neurostimulator lead terminating within the right neck. Flexion and extension views demonstrate no vertebral translation. Thoracic spine: The vertebral bodies are normally aligned. There is no fracture or compression deformity. Mild multilevel degenerative disc disease. Right chest wall neurostimulator with lead coursing to the soft tissues of the right hemithorax and into the right neck. Lumbar spine: Of the lumbar lordosis is normal. There is no fracture or subluxation. The intervertebral disc spaces are normal. There is an anterior superior endplate osteophyte at L3. There is mild superior endplate sclerosis at L2 and L3. The facet joints are normal. Sacral iliac joints: There is no erosion, widening, sclerosis, narrowing, or ankylosis of either sacroiliac joint. There is no fracture. Right hand: No fracture or dislocation is present. The joint spaces are normal. No erosions are seen. There are a few small cysts in the third metacarpal head. There is a small calcification adjacent to the second digit proximal interphalangeal joint. Bone density is normal. The soft tissues are normal. Left hand: No acute fracture or dislocation. Joint spaces are preserved. No joint effusion. Osseous architecture and density are normal. No soft tissue swelling. Right wrist: No acute fracture or dislocation. Joint spaces are preserved. No joint effusion. Osseous architecture and density are normal. No soft tissue swelling. Left wrist: No acute fracture or dislocation. Joint spaces are preserved. No joint effusion. Osseous architecture and density are normal. No soft tissue swelling. Right hip: There is abnormal lucency and sclerosis in the superior aspect of the femoral head compatible with avascular necrosis. Mild cortical contour step-off has developed superiorly superiorly, consistent with subchondral fracture. The joint space is normal. There is a tract of increased density within the femoral neck compatible with core decompression surgery. Left hip: There is no fracture or dislocation. There is abnormal lucency and sclerosis in the superior aspect of the femoral head compatible with avascular necrosis. There is no articular surface collapse. There is a tract of increased density within the femoral neck compatible with core decompression surgery. Right knee: No acute fracture or dislocation. Knee joint space is preserved. No joint effusion. Osseous architecture and density are normal. No soft tissue swelling. Left knee: No acute fracture or dislocation. Knee joint space is preserved. No joint effusion. Unchanged 1.9 cm lucent lesion with peripheral sclerosis in the superior lateral aspect of the patella. Osseous and density are otherwise normal. No soft tissue swelling. Right foot: No acute fracture or dislocation. Joint spaces are preserved. No joint effusion. Osseous architecture and density are normal. No soft tissue swelling. Left foot: No acute fracture or dislocation. Mild joint space narrowing, subchondral sclerosis, subchondral cysts, and marginal osteophytes at the 1st metatarsophalangeal joint. No joint effusion. Osseous architecture and density are normal. No soft tissue swelling. Procedure Note Keagan Lerner MD - 05/30/2024 PROCEDURE: XR KNEE RIGHT 3VW, XR HAND RIGHT 3VW OR MORE, XR HAND [id number] OR MORE, XR FOOT RIGHT 3VW OR MORE, XR FOOT LEFT 3VW OR MORE, XR WRISTLEFT 2VW, XR WRIST RIGHT 2VW, XR CERVICAL SPINE 4 OR 5VW, XR SI JOINTS 3VW OR MORE, XR THORACIC SPINE 2VW, XR LUMBAR SPINE 2 OR 3VW, XR KNEE LEFT 3VW,XR HIP RIGHT 2VW OR MORE, XR HIP LEFT 2VW OR MORE, DATE/TIME OF EXAM: 05/30/2024 10:02 AM, LOCATION [facility] INDICATION: L40.50: Psoriatic arthritis (HCC) M25.50: Polyarthralgia M87.9: Bilateral hip osteonecrosis (HCC) M1A.09X0: Chronic gout of multiple sites, unspecified cause ADDITIONAL CLINICAL INFORMATION: Ordering Provider Reason For Exam: Please evaluate for signs of inflammatory arthropathy. (accession [id number]), Please evaluate forsigns of inflammatory arthropathy. (accession [id number]), Please evaluate for signs of inflammatory arthropathy. (accession [id number]), Pleaseevaluate for signs of inflammatory arthropathy. (accession [id number]), Please evaluate for signs of inflammatory arthropathy. (accession [id number]), Please evaluate for signs of inflammatory arthropathy. (accession [id number]), Please evaluate for signs of inflammatory arthropathy. (accession [id number]), History of RA, full flexion and extension views, please evaluate for atlantoaxial instability, per radiologist protocol (accession [id number]), Please evaluate for signs of inflammatory arthropathy. (accession [id number]), Please evaluate for signs of inflammatory arthropathy. (accession [id number]), Please evaluate forsigns of inflammatory arthropathy. (accession [id number]), Please evaluate for signs of inflammatory arthropathy. (accession [id number]), Pleaseevaluate for signs of inflammatory arthropathy. (accession [id number]), Please evaluate for signs of inflammatory arthropathy. (accession [id number]) Technologist Note: Additional: COMPARISON: Right and left knee radiographs dated 09/07/2020. Right and left foot radiographs dated 12/18/2019. Sacroiliac joint radiographs date09/07/2020. Cervical spine radiographs dated 09/07/2020. FINDINGS: Cervical spine: The vertebral bodies are normally aligned. No acute fracture orcompression deformity is identified. Mild multilevel degenerative disc disease. The predental interval and prevertebral soft tissues are normal. Bonedensity and texture are normal. Neurostimulator lead terminating within theright neck. Flexion and extension views demonstrate no vertebral translation. Thoracic spine: The vertebral bodies are normally aligned. There is no fracture or compression deformity. Mild multilevel degenerative disc disease. Right chest wall neurostimulator with lead coursing to the soft tissues of the right hemithorax and into the right neck. Lumbar spine: Of the lumbar lordosis is normal. There is no fracture or subluxation.The intervertebral disc spaces are normal. There is an anterior superior endplate osteophyte at L3. There is mild superior endplate sclerosis atL2 and L3. The facet joints are normal. Sacral iliac joints: There is no erosion, widening, sclerosis, narrowing, or ankylosis ofeither sacroiliac joint. There is no fracture. Right hand: No fracture or dislocation is present. The joint spaces are normal. No erosions are seen. There are a few small cysts in the third metacarpal head. There is a small calcification adjacent to the second digitproximal interphalangeal joint. Bone density is normal. The soft tissues are normal. Left hand: No acute fracture or dislocation. Joint spaces are preserved. No joint effusion. Osseous architecture and density are normal. No soft tissue swelling. Right wrist: No acute fracture or dislocation. Joint spaces are preserved. No joint effusion. Osseous architecture and density are normal. No soft tissue swelling. Left wrist: No acute fracture or dislocation. Joint spaces are preserved. No joint effusion. Osseous architecture and density are normal. No soft tissue swelling. Right hip: There is abnormal lucency and sclerosis in the superior aspect of the femoral head compatible with avascular necrosis. Mild cortical contour step-off has developed superiorly superiorly, consistent withsubchondral fracture. The joint space is normal. There is a tract of increaseddensity within the femoral neck compatible with core decompression surgery. Left hip: There is no fracture or dislocation. There is abnormal lucency and sclerosis in the superior aspect of the femoral head compatible with avascular necrosis. There is no articular surface collapse. There is a tract of increased density within the femoral neck compatible with core decompression surgery. Right knee: No acute fracture or dislocation. Knee joint space is preserved. Nojoint effusion. Osseous architecture and density are normal. No soft tissue swelling. Left knee: No acute fracture or dislocation. Knee joint space is preserved. Nojoint effusion. Unchanged 1.9 cm lucent lesion with peripheral sclerosis inthe superior lateral aspect of the patella. Osseous and density areotherwise normal. No soft tissue swelling. Right foot: No acute fracture or dislocation. Joint spaces are preserved. No joint effusion. Osseous architecture and density are normal. No soft tissue swelling. Left foot: No acute fracture or dislocation. Mild joint space narrowing,subchondral sclerosis, subchondral cysts, and marginal osteophytes at the 1st metatarsophalangeal joint. No joint effusion. Osseous architecture and density are normal. No soft tissue swelling. IMPRESSION: 1.Cervical spine: Normal. 2.Thoracic spine: Normal. 3.Lumbar spine: Minimal degenerative disc disease. 4.Sacroiliac joints: Normal. 5.Right hand: No significant arthritis. 6.Left hand: Normal. 7.Right wrist: Normal. 8.Left wrist: Normal. 9.Right hip: Femoral head avascular necrosis with developing subchondral fracture, progressed. The joint space is normal. Postprocedural changesof core decompression surgery. 10.Left hip: Femoral head avascular necrosis without collapse. The joint space is normal. Postprocedural changes of core decompression surgery. 11.Right knee: Normal. 12.Left knee: No evidence of arthritis. 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 13.Right foot: Normal. 14.Left foot: Mild osteoarthritis at the first metatarsophalangealjoint. Report dictated by Gretchen Rodriguez MD I, Keagan Lerner MD have personally reviewed and interpreted this examination/study. > Interpreting Provider: Keagan Lerner MD on 05/30/2024 10:55 AM Charles Billy MD DIAGNOSTIC IMAGING ORDERABLES Fi nal Result * XR Thoracic Spine 2Vw (05/30/2024 10:02 AM CDT) Anatomical Region Laterality Modality Spine Digital Radiogra phy 05/30/2024 10:0 3 AM CDT Impressions 05/30/2024 10:55 AM CDT IMPRESSION: 1.Cervical spine: Normal. 2.Thoracic spine: Normal. 3.Lumbar spine: Minimal degenerative disc disease. 4.Sacroiliac joints: Normal. 5.Right hand: No significant arthritis. 6.Left hand: Normal. 7.Right wrist: Normal. 8.Left wrist: Normal. 9.Right hip: Femoral head avascular necrosis with developing subchondral fracture, progressed. The joint space is normal. Postprocedural changes of core decompression surgery. 10.Left hip: Femoral head avascular necrosis without collapse. The joint space is normal. Postprocedural changes of core decompression surgery. 11.Right knee: Normal. 12.Left knee: No evidence of arthritis. 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 13.Right foot: Normal. 14.Left foot: Mild osteoarthritis at the first metatarsophalangeal joint. Report dictated by Gretchen Rodriguez MD I, Keagan Lerner MD have personally reviewed and interpreted this examination/study. > Interpreting Provider: Keagan Lerner MD on 05/30/2024 10:55 AM Narrative 05/30/2024 10:55 AM CDT PROCEDURE: XR KNEE RIGHT 3VW, XR HAND RIGHT 3VW OR MORE, XR HAND LEFT 3VW OR MORE, XR FOOT RIGHT 3VW OR MORE, XR FOOT LEFT 3VW OR MORE, XR WRIST LEFT 2VW, XR WRIST RIGHT 2VW, XR CERVICAL SPINE 4 OR 5VW, XR SI JOINTS 3VW OR MORE, XR THORACIC SPINE 2VW, XR LUMBAR SPINE 2 OR 3VW, XR KNEE LEFT 3VW, XR HIP RIGHT 2VW OR MORE, XR HIP LEFT 2VW OR MORE, DATE/TIME OF EXAM: 05/30/2024 10:02 AM, LOCATION [facility] INDICATION: L40.50: Psoriatic arthritis (HCC) M25.50: Polyarthralgia M87.9: Bilateral hip osteonecrosis (HCC) M1A.09X0: Chronic gout of multiple sites, unspecified cause ADDITIONAL CLINICAL INFORMATION: Ordering Provider Reason For Exam: Please evaluate for signs of inflammatory arthropathy. (accession [id number]), Please evaluate for signs of inflammatory arthropathy. (accession [id number]), Please evaluate for signs of inflammatory arthropathy. (accession [id number]), Please evaluate for signs of inflammatory arthropathy. (accession [id number]), Please evaluate for signs of inflammatory arthropathy. (accession [id number]), Please evaluate for signs of inflammatory arthropathy. (accession [id number]), Please evaluate for signs of inflammatory arthropathy. (accession [id number]), History of RA, full flexion and extension views, please evaluate for atlantoaxial instability, per radiologist protocol (accession [id number]), Please evaluate for signs of inflammatory arthropathy. (accession [id number]), Please evaluate for signs of inflammatory arthropathy. (accession [id number]), Please evaluate for signs of inflammatory arthropathy. (accession [id number]), Please evaluate for signs of inflammatory arthropathy. (accession [id number]), Please evaluate for signs of inflammatory arthropathy. (accession [id number]), Please evaluate for signs of inflammatory arthropathy. (accession [id number]) Technologist Note: Additional: COMPARISON: Right and left knee radiographs dated 09/07/2020. Right and left foot radiographs dated 12/18/2019. Sacroiliac joint radiographs dated 09/07/2020. Cervical spine radiographs dated 09/07/2020. FINDINGS: Cervical spine: The vertebral bodies are normally aligned. No acute fracture or compression deformity is identified. Mild multilevel degenerative disc disease. The predental interval and prevertebral soft tissues are normal. Bone density and texture are normal. Neurostimulator lead terminating within the right neck. Flexion and extension views demonstrate no vertebral translation. Thoracic spine: The vertebral bodies are normally aligned. There is no fracture or compression deformity. Mild multilevel degenerative disc disease. Right chest wall neurostimulator with lead coursing to the soft tissues of the right hemithorax and into the right neck. Lumbar spine: Of the lumbar lordosis is normal. There is no fracture or subluxation. The intervertebral disc spaces are normal. There is an anterior superior endplate osteophyte at L3. There is mild superior endplate sclerosis at L2 and L3. The facet joints are normal. Sacral iliac joints: There is no erosion, widening, sclerosis, narrowing, or ankylosis of either sacroiliac joint. There is no fracture. Right hand: No fracture or dislocation is present. The joint spaces are normal. No erosions are seen. There are a few small cysts in the third metacarpal head. There is a small calcification adjacent to the second digit proximal interphalangeal joint. Bone density is normal. The soft tissues are normal. Left hand: No acute fracture or dislocation. Joint spaces are preserved. No joint effusion. Osseous architecture and density are normal. No soft tissue swelling. Right wrist: No acute fracture or dislocation. Joint spaces are preserved. No joint effusion. Osseous architecture and density are normal. No soft tissue swelling. Left wrist: No acute fracture or dislocation. Joint spaces are preserved. No joint effusion. Osseous architecture and density are normal. No soft tissue swelling. Right hip: There is abnormal lucency and sclerosis in the superior aspect of the femoral head compatible with avascular necrosis. Mild cortical contour step-off has developed superiorly superiorly, consistent with subchondral fracture. The joint space is normal. There is a tract of increased density within the femoral neck compatible with core decompression surgery. Left hip: There is no fracture or dislocation. There is abnormal lucency and sclerosis in the superior aspect of the femoral head compatible with avascular necrosis. There is no articular surface collapse. There is a tract of increased density within the femoral neck compatible with core decompression surgery. Right knee: No acute fracture or dislocation. Knee joint space is preserved. No joint effusion. Osseous architecture and density are normal. No soft tissue swelling. Left knee: No acute fracture or dislocation. Knee joint space is preserved. No joint effusion. Unchanged 1.9 cm lucent lesion with peripheral sclerosis in the superior lateral aspect of the patella. Osseous and density are otherwise normal. No soft tissue swelling. Right foot: No acute fracture or dislocation. Joint spaces are preserved. No joint effusion. Osseous architecture and density are normal. No soft tissue swelling. Left foot: No acute fracture or dislocation. Mild joint space narrowing, subchondral sclerosis, subchondral cysts, and marginal osteophytes at the 1st metatarsophalangeal joint. No joint effusion. Osseous architecture and density are normal. No soft tissue swelling. Procedure Note Keagan Lerner MD - 05/30/2024 PROCEDURE: XR KNEE RIGHT 3VW, XR HAND RIGHT 3VW OR MORE, XR HAND [id number] OR MORE, XR FOOT RIGHT 3VW OR MORE, XR FOOT LEFT 3VW OR MORE, XR WRISTLEFT 2VW, XR WRIST RIGHT 2VW, XR CERVICAL SPINE 4 OR 5VW, XR SI JOINTS 3VW OR MORE, XR THORACIC SPINE 2VW, XR LUMBAR SPINE 2 OR 3VW, XR KNEE LEFT 3VW,XR HIP RIGHT 2VW OR MORE, XR HIP LEFT 2VW OR MORE, DATE/TIME OF EXAM: 05/30/2024 10:02 AM, LOCATION [facility] INDICATION: L40.50: Psoriatic arthritis (HCC) M25.50: Polyarthralgia M87.9: Bilateral hip osteonecrosis (HCC) M1A.09X0: Chronic gout of multiple sites, unspecified cause ADDITIONAL CLINICAL INFORMATION: Ordering Provider Reason For Exam: Please evaluate for signs of inflammatory arthropathy. (accession [id number]), Please evaluate forsigns of inflammatory arthropathy. (accession [id number]), Please evaluate for signs of inflammatory arthropathy. (accession [id number]), Pleaseevaluate for signs of inflammatory arthropathy. (accession [id number]), Please evaluate for signs of inflammatory arthropathy. (accession [id number]), Please evaluate for signs of inflammatory arthropathy. (accession [id number]), Please evaluate for signs of inflammatory arthropathy. (accession [id number]), History of RA, full flexion and extension views, please evaluate for atlantoaxial instability, per radiologist protocol (accession [id number]), Please evaluate for signs of inflammatory arthropathy. (accession [id number]), Please evaluate for signs of inflammatory arthropathy. (accession [id number]), Please evaluate forsigns of inflammatory arthropathy. (accession [id number]), Please evaluate for signs of inflammatory arthropathy. (accession [id number]), Pleaseevaluate for signs of inflammatory arthropathy. (accession [id number]), Please evaluate for signs of inflammatory arthropathy. (accession [id number]) Technologist Note: Additional: COMPARISON: Right and left knee radiographs dated 09/07/2020. Right and left foot radiographs dated 12/18/2019. Sacroiliac joint radiographs date09/07/2020. Cervical spine radiographs dated 09/07/2020. FINDINGS: Cervical spine: The vertebral bodies are normally aligned. No acute fracture orcompression deformity is identified. Mild multilevel degenerative disc disease. The predental interval and prevertebral soft tissues are normal. Bonedensity and texture are normal. Neurostimulator lead terminating within theright neck. Flexion and extension views demonstrate no vertebral translation. Thoracic spine: The vertebral bodies are normally aligned. There is no fracture or compression deformity. Mild multilevel degenerative disc disease. Right chest wall neurostimulator with lead coursing to the soft tissues of the right hemithorax and into the right neck. Lumbar spine: Of the lumbar lordosis is normal. There is no fracture or subluxation.The intervertebral disc spaces are normal. There is an anterior superior endplate osteophyte at L3. There is mild superior endplate sclerosis atL2 and L3. The facet joints are normal. Sacral iliac joints: There is no erosion, widening, sclerosis, narrowing, or ankylosis ofeither sacroiliac joint. There is no fracture. Right hand: No fracture or dislocation is present. The joint spaces are normal. No erosions are seen. There are a few small cysts in the third metacarpal head. There is a small calcification adjacent to the second digitproximal interphalangeal joint. Bone density is normal. The soft tissues are normal. Left hand: No acute fracture or dislocation. Joint spaces are preserved. No joint effusion. Osseous architecture and density are normal. No soft tissue swelling. Right wrist: No acute fracture or dislocation. Joint spaces are preserved. No joint effusion. Osseous architecture and density are normal. No soft tissue swelling. Left wrist: No acute fracture or dislocation. Joint spaces are preserved. No joint effusion. Osseous architecture and density are normal. No soft tissue swelling. Right hip: There is abnormal lucency and sclerosis in the superior aspect of the femoral head compatible with avascular necrosis. Mild cortical contour step-off has developed superiorly superiorly, consistent withsubchondral fracture. The joint space is normal. There is a tract of increaseddensity within the femoral neck compatible with core decompression surgery. Left hip: There is no fracture or dislocation. There is abnormal lucency and sclerosis in the superior aspect of the femoral head compatible with avascular necrosis. There is no articular surface collapse. There is a tract of increased density within the femoral neck compatible with core decompression surgery. Right knee: No acute fracture or dislocation. Knee joint space is preserved. Nojoint effusion. Osseous architecture and density are normal. No soft tissue swelling. Left knee: No acute fracture or dislocation. Knee joint space is preserved. Nojoint effusion. Unchanged 1.9 cm lucent lesion with peripheral sclerosis inthe superior lateral aspect of the patella. Osseous and density areotherwise normal. No soft tissue swelling. Right foot: No acute fracture or dislocation. Joint spaces are preserved. No joint effusion. Osseous architecture and density are normal. No soft tissue swelling. Left foot: No acute fracture or dislocation. Mild joint space narrowing,subchondral sclerosis, subchondral cysts, and marginal osteophytes at the 1st metatarsophalangeal joint. No joint effusion. Osseous architecture and density are normal. No soft tissue swelling. IMPRESSION: 1.Cervical spine: Normal. 2.Thoracic spine: Normal. 3.Lumbar spine: Minimal degenerative disc disease. 4.Sacroiliac joints: Normal. 5.Right hand: No significant arthritis. 6.Left hand: Normal. 7.Right wrist: Normal. 8.Left wrist: Normal. 9.Right hip: Femoral head avascular necrosis with developing subchondral fracture, progressed. The joint space is normal. Postprocedural changesof core decompression surgery. 10.Left hip: Femoral head avascular necrosis without collapse. The joint space is normal. Postprocedural changes of core decompression surgery. 11.Right knee: Normal. 12.Left knee: No evidence of arthritis. 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 13.Right foot: Normal. 14.Left foot: Mild osteoarthritis at the first metatarsophalangealjoint. Report dictated by Gretchen Rodriguez MD I, Keagan Lerner MD have personally reviewed and interpreted this examination/study. > Interpreting Provider: Keagan Lerner MD on 05/30/2024 10:55 AM Charles Billy MD DIAGNOSTIC IMAGING ORDERABLES Fi nal Result * XR Cervical Spine 4 or 5Vw (05/30/2024 10:02 AM CDT) Anatomical Region Laterality Modality Spine Digital Radiogra phy 05/30/2024 10:0 3 AM CDT Impressions 05/30/2024 10:55 AM CDT IMPRESSION: 1.Cervical spine: Normal. 2.Thoracic spine: Normal. 3.Lumbar spine: Minimal degenerative disc disease. 4.Sacroiliac joints: Normal. 5.Right hand: No significant arthritis. 6.Left hand: Normal. 7.Right wrist: Normal. 8.Left wrist: Normal. 9.Right hip: Femoral head avascular necrosis with developing subchondral fracture, progressed. The joint space is normal. Postprocedural changes of core decompression surgery. 10.Left hip: Femoral head avascular necrosis without collapse. The joint space is normal. Postprocedural changes of core decompression surgery. 11.Right knee: Normal. 12.Left knee: No evidence of arthritis. 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 13.Right foot: Normal. 14.Left foot: Mild osteoarthritis at the first metatarsophalangeal joint. Report dictated by Gretchen Rodriguez MD I, Keagan Lerner MD have personally reviewed and interpreted this examination/study. > Interpreting Provider: Keagan Lerner MD on 05/30/2024 10:55 AM Narrative 05/30/2024 10:55 AM CDT PROCEDURE: XR KNEE RIGHT 3VW, XR HAND RIGHT 3VW OR MORE, XR HAND LEFT 3VW OR MORE, XR FOOT RIGHT 3VW OR MORE, XR FOOT LEFT 3VW OR MORE, XR WRIST LEFT 2VW, XR WRIST RIGHT 2VW, XR CERVICAL SPINE 4 OR 5VW, XR SI JOINTS 3VW OR MORE, XR THORACIC SPINE 2VW, XR LUMBAR SPINE 2 OR 3VW, XR KNEE LEFT 3VW, XR HIP RIGHT 2VW OR MORE, XR HIP LEFT 2VW OR MORE, DATE/TIME OF EXAM: 05/30/2024 10:02 AM, LOCATION [facility] INDICATION: L40.50: Psoriatic arthritis (HCC) M25.50: Polyarthralgia M87.9: Bilateral hip osteonecrosis (HCC) M1A.09X0: Chronic gout of multiple sites, unspecified cause ADDITIONAL CLINICAL INFORMATION: Ordering Provider Reason For Exam: Please evaluate for signs of inflammatory arthropathy. (accession [id number]), Please evaluate for signs of inflammatory arthropathy. (accession [id number]), Please evaluate for signs of inflammatory arthropathy. (accession [id number]), Please evaluate for signs of inflammatory arthropathy. (accession [id number]), Please evaluate for signs of inflammatory arthropathy. (accession [id number]), Please evaluate for signs of inflammatory arthropathy. (accession [id number]), Please evaluate for signs of inflammatory arthropathy. (accession [id number]), History of RA, full flexion and extension views, please evaluate for atlantoaxial instability, per radiologist protocol (accession [id number]), Please evaluate for signs of inflammatory arthropathy. (accession [id number]), Please evaluate for signs of inflammatory arthropathy. (accession [id number]), Please evaluate for signs of inflammatory arthropathy. (accession [id number]), Please evaluate for signs of inflammatory arthropathy. (accession [id number]), Please evaluate for signs of inflammatory arthropathy. (accession [id number]), Please evaluate for signs of inflammatory arthropathy. (accession [id number]) Technologist Note: Additional: COMPARISON: Right and left knee radiographs dated 09/07/2020. Right and left foot radiographs dated 12/18/2019. Sacroiliac joint radiographs dated 09/07/2020. Cervical spine radiographs dated 09/07/2020. FINDINGS: Cervical spine: The vertebral bodies are normally aligned. No acute fracture or compression deformity is identified. Mild multilevel degenerative disc disease. The predental interval and prevertebral soft tissues are normal. Bone density and texture are normal. Neurostimulator lead terminating within the right neck. Flexion and extension views demonstrate no vertebral translation. Thoracic spine: The vertebral bodies are normally aligned. There is no fracture or compression deformity. Mild multilevel degenerative disc disease. Right chest wall neurostimulator with lead coursing to the soft tissues of the right hemithorax and into the right neck. Lumbar spine: Of the lumbar lordosis is normal. There is no fracture or subluxation. The intervertebral disc spaces are normal. There is an anterior superior endplate osteophyte at L3. There is mild superior endplate sclerosis at L2 and L3. The facet joints are normal. Sacral iliac joints: There is no erosion, widening, sclerosis, narrowing, or ankylosis of either sacroiliac joint. There is no fracture. Right hand: No fracture or dislocation is present. The joint spaces are normal. No erosions are seen. There are a few small cysts in the third metacarpal head. There is a small calcification adjacent to the second digit proximal interphalangeal joint. Bone density is normal. The soft tissues are normal. Left hand: No acute fracture or dislocation. Joint spaces are preserved. No joint effusion. Osseous architecture and density are normal. No soft tissue swelling. Right wrist: No acute fracture or dislocation. Joint spaces are preserved. No joint effusion. Osseous architecture and density are normal. No soft tissue swelling. Left wrist: No acute fracture or dislocation. Joint spaces are preserved. No joint effusion. Osseous architecture and density are normal. No soft tissue swelling. Right hip: There is abnormal lucency and sclerosis in the superior aspect of the femoral head compatible with avascular necrosis. Mild cortical contour step-off has developed superiorly superiorly, consistent with subchondral fracture. The joint space is normal. There is a tract of increased density within the femoral neck compatible with core decompression surgery. Left hip: There is no fracture or dislocation. There is abnormal lucency and sclerosis in the superior aspect of the femoral head compatible with avascular necrosis. There is no articular surface collapse. There is a tract of increased density within the femoral neck compatible with core decompression surgery. Right knee: No acute fracture or dislocation. Knee joint space is preserved. No joint effusion. Osseous architecture and density are normal. No soft tissue swelling. Left knee: No acute fracture or dislocation. Knee joint space is preserved. No joint effusion. Unchanged 1.9 cm lucent lesion with peripheral sclerosis in the superior lateral aspect of the patella. Osseous and density are otherwise normal. No soft tissue swelling. Right foot: No acute fracture or dislocation. Joint spaces are preserved. No joint effusion. Osseous architecture and density are normal. No soft tissue swelling. Left foot: No acute fracture or dislocation. Mild joint space narrowing, subchondral sclerosis, subchondral cysts, and marginal osteophytes at the 1st metatarsophalangeal joint. No joint effusion. Osseous architecture and density are normal. No soft tissue swelling. Procedure Note Keagan Lerner MD - 05/30/2024 PROCEDURE: XR KNEE RIGHT 3VW, XR HAND RIGHT 3VW OR MORE, XR HAND [id number] OR MORE, XR FOOT RIGHT 3VW OR MORE, XR FOOT LEFT 3VW OR MORE, XR WRISTLEFT 2VW, XR WRIST RIGHT 2VW, XR CERVICAL SPINE 4 OR 5VW, XR SI JOINTS 3VW OR MORE, XR THORACIC SPINE 2VW, XR LUMBAR SPINE 2 OR 3VW, XR KNEE LEFT 3VW,XR HIP RIGHT 2VW OR MORE, XR HIP LEFT 2VW OR MORE, DATE/TIME OF EXAM: 05/30/2024 10:02 AM, LOCATION [facility] INDICATION: L40.50: Psoriatic arthritis (HCC) M25.50: Polyarthralgia M87.9: Bilateral hip osteonecrosis (HCC) M1A.09X0: Chronic gout of multiple sites, unspecified cause ADDITIONAL CLINICAL INFORMATION: Ordering Provider Reason For Exam: Please evaluate for signs of inflammatory arthropathy. (accession [id number]), Please evaluate forsigns of inflammatory arthropathy. (accession [id number]), Please evaluate for signs of inflammatory arthropathy. (accession [id number]), Pleaseevaluate for signs of inflammatory arthropathy. (accession [id number]), Please evaluate for signs of inflammatory arthropathy. (accession [id number]), Please evaluate for signs of inflammatory arthropathy. (accession [id number]), Please evaluate for signs of inflammatory arthropathy. (accession [id number]), History of RA, full flexion and extension views, please evaluate for atlantoaxial instability, per radiologist protocol (accession [id number]), Please evaluate for signs of inflammatory arthropathy. (accession [id number]), Please evaluate for signs of inflammatory arthropathy. (accession [id number]), Please evaluate forsigns of inflammatory arthropathy. (accession [id number]), Please evaluate for signs of inflammatory arthropathy. (accession [id number]), Pleaseevaluate for signs of inflammatory arthropathy. (accession [id number]), Please evaluate for signs of inflammatory arthropathy. (accession [id number]) Technologist Note: Additional: COMPARISON: Right and left knee radiographs dated 09/07/2020. Right and left foot radiographs dated 12/18/2019. Sacroiliac joint radiographs date09/07/2020. Cervical spine radiographs dated 09/07/2020. FINDINGS: Cervical spine: The vertebral bodies are normally aligned. No acute fracture orcompression deformity is identified. Mild multilevel degenerative disc disease. The predental interval and prevertebral soft tissues are normal. Bonedensity and texture are normal. Neurostimulator lead terminating within theright neck. Flexion and extension views demonstrate no vertebral translation. Thoracic spine: The vertebral bodies are normally aligned. There is no fracture or compression deformity. Mild multilevel degenerative disc disease. Right chest wall neurostimulator with lead coursing to the soft tissues of the right hemithorax and into the right neck. Lumbar spine: Of the lumbar lordosis is normal. There is no fracture or subluxation.The intervertebral disc spaces are normal. There is an anterior superior endplate osteophyte at L3. There is mild superior endplate sclerosis atL2 and L3. The facet joints are normal. Sacral iliac joints: There is no erosion, widening, sclerosis, narrowing, or ankylosis ofeither sacroiliac joint. There is no fracture. Right hand: No fracture or dislocation is present. The joint spaces are normal. No erosions are seen. There are a few small cysts in the third metacarpal head. There is a small calcification adjacent to the second digitproximal interphalangeal joint. Bone density is normal. The soft tissues are normal. Left hand: No acute fracture or dislocation. Joint spaces are preserved. No joint effusion. Osseous architecture and density are normal. No soft tissue swelling. Right wrist: No acute fracture or dislocation. Joint spaces are preserved. No joint effusion. Osseous architecture and density are normal. No soft tissue swelling. Left wrist: No acute fracture or dislocation. Joint spaces are preserved. No joint effusion. Osseous architecture and density are normal. No soft tissue swelling. Right hip: There is abnormal lucency and sclerosis in the superior aspect of the femoral head compatible with avascular necrosis. Mild cortical contour step-off has developed superiorly superiorly, consistent withsubchondral fracture. The joint space is normal. There is a tract of increaseddensity within the femoral neck compatible with core decompression surgery. Left hip: There is no fracture or dislocation. There is abnormal lucency and sclerosis in the superior aspect of the femoral head compatible with avascular necrosis. There is no articular surface collapse. There is a tract of increased density within the femoral neck compatible with core decompression surgery. Right knee: No acute fracture or dislocation. Knee joint space is preserved. Nojoint effusion. Osseous architecture and density are normal. No soft tissue swelling. Left knee: No acute fracture or dislocation. Knee joint space is preserved. Nojoint effusion. Unchanged 1.9 cm lucent lesion with peripheral sclerosis inthe superior lateral aspect of the patella. Osseous and density areotherwise normal. No soft tissue swelling. Right foot: No acute fracture or dislocation. Joint spaces are preserved. No joint effusion. Osseous architecture and density are normal. No soft tissue swelling. Left foot: No acute fracture or dislocation. Mild joint space narrowing,subchondral sclerosis, subchondral cysts, and marginal osteophytes at the 1st metatarsophalangeal joint. No joint effusion. Osseous architecture and density are normal. No soft tissue swelling. IMPRESSION: 1.Cervical spine: Normal. 2.Thoracic spine: Normal. 3.Lumbar spine: Minimal degenerative disc disease. 4.Sacroiliac joints: Normal. 5.Right hand: No significant arthritis. 6.Left hand: Normal. 7.Right wrist: Normal. 8.Left wrist: Normal. 9.Right hip: Femoral head avascular necrosis with developing subchondral fracture, progressed. The joint space is normal. Postprocedural changesof core decompression surgery. 10.Left hip: Femoral head avascular necrosis without collapse. The joint space is normal. Postprocedural changes of core decompression surgery. 11.Right knee: Normal. 12.Left knee: No evidence of arthritis. 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 13.Right foot: Normal. 14.Left foot: Mild osteoarthritis at the first metatarsophalangealjoint. Report dictated by Gretchen Rodriguez MD I, Keagan Lerner MD have personally reviewed and interpreted this examination/study. > Interpreting Provider: Keagan Lerner MD on 05/30/2024 10:55 AM Charles Billy MD DIAGNOSTIC IMAGING ORDERABLES Fi nal Result * HIV-1 HIV-2 ANTIBODY + HIV P24 AG PANEL (05/20/2021 8:56 AM CDT) HIV Antigen/Antibod y 1 & 2 Non-reacti ve Non-react miguel 05/20/2021 9:53 AM CDT [facility] Comment:No Laboratory eviden ce of HIV infection. Blood BLOOD SPECIMEN / Unknown Lab Venipuncture / Unknown 05/20/2021 8:56 AM CDT 05/20/2021 9:09 AM CDT Michelle Pacheco SUPERVISOR [employer] [facility] - CHEMISTRY ORDERABLES Final Result Performing Organization Address City/[facility]/ZIP Co de Phone Number [facility] [address] [place] [address], [place] [phone] * MICROALB/CREAT RATIO URINE RANDOM PANEL (05/20/2021 8:56 AM CDT) Albumin Random Urine 20.5 Not Established ug/mL 05/20/2021 9:35 AM CDT [facility] Creatinine Urine 293 Not Established mg/dL 05/20/2021 9:35 AM CDT [facility] Urine Albumin/Creati nine Ratio 7 <30 mg/g 05/20/2021 9:35 AM CDT [facility] Urine URINE SPECIMEN OBTAINED BY CLEAN CATCH PROCEDURE / Unknown Collection / Unknown 05/20/2021 8:56 AM CDT 05/20/2021 9:09 AM CDT Michelle Pacheco APRN-[employer] LAB - URINE CHEMISTRY ORDE RABLES Final Result Performing Organization Address [facility] Co de Phone Number [facility] [address] [place] [address], [place] [phone] from Last 3 Months or Most Recently Relevant to Health Maintenance Insurance MEDICARE [employer] MANAGED MEDICARE ADV Advance Directives * Full Code (Latest Code Status on File) Date Activated Date Inactivated Comments 05/18/2020 1:50 PM 05/19/2020 3:43 PM Care Teams Defense Analyst Relationship Specialty Start Date End Date Michelle Pacheco APRN-[employer] [address] [place] [address] PCP - General 01/31/21
--- OUTSIDE RECORDS SUMMARY | 2024-07-01 02:38 | XMS_ITS | Clinical Summary ---
Author Organization [facility] Address [address] [place] [address] Care Team Providers Care Fruit Or Nut Picker Name Role Phone Yoel Youssef MD Primary Care Provider [phone] Allergies Active Allergy Reactions Criticality Noted Date [...] 06/2019 Tobacco abuse 09/24/2019 Ectopic beats 09/24/2019 Surgical History Surgery Date Site/Laterality Comments HIP [...] on file Legal Sex Male 10:10 AM HIDES SOAKER Gender Identity Not on file Sexual Orientation Not on file Obstetrics History Last Filed Vital Signs Vital Sign Reading Time Taken Comments Blood Pressure 94/65 03/11/2024 11:17 AM HIDES SOAKER Pulse 76 03/11/2024 11:17 AM HIDES SOAKER Temperature 36 C (96.8 F) 12/26/2023 11:10 AM HIDES SOAKER Respiratory Rate 18 01/29/2024 10:24 AM HIDES SOAKER Oxygen Saturation 94% 03/11/2024 11:17 AM HIDES SOAKER Inhaled Oxygen Concentration - - Weight 103.4 kg (228 lb) 03/11/2024 11:17 AM HIDES SOAKER Height 182.9 cm (6') 03/11/2024 11:17 AM HIDES SOAKER Body Mass Index 30.92 03/11/2024 11:17 AM HIDES SOAKER Plan of Treatment Health Maintenance Due Date [...] 06/17/2025 06/18/2023 Medical Devices Implanted Type Area Buckle Coverer Device Identifier Shelf Expiration Date Model / Serial / Lot [employer] Lead Neurostimulator Sleep Apnea Thoracic Permanent Respiratory Sensing Inspire 43cm 4340 - [id number] - [id number] Implanted:Qty: 1 on 12/26/2023 by May Edwards MD at [facility] Lead Right: Chest [employer] 08/28/2026 4340 / [id number] / [employer] Inspire 3 Electrode Cuff Tunnel Victorino Lead Neurostimulator Sterile 4063 - [id number] - [id number] Implanted:Qty: 1 on 12/26/2023 by May Edwards MD at [facility] Lead Right: Neck [employer] 03/05/2026 4063 / [id number] / [employer] Inspire Generator 3028 - [id number] - [id number] Implanted:Qty: 1 on 12/26/2023 by May Edwards MD at [facility] Lead Right: Chest [employer] 07/29/2026 3028 / [id number] / Procedures Procedure Name Priority Date/Time [...] data last revised 21. Testing performed by: [facility], [address] [place] [address]., [id number] Blood 06/18/2023 11:2 7 AM CDT 06/18/2023 1:56 PM CDT us Loree Luna [facility] BLOOD ORDERABLES F inal Result [facility] [address] [facility] Department [place] [address] from Last 3 Months or Most Recently Relevant to Health Maintenance Insurance MEDICARE MEDICARE Care Teams Fruit Or Nut Picker Relationship Specialty Start Date End Date Yoel Youssef MD [address] [place] [address] PCP - General Family Medicine 09/04/23
--- OUTSIDE RECORDS SUMMARY | 2024-07-01 02:38 | XMS_ITS | Continuity of Care Document ---
Author Organization [facility] Address [address] [facility] [place] [address] Phone Care Team Providers Care Survival Equipment Repairer Name Role Phone Blayne Plummer MD Unavailable Unavailable Allergies, Adverse Reactions, Alerts Substance Reaction Status Criticality No Known Allergies Active No Inform ation Medications Medication Instructions Dosage Effective Dates (start - stop) Status Comments indomethacin 50 mg capsule take 1 capsule (50MG) by oral route 3 times every day with food 50 MG - Active prednisone 20 mg tablet take 3 Tablet (6 0MG) by oral route every day 60 MG - Active betamethasone dipropionate 0.05 % Topical Ointment apply by topical route every day a thin layer to the affected area(s) 0.00 - Active Procedures Procedure Date PREV VISIT, NEW, AGE 40-64 Advance Directives Directive Yes / No Effective Date File Name No Information Encounters Encounter Description Practice Location Reason(s) For Visit Diagnoses Date Provider Providers Copied on Encounter PREV VISIT, NEW, AGE 40-64 [facility], [address] [place], [id number], tel:[phone] [facility] PHysical (chief complaint) Dietary surveillance and counselingRoutine Medical ExamRoutine Medical Exam [address] [place], [place], [id number] , [place]. tel:[phone] Family History Family Member Type Diagnosis Age [...] Mental Status Date Cognitive Assessment Orientation - Durant ed to time, place, person, situation.
--- OUTSIDE RECORDS SUMMARY | 2024-07-01 02:38 | XMS_ITS | Encounter Summary ---
Author Organization [facility] Address [address] [facility] [place] [address] Care Team Providers Care Dynamic Balancer Name Role Phone Suyapa Velazquez MD Primary Care Provider [phone] Lorraine Pena TRAINING CONSULTANT-[facility] Primary Care Provider Michelle Pacheco TRAINING CONSULTANT[facility] Primary Care Provider [phone] Encounter Details Date Type Department Care Team (Late st Contact Info) Description 06/10/2020 Telephone [facility] [address] [place] [address] [place] [address] [address] Social History Tobacco Use Types [...] AM CDT Legal 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 Answer Date of Assessment Author No 05/18/2020 2:00 PM CDT Kisha Woodard, ANGEL * Does person have serious difficulty walking/climbing stairs? Answer Date of Assessment Author No 05/18/2020 2:00 PM CDT Kisha Woodard, ANGEL * Does person have difficulty dressing/bathing? Answer [...] Description 07/04/2024 1:30 PM CDT Office Visit [facility] - Orthopedic Surgery [facility] [place] [address] Gil Shen MD [address] [place] [phone] 08/04/2024 10:20 AM CDT Office Visit [facility] - Rheumatology [address] [place] [phone] Charles Billy MD [address] [place] [phone] 11/10/2024 3:00 PM CDT Office Visit [facility] - Internal Med [address] [place] [phone] Ilana Pulido MD [address] [facility] [address] [place] [address] Yang Rodriguez MD [address] [place] [address] documented as of this encounter Visit Diagnoses Not on filedocumented in this encounter Care Teams Dynamic Balancer Relationship Specialty Start Date End Date Suyapa Velazquez MD [address] [place] [phone] PCP - General Family Medicine 05/11/20 10/31/20 Lorraine Pena, TRAINING CONSULTANT-[employer] [address] [place] [phone] PCP - General 11/01/20 01/30/21 Michelle Pacheco, TRAINING CONSULTANT-[employer] [address] [place] [phone] PCP - General 01/31/21 documented as of this encounter
[2024-07-01] MEDS: LACTATED RINGERS 1,000 ML 150 ML IV CONT (13:24)
--- NOTE | 2024-07-01 13:48 | WPDANESEPPF ---
Anes - Initial Pre Proc Eval Procedure: Operation Date: 07/01/24 14:00 Proposed Procedures p Esophagogastroduodenoscopy&Screen Colon - Eamon Cummins MD Date/Time: 07/01/24 13:48 Surgeon: Eamon Cummins MD Pre Op Diagnosis: GERD, screening neoplasm of colon Patient Data Age: 53 Gender: M Height: 1.83 m Weight: 95.3 kg Allergies Allergy/AdvReac Type Severity Reaction Status Date / Time doxycycline Allergy Anaphylaxis Verified 07/01/24 13:10 Home Medications ?Medication ?Instructions ?Recorded ?Confirmed ?Type albuterol sulfate 90 mcg/actuation 1 inh inhalation Q4-6H PRN 01/28/19 01/28/24 Rx breath activated powder inhaler shortness of breath or wheezing #1 ea albuterol sulfate 90 mcg/actuation 2 puff inhalation Q4-6H PRN 04/30/19 01/28/24 Rx aerosol inhaler (ProAir HFA) shortness of breath or wheezing #18 grams pantoprazole 20 mg tablet,delayed 20 mg PO QAM 10/25/21 01/28/24 History release alprazolam 0.5 mg tablet 0.5 mg PO BID PRN Anxiety 11/14/23 01/28/24 History buspirone 7.5 mg tablet 7.5 mg PO BID 11/14/23 01/28/24 History inhalational spacing device #1 ea 11/14/23 01/28/24 Rx atenolol 25 mg tablet 50 mg PO BID 12/04/23 01/28/24 History allopurinol 300 mg tablet 300 mg PO DAILY 01/28/24 04/04/24 History bimekizumab-bkzx 160 mg/mL 160 mg subcut MONTHLY 01/28/24 04/04/24 History subcutaneous auto-injector (Bimzelx Autoinjector) budesonide-formoterol HFA 80 2 puff inhalation Q12H 01/28/24 04/04/24 History mcg-4.5 mcg/actuation aerosol inhaler (Symbicort) famotidine 40 mg tablet 40 mg PO DAILY 01/28/24 04/04/24 History folic acid 1 mg tablet 1 mg PO DAILY 01/28/24 04/04/24 History paroxetine HCl 20 mg tablet 20 mg PO DAILY 01/28/24 04/04/24 History atorvastatin 20 mg tablet See Rx Instructions .Route 01/30/24 04/04/24 Rx .COMPLEX #90 tabs metformin 500 mg tablet 500 mg PO BID 04/04/24 06/20/24 History oxycodone-acetaminophen 7.5 mg-325 1 tablet PO Q6H PRN pain 04/04/24 04/04/24 History mg tablet Patient hx anesthesia problems: none Family hx anesthesia problems: none Results Review: All pre-operative results and documents have been reviewed as part of the pre-operative evaluation. [facility] Past Medical History Medical History LALI (obstructive sleep apnea) Autoimmune disorder unknown Eczema Gout Kidney stone Asthma Surgical History Surgical History No significant past surgical history Family History Family History Mother Family history of diabetes mellitus in first degree relative Father COPD (chronic obstructive pulmonary disease) Other Family history of lupus erythematosus Social History Social History Smoking packs per day: 1 Smoking cigarettes per day: 20.0 Years smoked: 20 Smoking pack-years: 20.00 Smoking status: Former smoker Tobacco type: cigarettes and e-cigarettes/vaping Smoking end date: 02/19/18 Additional smoking assessment comments: STOPPED VAPING 2021, STOPPED CIGARETTES 2018 Alcohol intake: never Substance use: never Substance use type: does not use Do You Feel Safe in your Home?: Yes Lack of Transportation: No Lack of Food: Sometimes True Current Housing: I Have Housing Concerned About Future Housing: No Difficulty Paying Gas/Electric Bills: No Difficulty Paying for Meds: No Currently Unemployed: No Education: Decline to Answer Difficulty w/ Childcare or Family Care: No Living arrangements: with family Spiritual care concerns: No Anes - Eval Final PreProcedure Day of Procedure 07/01/24 13:48 Patient weight: overweight and obese Heart: regular rate and rhythm Lungs: clear to auscultation Airway: Mallampati scale class II Neurological: alert and oriented Last oral intake: >/= 8 hours ASA classification: III Emergent: no Anesthetic plan: proceed Anesthesia type and monitoring: general GIVS and standard monitoring Results Review: All pre-operative results and documents have been reviewed as part of the pre-operative evaluation. Informed Consent: The patient's anesthetic plan and its attendant risks and benefits were discussed with the patient/family/POA. Questions were solicited and answers provided to the satisfaction of the patient/family/POA.
--- NOTE | 2024-07-01 14:01 | P.PNAN_ITS ---
Anes - Initial Pre Proc Eval Procedure: Operation Date: 07/01/24 14:00 Proposed Procedures p Esophagogastroduodenoscopy&Screen Colon - Eamon Cummins MD Date/Time: 07/01/24 14:01 Surgeon: Eamon Cummins MD Pre Op Diagnosis: GERD, screening neoplasm of colon Patient Data Age: 53 Gender: M Height: 1.83 m Weight: 95.3 kg Allergies Allergy/AdvReac Type Severity Reaction Status Date / Time doxycycline Allergy Anaphylaxis Verified 07/01/24 13:10 Home Medications ?Medication ?Instructions ?Recorded ?Confirmed ?Type albuterol sulfate 90 mcg/actuation 1 inh inhalation Q4-6H PRN 01/28/19 01/28/24 Rx breath activated powder inhaler shortness of breath or wheezing #1 ea albuterol sulfate 90 mcg/actuation 2 puff inhalation Q4-6H PRN 04/30/19 01/28/24 Rx aerosol inhaler (ProAir HFA) shortness of breath or wheezing #18 grams pantoprazole 20 mg tablet,delayed 20 mg PO QAM 10/25/21 01/28/24 History release alprazolam 0.5 mg tablet 0.5 mg PO BID PRN Anxiety 11/14/23 01/28/24 History buspirone 7.5 mg tablet 7.5 mg PO BID 11/14/23 01/28/24 History inhalational spacing device #1 ea 11/14/23 01/28/24 Rx atenolol 25 mg tablet 50 mg PO BID 12/04/23 01/28/24 History allopurinol 300 mg tablet 300 mg PO DAILY 01/28/24 04/04/24 History bimekizumab-bkzx 160 mg/mL 160 mg subcut MONTHLY 01/28/24 04/04/24 History subcutaneous auto-injector (Bimzelx Autoinjector) budesonide-formoterol HFA 80 2 puff inhalation Q12H 01/28/24 04/04/24 History mcg-4.5 mcg/actuation aerosol inhaler (Symbicort) famotidine 40 mg tablet 40 mg PO DAILY 01/28/24 04/04/24 History folic acid 1 mg tablet 1 mg PO DAILY 01/28/24 04/04/24 History paroxetine HCl 20 mg tablet 20 mg PO DAILY 01/28/24 04/04/24 History atorvastatin 20 mg tablet See Rx Instructions .Route 01/30/24 04/04/24 Rx .COMPLEX #90 tabs metformin 500 mg tablet 500 mg PO BID 04/04/24 06/20/24 History oxycodone-acetaminophen 7.5 mg-325 1 tablet PO Q6H PRN pain 04/04/24 04/04/24 History mg tablet Patient hx anesthesia problems: none Family hx anesthesia problems: none Results Review: All pre-operative results and documents have been reviewed as part of the pre- operative evaluation. [facility] Past Medical History Medical History LALI (obstructive sleep apnea) Autoimmune disorder unknown Eczema Gout Kidney stone Asthma Surgical History Surgical History No significant past surgical history Family History Family History Mother Family history of diabetes mellitus in first degree relative Father COPD (chronic obstructive pulmonary disease) Other Family history of lupus erythematosus Social History Social History Smoking packs per day: 1 Smoking cigarettes per day: 20.0 Years smoked: 20 Smoking pack-years: 20.00 Smoking status: Former smoker Tobacco type: cigarettes and e-cigarettes/vaping Smoking end date: 02/19/18 Additional smoking assessment comments: STOPPED VAPING 2021, STOPPED CIGARETTES 2018 Alcohol intake: never Substance use: never Substance use type: does not use Do You Feel Safe in your Home?: Yes Lack of Transportation: No Lack of Food: Sometimes True Current Housing: I Have Housing Concerned About Future Housing: No Difficulty Paying Gas/Electric Bills: No Difficulty Paying for Meds: No Currently Unemployed: No Education: Decline to Answer Difficulty w/ Childcare or Family Care: No Living arrangements: with family Spiritual care concerns: No Anes - Eval Final PreProcedure Day of Procedure 07/01/24 14:01 Patient weight: obese Heart: regular rate and rhythm Lungs: clear to auscultation Airway: Mallampati scale class II Neurological: alert and oriented Last oral intake: >/= 8 hours ASA classification: III Emergent: no Anesthetic plan: proceed Anesthesia type and monitoring: general GIVS and standard monitoring Results Review: All pre-operative results and documents have been reviewed as part of the pre- operative evaluation. Informed Consent: The patient's anesthetic plan and its attendant risks and benefits were discussed with the patient/family/POA. Questions were solicited and answers provided to the satisfaction of the patient/family/POA.
--- NOTE | 2024-07-01 14:02 | PM.HPGS ---
History of Present Illness History of Present Illness Consent: Risks, benefits, and alternatives have been discussed and questions answered. Patient agrees to proceed with procedure. Chief complaint: GERD, screening neoplasm of colon Narrative: Moustapha Peter is a 53 year old male here for egd and colonoscopy, h/o gerd on famotidine, colon polyp about 5-6 years ago Review of Systems Review of Systems: All systems reviewed & are unremarkable except as noted in HPI and below PMFSH Past Medical History Medical History (Updated 07/01/24 @ 14:03 by Eamon Cummins MD) Colon polyp GERD (gastroesophageal reflux disease) LALI (obstructive sleep apnea) Autoimmune disorder unknown Eczema Gout Kidney stone Asthma Surgical History Surgical History No significant past surgical history Family History Family History Mother Family history of diabetes mellitus in first degree relative Father COPD (chronic obstructive pulmonary disease) Other Family history of lupus erythematosus Social History Social History Smoking packs per day: 1 Smoking cigarettes per day: 20.0 Years smoked: 20 Smoking pack-years: 20.00 Smoking status: Former smoker Tobacco type: cigarettes and e-cigarettes/vaping Smoking end date: 02/19/18 Additional smoking assessment comments: STOPPED VAPING 2021, STOPPED CIGARETTES 2018 Alcohol intake: never Substance use: never Substance use type: does not use Do You Feel Safe in your Home?: Yes Lack of Transportation: No Lack of Food: Sometimes True Current Housing: I Have Housing Concerned About Future Housing: No Difficulty Paying Gas/Electric Bills: No Difficulty Paying for Meds: No Currently Unemployed: No Education: Decline to Answer Difficulty w/ Childcare or Family Care: No Living arrangements: with family Spiritual care concerns: No Meds Home Medications and Allergies Home Medications ?Medication ?Instructions ?Recorded ?Confirmed ?Type albuterol sulfate 90 mcg/actuation 1 inh inhalation Q4-6H PRN 01/28/19 01/28/24 Rx breath activated powder inhaler shortness of breath or wheezing #1 ea albuterol sulfate 90 mcg/actuation 2 puff inhalation Q4-6H PRN 04/30/19 01/28/24 Rx aerosol inhaler (ProAir HFA) shortness of breath or wheezing #18 grams pantoprazole 20 mg tablet,delayed 20 mg PO QAM 10/25/21 01/28/24 History release alprazolam 0.5 mg tablet 0.5 mg PO BID PRN Anxiety 11/14/23 01/28/24 History buspirone 7.5 mg tablet 7.5 mg PO BID 11/14/23 01/28/24 History inhalational spacing device #1 ea 11/14/23 01/28/24 Rx atenolol 25 mg tablet 50 mg PO BID 12/04/23 01/28/24 History allopurinol 300 mg tablet 300 mg PO DAILY 01/28/24 04/04/24 History bimekizumab-bkzx 160 mg/mL 160 mg subcut MONTHLY 01/28/24 04/04/24 History subcutaneous auto-injector (Bimzelx Autoinjector) budesonide-formoterol HFA 80 2 puff inhalation Q12H 01/28/24 04/04/24 History mcg-4.5 mcg/actuation aerosol inhaler (Symbicort) famotidine 40 mg tablet 40 mg PO DAILY 01/28/24 04/04/24 History folic acid 1 mg tablet 1 mg PO DAILY 01/28/24 04/04/24 History paroxetine HCl 20 mg tablet 20 mg PO DAILY 01/28/24 04/04/24 History atorvastatin 20 mg tablet See Rx Instructions .Route 01/30/24 04/04/24 Rx .COMPLEX #90 tabs metformin 500 mg tablet 500 mg PO BID 04/04/24 06/20/24 History oxycodone-acetaminophen 7.5 mg-325 1 tablet PO Q6H PRN pain 04/04/24 04/04/24 History mg tablet Allergies Allergy/AdvReac Type Severity Reaction Status Date / Time doxycycline Allergy Anaphylaxis Verified 07/01/24 13:10 Exam Const: General: comfortable and no acute distress HENMT: Face/Nose/Sinus: Normal nares present Eyes: General: appearance normal, both eyes and all related structures Neck: Neck: no JVD Resp: Auscultation: clear to auscultation bilaterally Cardio: Rate: regular rate Rhythm: regular rhythm GI: Inspection: non-distended GI Palp: Yes Soft to palpation Skin: General skin exam: normal color Neuro: General: gait normal Speech: normal speech Extrem: General: normal to inspection Psych: Mental Status: mental status grossly normal Assessment and Plan Assessment and plan (1) GERD (gastroesophageal reflux disease): Code(s): K21.9 - Gastro-esophageal reflux disease without esophagitis Status: Acute Assessment and Plan: egd with bx (2) Colon polyp: Code(s): K63.5 - Polyp of colon Status: Acute Assessment and Plan: colonoscopy
--- NOTE | 2024-07-01 14:12 | SUR.OPER ---
EGD [phone]. Colonoscopy start time 1411.
[2024-07-01 14:25] VITALS: BP 91/61; PULSE 75; RESP 17; O2SAT 95
[2024-07-01 14:35] VITALS: BP 88/58; PULSE 75; RESP 17; O2SAT 95
[2024-07-01 14:45] VITALS: BP 96/60; PULSE 68; RESP 17; O2SAT 96
[2024-07-01 14:55] VITALS: BP 93/60; PULSE 67; RESP 17; O2SAT 96
== END 2024-07-01 15:13 | disposition home or self-care (01) ==
PROVIDERS: PCP Family Medicine; Visit Provider Internal Medicine Gastroenterology
PROC: 0DJ08ZZ Inspection of Upper Intestinal Tract, Via Natural or Artificial Opening Endoscopic (ICD-10-PCS; CPT 45378; principal; 2024-07-01 14:00)
DX: Z12.11 Encounter for screening for malignant neoplasm of colon (principal); D12.2 Benign neoplasm of ascending colon; K64.8 Other hemorrhoids; K21.9 Gastro-esophageal reflux disease without esophagitis; G47.33 Obstructive sleep apnea (adult) (pediatric); E66.9 Obesity, unspecified; Z68.28 Body mass index [BMI] 28.0-28.9, adult; Z79.51 Long term (current) use of inhaled steroids; Z79.84 Long term (current) use of oral hypoglycemic drugs; Z79.891 Long term (current) use of opiate analgesic; D89.89 Other specified disorders involving the immune mechanism, not elsewhere classified; Z87.442 Personal history of urinary calculi; Z87.891 Personal history of nicotine dependence
CPT/HCPCS: 43239; 45385; 88305; J2003; J2371; J2704; J7120

== ENCOUNTER 2024-07-10 14:18 | Outpatient (RCR) | payer MEDICARE, MEDICAID, SELFPAY ==
--- NOTE | 2024-07-10 15:57 | OTOPEVDC ---
Assessment and note entered by Isiah Baez, OTR/L, CHT Evaluation Information Subjective Information Pt referred to our clinic for power w/c evaluation . He comes with dx of OA of the hips, idiopathic aseptic necrosis of R femur, OA knees, spondylosis w/o myelopathy, and osteonecrosis R and L femur. Please refer to 12 page seating/mobility evaluation form for details. Reported Pain Level Pain Score 8: Self Report Additional Pain Score Comments low back 4/10, chronic and continuous, up to 8/10 in the morning; left hip 2/10, chronic and continuous, up to 4/10 at times; right hip always a 5/10, chronic and continuous, up to 10/10 with flair ups, when meds have worn off, with prolonged standing; bilat knees 8/10 with activity and with flair ups, bilat ankles/feet/toes 6/10 with activity Assessment OT Clinical Summary Moustapha is unable to safely and independently ambulate household distances due to his current impairments of weakness, pain, fatigue, shortness of breath, limited standing tolerance, and decreased standing tolerance. He is at risk for falls due to his decreased standing balance. This patient demonstrates signification functional mobility limitations that impair his ability to safety participate in mobility-related ADLs. These limitations cannot be sufficiently resolved by the use of an appropriately fitted cane or walker. A manual wheelchair is not appropriate for this patient due to back pain, shortness of breath, and inability to propel with LEs. A scooter is not an appropriate option for this patient due to back/ hip pain and requiring increased back and trunk support as well as operating the tiller system could increase back pain. Due to the progressive nature of his condition (AVN of the right hip), a standard power wheelchair is the recommended equipment. A standard power w/c will provide this patient a safe means of functional mobility necessary for completion of ADLs. The recommended seating system will significantly improve his positioning and safety and decrease risk of falls. Patient is willing and able to use recommended equipment. Plan of Care OT Services Indicated No
== END 2024-07-11 11:24 | disposition home or self-care (01) ==
LOC: ANHGOSHOT 14:18
PROVIDERS: PCP Family Medicine
DX: Z46.89 Encounter for fitting and adjustment of other specified devices (principal); M16.0 Bilateral primary osteoarthritis of hip; M17.0 Bilateral primary osteoarthritis of knee; M25.551 Pain in right hip; M25.552 Pain in left hip; M47.816 Spondylosis without myelopathy or radiculopathy, lumbar region
CPT/HCPCS: 97167

== ENCOUNTER 2024-07-19 10:27 | Outpatient (RCR) | payer MEDICARE, MEDICAID, SELFPAY ==
[2024-05-05 16:41] LABS: Basophils Absolute Auto 0.1 K/mm3 (0.0-0.1); Basophils Percent Auto 0.4 % (0.2-1.2); Eosinophils Absolute Auto 0.1 K/mm3 (0-0.3); Eosinophils Percent Auto 1.1 % (0-4.4); Hematocrit 43.8 % (42.0-52.0); Hemoglobin 14.2 g/dL (14.0-18.0); Immature Granulocyte Absolute 0.04 K/mm3 (0.00-0.031); Immature Granulocyte Percent A 0.4 % (0-0.5); Lymphocytes Absolute Auto 2.44 K/mm3 (0.9-3.2); Lymphocytes Percent Auto 21.5 % (18.3-44.2); Mean Corpuscular HGB Conc 32.4 g/dl (32-36); Mean Corpuscular Hemoglobin 30.9 pg (26-34); Mean Corpuscular Volume 95.2 fl (80-100); Monocytes Absolute Auto 0.6 K/mm3 (0.1-0.6); Monocytes Percent Auto 4.9 % (2.6-8.5); Neutrophils Absolute Auto 8.1 K/mm3 (1.3-6.7); Neutrophils Percent Auto 71.7 % (45.5-73.1); Platelet Count Result 272 k/mm3 (150-375); Red Cell Distribution Width 13.3 % (11.5-14.5); White Blood Count 11.3 K/mm3 (4.5-10.0)
[2024-05-05 17:04] LABS: Alanine Aminotransferase 14 U/L (6-50); Albumin Level 4.5 g/dL (3.5-5.1); Alkaline Phosphatase 98 U/L (38-126); Anion Gap 12 mmol/L (4-12); Aspartate Amino Transferase 19 U/L (17-59); Bilirubin,Total 1.1 mg/dL (0.2-1.3); Blood Urea Nitrogen 12 mg/dL (9-20); Calcium 9.1 mg/dL (8.4-10.2); Carbon Dioxide 27 mmol/L (22-30); Chloride 100 mmol/L (98-107); Estimated Glomerular Filt Rate > 60; Glucose 98 mg/dL (65-110); Potassium 4.5 mmol/L (3.4-5.0); Sodium 139 mmol/L (137-145)
[2024-05-27 17:27] LABS: Basophils Absolute Auto 0.1 K/mm3 (0.0-0.1); Basophils Percent Auto 0.8 % (0.2-1.2); Eosinophils Absolute Auto 0.2 K/mm3 (0-0.3); Eosinophils Percent Auto 3.2 % (0-4.4); Hematocrit 43.6 % (42.0-52.0); Immature Granulocyte Absolute 0.01 K/mm3 (0.00-0.031); Immature Granulocyte Percent A 0.2 % (0-0.5); Lymphocytes Absolute Auto 3.12 K/mm3 (0.9-3.2); Lymphocytes Percent Auto 47.7 % (18.3-44.2); Mean Corpuscular HGB Conc 32.1 g/dl (32-36); Mean Corpuscular Hemoglobin 30.8 pg (26-34); Mean Platelet Volume 9.3 fl (7.4-10.4); Monocytes Absolute Auto 0.5 K/mm3 (0.1-0.6); Monocytes Percent Auto 7.3 % (2.6-8.5); Neutrophils Absolute Auto 2.7 K/mm3 (1.3-6.7); Neutrophils Percent Auto 40.8 % (45.5-73.1); Platelet Count Result 214 k/mm3 (150-375); Red Blood Count 4.54 M/mm3 (4.6-6.20); Red Cell Distribution Width 13.2 % (11.5-14.5); White Blood Count 6.5 K/mm3 (4.5-10.0)
[2024-05-27 17:36] LABS: Alanine Aminotransferase 22 U/L (6-50); Albumin Level 4.5 g/dL (3.5-5.1); Alkaline Phosphatase 87 U/L (38-126); Anion Gap 8 mmol/L (4-12); Aspartate Amino Transferase 20 U/L (17-59); Bilirubin,Total 0.8 mg/dL (0.2-1.3); Blood Urea Nitrogen 11 mg/dL (9-20); Calcium 8.7 mg/dL (8.4-10.2); Carbon Dioxide 27 mmol/L (22-30); Chloride 102 mmol/L (98-107); Estimated Glomerular Filt Rate > 60; Glucose 88 mg/dL (65-110); Potassium 4.3 mmol/L (3.4-5.0); Sodium 137 mmol/L (137-145)
[2024-07-19 10:49] LABS: Basophils Absolute Auto 0.1 K/mm3 (0.0-0.1); Basophils Percent Auto 0.8 % (0.2-1.2); Eosinophils Absolute Auto 0.3 K/mm3 (0-0.3); Eosinophils Percent Auto 3.7 % (0-4.4); Hematocrit 46.3 % (42.0-52.0); Immature Granulocyte Absolute 0.01 K/mm3 (0.00-0.031); Immature Granulocyte Percent A 0.1 % (0-0.5); Lymphocytes Absolute Auto 2.66 K/mm3 (0.9-3.2); Lymphocytes Percent Auto 36.3 % (18.3-44.2); Mean Corpuscular HGB Conc 32.4 g/dl (32-36); Mean Corpuscular Hemoglobin 30.7 pg (26-34); Mean Corpuscular Volume 94.7 fl (80-100); Mean Platelet Volume 8.6 fl (7.4-10.4); Monocytes Absolute Auto 0.5 K/mm3 (0.1-0.6); Monocytes Percent Auto 7.1 % (2.6-8.5); Neutrophils Absolute Auto 3.8 K/mm3 (1.3-6.7); Platelet Count Result 228 k/mm3 (150-375); Red Blood Count 4.89 M/mm3 (4.6-6.20); Red Cell Distribution Width 14.7 % (11.5-14.5); White Blood Count 7.3 K/mm3 (4.5-10.0)
[2024-07-19 11:07] LABS: Alanine Aminotransferase 21 U/L (6-50); Albumin Level 4.5 g/dL (3.5-5.1); Alkaline Phosphatase 89 U/L (38-126); Anion Gap 8 mmol/L (4-12); Aspartate Amino Transferase 26 U/L (17-59); Blood Urea Nitrogen 11 mg/dL (9-20); Calcium 9.3 mg/dL (8.4-10.2); Carbon Dioxide 26 mmol/L (22-30); Chloride 104 mmol/L (98-107); Estimated Glomerular Filt Rate > 60; Glucose 106 mg/dL (65-110); Potassium 4.1 mmol/L (3.4-5.0); Sodium 138 mmol/L (137-145)
== END 2024-08-03 23:59 | disposition home or self-care (01) ==
LOC: ANHLAB 10:27
PROVIDERS: PCP Family Medicine
DX: Z51.81 Encounter for therapeutic drug level monitoring (principal); Z79.899 Other long term (current) drug therapy
CPT/HCPCS: 36415; 80053; 85025

== ENCOUNTER 2024-09-04 11:35 | Outpatient (CLI) | payer MEDICARE, MEDICAID, SELFPAY ==
--- OUTSIDE RECORDS SUMMARY | 2024-09-04 11:45 | XMS_ITS | Clinical Summary ---
Author Organization [facility] Address [address] [place] [address] Care Team Providers Care Nurse Ortho Name Role Phone Yoel Youssef MD Primary Care Provider [phone] Allergies Active Allergy Reactions Criticality Noted Date [...] 06/2019 Tobacco abuse 09/24/2019 Ectopic beats 09/24/2019 Encounters Date Type Department Care Team Description 09/04/2024 Orders Only [facility] Cardiology [address] [place] [id number] Provider, MD Alo from Last 3 Months Surgical History Surgery [...] on file 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 Gender Identity Not on file Sexual Orientation Not on file Obstetrics History Last Filed Vital Signs Vital Sign Reading Time Taken Comments Blood Pressure 94/65 03/11/2024 11:17 AM ASSISTANT FOOD SERVICE DIRECTOR Pulse 76 03/11/2024 11:17 AM ASSISTANT FOOD SERVICE DIRECTOR Temperature 36 C (96.8 F) 12/26/2023 11:10 AM ASSISTANT FOOD SERVICE DIRECTOR Respiratory Rate 18 01/29/2024 10:24 AM ASSISTANT FOOD SERVICE DIRECTOR Oxygen Saturation 94% 03/11/2024 11:17 AM ASSISTANT FOOD SERVICE DIRECTOR Inhaled Oxygen Concentration - - Weight 103.4 kg (228 lb) 03/11/2024 11:17 AM ASSISTANT FOOD SERVICE DIRECTOR Height 182.9 cm (6') 03/11/2024 11:17 AM ASSISTANT FOOD SERVICE DIRECTOR Body Mass Index 30.92 03/11/2024 11:17 AM ASSISTANT FOOD SERVICE DIRECTOR Plan of Treatment Health Maintenance Due Date [...] Lipid Panel 07/29/2022 07/29/2021, 09/05/2018 Influenza Vaccine (#1) 2024 Prostate Cancer Screening-PSA 06/17/2025 06/18/2023 Medical Devices Implanted Type Area Police Communications Dispatcher Device Identifier Shelf Expiration Date Model / Serial / Lot [employer] Lead Neurostimulator Sleep Apnea Thoracic Permanent Respiratory Sensing Inspire 43cm 4340 - [id number] - [id number] Implanted:Qty: 1 on 12/26/2023 by May Edwards MD at [facility] Lead Right: Chest [employer] 08/28/2026 4340 / [id number] / [employer] Inspire 3 Electrode Cuff Tunnel Victorino Lead Neurostimulator Sterile 4063 - [id number] - [id number] Implanted:Qty: 1 on 12/26/2023 by May Edwards MD at [facility] Lead Right: Neck [employer] 03/05/2026 4063 / [id number] / [employer] Inspire Generator 3028 - [id number] - [id number] Implanted:Qty: 1 on 12/26/2023 by May Edwards MD at [facility] Lead Right: Chest [employer] 07/29/2026 3028 / [id number] / Procedures Procedure Name Priority Date/Time [...] data last revised 21. Testing performed by: [facility], [address] [place] [address]., [id number] Blood 06/18/2023 11:2 7 AM CDT 06/18/2023 1:56 PM CDT Loree Luna [facility] BLOOD ORDERABLES F inal Result [facility] [address] [facility] Department of Laboratories [place], [place] [id number] from Last 3 Months or Most Recently Relevant to Health Maintenance Insurance [facility]IC[facility] ADVANTAGE Care Teams Nurse Ortho Relationship Specialty Start Date End Date Yoel Youssef MD [address] [place] [id number] PCP - General Family Medicine 09/04/23
--- OUTSIDE RECORDS SUMMARY | 2024-09-04 11:45 | XMS_ITS | Clinical Summary ---
Author Organization [facility] [employer] Address [address] [place] [address] Care Team Providers Care Academic Intern Name Role Phone Yoel Youssef MD Primary Care Provider [phone] Source Comments [facility],non-owned Affiliates and Associated Physician Practices is amultiple site organization consisting of ambulatory clinics and hospital sitesin [place], [place], [place] and [place]. This disclosure is being madepursuant to the Care Everywhere program and may not contain all information available regarding this patient. Last updated 17.[facility] [employer] Allergies Active Allergy Reactions Criticality Noted Date [...] by mouth once daily 05/10/19 25 Active allopurinol (Zyloprim) 300 MG tabletIndicati ons:Gout Take 1 (one) tablet by mouth once daily Reasons: Gout 90 tablet 3 05/30/19 25 026 Active Bimekizumab-bk zx (Bimzelx) 320 MG/2ML SOAJIndication [...] 2 mL 4 06/20/19 25 026 Active Methotrexate Sodium (methotrexate, PF,) 50 MG/2ML injectionIndic ations:Psorias is,Psoriatic Arthritis Inject 0.7 mL subcutaneously every 7 days (once a week) Reasons: Psoriasis, Psoriasis associated with Arthritis 10 mL 3 08/05/19 25 026 Active folic acid (Folvite) 1 MG tabletIndicati ons:Other psoriasis Take 1 (one) tablet by mouth once daily 90 tablet 3 08/05/19 25 Active TUBERCULIN SYR 1CC/25GX5/8 25G X 5/8 1 ML MISC Use 1 Each every 7 days (once a week) For weekly methotrexate subcutaneous injection. 100 Each 1 08/05/19 25 Active vitamin D, ergocalciferol , (Drisdol) 1.25 MG (52941 UT) capsuleIndicat ions:Vitamin D Deficiency Take 1 (one) capsule by mouth every 7 days for 12 doses Reasons: Vitamin D Deficiency 12 capsule 06/01/19 25 025 Active Problems Problem Noted Date Diagnosed Date [...] Encounters Date Type Department Care Team Description 08/29/2024 Orders Only [facility] - Rheumatology [address] [place] [phone] Charles Billy MD Psoriatic arthritis (HCC); Other psoriasis; Therapeutic drug monitoring; Immunosuppression due to drug therapy (HCC) 08/04/2024 10:20 AM CDT Office Visit [facility] - Rheumatology [address] [place] [phone] Charles Billy MD Psoriatic arthritis (HCC) (Primary Dx); Other psoriasis; Therapeutic drug monitoring; Immunosuppression due to drug therapy (HCC) 08/04/2024 Travel 07/16/2024 Travel 07/04/2024 1:30 PM CDT Office Visit [facility] - Orthopedic Surgery [address] [place] [phone] Gil Shen MD Avascular necrosis of femoral head, left (HCC) (Primary Dx); Avascular necrosis of femoral head, right (HCC); Psoriatic arthritis (HCC); Chronic inflammatory arthritis 07/04/2024 1:28 PM CDT - 07/04/2024 11:59 PM CDT Hospital Encounter [facility] - Orthopedics [address], [address] [place] [address] Gil Shen MD Discharge Disposition: Home or Self Care 07/04/2024 Travel 06/19/2024 Orders Only [facility] - Dermatology [address] [place] [address], [place] [address] Ilana Pulido MD Psoriatic arthritis (HCC); Other psoriasis 06/16/2024 Telephone [facility] - Rheumatology [address] [place] [address], [place] [address] Charles Billy MD Med Question 06/06/2024 Telephone [facility] - Rheumatology [address] [place] [address], [place] [address] Charles Billy MD Follow-up from Last 3 Months Family [...] Smokeless Tobacco: Former Snuff Tobacco Cessation:Counseling Given: Not Answered Alcohol Use [...] Answer Date Recorded Patient Health Questionnaire-2 Score 6 07/04/2024 [facility] - Occupational [...] place to sleep or slept in a snf (including now)? No 11/27/2022 Education Answer Date Recorded What is the highest level of school you have completed or the highest degree you have received? 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 Gender Identity Male 11/27/2022 11:38 AM CDT Sexual Orientation Straight 11/27/2022 11 :38 AM CDT Last Filed Vital Signs Vital Sign Reading Time Taken Comments Blood Pressure 103/67 08/04/2024 10:13 AM CDT Pulse 73 08/04/2024 10:13 AM CDT Temperature 36.1 C (96.9 F) 08/04/2024 10:13 AM CDT Respiratory Rate 16 08/29/2023 8:37 AM CDT Oxygen Saturation 95% 08/29/2023 8:37 AM CDT Inhaled Oxygen Concentration - - Weight 96.4 kg (212 lb 9.6 oz) 08/04/2024 10:13 AM CDT Height 182.9 cm (6' 0.01) 08/04/2024 10:13 AM C DT Body Mass Index 28.83 08/04/2024 10:13 AM CDT Plan of Treatment Upcoming Encounters Date Type Department Care Team (Late st Contact Info) Description 2024 9:30 AM CDT Office Visit [facility] - Orthopedic Surgery [address] [place] [phone] Sp Saldivar D, DO [address] [address] 10/10/2024 3:00 PM CDT Office Visit [facility] - Internal Med [address] [place] [phone] Ilana Pulido MD [address] [place] [address] 3 [place] [phone] Yang Rodriguez MD [address] [place] [phone] 02/02/2025 9:40 AM TRANSFORMER MAKER Office Visit [facility] - Rheumatology [address] [place] [phone] Charles Billy MD [address] [place] [phone] Health Maintenance Due Date Last Done Comments [...] MEDICARE AWV CALENDAR YEAR 2024 INFLUENZA VACCINE (#1) 2024 DIABETES-HGB A1C 11/29/2024 05/30/2024, 11/2021, 06/27/2021, [...] this topic Medical Devices Implanted Type Area Gear Setter Device Identifier Shelf Expiration Date Model / Serial / Lot Pro-Dense Core Decompression Procedure Kit Implanted:Qty: 1 on 05/18/2020 by Gil Shen MD at [facility] Left: Hip [employer] 04/15/2023 [id number] / / [id number] Description:KATHY Pro-Dense Core Decompression Procedure Kit Implanted:Qty: 1 on 05/18/2020 by Gil Shen MD at [facility] Right: Hip [employer] 04/15/2023 [id number] / / [id number] Description:fc Procedures Procedure Name Priority Date/Time Associated Diagnosis Comments XR PELVIS W BILAT HIP 1VW Routine 07/04/2024 1:40 PM CDT Avascular necrosis of femoral head, left (HCC) Avascular necrosis of femoral head, right (HCC) COMPREHENSIVE METABOLIC PANEL Routine 05/30/2024 10:26 AM [...] cause, unspecified chronicity, unspecified site Hypovitaminosis D HEMOGLOBIN A1C Routine 05/30/2024 10:26 AM CDT Psoriatic arthritis (HCC) Other psoriasis Therapeutic drug monitoring Immunosuppression due to drug therapy (HCC) Need for hepatitis B screening test Need for hepatitis C screening test Screening for tuberculosis Polyarthralgia Bilateral hip osteonecrosis (HCC) Chronic gout of multiple sites, unspecified cause Gout, unspecified cause, unspecified chronicity, unspecified site Hypovitaminosis D MICROALB/CREAT RATIO URINE RANDOM PANEL Routine 05/20/2021 8:56 AM CDT Type 2 diabetes mellitus without complication, without long-term current use of insulin HIV-1 HIV-2 ANTIBODY + HIV P24 AG PANEL Routine 05/20/2021 8:56 AM CDT Healthcare maintenance from Last 3 Months or Most Recently Relevant to Health Maintenance Results * XR Pelvis W Bilat Hip 1Vw (07/04/2024 1:40 PM CDT) Anatomical Region Laterality Modality Pelvis Radiographic Tamika ging 07/04/2024 2:01 PM CDT Impressions 07/04/2024 2:03 PM CDT IMPRESSION: As above. > Interpreting Provider: Neno Rivas MD on 07/04/2024 2:03 PM Narrative 07/04/2024 2:03 PM CDT PROCEDURE: XR PELVIS W BILAT HIP 1VW DATE/TIME OF EXAM: 07/04/2024 1:40 PM CLINICAL INFORMATION: None relevant/not provided if blank. 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 Sclerosis and subchondral lucency in right femoral head with articular surface irregularity has increased, suggesting avascular necrosis. Mild to moderate right greater than left osteoarthritis. No acute fracture is identified. Procedure Note Neno Rivas MD - 07/04/2024 PROCEDURE: XR PELVIS W BILAT HIP 1VW DATE/TIME OF EXAM: 07/04/2024 1:40 PM CLINICAL INFORMATION: None relevant/not provided if blank. 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 Sclerosis and subchondral lucency in right femoral head with articular surface irregularity has increased, suggesting avascular necrosis. Mildto moderate right greater than left osteoarthritis. No acute fracture is identified. IMPRESSION: As above. > Interpreting Provider: eNno Rivas MD on 07/04/2024 2:03 PM Gil Shen MD DIAGNOSTIC IMAGING ORDERAB LES Final Result * HEMOGLOBIN A1C (05/30/2024 10:26 AM CDT) Hemoglobin A1c 5.5 <=5.6 % 05/30/2024 3:57 PM T [facility] Estimated Average Glucose 111 mg/dL 05/30/2024 3:57 PM T [facility] Comment: HbA1c Interpretation: Normal : < 5.7% Pre-diabetes: 5.7-6.4% Diabetes: Equal to or greater than 6.5% Test results diagnostic of diabetes should be repeated for confirmation. Treatment target values recommended by ADA and other clinical organizations should be used to evaluate metabolic control in patients. Reference: [place] Diabetes Association, Standards of Care in Diabetes [...] MD LAB - CHEMISTRY ORDERABLES Final Result [facility] [address] [place] [phone], [facility] [phone] * (ABNORMAL) COMPREHENSIVE METABOLIC PANEL (05/30/2024 10:26 AM CDT) BUN 9 7 - 26 mg/dL 05/30/2024 11:15 AM CDT [facility] Creatinine 0.98 0.71 - 1.16 mg/dL 05/30/2024 11:15 AM CDT [facility] Sodium 138 136 - 145 mmol/L 05/30/2024 11:15 AM T [facility] Potassium 4.1 3.5 - 4.5 mmol/L 05/30/2024 11:15 AM [facility] Chloride 105 98 - 107 mmol/L 05/30/2024 11:15 AM [facility] CO2 23 22 - 29 mmol/L 05/30/2024 11:15 AM [facility] Glucose 102(H) 70 - 99 mg/dL 05/30/2024 11:15 AM [facility] Calcium 9.4 8.4 - 10.2 mg/dL 05/30/2024 11:15 AM [facility] Protein Total 7.1 6.0 - 8.3 g/dL 05/30/2024 11:15 AM [facility] Albumin 4.3 3.4 - 5.0 g/dL 05/30/2024 11:15 AM [facility] Bilirubin Total 0.9 0.2 - 1.2 mg/dL 05/30/2024 11:15 AM [facility] Alkaline Phosphatase 81 40 - 150 U/L 05/30/2024 11:15 AM [facility] ALT 18 5 - 55 U/L 05/30/2024 11:15 AM [facility] AST 15 5 - 34 U/L 05/30/2024 11:15 AM [facility] Anion Gap 10 6 - 16 05/30/2024 11:15 AM [facility] BUN/Creatinine Ratio 9 7 - 23 05/30/2024 11:15 AM [facility] Osmolality Calculated 285 275 - 295 mOsm/kg 05/30/2024 11:15 AM [facility] Albumin/Globulin Ratio 1.5 1.1 - 2.3 05/30/2024 11:15 AM [facility] eGFR by CKD-EPI >90 >=90 mL/min/1.7 3 m2 05/30/2024 11:15 AM [facility] Blood BLOOD SPECIMEN / Unknown Lab Venipuncture / Unknown 05/30/2024 10:26 AM CDT 05/30/2024 10:43 AM T Charles Billy MD LAB - CHEMISTRY ORDERABLES Final Result [address] [address], [facility] [phone] * HEPATITIS C ANTIBODY (05/30/2024 10:26 AM CDT) [facility] Hepatitis C Antibody Non-react miguel Non-reac tive 05/30/2024 11:30 AM CDT [facility] Comment:Hepatitis C Antibody screen indicates no serologic [...] CHEMISTRY ORDERABLES Final Result Performing Organization Address [facility] Co de Phone Number [address] [phone], [facility] [phone] * HIV-1 HIV-2 ANTIBODY + HIV P24 AG PANEL (05/20/2021 8:56 AM CDT) [facility] HIV Antigen/Antibod y 1 & 2 Non-reacti ve Non-react miguel 05/20/2021 9:53 AM CDT [facility] Comment:No Laboratory eviden ce of HIV infection. Blood BLOOD SPECIMEN / Unknown Lab Venipuncture / Unknown 05/20/2021 8:56 AM CDT 05/20/2021 9:09 AM CDT Michelle Pacheco APRN-TURKEY CLEANER LAB - CHEMISTRY ORDERABLES Final Result Performing Organization Address [facility]/ZIP Co de Phone Number [address] [address], [facility] [phone] * MICROALB/CREAT RATIO URINE RANDOM PANEL (05/20/2021 8:56 AM CDT) [facility] Albumin Random Urine 20.5 Not Established ug/mL 05/20/2021 9:35 AM CDT [facility] Creatinine Urine 293 Not Established mg/dL 05/20/2021 9:35 AM CDT [facility] Urine Albumin/Creati nine Ratio 7 <30 mg/g 05/20/2021 9:35 AM CDT [facility] Urine URINE SPECIMEN OBTAINED BY CLEAN CATCH PROCEDURE / Unknown Collection / Unknown 05/20/2021 8:56 AM CDT 05/20/2021 9:09 AM CDT us Michelle Pacheco FOOD SERVICE ASSISTANT-TURKEY CLEANER LAB - URINE CHEMISTRY ORDE IMANI Final Result [facility] [address] [place] [address], [facility] [phone] from Last 3 Months or Most Recently Relevant to Health Maintenance Insurance [address] [place] [id number] [facility] MANAGED MEDICARE ADV Advance Directives * Full Code (Latest Code Status on File) Date Activated Date Inactivated Comments 05/18/2020 1:50 PM 05/19/2020 3:43 PM Care Teams Academic Intern Relationship Specialty Start Date End Date Yoel Youssef MD [address] [place] [address] PCP - General Family Medicine 07/04/24
--- OUTSIDE RECORDS SUMMARY | 2024-09-04 11:45 | XMS_ITS | Encounter Summary ---
Author Organization [facility] Address [facility] [facility] [place] [address] Care Team Providers Care Teller Head Name Role Phone Osmar Tatum MD Primary Care Provider [phone] Suyapa Velazquez MD Primary Care Provider [phone] Lorraine Pena DYE BOX OPERATOR-STITCH BONDING MACHINE TENDER HELPER Primary Care Provider Michelle Pacheco DYE BOX OPERATOR-STITCH BONDING MACHINE TENDER HELPER Primary Care Provider [phone] Yoel Youssef MD Primary Care Provider Encounter Details Date Type Department Care Team (Late st Contact Info) Description 01/19/2020 Telephone [facility] [address] [place] [address] Samantha Kearns MD [address] [place] [address] Social History Tobacco Use Types Packs/Day Years Used Date Smoking Tobacco: Former Cigarettes Smokeless Tobacco: Never Comments:Stopped 60 days ago ! yay! Alcohol Use Standard Drinks/Week Comments Not Currently 0 (1 standard drink = 0.6 oz pur e alcohol) once a year Sex and Gender Information Value Date Recorded Sex Assigned at Male 11/27/2022 11:38 AM CDT Legal Sex Male 5:42 PM LABOR RELATIONS SPECIALIST Gender Identity Male 11/27/2022 11:38 AM CDT Sexual Orientation Straight 11/27/2022 11 :38 AM CDT COVID-19 Exposure Response Date Recorded In the last month, have you been in contact with someone who was confirmed or suspected to have Coronavirus / COVID-19? No / Unsure 01/07/2020 4:44 PM LABOR RELATIONS SPECIALIST documented as of this encounter Miscellaneous Notes * Telephone Encounter - Toribio Gretta - 01/19/2020 4:15 PM CST Current Provider [...] Back number: His Mrs. Delfina Gonzalez's Phone R RELATIONS SPECIALIST documented in this encounter Plan of Treatment Upcoming Encounters Date Type Department Care Team (Late st Contact Info) Description 2024 9:30 AM CDT Office Visit [facility] - Orthopedic Surgery [address] [place] [phone] Sp Saldivar, [address] [address] 10/10/2024 3:00 PM CDT Office Visit [facility] - Internal Med [address] [place] [address], [place] [phone] Ilana Pulido MD [address] [place] [address] [address] [place] [phone] Yang Rodriguez MD [address] [place] [phone] 02/02/2025 9:40 AM LABOR RELATIONS SPECIALIST Office Visit [facility] - Rheumatology [address] [place] [phone] Charles Billy MD [address] [place] [address] documented as of this encounter Visit Diagnoses Not on filedocumented in this encounter Care Teams Teller Head Relationship Specialty Start Date End Date Osmar Tatum MD PCP - General 04/12/16 05/10/20 Suyapa Velazquez MD [address] [place] [address] PCP - General Family Medicine 05/11/20 10/31/20 Lorraine Pena, DYE BOX OPERATOR-STITCH BONDING MACHINE TENDER HELPER [address] [facility] [address] [place] [phone] PCP - General 11/01/20 01/30/21 Michelle Pacheco, DYE BOX OPERATOR-STITCH BONDING MACHINE TENDER HELPER [address] [place] [address] PCP - General 01/31/21 07/03/24 Yole Youssef MD [address] [place] [address] PCP - General Family Medicine 07/04/24 documented as of this encounter
--- OUTSIDE RECORDS SUMMARY | 2024-09-04 11:45 | XMS_ITS | Encounter Summary ---
Author Organization [facility] Address [address] [facility] [place] [address] Care Team Providers Care Store Management Trainee Name Role Phone Michelle Pacheco Ana ALEJANDRO-BILLET BED OPERATOR Primary Care Provider [phone] Yoel Youssef MD Primary Care Provider [phone] Reason for Visit * Reason Onset Date Comments Patient Requested Call 05/05/2024 Encounter Details Date Type Department Care Team (Late st Contact Info) Description 05/05/2024 Telephone [facility] - Centralized Scheduling [address] [place] [address] Ilana Pulido MD [address] [facility] 3 [place] [address] Patient Requested Call Social History [...] Recorded Patient Health Questionnaire-2 Score 3 11/27/2022 [facility] [place] of Occupat ional Health - Occupational Stress [...] AM CDT Legal Sex Male 5:42 PM HARBOR PATROL POLICE Gender Identity Male 11/27/2022 11:38 AM CDT Sexual Orientation Straight 11/27/2022 11 :38 AM CDT documented as of this encounter Functional Status * Is person deaf or have serious hearing difficulty? Answer Date of Assessment Author No 05/18/2020 2:00 PM CDT Kisha Woodard, ANGEL * Is person blind or have serious [...] Woodard, ANGEL * Does person have difficulty doing errands [...] he was driving at the time. CB# [phone] * Telephone Encounter - Katiuska Mai - 05/05/2024 3:31 PM CDT Patient is requesting lab orders be sent to [facility] [phone] documented in this encounter Plan of Treatment Upcoming Encounters Date Type Department Care Team (Late st Contact Info) Description 2024 9:30 AM CDT Office Visit [facility] - Orthopedic Surgery [address] [place] [phone] Sp Saldivar, DO [address] [address] 10/10/2024 3:00 PM CDT Office Visit [facility] - Internal Med [address] [facility] [place] [phone] [place] [address] [place] [address] [address] [place] [phone] Yang Rodriguez MD [address] [place] [address] 02/02/2025 9:40 AM HARBOR [employer]ICE Office Visit [facility] - Rheumatology [address] [place] [address], [place] [phone] Charles Billy MD [address] [place] [phone] documented as of this encounter Visit Diagnoses Not on filedocumented in this encounter Care Teams Store Management Trainee Relationship Specialty Start Date End Date Michelle Pacheco, NEEDLEMAKER-BILLET BED OPERATOR [address] [place] [phone] PCP - General 01/31/21 07/03/24 Yoel Youssef MD [address] [place] [address] PCP - General Family Medicine 07/04/24 documented as of this encounter
--- OUTSIDE RECORDS SUMMARY | 2024-09-04 11:45 | XMS_ITS | Clinical Summary ---
Author Organization [facility] Address [address] [place] [address] Care Team Providers Care Edge Trimmer Mechanic Name Role Phone Yoel Youssef MD Primary Care Provider [phone] Allergies Active Allergy Reactions Criticality Noted Date [...] Type 2 diabetes mellitus wit hout complications ([facility]) 08/17/2017 Palpitations Immunizations Immunization Administration Dates Next Due Afluria 36 MONTHS+ (Prefille d Syringe IIV4) 02/08/2019(Deferred: Patient/family declined) Family History Medical History Relation Comments Hypertension Father NV Maternal Grandfather Cancer Maternal Grandmother Hypertension Mother NV Mother Relation Status Comments Father (Age 65) [...] Kidney Health Evaluation 1971 Annual Physical 09/18/1974 Diabetes: Retinopathy Eye Exam 09/18/1989 DTaP, Tdap and Td Vaccines (1 - Tdap) 09/18/1990 Hepatitis B Vaccines (1 of 3 - 19+ 3-dose series) 09/18/1990 Pneumococcal Vaccine: 50+ Years (1 of 2 - PCV) 09/18/1990 Zoster Vaccines (1 of 2) 09/18/2021 Hemoglobin A1C 01/28/2022 07/29/2021, 050 10/2021, 05/20/2021, Additional history exists Lipid Panel 07/29/2022 07/29/2021, 050 10/2021, 05/20/2021, Additional history exists COVID-19 Vaccine [...] Comments HEMOGLOBIN, GLYCOSYLATED Routine 03/18/2019 4:36 PM INSULATION CUTTER Acute dermatitis LIPID PANEL Routine 09/05/2018 4:11 PM CDT Type 2 diabetes mellitus without complication, without long-term current use of insulin from Last 3 Months or Most Recently Relevant to Health Maintenance Results * (ABNORMAL) HEMOGLOBIN, GLYCOSYLATED (03/18/2019 4:36 PM INSULATION CUTTER) HGB A1C 6.1(H) <5.7 % 03/19/2019 1:20 PM INSULATION CUTTER [facility] Comment: ADA GUIDELINES 2010 5.7 TO 6.4% INCREASED RISK OF DIABETES > OR = 6.5% CONSISTENT WITH DIABETES [place] [address] 03/18/2019 4:36 PM INSULATION CUTTER us Osmar Tatum MD LABORATORY Final Result [facility] [address] [place] [address], [place] [phone] * (ABNORMAL) LIPID PANEL (09/05/2018 4:11 PM CDT) CHOLESTEROL 205(H) <200 MG/DL 09/05/2018 6:06 PM CDT [facility] TRIGLYCERIDES 124 <150 MG/DL 09/05/2018 6:06 PM CDT [facility] HDL 42 >40.0 MG/DL 09/05/2018 6:06 PM CDT [facility] LDL (CALCULATED) 138(H) <100 MG/DL 09/05/2018 6:06 PM CDT [facility] NON HDL CHOLESTEROL 163(H) <130 MG/DL 09/05/2018 6:06 PM CDT [facility] Comment: NOTE: WHEN THE TRIGLYCERIDES ARE >200 mg/dL, NON HDL C IS A SECONDARY TARGET OF THERAPY, WITH A GOAL 30 mg/dL HIGHER THAN THE IDENTIFIED LDL C GOAL. CHOL/HDL RATIO 4.9(H) 0.0 - 4.5 09/05/2018 6:06 PM CDT [facility] VLDL CALCULATION 25 5 - 55 MG/DL 09/05/2018 6:06 PM CDT [facility] LIPID INTERPRETATION 09/05/2018 6:06 PM CDT [facility] Comment: NIH CONCENSUS REPORT RECOMMENDATIONS: ADULT CHILD LOW RISK: CHOLESTEROL <200 <170 TRIGLYCERIDE <150 --- HDL >=60 --- LDL <100 <110 BORDERLINE: CHOLESTEROL 200-239 170-199 TRIGLYCERIDE 150-199 --- HDL 40-59 --- LDL 100-159 110-129 HIGH RISK: CHOLESTEROL >=240 >=200 TRIGLYCERIDE >=200 --- HDL <40 --- LDL >=160 >=130 09/05/2018 4:11 PM CDT Osmar Tatum MD LABORATORY Final Result [facility] [address] [place] [address], from Last 3 Months or Most Recently Relevant to Health Maintenance Insurance [facility] Advance Directives Documents on File Type Date Recorded Patient Oracle Financial Application Developer Expl anation DNR (Do Not Resuscitate) Documentation [...] 11:15 AM 02/08/2019 1:35 PM Care Teams Edge Trimmer Mechanic Relationship Specialty Start Date End Date Yoel Youssef MD [address] [place] [address] PCP - General FAMILY PRACTICE 10/10/21
--- OUTSIDE RECORDS SUMMARY | 2024-09-04 11:45 | XMS_ITS | Referral Summary ---
Author Organization [facility] Address [address] [place] [address] Care Team Providers Care Anesthesia Resident Name Role Phone Yoel Youssef MD Primary Care Provider [phone] Encounters Date Type Department Care Team Description 09/04/2024 Orders Only [facility] Medical Group Cardiology [address] [place] [address] ProviderAlo MD from Last 3 Months Allergies Active Allergy [...] exertion 09/24/2019 Obesity (BMI 35.0-39.9 without comorbidity) 0806/2019 Tobacco abuse 09/24/2019 Ectopic beats 09/24/2019 Social [...] on file Legal Sex Male 10:10 AM DIRECTOR BLOOD BANK Gender Identity Not on file Sexual Orientation Not on file Last Filed Vital Signs Vital Sign Reading Time Taken Comments Blood Pressure 94/65 03/11/2024 11:17 AM DIRECTOR BLOOD BANK Pulse 76 03/11/2024 11:17 AM DIRECTOR BLOOD BANK Temperature 36 C (96.8 F) 12/26/2023 11:10 AM DIRECTOR BLOOD BANK Respiratory Rate 18 01/29/2024 10:24 AM DIRECTOR BLOOD BANK Oxygen Saturation 94% 03/11/2024 11:17 AM DIRECTOR BLOOD BANK Inhaled Oxygen Concentration - - Weight 103.4 kg (228 lb) 03/11/2024 11:17 AM DIRECTOR BLOOD BANK Height 182.9 cm (6') 03/11/2024 11:17 AM DIRECTOR BLOOD BANK Body Mass Index 30.92 03/11/2024 11:17 AM DIRECTOR BLOOD BANK Plan of Treatment Not on file Medical Devices Implanted Type Area Lead Coater Device Identifier Shelf Expiration Date Model / Serial / Lot [employer] Lead Neurostimulator Sleep Apnea Thoracic Permanent Respiratory Sensing Inspire 43cm 4340 - [id number] - [id number] Implanted:Qty: 1 on 12/26/2023 by May Edwards MD at [facility] Lead Right: Chest [employer] 08/28/2026 4340 / [id number] / [employer] Inspire 3 Electrode Cuff Tunnel Victorino Lead Neurostimulator Sterile 4063 - [id number] - [id number] Implanted:Qty: 1 on 12/26/2023 by May Edwards MD at [facility] Lead Right: Neck [employer] 03/05/2026 4063 / [id number] / [employer] Inspire Generator 3028 - [id number] - [id number] Implanted:Qty: 1 on 12/26/2023 by May Edwards MD at [facility] Lead Right: Chest [employer] 07/29/2026 3028 / [id number] / Procedures Procedure Name Priority Date/Time [...] last revised 21. Testing performed by: [facility], [address] [place] [address]., [address] Blood 06/18/2023 11:2 7 AM CDT 06/18/2023 1:56 PM CDT Loree Luna DNP LAB BLOOD ORDERABLES F inal Result [facility] [address] [facility] [place] [address] from Last 3 Months or Most Recently Relevant to Health Maintenance Insurance [id number] [place] [id number] Care Teams Anesthesia Resident Relationship Specialty Start Date End Date Yoel Youssef MD [address] [place] [address] PCP - General Family Medicine 09/04/23
--- OUTSIDE RECORDS SUMMARY | 2024-09-04 11:45 | XMS_ITS | Encounter Summary ---
Author Organization [facility] Address [address] [place] [address] Care Team Providers Care Security Associate Name Role Phone Suyapa Velazquez MD Primary Care Provider [phone] Lorraine Pena HUMAN GEOGRAPHY INSTRUCTOR-FRUCTOSE LOADER Primary Care Provider Michelle Pacheco HUMAN GEOGRAPHY INSTRUCTOR-FRUCTOSE LOADER Primary Care Provider [phone]- [phone] Yoel Youssef MD Primary Care Provider Encounter Details Date Type Department Care Team (Late st Contact Info) Description 06/10/2020 Telephone [facility] [address] [place] [address] [place] [address] [address] Social History Tobacco Use Types [...] AM CDT Legal Sex Male 5:42 PM CARCASS SPLITTER Gender Identity Male 11/27/2022 11:38 AM CDT [...] Author No 05/18/2020 2:00 PM CDT Kisha Woodrad, ANGEL * Is person blind or have [...] Description 2024 9:30 AM CDT Office Visit [facility] - Orthopedic Surgery [address] [place] [phone] Sp Saldivar D, DO [address] [address] 10/10/2024 3:00 PM CDT Office Visit [facility] - Internal Med [address] [place] [address], [place] [phone] Ilana Pulido MD [address] [place] [address] 3 [place] [address] Yang Rodriguez MD [address] [place] [phone] 02/02/2025 9:40 AM CARCASS SPLITTER Office Visit [facility] - Rheumatology [address] [facility], [place] [address] Charles Billy MD [address] [place] [address] documented as of this encounter Visit Diagnoses Not on filedocumented in this encounter Care Teams Security Associate Relationship Specialty Start Date End Date Suyapa Velazquez MD Replaced by [facility] [place] [address] PCP - General Family Medicine 05/11/20 10/31/20 Lorraine Pena HUMAN GEOGRAPHY INSTRUCTOR-FRUCTOSE LOADER [address] [phone] PCP - General 11/01/20 01/30/21 Michelle Pacheco APRN-FRUCTOSE LOADER [address] [place] [phone] PCP - General 01/31/21 07/03/24 Yoel Youssef MD [address] [facility] [address] [place] [address] PCP - General Family Medicine 07/04/24 documented as of this encounter
--- OUTSIDE RECORDS SUMMARY | 2024-09-04 11:45 | XMS_ITS | Encounter Summary ---
Author Organization [facility] Healthcare Address [address] [place] [address] Care Team Providers Care Intramural Director Name Role Phone Yoel Youssef MD Primary Care Provider [phone] Reason for Referral * Cardiology (Routine) - Closed Specialty Diagnoses / Procedures Referred By Contac t Referred To Contact Procedures Stress Echo Exercise W Doppler/CF Alo Pike MD [address] [place] [address] Phone: tel: Referral ID Status Reason Start Date Expiration Date Visits Re quested Visits Authorized [id number] Closed 09/04/2024 10/04/2025 1 1 Encounter Details Date Type Department Care Team (Late st Contact Info) Description 09/04/2024 Orders Only [facility] Medical Group Cardiology [address] [facility] [address] [place] [address] Alo Pike MD [address] [place] [address] Social History Tobacco Use Types Packs/Day Years Used Date Smoking Tobacco: Former Cigarettes 1 30 Q uit: 2019 Vaping 2018 - 2022 Smokeless Tobacco: Never Comments:Uses nicotine gum AUDIT-C Answer Date Recorded [...] on file Legal Sex Male 10:10 AM SENIOR ASIC DESIGN ENGINEER Gender Identity Not on file Sexual Orientation Not on file documented as of this encounter Plan of Treatment Not on file documented as of this encounter Procedures Procedure Name Priority Date/Time Associated Diagnosis Comments STRESS ECHO EXERCISE W DOPPLER/CF Routine 11/25/2021 8:04 AM CDT documented in this encounter Results * Stress Echo Exercise W Doppler/CF (11/25/2021 8:04 AM CDT) Anatomical Region Laterality Modality Ultrasound us Historical Provider CV ECHO PROCEDURES Final Result documented in this encounter Visit Diagnoses Not on filedocumented in this encounter Care Teams Intramural Director Relationship Specialty Start Date End Date Yoel Youssef MD [address] [place] [id number] PCP - General Family Medicine 09/04/23 documented as of this encounter
--- OUTSIDE RECORDS SUMMARY | 2024-09-04 11:45 | XMS_ITS | Encounter Summary ---
Author Organization [facility] Address [facility] [place] [address] Care Team Providers Care Premix Operator Concentrate Name Role Phone Michelle Pacheco [facility] Primary Care Provider [phone] Yoel Youssef MD Primary Care Provider [phone] Reason for Visit * Reason Onset Date Comments Question 09/27/2021 Encounter Details Date Type Department Care Team (Late st Contact Info) Description 09/27/2021 Telephone [facility] [address] [place] [address] Michelle Pacheco [facility] [address] [place] [phone] Question Social History Tobacco Use Types Packs/Day [...] AM CDT Legal Sex Male 5:42 PM PROJECT FACILITATOR Gender Identity Male 11/27/2022 11:38 AM CDT [...] level of concerns. Patient Call Back number: [phone] documented in this encounter Plan of Treatment Upcoming Encounters Date Type Department Care Team (Late st Contact Info) Description 2024 9:30 AM CDT Office Visit [facility] - Orthopedic Surgery [address] [place] [phone] Sp Saldivar, DO [address] [facility] [place] [address] 10/10/2024 3:00 PM CDT Office Visit [facility] - Internal Med [address] [place] [phone] Ilana Pulido MD [address] [place] [address] [address] [place] [address] [place] [address] [place] [phone] 02/02/2025 9:40 AM PROJECT FACILITATOR Office Visit [facility] - Rheumatology [address] [place] [phone] Charles Billy MD [address] [place] [address] documented as of this encounter Visit Diagnoses Not on filedocumented in this encounter Care Teams Premix Operator Concentrate Relationship Specialty Start Date End Date Michelle Pacheco APRN-COMBINATION OPERATOR [address] [place] [phone] PCP - General 01/31/21 07/03/24 Yoel Youssef MD [address] [place], [place] [phone] PCP - General Family Medicine 07/04/24 documented as of this encounter
--- OUTSIDE RECORDS SUMMARY | 2024-09-04 11:45 | XMS_ITS | Encounter Summary ---
Author Organization [facility] Address [facility] [place] [address] Care Team Providers Care Gun Stock Maker Name Role Phone Yoel Youssef MD Primary Care Provider [phone] Encounter Details Date Type Department Care Team (Late st Contact Info) Description 08/29/2024 Orders Only [facility] - Rheumatology [address] [place] [address], [place] [address] Charles Billy MD [address] [place] [phone] Psoriatic arthritis (HCC); Other psoriasis; Therapeutic drug monitoring; Immunosuppression due to drug therapy (HCC) Social History Tobacco Use Types Packs/Day Years [...] Recorded Patient Health Questionnaire-2 Score 6 07/04/2024 [facility] [place] of Occupat ional Health - Occupational Stress [...] place to sleep or slept in a usp (including now)? No 11/27/2022 Education Answer Date Recorded What is the highest level of school you have completed or the highest degree you have received? High school graduate 11/27/2022 Sex and Gender Information Value Date Recorded Sex Assigned at Male 11/27/2022 11:38 AM CDT Legal Sex Male 5:42 PM WEIGHT LOSS CONSULTANT Gender Identity Male 11/27/2022 11:38 AM CDT [...] Description 2024 9:30 AM CDT Office Visit [facility] - Orthopedic Surgery [address] [place] [phone] Sp Saldivar, DO [address] [address] 10/10/2024 3:00 PM CDT Office Visit [facility] - Internal Med [address] [place] [phone] Ilana Pulido MD [address] [place] [address] [address] [place] [phone] Yang Rodriguez MD [address] [place] [address] 02/02/2025 9:40 AM WEIGHT LOSS CONSULTANT Office Visit [facility] - Rheumatology [address] [place] [phone] Charles Billy MD [address] [place] [phone] documented as of this encounter Visit Diagnoses Diagnosis Psoriatic arthritis (HCC) Psoriatic arthropathy Other psoriasis Therapeutic drug monitoring Encounter for therapeutic drug monitoring Immunosuppression due to drug therapy (HCC) documented in this encounter Care Teams Gun Stock Maker Relationship Specialty Start Date End Date Yoel Youssef MD [address] [facility] [address] [place] [address] PCP - General Family Medicine 07/04/24 documented as of this encounter
--- OUTSIDE RECORDS SUMMARY | 2024-09-04 11:45 | XMS_ITS | Encounter Summary ---
Author Organization [facility] Address [address] [facility] [place] [address] Care Team Providers Care Supervisor Shipping Room Name Role Phone Michelle Pacheco Ana ALEJANDRO-CAMP HEAD COUNSELOR Primary Care Provider [phone] Yoel Youssef MD Primary Care Provider [phone] Reason for Visit * Reason Comments Refill Request Encounter Details Date Type Department Care Team (Late st Contact Info) Description 07/21/2023 Refill [facility] Dermatology [address] [facility] [place], [place] [address] Isiah Seaman MD [address] [facility] [place] [phone] Refill Request Social History Tobacco Use Types [...] Recorded Patient Health Questionnaire-2 Score 3 11/27/2022 [facility] of Occupat ional Health - Occupational [...] place to sleep or slept in a [place] facility (including now)? No 11/27/2022 Education Answer Date Recorded What is the highest level of school you have completed or the highest degree you have received? High school graduate 11/27/2022 Sex and Gender Information Value Date Recorded Sex Assigned at Male 11/27/2022 11:38 AM CDT Legal Sex Male 5:42 PM SCREEN AND CYCLONE REPAIRER Gender Identity Male 11/27/2022 11:38 AM CDT [...] [facility] - Orthopedic [facility] [address] [place] [phone] Sp Saldivar, DO [address] [place] [address] [address] 10/10/2024 3:00 PM CDT Office Visit [facility] - Internal Med [address] [place] [phone] Ilana Pulido MD [address] [place] [address] 3 [place] [phone] [place] [address] [place] [phone] 02/02/2025 9:40 AM SCREEN AND CYCLONE REPAIRER [facility] [address] [place] [phone] Charles Billy MD [address] [place] [phone] documented as of this encounter Visit Diagnoses Diagnosis Psoriasis Other psoriasis documented in this encounter Care Teams Supervisor Shipping Room Relationship Specialty Start Date End Date Michelle Pacheco APRN-CAMP HEAD COUNSELOR [address] [place] [address] PCP - General 01/31/21 07/03/24 Yoel Youssef MD [address] [facility] [address] [place] [address] PCP - General Family Medicine 07/04/24 documented as of this encounter
--- OUTSIDE RECORDS SUMMARY | 2024-09-04 11:45 | XMS_ITS | Continuity of Care Document ---
Author Organization [facility] Address [address] [place] [place] [address] Phone Care Team Providers Care Clinical Services Specialist Name Role Phone Blayne Plummer MD Unavailable [...] on Encounter PREV VISIT, NEW, AGE 40-64 [facility], [address] [place], [address], tel:[phone] [facility] PHysical (chief complaint) Dietary surveillance and counselingRoutine Medical ExamRoutine Medical Exam [address]. [address] [employer] [place], [place], [id number] , [place]. tel:[phone] Family History Family Member Type Diagnosis Age At Onset Father Problem (finding) COPD Father Problem (finding) Diabetes mellitus Mother Problem (finding) Diabetes mellitus Mother Problem (finding) Hypertension Mother Problem (finding) CHF Sister Problem (finding) Alcoholism Payers Payer name Insurance type Covered alliance party ID Authoriza tion(s) No Information Social [...] Mental Status Date Cognitive Assessment Orientation - [place] ed to time, place, person, situation.
[2024-09-04 12:30] LABS: Hematocrit 45.7 % (42.0-52.0); Hemoglobin 15.2 g/dL (14.0-18.0); Immature Granulocyte Percent A 0.2 % (0-0.5); Lymphocytes Absolute Auto 2.13 K/mm3 (0.9-3.2); Mean Corpuscular HGB Conc 33.3 g/dl (32-36); Mean Corpuscular Hemoglobin 31.2 pg (26-34); Mean Corpuscular Volume 93.8 fl (80-100); Nucleated Red Blood Cells Absolute Auto 0.000 K/mm3 (0.0-0.012); Nucleated Red Blood Cells Perc 0.0 % (0.0-0.2); Platelet Count Result 220 k/mm3 (150-375); Red Blood Count 4.87 M/mm3 (4.6-6.20); White Blood Count 5.3 K/mm3 (4.5-10.0)
[2024-09-04 12:51] LABS: Alanine Aminotransferase 22 U/L (6-50); Albumin Level 4.4 g/dL (3.5-5.1); Alkaline Phosphatase 81 U/L (38-126); Anion Gap 9 mmol/L (4-12); Aspartate Amino Transferase 33 U/L (17-59); Bilirubin,Total 0.9 mg/dL (0.2-1.3); Blood Urea Nitrogen 16 mg/dL (9-20); Calcium 9.4 mg/dL (8.4-10.2); Carbon Dioxide 27 mmol/L (22-30); Chloride 102 mmol/L (98-107); Estimated Glomerular Filt Rate > 60; Glucose 104 mg/dL (65-110); Potassium 3.7 mmol/L (3.4-5.0); Sodium 138 mmol/L (137-145); Total Protein 7.3 g/dL (6.3-8.2)
== END 2024-09-04 11:36 | disposition home or self-care (01) ==
PROVIDERS: PCP Family Medicine
DX: Z79.899 Other long term (current) drug therapy (principal)
CPT/HCPCS: 36415; 80053; 85025

== ENCOUNTER 2024-10-24 11:26 | Outpatient (CLI) | payer MEDICARE, SELFPAY ==
--- OUTSIDE RECORDS SUMMARY | 2024-10-24 11:52 | XMS_ITS | Encounter Summary ---
Author Organization [facility] Address [address] [facility] [place] [address] Care Team Providers Care Epic Application Coordinator Name Role Phone Suyapa Velazquez MD Primary Care Provider [phone] Lorraine Pena PUMP MECHANIC-PCB DESIGNER Primary Care Provider Michelle Pacheco PUMP MECHANIC-PCB DESIGNER Primary Care Provider [phone]- [phone] Yoel Youssef MD Primary Care Provider Encounter Details Date Type Department Care Team (Late st Contact Info) Description 06/10/2020 Telephone [facility] [address] [place] [address] [place] [address] [address] Social History Tobacco Use Types [...] AM CDT Legal Sex Male 5:42 PM NAIL POLISH BRUSH MACHINE FEEDER Gender Identity Male 11/27/2022 11:38 AM CDT [...] Care Team (Late st Contact Info) Description 02/02/2025 9:40 AM NAIL POLISH BRUSH MACHINE FEEDER Office Visit [facility] - Rheumatology [address] [place] [address], [facility] [place] [phone] Charles Billy MD [address] [place] [phone] documented as of this encounter Visit Diagnoses Not on filedocumented in this encounter Care Teams Epic Application Coordinator Relationship Specialty Start Date End Date Suyapa Velazquez MD [address] [place] [phone] PCP - General Family Medicine 05/11/20 10/31/20 Lorraine Pena, PUMP MECHANIC-PCB DESIGNER [facility] [place] [address] PCP - General 11/01/20 01/30/21 Michelle Pacheco APRN-PCB DESIGNER [address] [place] [address] PCP - General 01/31/21 07/03/24 Yoel Youssef MD [address] [place] [address] PCP - General Family Medicine 07/04/24 documented as of this encounter
--- OUTSIDE RECORDS SUMMARY | 2024-10-24 11:52 | XMS_ITS | Clinical Summary ---
Author Organization [facility] Address [address] [place] [address] Care Team Providers Care Social Media Executive Name Role Phone Yoel Youssef MD Primary Care Provider [phone] Source Comments [facility],non-owned Affiliates and Associated Physician Practices is amultiple site organization consisting of ambulatory clinics and hospital sitesin [place], [place], [place] and [place]. This disclosure is being madepursuant to the Care Everywhere program and may not contain all information available regarding this patient. Last updated 17.[facility] Allergies Active Allergy Reactions Criticality Noted Date [...] injection. 100 Each 1 08/05/19 25 Active Active Problems Problem Noted Date Diagnosed [...] Encounters Date Type Department Care Team Description 10/24/2024 Orders Only [facility] - Rheumatology [address] [place] [phone] Charles Billy MD Psoriatic arthritis (HCC); Other psoriasis; Therapeutic drug monitoring; Immunosuppression due to drug therapy (HCC) 10/16/2024 Telephone [facility] - Centralized Scheduling [address] [place] [address] Ilana Pulido MD 09/26/2024 Orders Only [facility] - Rheumatology [address] [place] [phone] Charles Billy MD Psoriatic arthritis (HCC); Other psoriasis; Therapeutic drug monitoring; Immunosuppression due to drug therapy (HCC) 08/29/2024 Orders Only [facility] - Rheumatology [address] [place] [phone] Charles Billy MD Psoriatic arthritis (HCC); Other psoriasis; Therapeutic drug monitoring; Immunosuppression due to drug therapy (HCC) 08/04/2024 10:20 AM CDT Office Visit [facility] - Rheumatology [address] [place] [phone] Charles Billy MD Psoriatic arthritis (HCC) (Primary Dx); Other psoriasis; Therapeutic drug monitoring; Immunosuppression due to drug therapy (HCC) 08/04/2024 Travel from Last 3 Months Family History Medical [...] Recorded Patient Health Questionnaire-2 Score 6 07/04/2024 [facility] [place] of Occupat ional Health - Occupational Stress [...] place to sleep or slept in a fci (including now)? No 11/27/2022 Education Answer Date Recorded What is the highest level of school you have completed or the highest degree you have received? High school graduate 11/27/2022 Sex and Gender Information Value Date Recorded Sex Assigned at Male 11/27/2022 11:38 AM CDT Legal Sex Male 5:42 PM SALES SUPERINTENDENT Gender Identity Male 11/27/2022 11:38 AM CDT [...] st Contact Info) Description 02/02/2025 9:40 AM SALES SUPERINTENDENT Office Visit [facility] - Rheumatology [facility] [facility], [place] [phone] Charles Billy MD [address] [place] [phone] Health Maintenance Due Date Last Done Comments [...] this topic Medical Devices Implanted Type Area Remediation Consultant Device Identifier Shelf Expiration Date Model / Serial / Lot Pro-Dense Core Decompression Procedure Kit Implanted:Qty: 1 on 05/18/2020 by Gil Shen MD at [facility] Left: Hip [employer] 04/15/2023 [id number] / / [id number] Description: Pro-Dense Core Decompression Procedure Kit Implanted:Qty: 1 on 05/18/2020 by Gil Shen MD at [facility] Right: Hip [employer] 04/15/2023 [id number] / / [id number] Description:fc Procedures Procedure Name Priority Date/Time Associated Diagnosis Comments COMPREHENSIVE METABOLIC PANEL Routine 05/30/2024 10:26 AM [...] Recently Relevant to Health Maintenance Results * HEMOGLOBIN A1C (05/30/2024 10:26 AM CDT) Hemoglobin A1c 5.5 <=5.6 % 05/30/2024 3:[address] [facility] Estimated Average Glucose 111 mg/dL 05/30/2024 3:57 PM [facility] Comment: HbA1c Interpretation: Normal : < 5.7% Pre-diabetes: 5.7-6.4% Diabetes: Equal to or greater than 6.5% Test results diagnostic of diabetes should be repeated for confirmation. Treatment target values recommended by ADA and other clinical organizations should be used to evaluate metabolic control in patients. Reference: [place] Diabetes Association, Standards of Care in Diabetes [...] MD LAB - CHEMISTRY ORDERABLES Final Result [facility] [address] [place] [phone], [facility] [phone] * (ABNORMAL) COMPREHENSIVE METABOLIC PANEL (05/30/2024 10:26 AM CDT) BUN 9 7 - 26 mg/dL 05/30/2024 11:[address] [facility] Creatinine 0.98 0.71 - 1.16 mg/dL 05/30/2024 11:[address] [facility] Sodium 138 136 - 145 mmol/L 05/30/2024 11:15 AM [facility] Potassium 4.1 3.5 - 4.5 mmol/L 05/30/2024 11:15 AM [facility] Chloride 105 98 - 107 mmol/L 05/30/2024 11:15 AM [facility] CO2 23 22 - 29 mmol/L 05/30/2024 11:15 AM [facility] Glucose 102(H) 70 - 99 mg/dL 05/30/2024 11:15 AM [facility] Calcium 9.4 8.4 - 10.2 mg/dL 05/30/2024 11:15 AM [facility] Protein Total 7.1 6.0 - 8.3 g/dL 05/30/2024 11:15 AM [facility] Albumin 4.3 3.4 - 5.0 g/dL 05/30/2024 11:15 AM [facility] Bilirubin Total 0.9 0.2 - 1.2 mg/dL 05/30/2024 11:15 AM [facility] Alkaline Phosphatase 81 40 - 150 U/L 05/30/2024 11:15 AM [facility] ALT 18 5 - 55 U/L 05/30/2024 11:15 AM [facility] AST 15 5 - 34 U/L 05/30/2024 11:15 AM [facility] Anion Gap 10 6 - 16 05/30/2024 11:15 AM [facility] BUN/Creatinine Ratio 9 7 - 23 05/30/2024 11:15 AM [facility] Osmolality Calculated 285 275 - 295 mOsm/kg 05/30/2024 11:15 AM [facility] Albumin/Globulin Ratio 1.5 1.1 - 2.3 05/30/2024 11:15 AM [facility] eGFR by CKD-EPI >90 >=90 mL/min/1.7 3 m2 05/30/2024 11:15 AM [facility] Blood BLOOD SPECIMEN / Unknown Lab Venipuncture / Unknown 05/30/2024 10:26 AM T 05/30/2024 10:43 AM CDT Charles Billy MD LAB - CHEMISTRY ORDERABLES Final Result [address] [address], [place] [phone] * HEPATITIS C ANTIBODY (05/30/2024 10:26 AM CDT) Hepatitis C Antibody Non-react miguel Non-reac tive 05/30/2024 11:30 AM CDT [facility] Comment:Hepatitis C Antibody screen indicates no [...] CHEMISTRY ORDERABLES Final Result Performing Organization Address City/[facility]/ZIP Co de Phone Number [address] [address], [place] [phone] * HIV-1 HIV-2 ANTIBODY + HIV P24 AG PANEL (05/20/2021 8:56 AM CDT) HIV Antigen/Antibod y 1 & 2 Non-reacti ve Non-react miguel 05/20/2021 9:53 AM CDT [facility] Comment:No Laboratory eviden ce of HIV infection. Blood BLOOD SPECIMEN / Unknown Lab Venipuncture / Unknown 05/20/2021 8:56 AM CDT 05/20/2021 9:09 AM CDT Michelle Pacheco HAND COMPOSITOR-FACILITIES AND GROUNDS DIRECTOR LAB - CHEMISTRY ORDERABLES Final Result Performing Organization Address City/[facility]/ZIP Co de Phone Number [address] [address], [place] [phone] * MICROALB/CREAT RATIO URINE RANDOM PANEL (05/20/2021 8:56 AM CDT) Albumin Random Urine 20.5 Not Established ug/mL 05/20/2021 9:[address] [facility] Creatinine Urine 293 Not Established mg/dL 05/20/2021 9:[address] [facility] Urine Albumin/Creati nine Ratio 7 <30 mg/g 05/20/2021 9:[address] [facility] Urine URINE SPECIMEN OBTAINED BY CLEAN CATCH PROCEDURE / Unknown Collection / Unknown 05/20/2021 8:56 AM CDT 05/20/2021 9:09 AM CDT Michelle Pacheco HAND COMPOSITOR-FACILITIES AND GROUNDS DIRECTOR LAB - URINE CHEMISTRY ORDE IMANI Final Result [facility] [address] [place] [address], [facility] [phone] from Last 3 Months or Most Recently Relevant to Health Maintenance Insurance [facility] MANAGED MEDICARE ADV Advance Directives * Full Code (Latest Code Status on File) Date Activated Date Inactivated Comments 05/18/2020 1:50 PM 05/19/2020 3:43 PM Care Teams Social Media Executive Relationship Specialty Start Date End Date Yoel Youssef MD [address] [place] [address] PCP - General Family Medicine 07/04/24
--- OUTSIDE RECORDS SUMMARY | 2024-10-24 11:52 | XMS_ITS | Encounter Summary ---
Author Organization [facility] Address [address] [place] [address] Care Team Providers Care Jelly Maker Name Role Phone Michelle Pacheco Ana ALEJANDRO-BRICK MACHINE OPERATOR Primary Care Provider [phone] Yoel Youssef MD Primary Care Provider Reason for Visit * Reason Comments Refill Request Encounter Details Date Type Department Care Team (Late st Contact Info) Description 07/21/2023 Refill [facility] - Dermatology [address] [facility] [place] [address] Isiah Seaman MD [address] [facility] [place] [phone] Refill Request Social History Tobacco Use Types [...] Recorded Patient Health Questionnaire-2 Score 3 11/27/2022 [facility] of Occupat ional Health - Occupational [...] AM CDT Legal Sex Male 5:42 PM PRODUCTION TEAM MEMBER Gender Identity Male 11/27/2022 11:38 AM CDT [...] Entry Date Author No 05/18/2020 2:00 PM Kisha Ty RN documented in this encounter Plan of Treatment Upcoming Encounters Date Type Department Care Team (Late st Contact Info) Description 02/02/2025 9:40 AM PRODUCTION TEAM MEMBER Office Visit [facility] - Rheumatology [address] [facility] [place] [phone] Charles Billy MD [facility] [place] [phone] documented as of this encounter Visit Diagnoses Diagnosis Psoriasis Other psoriasis documented in this encounter Care Teams Jelly Maker Relationship Specialty Start Date End Date Michelle Pacheco, FINANCE DIRECTOR-BRICK MACHINE OPERATOR [address] [place] [phone] PCP - General 01/31/21 07/03/24 Yoel Youssef MD [address] [place] [address] PCP - General Family Medicine 07/04/24 documented as of this encounter
--- OUTSIDE RECORDS SUMMARY | 2024-10-24 11:52 | XMS_ITS | Encounter Summary ---
Author Organization [facility] Address [address] [place] [address] Care Team Providers Care Lithographic Artist Name Role Phone Osmar Tatum MD Primary Care Provider [phone] Suyapa Velazqeuz MD Primary Care Provider [phone] Lorraine Pena CNC LASER OPERATOR-MAINTENANCE WORKER SWIMMING POOL Primary Care Provider Michelle Pacheco CNC LASER OPERATOR-MAINTENANCE WORKER SWIMMING POOL Primary Care Provider [phone] Yoel Youssef MD Primary Care Provider [phone] Encounter Details Date Type Department Care Team (Late st Contact Info) Description 01/19/2020 Telephone [facility] [address] [place] [address] Samantha Kearns MD [address] [place] [address] Social History Tobacco Use Types Packs/Day Years Used Date Smoking Tobacco: Former Cigarettes Smokeless Tobacco: Never Comments:Stopped 60 days ago ! yay! Alcohol Use Standard Drinks/Week Comments Not Currently 0 (1 standard drink = 0.6 oz pur e alcohol) once a year Sex and Gender Information Value Date Recorded Sex Assigned at Male 11/27/2022 11:38 AM CDT Legal Sex Male 5:42 PM INSPECTOR POISING Gender Identity Male 11/27/2022 11:38 AM CDT Sexual Orientation Straight 11/27/2022 11 :38 AM CDT COVID-19 Exposure Response Date Recorded In the last month, have you been in contact with someone who was confirmed or suspected to have Coronavirus / COVID-19? No / Unsure 01/07/2020 4:44 PM INSPECTOR POISING documented as of this encounter Miscellaneous Notes * Telephone Encounter - Gretta Rooney - 01/19/2020 4:15 PM CST Current Provider [...] Back number: His Mrs. Delfina Gonzalez's Phone ECTOR POISING documented in this encounter Plan of Treatment Upcoming Encounters Date Type Department Care Team (Late st Contact Info) Description 02/02/2025 9:40 AM INSPECTOR POISING Office Visit [facility] - Rheumatology [address] [place] [address], [facility] [place] [phone] Charles Billy MD [address] [place] [phone] documented as of this encounter Visit Diagnoses Not on filedocumented in this encounter Care Teams Lithographic Artist Relationship Specialty Start Date End Date Osmar Tatmu MD PCP - General 04/12/16 05/10/20 Suyapa Velazquez MD [address] [place] [phone] PCP - General Family Medicine 05/11/20 10/31/20 Lorraine Pena, CNC LASER OPERATOR-MAINTENANCE WORKER SWIMMING POOL [facility] DORCAS ALFARO [address] [address] PCP - General 11/01/20 01/30/21 Michelle Pacheco APRN-MAINTENANCE WORKER SWIMMING POOL [address] [place] [address] PCP - General 01/31/21 07/03/24 Yoel Youssef MD [address] [facility] [address] [place] [address] PCP - General Family Medicine 07/04/24 documented as of this encounter
--- OUTSIDE RECORDS SUMMARY | 2024-10-24 11:52 | XMS_ITS | Encounter Summary ---
Author Organization [facility] Address [address] [facility] [place] [address] Care Team Providers Care Healthcare Administration Internship Name Role Phone Michelle Pacheco Ana ALEJANDRO-ADMINISTRATIVE ASSOCIATE Primary Care Provider [phone] Yoel Youssef MD Primary Care Provider Reason for Visit * Reason Onset Date Comments Patient Requested Call 05/05/2024 Encounter Details Date Type Department Care Team (Late st Contact Info) Description 05/05/2024 Telephone [facility] - Centralized Scheduling [address] [place] [address] Ilana Pulido MD [address] [facility] 3 [place] [address] Patient Requested Call Social History [...] Recorded Patient Health Questionnaire-2 Score 3 11/27/2022 [facility] [place] of Occupat ional Health - Occupational Stress [...] place to sleep or slept in a skilled nursing (including now)? No 11/27/2022 Education Answer Date Recorded What is the highest level of school you have completed or the highest degree you have received? High school graduate 11/27/2022 Sex and Gender Information Value Date Recorded Sex Assigned at Male 11/27/2022 11:38 AM CDT Legal Sex Male 5:42 PM OBSERVER HELPER Gender Identity Male 11/27/2022 11:38 AM [...] he was driving at the time. CB# [phone] * Telephone Encounter - Katiuska Mai - 05/05/2024 3:31 PM CDT Patient is requesting lab orders be sent to [facility] [phone] documented in this encounter Plan of Treatment Upcoming Encounters Date Type Department Care Team (Late st Contact Info) Description 02/02/2025 9:40 AM OBSERVER HELPER Office Visit [facility] - Rheumatology [address] [facility] [place] [address] Charles Billy MD [facility] [place] [phone] documented as of this encounter Visit Diagnoses Not on filedocumented in this encounter Care Teams Healthcare Administration Internship Relationship Specialty Start Date End Date Michelle Pacheco, QUALITY PROCESS ENGINEER-ADMINISTRATIVE ASSOCIATE [address] [place] [address] PCP - General 01/31/21 07/03/24 Yoel Youssef MD [address] [facility] [address] [place] [address] PCP - General Family Medicine 07/04/24 documented as of this encounter
--- OUTSIDE RECORDS SUMMARY | 2024-10-24 11:52 | XMS_ITS | Encounter Summary ---
Author Organization [facility] Address [facility] [place] [address] Care Team Providers Care Cushion Padder Name Role Phone Michelle Pacheco APRNSHRINERS CHILDREN'S Primary Care Provider [phone] Yoel Youssef MD Primary Care Provider [phone] Reason for Visit * Reason Onset Date Comments Question 09/27/2021 Encounter Details Date Type Department Care Team (Late st Contact Info) Description 09/27/2021 Telephone [facility] [address] [place] [address] Michelle Pacheco APRNSHRINERS CHILDREN'S [address] [place] [phone] Question Social History Tobacco Use Types Packs/Day [...] AM CDT Legal Sex Male 5:42 PM PHARMACEUTICAL PLANT OPERATOR Gender Identity Male 11/27/2022 11:38 AM CDT [...] level of concerns. Patient Call Back number: [phone] documented in this encounter Plan of Treatment Upcoming Encounters Date Type Department Care Team (Late st Contact Info) Description 02/02/2025 9:40 AM PHARMACEUTICAL PLANT OPERATOR Office Visit [facility] - Rheumatology [address] [facility] [place] [phone] Charles Billy MD [facility] [place] [phone] documented as of this encounter Visit Diagnoses Not on filedocumented in this encounter Care Teams Cushion Padder Relationship Specialty Start Date End Date Michelle Pacheco APRN-WRAPPER HANDS SPRAYER [address] [place] [phone] PCP - General 01/31/21 07/03/24 Yoel Youssef MD [address] [place] [address] PCP - General Family Medicine 07/04/24 documented as of this encounter
--- OUTSIDE RECORDS SUMMARY | 2024-10-24 11:52 | XMS_ITS | Clinical Summary ---
Author Organization [facility] Address [address] [place] [address] Care Team Providers Care Adjunct Philosophy Faculty Name Role Phone Yoel Youssef MD Primary Care Provider [phone] Allergies Active Allergy Reactions Criticality Noted Date [...] Encounters Date Type Department Care Team Description 09/11/2024 Orders Only [facility] Group Cardiology [address] [facility] [address] [place] [phone] Alo Pike MD 09/04/2024 Orders Only [facility] Medical Group Cardiology [address] [facility] [address] [place] [phone] Alo Pike MD from Last 3 Months Surgical History Surgery [...] on file Legal Sex Male 10:10 AM VISUAL ASSOCIATE Gender Identity Not on file Sexual Orientation Not on file Obstetrics History Last Filed Vital Signs Vital Sign Reading Time Taken Comments Blood Pressure 94/65 03/11/2024 11:17 AM VISUAL ASSOCIATE Pulse 76 03/11/2024 11:17 AM VISUAL ASSOCIATE Temperature 36 C (96.8 F) 12/26/2023 11:10 AM VISUAL ASSOCIATE Respiratory Rate 18 01/29/2024 10:24 AM VISUAL ASSOCIATE Oxygen Saturation 94% 03/11/2024 11:17 AM VISUAL ASSOCIATE Inhaled Oxygen Concentration - - Weight 103.4 kg (228 lb) 03/11/2024 11:17 AM VISUAL ASSOCIATE Height 182.9 cm (6') 03/11/2024 11:17 AM VISUAL ASSOCIATE Body Mass Index 30.92 03/11/2024 11:17 AM VISUAL ASSOCIATE Plan of Treatment Health Maintenance Due Date [...] 06/17/2025 06/18/2023 Medical Devices Implanted Type Area Technical Inspector Device Identifier Shelf Expiration Date Model / Serial / Lot [employer] Lead Neurostimulator Sleep Apnea Thoracic Permanent Respiratory Sensing Inspire 43cm 4340 - [id number] - [id number] Implanted:Qty: 1 on 12/26/2023 by May dEwards MD at [facility] Lead Right: Chest [employer] 08/28/2026 4340 / [id number] / [employer] Inspire 3 Electrode Cuff Tunnel Victorino Lead Neurostimulator Sterile 4063 - [id number] - [id number] Implanted:Qty: 1 on 12/26/2023 by May Edwards MD at [facility] Lead Right: Neck [employer] 03/05/2026 4063 / [id number] / [employer] Inspire Generator 3028 - [id number] - [id number] Implanted:Qty: 1 on 12/26/2023 by May Edwards MD at [facility] Lead Right: Chest [email or web address] 07/29/2026 3028 / [id number] / Procedures Procedure Name Priority Date/Time [...] data last revised 21. Testing performed by: [facility], [address] [place] [address]., [id number] Blood 06/18/2023 11:2 7 AM CDT 06/18/2023 1:56 PM CDT Loree Luna [facility] LAB BLOOD ORDERABLES F inal Result [facility] [address] [facility] Department [place] [address] from Last 3 Months or Most Recently Relevant to Health Maintenance Insurance [facility] MEDICARE ADVANTAGE Care Teams Adjunct Philosophy Faculty Relationship Specialty Start Date End Date Yoel Youssef MD [address] [place] [address] PCP - General Family Medicine 09/04/23
[2024-10-24 12:31] LABS: Hematocrit 45.5 % (42.0-52.0); Hemoglobin 15.2 g/dL (14.0-18.0); Immature Granulocyte Percent A 0.3 % (0-0.5); Lymphocytes Absolute Auto 2.93 K/mm3 (0.9-3.2); Mean Corpuscular HGB Conc 33.4 g/dl (32-36); Mean Corpuscular Hemoglobin 31.8 pg (26-34); Mean Corpuscular Volume 95.2 fl (80-100); Nucleated Red Blood Cells Absolute Auto 0.000 K/mm3 (0.0-0.012); Nucleated Red Blood Cells Perc 0.0 % (0.0-0.2); Platelet Count Result 200 k/mm3 (150-375); Red Blood Count 4.78 M/mm3 (4.6-6.20); White Blood Count 7.1 K/mm3 (4.5-10.0)
[2024-10-24 12:57] LABS: Alanine Aminotransferase 19 U/L (6-50); Albumin Level 4.5 g/dL (3.5-5.1); Alkaline Phosphatase 88 U/L (38-126); Anion Gap 8 mmol/L (4-12); Aspartate Amino Transferase 26 U/L (17-59); Bilirubin,Total 0.8 mg/dL (0.2-1.3); Blood Urea Nitrogen 13 mg/dL (9-20); Calcium 9.6 mg/dL (8.4-10.2); Carbon Dioxide 27 mmol/L (22-30); Chloride 102 mmol/L (98-107); Cholesterol 140 mg/dL (0-200); Estimated Glomerular Filt Rate > 60; Glucose 107 mg/dL (65-110); HDL Direct 35 mg/dL; Magnesium 2.0 mg/dL (1.6-2.3); Potassium 4.4 mmol/L (3.4-5.0); Sodium 137 mmol/L (137-145); Total Protein 7.2 g/dL (6.3-8.2); Triglycerides 214 mg/dL (<150); Uric Acid 5.3 mg/dL (3.5-8.5)
[2024-10-24 13:32] LABS: Prostate Specific Antigen 0.9 ng/mL (< OR = 4.0); Thyroid Stimulating Hormone 2.250 uIU/mL (0.465-4.680)
[2024-10-24 14:07] LABS: Vitamin B12 670.0 pg/mL (239-931)
== END 2024-10-24 11:27 | disposition home or self-care (01) ==
PROVIDERS: PCP Family Medicine; Visit Provider Nurse Practitioner Family
DX: D64.9 Anemia, unspecified (principal); E11.9 Type 2 diabetes mellitus without complications; R07.9 Chest pain, unspecified; E78.5 Hyperlipidemia, unspecified; E66.9 Obesity, unspecified; E55.9 Vitamin D deficiency, unspecified; M10.9 Gout, unspecified; Z12.5 Encounter for screening for malignant neoplasm of prostate; Z79.899 Other long term (current) drug therapy
CPT/HCPCS: 36415; 80053; 80061; 82306; 82607; 82746; 83735; 84153; 84443; 84550; 85025

== ENCOUNTER 2025-01-09 11:14 | Outpatient (CLI) | payer MEDICARE, SELFPAY ==
--- OUTSIDE RECORDS SUMMARY | 2025-01-09 11:21 | XMS_ITS | Encounter Summary ---
Author Organization [facility] Address [address] [facility] [place] [address] Care Team Providers Care Service Manager Name Role Phone Yoel Youssef MD Primary Care Provider Encounter Details Date Type Department Care Team (Late st Contact Info) Description 10/16/2024 Telephone [facility] Central[facility] Scheduling [address] [place] [phone] Ilana Pulido MD [address] [facility] 3 [place] [address] Social History Tobacco Use Types Packs/Day Years [...] Recorded Patient Health Questionnaire-2 Score 6 07/04/2024 [facility] - Occupational Stress Questionnaire Answer Date Recorded [...] place to sleep or slept in a m[facility]p (including now)? No 11/27/2022 Education Answer Date Recorded What is the highest level of school you have completed or the highest degree you have received? High school graduate 11/27/2022 Sex and Gender Information Value Date Recorded Sex Assigned at Male 11/27/2022 11:38 AM CDT Legal Sex Male 5:42 PM WRAPPER STEMMER OPERATOR Gender Identity Male 11/27/2022 11:38 AM [...] encounter Miscellaneous Notes * Telephone Encounter - Nila Sotomayor - 10/16/2024 9:01 AM CDT Pt returning phone call. Also wants to have is blood work orders sent to a place in [place] documented in this encounter Plan of Treatment Upcoming Encounters Date Type Department Care Team (Late st Contact Info) Description 02/02/2025 9:40 AM WRAPPER STEMMER OPERATOR Office Visit [facility] - Rheumatology [address] [place] [address], [facility] [place] [phone] Charles Billy MD [address] [place] [phone] documented as of this encounter Visit Diagnoses Not on filedocumented in this encounter Care Teams Service Manager Relationship Specialty Start Date End Date Yoel Youssef MD [address] [place] [address] PCP - General Family Medicine 07/04/24 documented as of this encounter
--- OUTSIDE RECORDS SUMMARY | 2025-01-09 11:21 | XMS_ITS | Clinical Summary ---
Author Organization [facility] Address [address] [place] [address] Care Team Providers Care Milling Machine Operator Gear Name Role Phone Yoel Youssef MD Primary Care Provider Source Comments [facility],non-owned Affiliates and Associated Physician Practices is amultiple site organization consisting of ambulatory clinics and hospital sitesin [place], [place], [place] and [place]. This disclosure is being madepursuant to the Care Everywhere program and may not contain all information available regarding this patient. Last updated 17.[facility] Allergies Active Allergy Reactions Criticality Noted Date Comments Doxycycline Anaphylaxis,Urticaria High 02/05/2019 Medications * Be aware that medications may not be up to date on this document. Alwaysverify current medications with the patient. albuterol HFA (PROVENTIL;VE NTOLIN;PROAIR ) 108 (90 Base) MCG/ACT inhaler Inhale 1 (one) puff to 2 (two) puffs by mouth every 4 hours as needed 020 Active EPINEPHrine (EPIPEN) 0.3 MG/0.3ML auto-injector pen Inject 0.3 mL into muscle every 24 hours as needed 019 Active oxyCODONE-barb taminophen (PERCOCET) 5-325 MG tablet Take 1 (one) tablet by mouth every 8 hours as needed for Pain 30 tablet 021 Active calcipotriene (DOVONEX) 0.005 % cream Apply 1 Dose to affected area 2 times daily Active simvastatin (Zocor) 10 MG tablet Take 1 (one) tablet by mouth once daily Active atenolol (Tenormin) 25 MG tablet Take 1 (one) tablet by mouth 2 times daily Active pantoprazole EC (Protonix) 20 MG tablet Take 1 (one) tablet by mouth once daily Active tamsulosin (Flomax) 0.4 MG capsule Take 1 (one) capsule by mouth once daily Active ALPRAZolam (Xanax) 0.5 MG tablet Take 1 (one) tablet by mouth 2 times daily as needed Active famotidine (Pepcid) 40 MG tablet Take 1 (one) tablet by mouth every morning Active ONETOUCH DELICA PLUS 30G FINE LANCETS USE TO CHECK GLUCOSE ONCE DAILY Active Symbicort 160-4.5 MCG/ACT inhaler Inhale 2 (two) puffs by mouth as directed Active naproxen (Naprosyn) 500 MG tablet Take 1 (one) tablet by mouth 2 times daily Active atorvastatin (Lipitor) 20 MG tablet Take 1 (one) tablet by mouth once daily Active clobetasol (Temovate) 0.05 % ointmentIndic ations:Other psoriasis Apply to legs twice daily as needed. 30 days supply. 60 g 5 Active risankizumab- rzaa (Skyrizi Pen) 150 MG/ML injectionIndi cations:Other psoriasis Inject 1mL subcutaneously every 12 weeks. 12 week supply. 1 mL 2 Active risankizumab- rzaa (Skyrizi Pen) 150 MG/ML injectionIndi cations:Other psoriasis Inject 1 mL subcutaneously on day 0. Inject 1 mL subcutaneously on day 28. 2 mL 024 Active testosterone cypionate (Depo-Testost erone) 100 MG/ML injection INJECT 1/2 (ONE-HALF) ML INTRAMUSCULARLY ONCE A WEEK Active omeprazole (PriLOSEC) 20 MG capsule Take 1 (one) capsule by mouth every morning Active OneTouch Verio test strip USE STRIP TO CHECK GLUCOSE THREE TIMES DAILY 024 Active lisinopril (Prinivil; Zestril) 2.5 MG tablet Take 1 (one) tablet by mouth once daily 024 Active clotrimazole (Mycelex) 10 MG trocheIndicat ions:Other psoriasis Take 1 (one) Zelalem by mouth 3 times daily as needed (thrush) 70 Zelalem 5 024 Active PARoxetine (Paxil) 20 MG tablet Take 1 (one) tablet by mouth once daily 025 Active allopurinol (Zyloprim) 300 MG tabletIndicat ions:Gout Take 1 (one) tablet by mouth once daily Reasons: Gout 90 tablet 3 025 2025 Active Bimekizumab-b kzx (Bimzelx) 320 MG/2ML SOAJIndicatio ns:Plaque Psoriasis,Pso riatic Arthritis Inject 320 mg subcutaneously 1 (one) time for 1 dose Reasons: Plaque Psoriasis, Psoriasis associated with Arthritis 025 Active Methotrexate Sodium (methotrexate , PF,) 50 MG/2ML injectionIndi cations:Psori asis,Psoriati c Arthritis Inject 0.7 mL subcutaneously every 7 days (once a week) Reasons: Psoriasis, Psoriasis associated with Arthritis 10 mL 3 025 2025 Active folic acid (Folvite) 1 MG tabletIndicat ions:Other psoriasis Take 1 (one) tablet by mouth once daily 90 tablet 3 025 Active TUBERCULIN SYR 1CC/25GX5/8 25G X 5/8 1 ML MISC Use 1 Each every 7 days (once a week) For weekly methotrexate subcutaneous injection. 100 Each 1 025 Active Bimekizumab-b kzx (Bimzelx) 160 MG/ML SOAJIndicatio ns:Psoriatic arthritis (HCC),Other psoriasis INJECT 2 PENS (320MG) UNDER THE SKIN EVERY 8 WEEKS 1 mL 5 025 Active Bimekizumab-b kzx (Bimzelx) 160 MG/ML SOAJIndicatio ns:Plaque Psoriasis,Pso riatic Arthritis Inject 320 mg subcutaneously Every 8 Weeks maintenance dose Reasons: Plaque Psoriasis, Psoriasis associated with Arthritis 2 mL 4 025 2024 Discontinued Active Problems Problem Noted Date Diagnosed Date [...] diabetes mellitus without complications 0 08/17/2017 Overview (11/19/2024): IMO 05/21/2024 IMO 11/19/2024 Encounters Date Type Department Care Team Description 01/09/2025 Telephone [facility] - Rheumatology [address] [place] [address], [place] [address] Charles Billy MD LABS ONLY 01/03/2025 Refill [facility] - Dermatology [address] [place] [address], [place] [phone] Ilana Pulido MD Refill Request 12/19/2024 Orders Only [facility] - Rheumatology [address] [place] [phone] Charles Billy MD Psoriatic arthritis (HCC); Other psoriasis; Therapeutic drug monitoring; Immunosuppression due to drug therapy (HCC) 11/21/2024 Orders Only [facility] - Rheumatology [address] [place] [phone] Charles Billy MD Psoriatic arthritis (HCC); Other psoriasis; Therapeutic drug monitoring; Immunosuppression due to drug therapy (HCC) 10/27/2024 Telephone [facility] - Centralized Scheduling [address] [place] [address] Ilana Pulido MD LABS ONLY 10/24/2024 Telephone [facility] - Rheumatology [address] [place] [phone] Charles Billy MD LABS ONLY 10/24/2024 Orders Only [facility] - Rheumatology [address] [place] [phone] Charles Billy MD Psoriatic arthritis (HCC); Other psoriasis; Therapeutic drug monitoring; Immunosuppression due to drug therapy (HCC) 10/16/2024 Telephone [facility] - Centralized Scheduling [address] [place] [address] Ilana Pulido MD from Last 3 Months Family History Medical [...] Recorded Patient Health Questionnaire-2 Score 6 07/04/2024 [facility] of Occupat ional Health - Occupational Stress [...] place to sleep or slept in a alf (including now)? No 11/27/2022 Education Answer Date Recorded What is the highest level of school you have completed or the highest degree you have received? High school graduate 11/27/2022 Sex and Gender Information Value Date Recorded Sex Assigned at Male 11/27/2022 11:38 AM CDT Legal Sex Male 5:42 PM RESEARCH INVESTIGATOR Gender Identity Male 11/27/2022 11:38 AM CDT [...] st Contact Info) Description 02/02/2025 9:40 AM RESEARCH INVESTIGATOR Office Visit [facility] - Rheumatology [address] [facility], [facility] [place] [address] Charles Billy MD [address] [place] [address] Health Maintenance Due Date Last Done [...] VACCINE (#1) 2024 DIABETES-HGB A1C 11/29/2024 05/30/2024, 05/20/2021 DIABETES-SERUM CREATININE 05/30/20252024, 08/30/2023, 06/08/2023, Additional history exists HIV SCREENING Completed 05/20/2021 HEPATITIS C SCREENING Completed 05/30/2024, 022 HIB VACCINE Aged Out No longer eligi [...] this topic Medical Devices Implanted Type Area Pumping Station Supervisor Device Identifier Shelf Expiration Date Model / Serial / Lot Pro-Dense Core Decompression Procedure Kit Implanted:Qty: 1 on 05/18/2020 by Gil Shen MD at [facility] Left: Hip hike 04/15/2023 [id number] / / [id number] Description: Pro-Dense Core Decompression Procedure Kit Implanted:Qty: 1 on 05/18/2020 by Gil Sehn MD at [facility] Right: Hip [employer] 04/15/2023 [id number] / / [id number] Description:fc Procedures Procedure Name Priority Date/Time Associated [...] * HEMOGLOBIN A1C (05/30/2024 10:26 AM CDT) [facility] Hemoglobin A1c 5.5 <=5.6 % 05/30/2024 3:57 PM CDT [facility] Estimated Average Glucose 111 mg/dL 05/30/2024 3:57 PM T [facility] Comment: HbA1c Interpretation: Normal : < 5.7% Pre-diabetes: 5.7-6.4% Diabetes: Equal to or greater than 6.5% Test results diagnostic of diabetes should be repeated for confirmation. Treatment target values recommended by ADA and other clinical organizations should be used to evaluate metabolic control in patients. Reference: [place] Diabetes Association, Standards of Care in Diabetes [...] MD LAB - CHEMISTRY ORDERABLES Final Result [facility] [address] [place] [address], [facility] [phone] * (ABNORMAL) COMPREHENSIVE METABOLIC PANEL (05/30/2024 10:26 AM CDT) BUN 9 7 - 26 mg/dL 05/30/2024 11:15 AM [facility] Creatinine 0.98 0.71 - 1.16 mg/dL 05/30/2024 11:15 AM [facility] Sodium 138 136 - 145 mmol/L 05/30/2024 11:15 AM [facility] Potassium 4.1 3.5 - 4.5 mmol/L 05/30/2024 11:15 AM [facility] Chloride 105 98 - 107 mmol/L 05/30/2024 11:15 AM [facility] CO2 23 22 - 29 mmol/L 05/30/2024 11:15 AM [facility] Glucose 102(H) 70 - 99 mg/dL 05/30/2024 11:15 AM [facility] Calcium 9.4 8.4 - 10.2 mg/dL 05/30/2024 11:15 AM [facility] Protein Total 7.1 6.0 - 8.3 g/dL 05/30/2024 11:15 AM [facility] Albumin 4.3 3.4 - 5.0 g/dL 05/30/2024 11:15 AM [facility] Bilirubin Total 0.9 0.2 - 1.2 mg/dL 05/30/2024 11:15 AM [facility] Alkaline Phosphatase 81 40 - 150 U/L 05/30/2024 11:15 AM [facility] ALT 18 5 - 55 U/L 05/30/2024 11:15 AM [facility] AST 15 5 - 34 U/L 05/30/2024 11:15 AM [facility] Anion Gap 10 6 - 16 05/30/2024 11:15 AM [facility] BUN/Creatinine Ratio 9 7 - 23 05/30/2024 11:15 AM CDT [facility] Osmolality Calculated 285 275 - 295 mOsm/kg 05/30/2024 11:15 AM T [facility] Albumin/Globulin Ratio 1.5 1.1 - 2.3 05/30/2024 11:15 AM T [facility] eGFR by CKD-EPI >90 >=90 mL/min/1.7 3 m2 05/30/2024 11:15 AM T [facility] Blood BLOOD SPECIMEN / Unknown Lab Venipuncture / Unknown 05/30/2024 10:26 AM CDT 05/30/2024 10:43 AM CDT Charles Billy MD LAB - CHEMISTRY ORDERABLES Final Result [address] [address], [place] [phone] * HEPATITIS C ANTIBODY (05/30/2024 10:26 AM CDT) Hepatitis C Antibody Non-react miguel Non-reac tive 05/30/2024 11:30 AM CDT [facility] Comment:Hepatitis C Antibody screen indicates no [...] MD LAB - CHEMISTRY ORDERABLES Final Result [address] [address], [place] [phone] * HIV-1 HIV-2 ANTIBODY + HIV P24 AG PANEL (05/20/2021 8:56 AM CDT) HIV Antigen/Antibod y 1 & 2 Non-reacti ve Non-react miguel 05/20/2021 9:53 AM CDT [facility] Comment:No Laboratory eviden ce of HIV infection. Blood BLOOD SPECIMEN / Unknown Lab Venipuncture / Unknown 05/20/2021 8:56 AM CDT 05/20/2021 9:09 AM CDT Michelle Perez Junior DIFFERENTIAL REPAIRER-HAIR CLIPPER POWER LAB - CHEMISTRY ORDERABLES Final Result Performing Organization Address City/[facility]/ZIP Co de Phone Number [facility] [address] [place] [address], [facility] [phone] * MICROALB/CREAT RATIO URINE RANDOM PANEL (05/20/2021 8:56 AM CDT) Albumin Random Urine 20.5 Not Established ug/mL 05/20/2021 9:35 AM CDT [facility] Creatinine Urine 293 Not Established mg/dL 05/20/2021 9:35 AM T [facility] Urine Albumin/Creati nine Ratio 7 <30 mg/g 05/20/2021 9:35 AM T [facility] Urine URINE SPECIMEN OBTAINED BY CLEAN CATCH PROCEDURE / Unknown Collection / Unknown 05/20/2021 8:56 AM CDT 05/20/2021 9:09 AM CDT Michelle Pacheco DIFFERENTIAL REPAIRER-HAIR CLIPPER POWER LAB - URINE CHEMISTRY ORDE RABLES Final Result Performing Organization Address [facility]/ZIP Co de Phone Number [facility] [address] [place] [address], [facility] [phone] from Last 3 Months or Most Recently Relevant to Health Maintenance Insurance [employer] [place] [address] Advance Directives * Full Code (Latest Code Status on File) Date Activated Date Inactivated Comments 05/18/2020 1:50 PM 05/19/2020 3:43 PM Care Teams Milling Machine Operator Gear Relationship Specialty Start Date End Date Yoel Youssef MD [address] [place] [address] PCP - General Family Medicine 07/04/24
--- OUTSIDE RECORDS SUMMARY | 2025-01-09 11:21 | XMS_ITS | Encounter Summary ---
Author Organization [facility] Address [facility] [facility] [place] [address] Care Team Providers Care Pad Hand Name Role Phone Yoel Youssef MD Primary Care Provider Reason for Visit * Reason Onset Date Comments LABS ONLY 01/09/2025 Encounter Details Date Type Department Care Team (Late st Contact Info) Description 01/09/2025 Telephone [facility] - Rheumatology [address] [place] [address], [facility] [place] [address] Charles Billy MD [facility] [place] [address] LABS ONLY Social History Tobacco Use Types Packs/Day Years [...] Recorded Patient Health Questionnaire-2 Score 6 07/04/2024 [facility] [place] of Occupat ional Health - Occupational Stress [...] place to sleep or slept in a correction (including now)? No 11/27/2022 Education Answer Date Recorded What is the highest level of school you have completed or the highest degree you have received? High school graduate 11/27/2022 Sex and Gender Information Value Date Recorded Sex Assigned at Male 11/27/2022 11:38 AM CDT Legal Sex Male 5:42 PM EMERGENCY MEDICINE MEDICAL DIRECTOR Gender Identity Male 11/27/2022 11:38 AM CDT [...] Kisha Ty RN documented in this encounter Miscellaneous Notes * Telephone Encounter - Rosanna Villeda - 01/09/2025 9:01 AM CST Patient called in to office today to get his standing orders faxed over to [facility] @ [phone]. /RMA GENCY MEDICINE MEDICAL DIRECTOR documented in this encounter Plan of Treatment Upcoming Encounters Date Type Department Care Team (Late st Contact Info) Description 02/02/2025 9:40 AM EMERGENCY MEDICINE MEDICAL DIRECTOR Office Visit [facility] - Rheumatology [address] [place] [address], [place] [address] Charles Billy MD [address] [place] [phone] documented as of this encounter Visit Diagnoses Not on filedocumented in this encounter Care Teams Pad Hand Relationship Specialty Start Date End Date Yoel Yousesf MD [address] [place] [address] PCP - General Family Medicine 07/04/24 documented as of this encounter
--- OUTSIDE RECORDS SUMMARY | 2025-01-09 11:21 | XMS_ITS | Encounter Summary ---
Author Organization [facility] Address [address] [facility] [place] [address] Care Team Providers Care Life Skills Specialist Name Role Phone Michelle Pacheco Ana ALEJANDRO-GOVERNMENT RELATIONS MANAGER Primary Care Provider [phone] Yoel Youssef MD Primary Care Provider [phone] Reason for Visit * Reason Onset Date Comments Patient Requested Call 05/05/2024 Encounter Details Date Type Department Care Team (Late st Contact Info) Description 05/05/2024 Telephone [facility] - Centralized Scheduling [address] [place] [address] Ilana Pulido MD [address] [facility] [address] [place] [address] Patient Requested Call Social History [...] Recorded Patient Health Questionnaire-2 Score 3 11/27/2022 [facility] [place] of Occupat ional Health - Occupational Stress [...] place to sleep or slept in a mcc (including now)? No 11/27/2022 Education Answer Date Recorded What is the highest level of school you have completed or the highest degree you have received? High school graduate 11/27/2022 Sex and Gender Information Value Date Recorded Sex Assigned at Male 11/27/2022 11:38 AM CDT Legal Sex Male 5:42 PM RIGGING SLINGER Gender Identity Male 11/27/2022 11:38 AM CDT [...] he was driving at the time. CB# [phone] * Telephone Encounter - Katiuska Mai - 05/05/2024 3:31 PM CDT Patient is requesting lab orders be sent to [facility] [phone] documented in this encounter Plan of Treatment Upcoming Encounters Date Type Department Care Team (Late st Contact Info) Description 02/02/2025 9:40 AM RIGGING SLINGER Office Visit [facility] - Rheumatology [address] [facility], [place] [address] Charles Billy MD [facility] [place] [phone] documented as of this encounter Visit Diagnoses Not on filedocumented in this encounter Care Teams Life Skills Specialist Relationship Specialty Start Date End Date Michelle Pacheco, SPECIFICATION MANAGER-GOVERNMENT RELATIONS MANAGER [address] [place] [address] PCP - General 01/31/21 07/03/24 Yoel Youssef MD [address] [facility] [address] [place] [address] PCP - General Family Medicine 07/04/24 documented as of this encounter
--- OUTSIDE RECORDS SUMMARY | 2025-01-09 11:21 | XMS_ITS | Encounter Summary ---
Author Organization [facility] Address [address] [facility] [place] [address] Care Team Providers Care Lace Mender Name Role Phone Michelle Pacheco Ana ALEJANDRO-ROOMS DIRECTOR Primary Care Provider [phone] Yoel Youssef MD Primary Care Provider Reason for Visit * Reason Comments Refill Request Encounter Details Date Type Department Care Team (Late st Contact Info) Description 07/21/2023 Refill [facility] - Dermatology [address] [facility], [place] [address] Isiah Seaman MD [address] [facility] [place] [address] Refill Request Social History Tobacco Use Types [...] Recorded Patient Health Questionnaire-2 Score 3 11/27/2022 [facility] of Occupat ional Health - [...] AM CDT Legal Sex Male 5:42 PM CELL PREPARER Gender Identity Male 11/27/2022 11:38 AM CDT [...] st Contact Info) Description 02/02/2025 9:40 AM CELL PREPARER Office Visit [facility] - Rheumatology [address] [facility], [place] [address] Charles Billy MD [facility] [place] [address] documented as of this encounter Visit Diagnoses Diagnosis Psoriasis Other psoriasis documented in this encounter Care Teams Lace Mender Relationship Specialty Start Date End Date Michelle Pacheco, EKG MONITOR TECH-ROOMS DIRECTOR [address] [place] [phone] PCP - General 01/31/21 07/03/24 Yoel Youssef MD [address] [place] [address] PCP - General Family Medicine 07/04/24 documented as of this encounter
--- OUTSIDE RECORDS SUMMARY | 2025-01-09 11:21 | XMS_ITS | Clinical Summary ---
Author Organization [facility] Address [address] [place] [address] Care Team Providers Care Locomotive Repairer Diesel Name Role Phone Yoel Youssef MD Primary Care Provider [phone] Allergies Active Allergy Reactions Criticality Noted Date [...] Anxiety Arthritis Asthma Autoimmune disease Depression Diabetes GERD (gastroesophageal reflux disease) Sleep apnea Family [...] on file Legal Sex Male 10:10 AM HEATING OPERATORS ENGINEER Gender Identity Not on file Sexual Orientation Not on file Last Filed Vital Signs Vital Sign Reading Time Taken Comments Blood Pressure 94/65 03/11/2024 11:17 AM HEATING OPERATORS ENGINEER Pulse 76 03/11/2024 11:17 AM HEATING OPERATORS ENGINEER Temperature 36 C (96.8 F) 12/26/2023 11:10 AM HEATING OPERATORS ENGINEER Respiratory Rate 18 01/29/2024 10:24 AM HEATING OPERATORS ENGINEER Oxygen Saturation 94% 03/11/2024 11:17 AM HEATING OPERATORS ENGINEER Inhaled Oxygen Concentration - - Weight 103.4 kg (228 lb) 03/11/2024 11:17 AM HEATING OPERATORS ENGINEER Height 182.9 cm (6') 03/11/2024 11:17 AM HEATING OPERATORS ENGINEER Body Mass Index 30.92 03/11/2024 11:17 AM HEATING OPERATORS ENGINEER Plan of Treatment Health Maintenance Due Date [...] 06/17/2025 06/18/2023 Medical Devices Implanted Type Area Overhead Distribution Engineer Device Identifier Shelf Expiration Date Model / Serial / Lot [employer] Lead Neurostimulator Sleep Apnea Thoracic Permanent Respiratory Sensing Inspire 43cm 4340 - [id number] - [id number] Implanted:Qty: 1 on 12/26/2023 by May Edwards MD at [facility] Lead Right: Chest [employer] 08/28/2026 4340 / [id number] / [employer] Inspire 3 Electrode Cuff Tunnel Victorino Lead Neurostimulator Sterile 4063 - [id number] - [id number] Implanted:Qty: 1 on 12/26/2023 by May Edwards MD at [facility] Lead Right: Neck [employer] 03/05/2026 4063 / [id number] / [employer] Inspire Generator 3028 - [id number] - [id number] Implanted:Qty: 1 on 12/26/2023 by May Edwards MD at [facility] Lead Right: Chest [employer] 07/29/2026 3028 / [id number] / Procedures Procedure Name Priority Date/Time [...] revised 21. Testing performed by: [facility], [address] [place] [address]., [id number] Blood 06/18/2023 11:2 7 AM CDT 06/18/2023 1:56 PM CDT us Loree Luna [facility] LAB BLOOD ORDERABLES Final Resul t [facility] [address] [facility] Department [place] [address] from Last 3 Months or Most Recently Relevant to Health Maintenance [place] [address] [facility] MEDICARE ADVANTAGE Care Teams Locomotive Repairer Diesel Relationship Specialty Start Date End Date Yoel Youssef MD [address] [place] [id number] PCP - General Family Medicine 09/04/23
--- OUTSIDE RECORDS SUMMARY | 2025-01-09 11:21 | XMS_ITS | Encounter Summary ---
Author Organization [facility] Address [facility] [facility] [place] [address] Care Team Providers Care Captain/Airline Pilot Name Role Phone Michelle Pacheco [facility] Primary Care Provider [phone] Yoel Youssef MD Primary Care Provider [phone] Reason for Visit * Reason Onset Date Comments Question 09/27/2021 Encounter Details Date Type Department Care Team (Late st Contact Info) Description 09/27/2021 Telephone [facility] [address] [place] [address] Michelle Pacheco [facility] [address] [place] [phone] Question Social History Tobacco Use Types Packs/Day [...] AM CDT Legal Sex Male 5:42 PM BUSINESS BANKING SALES ASSISTANT Gender Identity Male 11/27/2022 11:38 AM CDT [...] level of concerns. Patient Call Back number: [phone] documented in this encounter Plan of Treatment Upcoming Encounters Date Type Department Care Team (Late st Contact Info) Description 02/02/2025 9:40 AM BUSINESS BANKING SALES ASSISTANT Office Visit [facility] - Rheumatology [address] [facility], [place] [phone] Charles Billy MD [facility] [place] [phone] documented as of this encounter Visit Diagnoses Not on filedocumented in this encounter Care Teams Captain/Airline Pilot Relationship Specialty Start Date End Date Michelle Pacheco APRN-IN [employer] [address] [place] [phone] PCP - General 01/31/21 07/03/24 Yoel Youssef MD [address] [place] [address] PCP - General Family Medicine 07/04/24 documented as of this encounter
--- OUTSIDE RECORDS SUMMARY | 2025-01-09 11:21 | XMS_ITS | Encounter Summary ---
Author Organization [facility] Address [facility] [facility] [place] [address] Care Team Providers Care Tank Farm Operator Name Role Phone Osmar Tatum MD Primary Care Provider [phone] Suyapa Velazquez MD Primary Care Provider + [phone] Lorraine Pena CUTTER OUT-INTERIOR DESIGN COORDINATOR Primary Care Provider Michelle Pacheco CUTTER OUT-INTERIOR DESIGN COORDINATOR Primary Care Provider +- [phone] Yoel Youssef MD Primary Care Provider + [phone] Encounter Details Date Type Department Care Team (Late st Contact Info) Description 01/19/2020 Telephone [facility] [address] [place] [address] Samantha Kearns MD [address] [place] [address] Social History Tobacco Use Types Packs/Day Years Used Date Smoking Tobacco: Former Cigarettes Smokeless Tobacco: Never Comments:Stopped 60 days ago ! yay! Alcohol Use Standard Drinks/Week Comments Not Currently 0 (1 standard drink = 0.6 oz pur e alcohol) once a year Sex and Gender Information Value Date Recorded Sex Assigned at Male 11/27/2022 11:38 AM CDT Legal Sex Male 5:42 PM INSIDE SALES CONSULTANT Gender Identity Male 11/27/2022 11:38 AM CDT Sexual Orientation Straight 11/27/2022 11 :38 AM CDT COVID-19 Exposure Response Date Recorded In the last month, have you been in contact with someone who was confirmed or suspected to have Coronavirus / COVID-19? No / Unsure 01/07/2020 4:44 PM INSIDE SALES CONSULTANT documented as of this encounter Miscellaneous Notes [...] blood work. Pleasecall. Patient Call Back number: [phone] His Mrs. Delfina Gonzalez's Phone DE SALES CONSULTANT documented in this encounter Plan of Treatment Upcoming Encounters Date Type Department Care Team (Late st Contact Info) Description 02/02/2025 9:40 AM INSIDE SALES CONSULTANT Office Visit [facility] - Rheumatology [address] [place] [address], [facility] [place] [phone] Charles Billy MD [address] [place] [phone] documented as of this encounter Visit Diagnoses Not on filedocumented in this encounter Care Teams Tank Farm Operator Relationship Specialty Start Date End Date Osmar Tatum MD PCP - General 04/12/16 05/10/20 Suyapa Velazquez MD [address] [place] [phone] PCP - General Family Medicine 05/11/20 10/31/20 Lorraine Pena, CUTTER OUT-INTERIOR DESIGN COORDINATOR [facility] [address] [phone] PCP - General 11/01/20 01/30/21 Michelle Pacheco APRN-INTERIOR DESIGN COORDINATOR [address] [place] [address] PCP - General 01/31/21 07/03/24 Yoel Youssef MD [address] [facility] [address] [place] [address] PCP - General Family Medicine 07/04/24 documented as of this encounter
--- OUTSIDE RECORDS SUMMARY | 2025-01-09 11:21 | XMS_ITS | Encounter Summary ---
Author Organization [facility] Address [address] [facility] [place] [address] Care Team Providers Care Agent Licensing Clerk Name Role Phone Suyapa Velazquez MD Primary Care Provider + [phone] Lorraine Pena REPAIR COIL WINDER-RESPIRATORY TECHNICIAN Primary Care Provider Michelle Pacheco REPAIR COIL WINDER-RESPIRATORY TECHNICIAN Primary Care Provider +- [phone] Yoel Youssef MD Primary Care Provider + [phone] Encounter Details Date Type Department Care Team (Late st Contact Info) Description 06/10/2020 Telephone [facility] [address] [place] [address] [place] [address] [phone] Social History Tobacco Use Types Packs/Day Years Used Date Smoking Tobacco: Former Cigarettes 30 0 10/28/1989 - 10/29/2019 Smokeless Tobacco: Current Snuff Comments:Stopped 60 days ago ! yay! Alcohol Use Standard Drinks/Week Comments Not Currently 0 (1 standard drink = 0.6 oz pur e alcohol) once a year Sex and Gender Information Value Date Recorded Sex Assigned at Male 11/27/2022 11:38 AM CDT Legal Sex Male 5:42 PM SUPERCHARGER MECHANIC Gender Identity Male 11/27/2022 11:38 AM CDT [...] st Contact Info) Description 02/02/2025 9:40 AM SUPERCHARGER MECHANIC Office Visit [facility] - Rheumatology [address] [place] [address], [facility] [place] [phone] Charles Billy MD [address] [place] [phone] documented as of this encounter Visit Diagnoses Not on filedocumented in this encounter Care Teams Agent Licensing Clerk Relationship Specialty Start Date End Date Suyapa Velazquez MD [address] [place] [phone] PCP - General Family Medicine 05/11/20 10/31/20 Lorraine Pena, REPAIR COIL WINDER-RESPIRATORY TECHNICIAN [address] [place] [address] PCP - General 11/01/20 01/30/21 Michelle Pacheco APRN-RESPIRATORY TECHNICIAN [address] [place] [address] PCP - General 01/31/21 07/03/24 Yoel Youssef MD [address] [place] [address] PCP - General Family Medicine 07/04/24 documented as of this encounter
[2025-01-09 12:02] LABS: Hematocrit 44.3 % (42.0-52.0); Hemoglobin 15.1 g/dL (14.0-18.0); Immature Granulocyte Percent A 0.1 % (0-0.5); Lymphocytes Absolute Auto 2.76 K/mm3 (0.9-3.2); Mean Corpuscular HGB Conc 34.1 g/dl (32-36); Mean Corpuscular Hemoglobin 32.8 pg (26-34); Mean Corpuscular Volume 96.3 fl (80-100); Nucleated Red Blood Cells Absolute Auto 0.000 K/mm3 (0.0-0.012); Nucleated Red Blood Cells Perc 0.0 % (0.0-0.2); Platelet Count Result 237 k/mm3 (150-375); Red Blood Count 4.60 M/mm3 (4.6-6.20); White Blood Count 7.0 K/mm3 (4.5-10.0)
[2025-01-09 12:21] LABS: Alanine Aminotransferase 20 U/L (6-50); Albumin Level 4.5 g/dL (3.5-5.1); Alkaline Phosphatase 88 U/L (38-126); Anion Gap 9 mmol/L (4-12); Aspartate Amino Transferase 23 U/L (17-59); Bilirubin,Total 1.1 mg/dL (0.2-1.3); Blood Urea Nitrogen 13 mg/dL (9-20); Calcium 9.5 mg/dL (8.4-10.2); Carbon Dioxide 28 mmol/L (22-30); Chloride 102 mmol/L (98-107); Estimated Glomerular Filt Rate > 60; Glucose 68 mg/dL (65-110); Potassium 4.2 mmol/L (3.4-5.0); Sodium 139 mmol/L (137-145); Total Protein 7.4 g/dL (6.3-8.2)
[2025-01-09 12:35] LABS: Hemoglobin A1C 5.6 % (<5.7)
== END 2025-01-09 11:15 | disposition home or self-care (01) ==
PROVIDERS: PCP Family Medicine; Visit Provider Family Medicine
DX: Z51.81 Encounter for therapeutic drug level monitoring (principal); R73.03 Prediabetes; L40.50 Arthropathic psoriasis, unspecified; Z79.899 Other long term (current) drug therapy; D84.821 Immunodeficiency due to drugs; L40.8 Other psoriasis
CPT/HCPCS: 36415; 80053; 83036; 85025